=== PATIENT | female | born 1975 | race Caucasian/White ===

== ENCOUNTER 2018-07-29 10:51 | Emergency (ER) | payer OTHER, MEDICAID, SELFPAY ==
--- NOTE | 2018-07-29 10:57 | DI.RAD.S_ITS ---
PROCEDURE: XR ANKLE LT MIN 3V INDICATIONS: twist/fall TECHNIQUE: 3 views of the ankle were acquired. COMPARISON: None. FINDINGS: Bones: No fractures or dislocations. Ankle mortise is normally aligned. No suspicious bony lesions. The talar dome demonstrates no dea abnormality. A plantar calcaneal spur is seen. Incidental note is made of an accessory ossicle, an os trigonum. Soft tissues: No tibiotalar joint effusion. Achilles tendon appears normal. IMPRESSION: No displaced fractures are seen on these plain films. If there is focal tenderness, or other clinical concern for a fracture not seen on these images in this patient with a given history of trauma, please consider a dedicated CT or a short-term followup plain film series (in 1-2 weeks) for further evaluation. Dictated by: Josiah Sigala M.D. on 07/29/2018 at 10:21 Approved by: Josiah Sigala M.D. on 07/29/2018 at 10:22
[2018-07-29 10:58] VITALS: BP 140/79; PULSE 97; RESP 18; TEMP 36.8; O2SAT 100
--- NOTE | 2018-07-29 12:53 | ED.LOWEXIN ---
HPI - Extremity Injury (Lower) General Chief Complaint: Extremity Injury, Lower Stated Complaint: think broke her left ankle Time Seen by Provider: 07/29/18 12:49 Source: patient Mode of arrival: ambulatory Limitations: no limitations History of Present Illness HPI Narrative: Patient is a 42-year-old female who presents with all left ankle pain for 2 days. She tripped over cowboy boots do trying to grab a broom. She has been walking on it but it does hurt. Her 2nd toe is a bruised. But she says it is overall improving. She still has pain. MD complaint: ankle injury, foot injury and fall Related Data Allergies Allergy/AdvReac Type Severity Reaction Status Date / Time No Known Drug Allergies Allergy Verified 07/29/18 10:58 Review of Systems Review of Systems GENERAL: Denies chills,fever HEENT: Denies throat pain RESPIRATORY: Denies dyspnea, cough, wheezing CARDIOVASCULAR: Denies chest pain, palpitations GASTROINTESTINAL: Denies nausea, vomiting MUSCULOSKELETAL: See HPI SKIN: No rash, no laceration, no pruritus NEUROLOGIC: Denies weakness, dizziness, headache, numbness 8 point review of systems is negative except for those stated above and HPI [facility] Medical History Healthy adult (Acute) Social History Smoking Status: Current every day smoker Exam Initial Vital Signs Initial Vital Signs: Vital Signs Temperature 98.3 F 07/29/18 10:58 Pulse Rate 97 H 07/29/18 10:58 Respiratory Rate 18 07/29/18 10:58 Blood Pressure 140/79 07/29/18 10:58 Pulse Oximetry 100 07/29/18 10:58 GENERAL: Well-appearing, well-nourished and in no acute distress. CARDIOVASCULAR: peripheral pulses in tact, cap refill <2 sec RESPIRATORY: No respiratory distress, speaks in full sentences without difficulty EXTREMITIES: Normal range of motion, no clubbing or edema. Neurovascularly intact -left ankle pain, no swelling contusion improving on 2nd toe distal pedal pulse intact able to flex and extend at ankle NEUROLOGICAL: Cranial nerves II through XII grossly intact. Normal gait and speech. SKIN: Warm, dry, no petechiae, no rashes or lesions. Course Orders Ordered: ED Orders 07/29/18 10:57 XR ankle LT min 3V Stat Vital Signs - 8 hr 07/29/18 10:58 Temperature 98.3 F Pulse Rate 97 H Respiratory Rate 18 Blood Pressure 140/79 Pulse Oximetry 100 MDM - Extremity Injury (Lower) Imaging Data Left ankle x-ray: Radiologist's impression: PROCEDURE: XR ANKLE LT MIN 3V INDICATIONS: twist/fall TECHNIQUE: 3 views of the ankle were acquired. COMPARISON: None. FINDINGS: Bones: No fractures or dislocations. Ankle mortise is normally aligned. No suspicious bony lesions. The talar dome demonstrates no dea abnormality. A plantar calcaneal spur is seen. Incidental note is made of an accessory ossicle, an os trigonum. Soft tissues: No tibiotalar joint effusion. Achilles tendon appears normal. IMPRESSION: No displaced fractures are seen on these plain films. If there is focal tenderness, or other clinical concern for a fracture not seen on these images in this patient with a given history of trauma, please consider a dedicated CT or a short-term followup plain film series (in 1-2 weeks) for further evaluation. Dictated by: Josiah Sigala M.D. on 07/29/2018 at 10:21 Discharge Plan Departure Patient Disposition: Home Clinical Impression: Left ankle sprain Discharge Date/Time: 07/29/18 13:18 Interventions: ED Discharge Assessment Last Done: 07/29/18 13:17 Instructions: DI for Ankle Sprain Activity Restrictions/Additional Instructions: *You have been diagnosed with left ankle sprain *What to do: Increase activity as tolerated use crutches only if needed if still having pain in 7-10 days may require repeat x-ray with her primary care provider *Continue to take medications as directed Motrin 800 mg every 8 hr if needed for pain with food *Follow up with your primary care provider in 2-3 days *Return to ER if you should have increasing pain inability to walk or any new, worsening or concerning symptoms Referrals: Brando Quezada MD [Physician] - Colette Cornell ARNP [Primary Care Provider] -
== END 2018-07-29 13:18 | disposition home or self-care (01) ==
PROVIDERS: Emergency Provider Emergency Medicine; Family Provider Nurse Practitioner Family; PCP Nurse Practitioner Family
DX: S93.402A Sprain of unspecified ligament of left ankle, initial encounter (principal); W01.0XXA Fall on same level from slipping, tripping and stumbling without subsequent striking against object, initial encounter
CPT/HCPCS: 73610; 99282; 99283

== ENCOUNTER 2018-08-10 18:39 | Emergency (ER) | payer OTHER, MEDICAID, SELFPAY ==
[2018-08-10 18:43] VITALS: BP 155/91; PULSE 104; RESP 18; TEMP 36.4; O2SAT 100
--- NOTE | 2018-08-10 18:51 | ED.LOWEXIN ---
HPI - Extremity Injury (Lower) <Laurie Kwan PA-C - Last Filed: 08/10/18 22:11> General Chief Complaint: Extremity Injury, Lower Stated Complaint: LT ANKLE PAIN Time Seen by Provider: 08/10/18 18:51 Source: patient and family Mode of arrival: wheelchair Limitations: no limitations History of Present Illness HPI Narrative: This 43-year-old female returns due to persistent left ankle pain. She tripped over a boot 2 weeks ago and pitched forward, and had ankle pain right away. She states that she did not actually fall. She states that she has had done pain. She tried to wear her wrap and crutches the 1st 2 days but mostly has been trying to walk on it. She states that she still had significant pain but was doing okay until she got up last night to get to the restroom and pain was acutely worse when she tried to walk. She does not remember any specific trauma. She denies any new weakness or paresthesia and states that it is mainly pain that keeps her from walking. She also states she feels pain in the arch of her foot with walking. She denies any other new complaints or new injury Related Data Allergies Allergy/AdvReac Type Severity Reaction Status Date / Time No Known Drug Allergies Allergy Verified 07/29/18 10:58 Review of Systems <Laurie Kwan PA-C - Last Filed: 08/10/18 22:11> Review of Systems All systems reviewed & are unremarkable except as noted in HPI and below Exam <Laurie Kwan PA-C - Last Filed: 08/10/18 22:11> Narrative Exam Narrative: GENERAL APPEARANCE: Patient sitting comfortably, in no distress. LUNGS: Clear to auscultation bilaterally. HEART: Rate and rhythm regular without murmur, normal S1 and S2, no S3 or S4. MUSCULOSKELETAL: Left foot and ankle there is no effusion. She is tender throughout the ankle, most anterior and distal to the lateral malleolus. She has full active range of motion, tender with passive range of motion especially inversion/eversion. There is no obvious laxity. Left foot minimal tenderness on the arch, plantar surface, no tenderness over the metatarsals. Normal plantar and dorsiflexion of the toes. Achilles is intact by palpation. NEUROVASCULAR: Left lower extremity sensation is grossly intact, foot is cool but not cold to touch. Faint DP pulse is palpable bilaterally, pulses are easily audible with Doppler Initial Vital Signs Initial Vital Signs: Vital Signs Temperature 97.5 F L 08/10/18 18:43 Pulse Rate 104 H 08/10/18 18:43 Respiratory Rate 18 08/10/18 18:43 Blood Pressure 155/91 H 08/10/18 18:43 Pulse Oximetry 100 08/10/18 18:43 <Ventura Kaminski DO - Last Filed: 08/10/18 23:51> Initial Vital Signs Initial Vital Signs: Vital Signs Temperature 97.5 F L 08/10/18 18:43 Pulse Rate 104 H 08/10/18 18:43 Respiratory Rate 18 08/10/18 18:43 Blood Pressure 155/91 H 08/10/18 18:43 Pulse Oximetry 100 08/10/18 18:43 Course <Laurie Kwna PA-C - Last Filed: 08/10/18 22:11> Additional Information: CT findings reviewed with patient. 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 This does not correspond with where she thinks her previous foot fracture was, does correspond with the side of pain. She was tested in a walking boot and feels much better in terms of pain with this. She will continue wearing this when weight-bearing, and I asked her to follow up with our local freezer worker to ensure improving as expected View Report History [address] [address] [address] Scan Report Signed Patient: Phylicia Rivas MR#: [id number] : 1975 Acct:[id number] Age/Sex: 43 / F Date of Service: 08/10/18 Loc: ED Accession Number: [id number] Procedure: CT LE LT wo con Ordering Provider: Laurie Kwan P.A-C PROCEDURE: CT LE LT W CON INDICATIONS: possible navicular fx, L. foot TECHNIQUE: Noncontrast 1-1.5 mm axial sections acquired from above the tibiotalar joint to the bottom of the calcaneus, with coronal and sagittal reformats. COMPARISON: None. FINDINGS: Image quality: Excellent. Bones: No acute fracture or dislocation. There is a chronic appearing non-unified fracture of the medial navicular bone versus a medial accessory ossicle. Soft tissues: No soft tissue swelling. No soft tissue fluid collections. IMPRESSION: No acute fracture. 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 Dictated by: Dunia Patel M.D. on 08/10/2018 at 20:45 Approved by: Dunia Patel M.D. on 08/10/2018 at 20:52 Orders Ordered: ED Orders 08/10/18 19:11 XR ankle LT min 3V Stat 08/10/18 19:16 XR foot LT min 3V Stat 08/10/18 20:09 CT LE LT wo con Stat Discontinued Medications Hydrocodone Bitart/Acetaminophen ([place] 5/325) 1 tab PO NOW ONE Stop: 08/10/18 20:10 Last Admin: 08/10/18 20:35 Dose: 1 tab Vital Signs - 8 hr 08/10/18 18:43 08/10/18 21:30 Temperature 97.5 F L Pulse Rate 104 H 94 H Respiratory Rate 18 20 Blood Pressure 155/91 H 127/84 Pulse Oximetry 100 98 <Ventura Kaminski DO - Last Filed: 08/10/18 23:51> Orders Ordered: ED Orders 08/10/18 19:11 XR ankle LT min 3V Stat 08/10/18 19:16 XR foot LT min 3V Stat 08/10/18 20:09 CT LE LT wo con Stat Discontinued Medications Hydrocodone Bitart/Acetaminophen ([place] 5/325) 1 tab PO NOW ONE Stop: 08/10/18 20:10 Last Admin: 08/10/18 20:35 Dose: 1 tab Vital Signs - 8 hr 08/10/18 18:43 08/10/18 21:30 Temperature 97.5 F L Pulse Rate 104 H 94 H Respiratory Rate 18 20 Blood Pressure 155/91 H 127/84 Pulse Oximetry 100 98 MDM - Extremity Injury (Lower) <Laurie Kwan PA-C - Last Filed: 08/10/18 22:11> Imaging Data foot/ankle: Radiologist's impression: View Report History [address] [address] XRay Report Signed Patient: Phylicia Rivas MR#: [id number] : 1975 Acct:[id number] Age/Sex: 43 / F Date of Service: 08/10/18 Loc: ED Accession Number: [id number] Procedure: XR foot LT min 3V Ordering Provider: Laurie Kwan P.A-C PROCEDURE: XR FOOT LT MIN 3V INDICATIONS: arch/midfoot pain TECHNIQUE: 3 views of the foot were acquired. COMPARISON: [facility], CR, XR ANKLE LT MIN 3V, 07/29/2018, 11:01. FINDINGS: Bones: There is a questionable radiolucency through the navicular bone. No other fractures or dislocations. Soft tissues: No tibiotalar joint effusion. Achilles tendon appears normal. IMPRESSION: Questionable navicular fracture. If the patient endorses focal pain in this region, acute fracture may be present. Please correlate with physical exam. Dictated by: Dunia Patel M.D. on 08/10/2018 at 19:54 Approved by: Dunia Patel M.D. on 08/10/2018 at 19:56 View Report History Print [address] [address] XRay Report Signed Patient: Phylicia Rivas MR#: [id number] : 1975 Acct:[id number] Age/Sex: 43 / F Date of Service: 08/10/18 Loc: ED Accession Number: [id number] Procedure: XR ankle LT min 3V Ordering Provider: Laurie Kwan P.A-C PROCEDURE: XR ANKLE LT MIN 3V INDICATIONS: persistent anterolateral pain (compare with previous please) TECHNIQUE: 3 views of the ankle were acquired. COMPARISON: [facility], , XR ANKLE LT MIN 3V, 07/29/2018, 11:01. FINDINGS: Bones: No fractures or dislocations. Ankle mortise is normally aligned. No suspicious bony lesions. Soft tissues: No tibiotalar joint effusion. Achilles tendon appears normal. IMPRESSION: No acute radiographic findings. If pain persists, followup imaging in 5-7 days is recommended to exclude occult fracture. Dictated by: Dunia Patel M.D. on 08/10/2018 at 19:56 Approved by: Dunia Patel M.D. on 08/10/2018 at 19:57 Discharge Plan Departure Patient Disposition: Home Clinical Impression: Ankle sprain Discharge Date/Time: 08/10/18 21:30 Interventions: ED Discharge Assessment Last Done: 08/10/18 21:30 Instructions: DI for Ankle Sprain Activity Restrictions/Additional Instructions: Please return to ED if you have any acutely worsening symptoms. Please wear the walking boot whenever you are bearing weight to help keep stress off of your foot and ankle. Please call schedule [facility] to schedule a follow-up with Dr. Solano or Dr. Palma, 1 of our podiatrists to make sure you are getting better as expected. Let them know you were seen at the emergency room. They will be able to look at your films when you visit. Referrals: Brando Quezada MD [Physician] - Maynor Solano DPM [Physician] - <Ventura Kaminski DO - Last Filed: 08/10/18 23:51> Cosign ED Attending Cosvelmaature Attestation: I was available for consultation during this patient's emergency department encounter
--- NOTE | 2018-08-10 19:11 | DI.RAD.S_ITS ---
PROCEDURE: XR ANKLE LT MIN 3V INDICATIONS: persistent anterolateral pain (compare with previous please) TECHNIQUE: 3 views of the ankle were acquired. COMPARISON: [facility], , XR ANKLE LT MIN 3V, 07/29/2018, 11:01. FINDINGS: Bones: No fractures or dislocations. Ankle mortise is normally aligned. No suspicious bony lesions. Soft tissues: No tibiotalar joint effusion. Achilles tendon appears normal. IMPRESSION: No acute radiographic findings. If pain persists, followup imaging in 5-7 days is recommended to exclude occult fracture. Dictated by: Dunia Patel M.D. on 08/10/2018 at 19:56 Approved by: Dunia Patel M.D. on 08/10/2018 at 19:57
--- NOTE | 2018-08-10 19:16 | ED_ITS ---
HPI - Extremity Injury (Lower) <Laurie Kwan PA-C - Last Filed: 08/10/18 22:11> General Chief Complaint: Extremity Injury, Lower Stated Complaint: LT ANKLE PAIN Time Seen by Provider: 08/10/18 18:51 Source: patient and family Mode of arrival: wheelchair Limitations: no limitations History of Present Illness HPI Narrative: This 43-year-old female returns due to persistent left ankle pain. She tripped over a boot 2 weeks ago and pitched forward, and had ankle pain right away. She states that she did not actually fall. She states that she has had done pain. She tried to wear her wrap and crutches the 1st 2 days but mostly has been trying to walk on it. She states that she still had significant pain but was doing okay until she got up last night to get to the restroom and pain was acutely worse when she tried to walk. She does not remember any specific trauma. She denies any new weakness or paresthesia and states that it is mainly pain that keeps her from walking. She also states she feels pain in the arch of her foot with walking. She denies any other new complaints or new injury Related Data Allergies Allergy/AdvReac Type Severity Reaction Status Date / Time No Known Drug Allergies Allergy Verified 07/29/18 10:58 Review of Systems <Laurie Kwan PA-C - Last Filed: 08/10/18 22:11> Review of Systems All systems reviewed & are unremarkable except as noted in HPI and below Exam <Laurie Kwan PA-C - Last Filed: 08/10/18 22:11> Narrative Exam Narrative: GENERAL APPEARANCE: Patient sitting comfortably, in no distress. LUNGS: Clear to auscultation bilaterally. HEART: Rate and rhythm regular without murmur, normal S1 and S2, no S3 or S4. MUSCULOSKELETAL: Left foot and ankle there is no effusion. She is tender throughout the ankle, most anterior and distal to the lateral malleolus. She has full active range of motion, tender with passive range of motion especially inversion/eversion. There is no obvious laxity. Left foot minimal tenderness on the arch, plantar surface, no tenderness over the metatarsals. Normal plantar and dorsiflexion of the toes. Achilles is intact by palpation. NEUROVASCULAR: Left lower extremity sensation is grossly intact, foot is cool but not cold to touch. Faint DP pulse is palpable bilaterally, pulses are easily audible with Doppler Initial Vital Signs Initial Vital Signs: Vital Signs Temperature 97.5 F L 08/10/18 18:43 Pulse Rate 104 H 08/10/18 18:43 Respiratory Rate 18 08/10/18 18:43 Blood Pressure 155/91 H 08/10/18 18:43 Pulse Oximetry 100 08/10/18 18:43 <Ventura Kaminski DO - Last Filed: 08/10/18 23:51> Initial Vital Signs Initial Vital Signs: Vital Signs Temperature 97.5 F L 08/10/18 18:43 Pulse Rate 104 H 08/10/18 18:43 Respiratory Rate 18 08/10/18 18:43 Blood Pressure 155/91 H 08/10/18 18:43 Pulse Oximetry 100 08/10/18 18:43 Course <Laurie Kwan PA-C - Last Filed: 08/10/18 22:11> Additional Information: CT findings reviewed with patient. 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 This does not correspond with where she thinks her previous foot fracture was, does correspond with the side of pain. She was tested in a walking boot and feels much better in terms of pain with this. She will continue wearing this when weight-bearing, and I asked her to follow up with our local hand stitcher to ensure improving as expected View Report History [address] [address] [address] Scan Report Signed Patient: Phylicia Rivas MR#: [id number] : 1975 Acct:[id number] Age/Sex: 43 / F Date of Service: 08/10/18 Loc: ED Accession Number: [id number] Procedure: CT LE LT wo con Ordering Provider: Laurie Kwan P.A-C PROCEDURE: CT LE LT W CON INDICATIONS: possible navicular fx, L. foot TECHNIQUE: Noncontrast 1-1.5 mm axial sections acquired from above the tibiotalar joint to the bottom of the calcaneus, with coronal and sagittal reformats. COMPARISON: None. FINDINGS: Image quality: Excellent. Bones: No acute fracture or dislocation. There is a chronic appearing non- unified fracture of the medial navicular bone versus a medial accessory ossicle. Soft tissues: No soft tissue swelling. No soft tissue fluid collections. IMPRESSION: No acute fracture. 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 Dictated by: Dunia Patel M.D. on 08/10/2018 at 20:45 Approved by: Dunia Patel M.D. on 08/10/2018 at 20:52 Orders Ordered: ED Orders 08/10/18 19:11 XR ankle LT min 3V Stat 08/10/18 19:16 XR foot LT min 3V Stat 08/10/18 20:09 CT LE LT wo con Stat Discontinued Medications Hydrocodone Bitart/Acetaminophen ([place] 5/325) 1 tab PO NOW ONE Stop: 08/10/18 20:10 Last Admin: 08/10/18 20:35 Dose: 1 tab Vital Signs - 8 hr 08/10/18 18:43 08/10/18 21:30 Temperature 97.5 F L Pulse Rate 104 H 94 H Respiratory Rate 18 20 Blood Pressure 155/91 H 127/84 Pulse Oximetry 100 98 <Ventura Kaminski DO - Last Filed: 08/10/18 23:51> Orders Ordered: ED Orders 08/10/18 19:11 XR ankle LT min 3V Stat 08/10/18 19:16 XR foot LT min 3V Stat 08/10/18 20:09 CT LE LT wo con Stat Discontinued Medications Hydrocodone Bitart/Acetaminophen ([place] 5/325) 1 tab PO NOW ONE Stop: 08/10/18 20:10 Last Admin: 08/10/18 20:35 Dose: 1 tab Vital Signs - 8 hr 08/10/18 18:43 08/10/18 21:30 Temperature 97.5 F L Pulse Rate 104 H 94 H Respiratory Rate 18 20 Blood Pressure 155/91 H 127/84 Pulse Oximetry 100 98 MDM - Extremity Injury (Lower) <Laurie Kwan PA-C - Last Filed: 08/10/18 22:11> Imaging Data foot/ankle: Radiologist's impression: View Report History [address] [address] XRay Report Signed Patient: Phylicia Rivas MR#: [id number] : 1975 Acct:[id number] Age/Sex: 43 / F Date of Service: 08/10/18 Loc: ED Accession Number: [id number] Procedure: XR foot LT min 3V Ordering Provider: Laurie Kwan P.A-C PROCEDURE: XR FOOT LT MIN 3V INDICATIONS: arch/midfoot pain TECHNIQUE: 3 views of the foot were acquired. COMPARISON: [facility], CR, XR ANKLE LT MIN 3V, 07/29/2018, 11:01. FINDINGS: Bones: There is a questionable radiolucency through the navicular bone. No other fractures or dislocations. Soft tissues: No tibiotalar joint effusion. Achilles tendon appears normal. IMPRESSION: Questionable navicular fracture. If the patient endorses focal pain in this region, acute fracture may be present. Please correlate with physical exam. Dictated by: Dunia Patel M.D. on 08/10/2018 at 19:54 Approved by: Dunia Patel M.D. on 08/10/2018 at 19:56 View Report History Print [address] [address] XRay Report Signed Patient: Phylicia Rivas MR#: [id number] : 1975 Acct:[id number] Age/Sex: 43 / F Date of Service: 08/10/18 Loc: ED Accession Number: [id number] Procedure: XR ankle LT min 3V Ordering Provider: Laurie Kwan P.A-C PROCEDURE: XR ANKLE LT MIN 3V INDICATIONS: persistent anterolateral pain (compare with previous please) TECHNIQUE: 3 views of the ankle were acquired. COMPARISON: [facility], , XR ANKLE LT MIN 3V, 07/29/2018, 11:01. FINDINGS: Bones: No fractures or dislocations. Ankle mortise is normally aligned. No suspicious bony lesions. Soft tissues: No tibiotalar joint effusion. Achilles tendon appears normal. IMPRESSION: No acute radiographic findings. If pain persists, followup imaging in 5-7 days is recommended to exclude occult fracture. Dictated by: Dunia Patel M.D. on 08/10/2018 at 19:56 Approved by: Dunia Patel M.D. on 08/10/2018 at 19:57 Discharge Plan Departure Patient Disposition: Home Clinical Impression: Ankle sprain Discharge Date/Time: 08/10/18 21:30 Interventions: ED Discharge Assessment Last Done: 08/10/18 21:30 Instructions: DI for Ankle Sprain Activity Restrictions/Additional Instructions: Please return to ED if you have any acutely worsening symptoms. Please wear the walking boot whenever you are bearing weight to help keep stress off of your foot and ankle. Please call schedule [facility] to schedule a follow -up with Dr. Solano or Dr. Palma, 1 of our podiatrists to make sure you are getting better as expected. Let them know you were seen at the emergency room. They will be able to look at your films when you visit. Referrals: Brando Quezada MD [Physician] - Maynor Solano DPM [Physician] - <Ventura Kaminski DO - Last Filed: 08/10/18 23:51> Cosign ED Attending Cosevlmaature Attestation: I was available for consultation during this patient's emergency department encounter
--- NOTE | 2018-08-10 20:09 | DI.CT.S_ITS ---
PROCEDURE: CT LE LT W CON INDICATIONS: possible navicular fx, L. foot TECHNIQUE: Noncontrast 1-1.5 mm axial sections acquired from above the tibiotalar joint to the bottom of the calcaneus, with coronal and sagittal reformats. COMPARISON: None. FINDINGS: Image quality: Excellent. Bones: No acute fracture or dislocation. There is a chronic appearing non-unified fracture of the medial navicular bone versus a medial accessory ossicle. Soft tissues: No soft tissue swelling. No soft tissue fluid collections. IMPRESSION: No acute fracture. 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 Dictated by: Dunia Patel M.D. on 08/10/2018 at 20:45 Approved by: Dunia Patel M.D. on 08/10/2018 at 20:52
[2018-08-10] MEDS: HYDROCODONE/ACET 5/325 TABLET 1 TAB PO (20:35)
[2018-08-10 21:30] VITALS: BP 127/84; PULSE 94; RESP 20; O2SAT 98
== END 2018-08-10 21:30 | disposition home or self-care (01) ==
PROVIDERS: Emergency Provider Internal Medicine; Family Provider Nurse Practitioner Family; PCP Nurse Practitioner Family
DX: S93.402A Sprain of unspecified ligament of left ankle, initial encounter (principal); W18.40XA Slipping, tripping and stumbling without falling, unspecified, initial encounter
CPT/HCPCS: 73610; 73630; 73700; 99283; 99284

== ENCOUNTER → 2018-08-25 10:18 | Outpatient (CLI) | payer OTHER, MEDICAID, SELFPAY ==
[2018-08-25 10:49] LABS: Add Manual Diff / Slide Review NO; Basophils Percent Auto 0.8 % (0-2); Eosinophils Percent Auto 7.4 % (2-4); Hematocrit 34.6 % (36-46); Hemoglobin 11.2 g/dL (12.0-16.0); Lymphocytes Percent Auto 23.6 % (25-40); Mean Corpuscular HGB Conc 32.4 % (30-36); Mean Corpuscular Hemoglobin 24.5 PG (26-34); Mean Corpuscular Volume 75.6 fL (80-100); Monocytes Percent Auto 5.3 % (3-14); Neutrophils Absolute Auto 3600 /uL (1500-7000); Neutrophils Percent Auto 62.9 % (50-75); Platelet Count 204 X10^3/uL (150-400); Red Blood Cell Count 4.58 X10^6/uL (4.0-5.2); Red Cell Distribution Width 16.9 % (11.6-14.8); White Blood Cell Count 5.7 X10^3/uL (4.5-11.0)
[2018-08-25 10:59] LABS: Alanine Aminotransferase 23 IU/L (9-52); Albumin 4.1 g/dL (3.5-5.0); Albumin Globulin Ratio 1.3 (1.0-2.8); Alkaline Phosphatase 84 U/L (38-126); Aspartate Aminotransferase 18 IU/L (14-36); BUN Creatinine Ratio 12.2 (6-22); Bilirubin Total 0.4 mg/dL (0.2-1.3); Blood Urea Nitrogen 11 mg/dL (7-17); Calcium 9.2 mg/dL (8.4-10.2); Carbon Dioxide 26 mmol/L (22-32); Chloride 108 mmol/L (98-107); Cholesterol 150 mg/dL (140-199); Estimated Glomerular Filt Rate > 60.0 mL/min (>60); Globulin 3.2 g/dL (1.7-4.1); Glucose 93 mg/dL (70-100); HDL Cholesterol 47 mg/dL (40-60); HEMOLYSIS < 15 (0-50); LDL Cholesterol Calculated 86 mg/dL (<100); Sodium 143 mmol/L (137-145); Total Protein 7.3 g/dL (6.3-8.2); Triglycerides 85 mg/dL (35-150)
[2018-08-25 11:23] LABS: HEMOLYSIS < 15 (0-50)
[2018-08-25 11:28] LABS: Iron 31 ug/dL (37-170)
[2018-08-25 11:39] LABS: Percent Iron Saturation 8 % (15-50); Total Iron Binding Capacity 376 ug/dL (265-497); Transferrin 350 mg/dL (206-381)
[2018-08-25 11:45] LABS: Free T4, Direct Thyroxine 1.04 ng/dL (0.78-2.19)
[2018-08-25 12:01] LABS: Thyroid Stimulating Hormone 2.45 uIU/mL (0.47-4.68)
[2018-08-25 12:06] LABS: Vitamin D 25 Hydroxy (D3) < 30.0 ng/mL (30.0-100.0)
[2018-08-25 12:15] LABS: Vitamin B12 286 pg/mL (239-931)
[2018-08-25 12:32] LABS: Hemoglobin A1C% w Est Avg Glu 5.2 % (4.0-6.0)
== END ==
PROVIDERS: PCP Student in an Organized Health Care Education/Training Program; Visit Provider Student in an Organized Health Care Education/Training Program
DX: E03.9 Hypothyroidism, unspecified (principal); E16.2 Hypoglycemia, unspecified; K59.00 Constipation, unspecified; M79.7 Fibromyalgia; Z98.84 Bariatric surgery status
CPT/HCPCS: 36415; 80053; 80061; 82306; 82607; 83036; 83540; 83550; 84439; 84443; 85025

== ENCOUNTER 2018-11-26 12:30 | Outpatient (RCR) | payer OTHER, MEDICAID, SELFPAY ==
--- NOTE | 2018-10-13 14:57 | PT.OIE ---
Current Diagnoses Fibromyalgia (10/13/18) Past Medical History (Last Updated 08/10/18 @ 19:19 by Laurie Kwan PA-C) Fibromyalgia (Chronic) Hypoglycemia (Chronic) Osteoarthritis (Chronic) Tachycardia (Chronic) Foot fracture, left (Resolved) Past Surgical History (Last Updated 08/10/18 @ 19:19 by Laurie Kwan PA-C) History of gastric bypass (Chronic) Provider Visit Care Team Role Provider Type Brando Quezada MD Attending Provider Physician Primary Care Provider Specialty: Internal Medicine Address: [address] [place] [address] Email: Physical Therapy Initial Evaluation PT-OP-A Visit Information Start: 10/04/18 07:34 Freq: Status: Active Protocol: Document 10/13/18 08:14 SAK (Rec: 10/13/18 09:03 SAK [id number]) Out-Patient Physical Therapy Visit Information Visit Information Visit Type Initial Evaluation Visit Start Time 08:15 Visit Stop Time 08:50 Total Visit Minutes 35 Visit Number 1 Number of ROTARY BAR OPERATOR Visits 0 Evaluation Information Evaluation Date 10/13/18 PT-OP-B Current Condition Start: 10/04/18 07:34 Freq: Status: Active Protocol: Document 10/13/18 08:14 SAK (Rec: 10/13/18 09:03 SAK [id number]) Current Condition History of Current Condition Onset Date 8+ years Current Complaints function-limiting back and hip pain related to diagnosis of fibromyalgia. History of Current Condition Reports progressively increasing pain as day progresses, very busy, 4 kids , spouse, pets. No exercise program besides daily activity . Taking Kratom (herb) somewhat helpful, decreased other medication use but pain persists. Difficulty sleeping . Poor tolerance for even gentle yoga. Tried meditation but reports didn't work for her. Poor tolerance for laying supine or prone, best tolerance for sidelying. Has never gone to chiropractor or massage therapist. Reports occasional dizziness and falling due to pain. Sweats profusely due to pain. Heat somewhat helpful for short- term relief. Has just started care with new physician. Prior Treatments and Tests prior PT around 4 times, including land-based and aquatic therapy (shallow only) , states poor tolerance for all; aquatic felt good while in water but couldn't move for a few days after. Unable to tolerate land-based exercise. 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 Functional Limitations- Recreation/ unable Hobbies Personal Factors Other Personal Factors That May Effect depression Therapy/Recovery PT-OP-C Subjective Start: 10/04/18 07:34 Freq: Status: Active Protocol: Document 10/13/18 14:39 [facility] (Rec: 10/13/18 14:57 [facility] [id number]) OP-PT Pain Assessment Pain Assessment Grid Paper Pain Assessment Grid Completed Yes Location cervical, thoracic, lumbar spines, leigh hips Intensity 8 Scale Used Numeric (1 - 10) Pain Aggravating Factors Position Activity Pain Alleviating Factors Heat Inactivity Other Pain Alleviating Factors sidelying Home Pain Medication Use Pain Medications Used Yes Pain Behaviors Pain Behaviors Facial Grimacing Guarding Restlessness Wincing Comments Pain Comments sweating due to pain PT-OP-J Posture/Palpation/Skin Start: 10/04/18 07:34 Freq: Status: Active Protocol: Document 10/13/18 14:39 [facility] (Rec: 10/13/18 14:57 [facility] [id number]) Posture Evaluation Position Standing Head/C-Spine Posture Forward Head T-Spine Posture Increased Kyphosis L-Spine Posture Increased Lordosis Arm Posture (L) Internally Rotated (R) Internally Rotated Hip Posture (L) Externally Rotated (R) Externally Rotated Knee Posture (L) Genu Recurvatum (R) Genu Recurvatum Palpation Assessment Location 1 Palpation Location cervical, thoracic, lumbar spine, hips Palpation Findings Muscle Guarding Tenderness Palpation Details Poor tolerance for palpation throughout PT-OP-K Range of Motion Start: 10/04/18 07:34 Freq: Status: Active Protocol: Document 10/13/18 14:39 [facility] (Rec: 10/13/18 14:57 [facility] [id number]) Cervical Spine Range of Motion Cervical Spine Active Comments WNL Lumbar Spine Range of Motion Lumbar Spine Active Comments mod decrease all motions with c/o pain and difficulty returning to upright position Shoulder Goniometric Range of Motion Shoulder Measured in Degrees leigh Shoulder ROM WFL Yes Shoulder ROM Limitations Comments painful end-range Elbow/Forearm Range of Motion Elbow/Forearm Measured in Degrees leigh Elbow/Forearm ROM WFL Yes Hip Goniometric Range of Motion Hip Measured in Degrees leigh Hip ROM WFL Yes Hip ROM Limitations Comments painful all movements Knee Goniometric Range of Motion Knee Measured in Degrees leigh Knee ROM WFL Yes Knee ROM Limitations Comments recurvatum leigh Ankle and Foot Goniometric Range of Motion Ankle and Foot Measured in Degrees leigh Ankle/Foot ROM WFL Yes PT-OP-M Strength Start: 10/04/18 07:34 Freq: Status: Active Protocol: Document 10/13/18 14:39 [facility] (Rec: 10/13/18 14:57 [facility] [id number]) Trunk Strength Trunk Manual Muscle Testing Reason Not Measured Pain Comments low muscle tone evident with difficulty with core stabilization Hip Strength Hip Manual Muscle Testing leigh Reason Not Measured Pain Comments demonstrates anti-gravity strength but resistance painful Knee Strength Knee Manual Muscle Testing leigh Flexion (S2) 4 Good Extension (L3) 4 Good Comments painful Ankle/Foot Strength Ankle and Foot Manual Muscle Testing leigh Dorsiflexion (L4) 4 Good Plantarflexion (S1) 4 Good PT-OP-T Assessment and Plan Start: 10/04/18 07:34 Freq: Status: Active Protocol: Document 10/13/18 14:39 [facility] (Rec: 10/13/18 14:57 [facility] [id number]) Physical Therapy Assessment Rehab Potential Rehabilitation Potential Fair Evaluation Complexity Number of Personal Factors/Comorbidities 3 or More Number of Body Systems Impaired 3 Clinical Presentation at Evaluation Evolving Impairments Impairments Activity Tolerance Pain Strength Goals 3 Impairment pain Short Term Goal (STG) Patient to report decrease in incidence of pain, with pain no greater than 7/10 STG Duration 11/20/18 [facility] Goal (LTG) Patient to report pain no greater than 5/10 consistently LTG Duration 01/10/19 2 Impairment strength Short Term Goal (STG) Patient able to tolerate 30 min active aquatic exercise without an increase in pain for purposes of strengthening STG Duration 11/20/18 Recreation Facility Manager Goal (LTG) Patient able to tolerate 45 min active aquatic exercise without an increase in pain and be independent with aquatic exercise program for long-term fitness and pain management. LTG Duration 01/10/19 1 Impairment activity tolerance Short Term Goal (STG) Patient able to perform all usual activities in the home with 25% reduction in pain STG Duration 11/20/18 [facility] Goal (LTG) Patient able to perform all usual activities in the home with 50% reduction in pain LTG Duration 01/10/19 Assessment Summary Assessment Patient presents with function -limiting pain of chronic nature throughout her spine and hips. She has significant weakness throughout her body especially in core as evidenced by very low muscle tone or ability to activate core musculature. All movement hurts which made objective evaluation difficult and she demonstrated tremulousness and sweating in response to her pain. Feel she would benefit most from aquatic therapy especially in deep water for maximal decompression of her spine and increased ease of movement, as well as manual techniques for muscle relaxation and pain management, gradually increasing the active portion of her sessions as her tolerance improves. We will incoroporate deep breathing and relaxation techniques to assist with pain management both in PT sessions and for home management of her symptoms. She is highly motivated and interested in continuing aquatic exercise at a pool close to her home when PT completed. We may consider transition to land-based PT if it appears patient will tolerate. Physical Therapy Plan Frequency and Duration Frequency of Treatment 2x/Week Duration of Treatment 3 months Plan of Care Start Date 10/13/18 Plan of Care End Date 01/10/19 Therapeutic Interventions Therapeutic Interventions Aquatic Therapy Manual Therapy Neuromuscular Re-education Patient/Caregiver Education Self-Care/Home Management Soft Tissue Mobilization Therapeutic Activities Therapeutic Exercises Modalities Electric Stimulation Next Visit Focus/Plan Next Note Type Treatment Note Next Visit Plan Initiate aquatic therapy
--- NOTE | 2018-11-04 08:35 | PT.OTN ---
Current Diagnoses Fibromyalgia (11/03/18) Physical Therapy Treatment Note PT-OP-A Visit Information Start: 10/04/18 07:34 Freq: Status: Active Protocol: Document 10/29/18 14:17 SAK (Rec: 10/29/18 14:17 [facility] [id number]) Out-Patient Physical Therapy Visit Information Visit Information Visit Type Other Visit Note showed up at clinic instead of pool, then car wouldn't start to drive to pool PT-OP-B Current Condition Start: 10/04/18 07:34 Freq: Status: Active Protocol: Document 10/13/18 08:14 SAK (Rec: 10/13/18 09:03 SAK [id number]) Current Condition History of Current Condition Onset Date 8+ years Current Complaints function-limiting back and hip pain related to diagnosis of fibromyalgia. History of Current Condition Reports progressively increasing pain as day progresses, very busy, 4 kids , spouse, pets. No exercise program besides daily activity . Taking Kratom (herb) somewhat helpful, decreased other medication use but pain persists. Difficulty sleeping . Poor tolerance for even gentle yoga. Tried meditation but reports didn't work for her. Poor tolerance for laying supine or prone, best tolerance for sidelying. Has never gone to chiropractor or massage therapist. Reports occasional dizziness and falling due to pain. Sweats profusely due to pain. Heat somewhat helpful for short- term relief. Has just started care with new physician. Prior Treatments and Tests prior PT around 4 times, including land-based and aquatic therapy (shallow only) , states poor tolerance for all; aquatic felt good while in water but couldn't move for a few days after. Unable to tolerate land-based exercise. 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 PT-OP-J Posture/Palpation/Skin Start: 10/04/18 07:34 Freq: Status: Active Protocol: Document 10/13/18 14:39 [facility] (Rec: 10/13/18 14:57 [facility] [id number]) Posture Evaluation Position Standing Head/C-Spine Posture Forward Head T-Spine Posture Increased Kyphosis L-Spine Posture Increased Lordosis Arm Posture (L) Internally Rotated (R) Internally Rotated Hip Posture (L) Externally Rotated (R) Externally Rotated Knee Posture (L) Genu Recurvatum (R) Genu Recurvatum Palpation Assessment Location 1 Palpation Location cervical, thoracic, lumbar spine, hips Palpation Findings Muscle Guarding Tenderness Palpation Details Poor tolerance for palpation throughout PT-OP-K Range of Motion Start: 10/04/18 07:34 Freq: Status: Active Protocol: Document 10/13/18 14:39 [facility] (Rec: 10/13/18 14:57 [facility] [id number]) Cervical Spine Range of Motion Cervical Spine Active Comments WNL Lumbar Spine Range of Motion Lumbar Spine Active Comments mod decrease all motions with c/o pain and difficulty returning to upright position Shoulder Goniometric Range of Motion Shoulder Measured in Degrees leigh Shoulder ROM WFL Yes Shoulder ROM Limitations Comments painful end-range Elbow/Forearm Range of Motion Elbow/Forearm Measured in Degrees leigh Elbow/Forearm ROM WFL Yes Hip Goniometric Range of Motion Hip Measured in Degrees leigh Hip ROM WFL Yes Hip ROM Limitations Comments painful all movements Knee Goniometric Range of Motion Knee Measured in Degrees leigh Knee ROM WFL Yes Knee ROM Limitations Comments recurvatum leigh Ankle and Foot Goniometric Range of Motion Ankle and Foot Measured in Degrees leigh Ankle/Foot ROM WFL Yes PT-OP-M Strength Start: 10/04/18 07:34 Freq: Status: Active Protocol: Document 10/13/18 14:39 [facility] (Rec: 10/13/18 14:57 [facility] [id number]) Trunk Strength Trunk Manual Muscle Testing Reason Not Measured Pain Comments low muscle tone evident with difficulty with core stabilization Hip Strength Hip Manual Muscle Testing leigh Reason Not Measured Pain Comments demonstrates anti-gravity strength but resistance painful Knee Strength Knee Manual Muscle Testing leigh Flexion (S2) 4 Good Extension (L3) 4 Good Comments painful Ankle/Foot Strength Ankle and Foot Manual Muscle Testing leigh Dorsiflexion (L4) 4 Good Plantarflexion (S1) 4 Good PT-OP-S Aquatic Treatment Start: 11/04/18 08:25 Freq: Status: Active Protocol: Document 11/03/18 11:45 SAK (Rec: 11/04/18 08:35 [facility] [id number]) Aquatics Treatment Pool Entry/Exit Pool Entry/Exit Method Stairs Assistance Standby Assistance Verbal Cues Water Walking fwd,bck,side, october, straight leg october Water Level Chest Level Level of Assistance Verbal Cues Lower Extremity Exercises hip flex/ext, ab/ad, circles CW, CCW Water Level Chest Level Reps/Duration 10x Upper Extremity Exercises hor ab/ad, flex/ext, circles Body Position Standing Water Level Neck Level Reps/Duration 10x Comments emphasis on core stabilization Spinal Exercises deep water hang Water Level [place] Equipment Small Noodle Reps/Duration 3x 1' Comments wall [place] Activities [place] Activities Bicycle Cross Country Running Other Activities slow pace Equipment small noodle Duration 10 min PT-OP-T Assessment and Plan Start: 10/04/18 07:34 Freq: Status: Active Protocol: Document 11/03/18 11:45 [facility] (Rec: 11/04/18 08:29 [facility] [id number]) Physical Therapy Assessment Goals 3 Impairment pain Short Term Goal (STG) Patient to report decrease in incidence of pain, with pain no greater than 7/10 STG Duration 11/20/18 Halfway Goal (LTG) Patient to report pain no greater than 5/10 consistently LTG Duration 01/10/19 2 Impairment strength Short Term Goal (STG) Patient able to tolerate 30 min active aquatic exercise without an increase in pain for purposes of strengthening STG Duration 11/20/18 Running Rigger Goal (LTG) Patient able to tolerate 45 min active aquatic exercise without an increase in pain and be independent with aquatic exercise program for long-term fitness and pain management. LTG Duration 01/10/19 1 Impairment activity tolerance Short Term Goal (STG) Patient able to perform all usual activities in the home with 25% reduction in pain STG Duration 11/20/18 Running Rigger Goal (LTG) Patient able to perform all usual activities in the home with 50% reduction in pain LTG Duration 01/10/19 Assessment Summary Assessment Good tolerance for gentle aquatic exercise today, frequent cues for postural alignment, core stabilization, deep breathing for muscle relaxation. Physical Therapy Plan Frequency and Duration Frequency of Treatment 2x/Week Duration of Treatment 3 months Plan of Care Start Date 10/13/18 Plan of Care End Date 01/10/19 Therapeutic Interventions Therapeutic Interventions Aquatic Therapy Manual Therapy Neuromuscular Re-education Patient/Caregiver Education Self-Care/Home Management Soft Tissue Mobilization Therapeutic Activities Therapeutic Exercises Modalities Electric Stimulation Next Visit Focus/Plan Next Note Type Treatment Note Next Visit Plan Progress aquatic therapy ex as tolerated.
--- NOTE | 2018-11-05 14:17 | PT.OTN ---
Current Diagnoses Fibromyalgia (11/03/18) Physical Therapy Treatment Note PT-OP-A Visit Information Start: 10/04/18 07:34 Freq: Status: Active Protocol: Document 11/05/18 11:45 LJ (Rec: 11/05/18 14:16 LJ [id number]) Out-Patient Physical Therapy Visit Information Visit Information Visit Type Aquatic Treatment Note Visit Note Pt states she is feeling ok now but usually hurts all along her spine. PT-OP-B Current Condition Start: 10/04/18 07:34 Freq: Status: Active Protocol: Document 10/13/18 08:14 SAK (Rec: 10/13/18 09:03 SAK [id number]) Current Condition History of Current Condition Onset Date 8+ years Current Complaints function-limiting back and hip pain related to diagnosis of fibromyalgia. History of Current Condition Reports progressively increasing pain as day progresses, very busy, 4 kids , spouse, pets. No exercise program besides daily activity . Taking Kratom (herb) somewhat helpful, decreased other medication use but pain persists. Difficulty sleeping . Poor tolerance for even gentle yoga. Tried meditation but reports didn't work for her. Poor tolerance for laying supine or prone, best tolerance for sidelying. Has never gone to chiropractor or massage therapist. Reports occasional dizziness and falling due to pain. Sweats profusely due to pain. Heat somewhat helpful for short- term relief. Has just started care with new physician. Prior Treatments and Tests prior PT around 4 times, including land-based and aquatic therapy (shallow only) , states poor tolerance for all; aquatic felt good while in water but couldn't move for a few days after. Unable to tolerate land-based exercise. 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 PT-OP-J Posture/Palpation/Skin Start: 10/04/18 07:34 Freq: Status: Active Protocol: Document 10/13/18 14:39 [facility] (Rec: 10/13/18 14:57 [facility] [id number]) Posture Evaluation Position Standing Head/C-Spine Posture Forward Head T-Spine Posture Increased Kyphosis L-Spine Posture Increased Lordosis Arm Posture (L) Internally Rotated (R) Internally Rotated Hip Posture (L) Externally Rotated (R) Externally Rotated Knee Posture (L) Genu Recurvatum (R) Genu Recurvatum Palpation Assessment Location 1 Palpation Location cervical, thoracic, lumbar spine, hips Palpation Findings Muscle Guarding Tenderness Palpation Details Poor tolerance for palpation throughout PT-OP-K Range of Motion Start: 10/04/18 07:34 Freq: Status: Active Protocol: Document 10/13/18 14:39 [facility] (Rec: 10/13/18 14:57 [facility] [id number]) Cervical Spine Range of Motion Cervical Spine Active Comments WNL Lumbar Spine Range of Motion Lumbar Spine Active Comments mod decrease all motions with c/o pain and difficulty returning to upright position Shoulder Goniometric Range of Motion Shoulder Measured in Degrees leigh Shoulder ROM WFL Yes Shoulder ROM Limitations Comments painful end-range Elbow/Forearm Range of Motion Elbow/Forearm Measured in Degrees leigh Elbow/Forearm ROM WFL Yes Hip Goniometric Range of Motion Hip Measured in Degrees leigh Hip ROM WFL Yes Hip ROM Limitations Comments painful all movements Knee Goniometric Range of Motion Knee Measured in Degrees leigh Knee ROM WFL Yes Knee ROM Limitations Comments recurvatum leigh Ankle and Foot Goniometric Range of Motion Ankle and Foot Measured in Degrees leigh Ankle/Foot ROM WFL Yes PT-OP-M Strength Start: 10/04/18 07:34 Freq: Status: Active Protocol: Document 10/13/18 14:39 [facility] (Rec: 10/13/18 14:57 [facility] [id number]) Trunk Strength Trunk Manual Muscle Testing Reason Not Measured Pain Comments low muscle tone evident with difficulty with core stabilization Hip Strength Hip Manual Muscle Testing leigh Reason Not Measured Pain Comments demonstrates anti-gravity strength but resistance painful Knee Strength Knee Manual Muscle Testing leigh Flexion (S2) 4 Good Extension (L3) 4 Good Comments painful Ankle/Foot Strength Ankle and Foot Manual Muscle Testing leigh Dorsiflexion (L4) 4 Good Plantarflexion (S1) 4 Good PT-OP-S Aquatic Treatment Start: 11/04/18 08:25 Freq: Status: Active Protocol: Document 11/05/18 11:45 DAVID (Rec: 11/05/18 14:16 LJ [id number]) Aquatics Treatment Pool Entry/Exit Pool Entry/Exit Method Stairs Assistance Independent Water Walking fwd,bck,side, october, straight leg october Water Level Chest Level Level of Assistance Verbal Cues Lower Extremity Exercises hip flex/ext, ab/ad, circles CW, CCW Water Level Chest Level Reps/Duration 10x Upper Extremity Exercises hor ab/ad, flex/ext, circles Body Position Standing Water Level Neck Level Reps/Duration 10x Comments emphasis on core stabilization Spinal Exercises deep water hang Water Level [place] Equipment Neck Float Reps/Duration 8 min Comments 2.5 ankle wts [place] Activities [place] Activities Bicycle Cross [place] Running Other Activities slow pace Equipment L belt Duration 15 min PT-OP-T Assessment and Plan Start: 10/04/18 07:34 Freq: Status: Active Protocol: Document 11/05/18 11:45 DAVID (Rec: 11/05/18 14:16 [id number]) Physical Therapy Assessment Goals 3 Impairment pain Short Term Goal (STG) Patient to report decrease in incidence of pain, with pain no greater than 7/10 STG Duration 11/20/18 Customer Experience Analyst Goal (LTG) Patient to report pain no greater than 5/10 consistently LTG Duration 01/10/19 2 Impairment strength Short Term Goal (STG) Patient able to tolerate 30 min active aquatic exercise without an increase in pain for purposes of strengthening STG Duration 11/20/18 [facility] Goal (LTG) Patient able to tolerate 45 min active aquatic exercise without an increase in pain and be independent with aquatic exercise program for long-term fitness and pain management. LTG Duration 01/10/19 1 Impairment activity tolerance Short Term Goal (STG) Patient able to perform all usual activities in the home with 25% reduction in pain STG Duration 11/20/18 Customer Experience Analyst Goal (LTG) Patient able to perform all usual activities in the home with 50% reduction in pain LTG Duration 01/10/19 Assessment Summary Assessment Good tolerance for gentle aquatic exercise today, frequent cues for postural alignment, core stabilization, deep breathing for muscle relaxation. Physical Therapy Plan Frequency and Duration Frequency of Treatment 2x/Week Duration of Treatment 3 months Plan of Care Start Date 10/13/18 Plan of Care End Date 01/10/19 Therapeutic Interventions Therapeutic Interventions Aquatic Therapy Manual Therapy Neuromuscular Re-education Patient/Caregiver Education Self-Care/Home Management Soft Tissue Mobilization Therapeutic Activities Therapeutic Exercises Modalities Electric Stimulation Next Visit Focus/Plan Next Note Type Treatment Note Next Visit Plan Progress aquatic therapy ex as tolerated. Add Chi after deep water hang
--- NOTE | 2018-11-08 14:49 | PT.OTN ---
Current Diagnoses Fibromyalgia (11/08/18) Physical Therapy Treatment Note PT-OP-A Visit Information Start: 10/04/18 07:34 Freq: Status: Active Protocol: Document 11/08/18 14:43 SAK (Rec: 11/08/18 14:49 [facility] [id number]) Out-Patient Physical Therapy Visit Information Visit Information Visit Type Aquatic Treatment Note PT-OP-B Current Condition Start: 10/04/18 07:34 Freq: Status: Active Protocol: Document 10/13/18 08:14 SAK (Rec: 10/13/18 09:03 [facility] [id number]) Current Condition History of Current Condition Onset Date 8+ years Current Complaints function-limiting back and hip pain related to diagnosis of fibromyalgia. History of Current Condition Reports progressively increasing pain as day progresses, very busy, 4 kids , spouse, pets. No exercise program besides daily activity . Taking Kratom (herb) somewhat helpful, decreased other medication use but pain persists. Difficulty sleeping . Poor tolerance for even gentle yoga. Tried meditation but reports didn't work for her. Poor tolerance for laying supine or prone, best tolerance for sidelying. Has never gone to chiropractor or massage therapist. Reports occasional dizziness and falling due to pain. Sweats profusely due to pain. Heat somewhat helpful for short- term relief. Has just started care with new physician. Prior Treatments and Tests prior PT around 4 times, including land-based and aquatic therapy (shallow only) , states poor tolerance for all; aquatic felt good while in water but couldn't move for a few days after. Unable to tolerate land-based exercise. 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 Functional Limitations- Recreation/ unable Hobbies Personal Factors Other Personal Factors That May Effect depression Therapy/Recovery PT-OP-C Subjective Start: 10/04/18 07:34 Freq: Status: Active Protocol: Document 11/08/18 14:43 SAK (Rec: 11/08/18 14:49 [facility] [id number]) OP-PT Subjective Patient Comments Patient Comments Better for a few hours after aquatic PT sessions PT-OP-J Posture/Palpation/Skin Start: 10/04/18 07:34 Freq: Status: Active Protocol: Document 10/13/18 14:39 SAK (Rec: 10/13/18 14:57 [facility] [id number]) Posture Evaluation Position Standing Head/C-Spine Posture Forward Head T-Spine Posture Increased Kyphosis L-Spine Posture Increased Lordosis Arm Posture (L) Internally Rotated (R) Internally Rotated Hip Posture (L) Externally Rotated (R) Externally Rotated Knee Posture (L) Genu Recurvatum (R) Genu Recurvatum Palpation Assessment Location 1 Palpation Location cervical, thoracic, lumbar spine, hips Palpation Findings Muscle Guarding Tenderness Palpation Details Poor tolerance for palpation throughout PT-OP-K Range of Motion Start: 10/04/18 07:34 Freq: Status: Active Protocol: Document 10/13/18 14:39 [facility] (Rec: 10/13/18 14:57 [facility] [id number]) Cervical Spine Range of Motion Cervical Spine Active Comments WNL Lumbar Spine Range of Motion Lumbar Spine Active Comments mod decrease all motions with c/o pain and difficulty returning to upright position Shoulder Goniometric Range of Motion Shoulder Measured in Degrees leigh Shoulder ROM WFL Yes Shoulder ROM Limitations Comments painful end-range Elbow/Forearm Range of Motion Elbow/Forearm Measured in Degrees leigh Elbow/Forearm ROM WFL Yes Hip Goniometric Range of Motion Hip Measured in Degrees leigh Hip ROM WFL Yes Hip ROM Limitations Comments painful all movements Knee Goniometric Range of Motion Knee Measured in Degrees leigh Knee ROM WFL Yes Knee ROM Limitations Comments recurvatum leigh Ankle and Foot Goniometric Range of Motion Ankle and Foot Measured in Degrees leigh Ankle/Foot ROM WFL Yes PT-OP-M Strength Start: 10/04/18 07:34 Freq: Status: Active Protocol: Document 10/13/18 14:39 [facility] (Rec: 10/13/18 14:57 [facility] [id number]) Trunk Strength Trunk Manual Muscle Testing Reason Not Measured Pain Comments low muscle tone evident with difficulty with core stabilization Hip Strength Hip Manual Muscle Testing leigh Reason Not Measured Pain Comments demonstrates anti-gravity strength but resistance painful Knee Strength Knee Manual Muscle Testing leigh Flexion (S2) 4 Good Extension (L3) 4 Good Comments painful Ankle/Foot Strength Ankle and Foot Manual Muscle Testing leigh Dorsiflexion (L4) 4 Good Plantarflexion (S1) 4 Good PT-OP-S Aquatic Treatment Start: 11/04/18 08:25 Freq: Status: Active Protocol: Document 11/08/18 14:43 [facility] (Rec: 11/08/18 14:49 [facility] [id number]) Aquatics Treatment Pool Entry/Exit Pool Entry/Exit Method Stairs Assistance Independent Water Walking fwd,bck,side, october, straight leg october Water Level Chest Level Level of Assistance Verbal Cues Lower Extremity Stretches free the hip wall stretch Reps/Duration 3x Comments spiderman DKTC, SKTC Body Position Standing Water Level [place] Reps/Duration 2x Comments at wall Spinal Exercises deep water DLS Body Position Standing Water Level Chest Level Equipment med barbells Reps/Duration 10x Comments pendulum, UE pull downs deep water hang Water Level [place] Equipment Neck Float Reps/Duration 8 min Comments 2.5 ankle wts [place] Activities [place] Activities Bicycle Bicycle Backwards [place] Running Other Activities slow pace Equipment small noodle (patient preferred) Duration 15 min Swim Strokes Backstroke Laps/Duration 2 laps Comments slow, arms remaining in water PT-OP-T Assessment and Plan Start: 10/04/18 07:34 Freq: Status: Active Protocol: Document 11/08/18 14:43 [facility] (Rec: 11/08/18 14:49 [facility] [id number]) Physical Therapy Assessment Goals 3 Impairment pain Short Term Goal (STG) Patient to report decrease in incidence of pain, with pain no greater than 7/10 STG Duration 11/20/18 Home Appliance Washing Machine Mechanic Goal (LTG) Patient to report pain no greater than 5/10 consistently LTG Duration 01/10/19 2 Impairment strength Short Term Goal (STG) Patient able to tolerate 30 min active aquatic exercise without an increase in pain for purposes of strengthening STG Duration 11/20/18 Home Appliance Washing Machine Mechanic Goal (LTG) Patient able to tolerate 45 min active aquatic exercise without an increase in pain and be independent with aquatic exercise program for long-term fitness and pain management. LTG Duration 01/10/19 1 Impairment activity tolerance Short Term Goal (STG) Patient able to perform all usual activities in the home with 25% reduction in pain STG Duration 11/20/18 Home Appliance Washing Machine Mechanic Goal (LTG) Patient able to perform all usual activities in the home with 50% reduction in pain LTG Duration 01/10/19 Assessment Summary Assessment Good tolerance for gentle aquatic exercise today, frequent cues for postural alignment, core stabilization, deep breathing for muscle relaxation. Physical Therapy Plan Frequency and Duration Frequency of Treatment 2x/Week Duration of Treatment 3 months Plan of Care Start Date 10/13/18 Plan of Care End Date 01/10/19 Therapeutic Interventions Therapeutic Interventions Aquatic Therapy Manual Therapy Neuromuscular Re-education Patient/Caregiver Education Self-Care/Home Management Soft Tissue Mobilization Therapeutic Activities Therapeutic Exercises Modalities Electric Stimulation Next Visit Focus/Plan Next Note Type Treatment Note Next Visit Plan Rina Gatica, HS stretch next session
--- NOTE | 2018-11-10 14:40 | PT.OTN ---
Current Diagnoses Fibromyalgia (11/08/18) Physical Therapy Treatment Note PT-OP-A Visit Information Start: 10/04/18 07:34 Freq: Status: Active Protocol: Document 11/10/18 11:00 LJ (Rec: 11/10/18 14:40 LJ [id number]) Out-Patient Physical Therapy Visit Information Visit Information Visit Type Aquatic Treatment Note Visit Note Pt reports no new increase or decrease in pain. After last session she had sore abs but thinks it was because she was using her stomach muscles. PT-OP-B Current Condition Start: 10/04/18 07:34 Freq: Status: Active Protocol: Document 10/13/18 08:14 SAK (Rec: 10/13/18 09:03 SAK [id number]) Current Condition History of Current Condition Onset Date 8+ years Current Complaints function-limiting back and hip pain related to diagnosis of fibromyalgia. History of Current Condition Reports progressively increasing pain as day progresses, very busy, 4 kids , spouse, pets. No exercise program besides daily activity . Taking Kratom (herb) somewhat helpful, decreased other medication use but pain persists. Difficulty sleeping . Poor tolerance for even gentle yoga. Tried meditation but reports didn't work for her. Poor tolerance for laying supine or prone, best tolerance for sidelying. Has never gone to chiropractor or massage therapist. Reports occasional dizziness and falling due to pain. Sweats profusely due to pain. Heat somewhat helpful for short- term relief. Has just started care with new physician. Prior Treatments and Tests prior PT around 4 times, including land-based and aquatic therapy (shallow only) , states poor tolerance for all; aquatic felt good while in water but couldn't move for a few days after. Unable to tolerate land-based exercise. 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 Functional Limitations- Recreation/ unable Hobbies Personal Factors Other Personal Factors That May Effect depression Therapy/Recovery PT-OP-C Subjective Start: 10/04/18 07:34 Freq: Status: Active Protocol: Document 11/08/18 14:43 SAK (Rec: 11/08/18 14:49 SAK [id number]) OP-PT Subjective Patient Comments Patient Comments Better for a few hours after aquatic PT sessions PT-OP-J Posture/Palpation/Skin Start: 10/04/18 07:34 Freq: Status: Active Protocol: Document 10/13/18 14:39 [facility] (Rec: 10/13/18 14:57 [facility] [id number]) Posture Evaluation Position Standing Head/C-Spine Posture Forward Head T-Spine Posture Increased Kyphosis L-Spine Posture Increased Lordosis Arm Posture (L) Internally Rotated (R) Internally Rotated Hip Posture (L) Externally Rotated (R) Externally Rotated Knee Posture (L) Genu Recurvatum (R) Genu Recurvatum Palpation Assessment Location 1 Palpation Location cervical, thoracic, lumbar spine, hips Palpation Findings Muscle Guarding Tenderness Palpation Details Poor tolerance for palpation throughout PT-OP-K Range of Motion Start: 10/04/18 07:34 Freq: Status: Active Protocol: Document 10/13/18 14:39 [facility] (Rec: 10/13/18 14:57 [facility] [id number]) Cervical Spine Range of Motion Cervical Spine Active Comments WNL Lumbar Spine Range of Motion Lumbar Spine Active Comments mod decrease all motions with c/o pain and difficulty returning to upright position Shoulder Goniometric Range of Motion Shoulder Measured in Degrees leigh Shoulder ROM WFL Yes Shoulder ROM Limitations Comments painful end-range Elbow/Forearm Range of Motion Elbow/Forearm Measured in Degrees leigh Elbow/Forearm ROM WFL Yes Hip Goniometric Range of Motion Hip Measured in Degrees leigh Hip ROM WFL Yes Hip ROM Limitations Comments painful all movements Knee Goniometric Range of Motion Knee Measured in Degrees leigh Knee ROM WFL Yes Knee ROM Limitations Comments recurvatum leigh Ankle and Foot Goniometric Range of Motion Ankle and Foot Measured in Degrees leigh Ankle/Foot ROM WFL Yes PT-OP-M Strength Start: 10/04/18 07:34 Freq: Status: Active Protocol: Document 10/13/18 14:39 [facility] (Rec: 10/13/18 14:57 [facility] [id number]) Trunk Strength Trunk Manual Muscle Testing Reason Not Measured Pain Comments low muscle tone evident with difficulty with core stabilization Hip Strength Hip Manual Muscle Testing leigh Reason Not Measured Pain Comments demonstrates anti-gravity strength but resistance painful Knee Strength Knee Manual Muscle Testing leigh Flexion (S2) 4 Good Extension (L3) 4 Good Comments painful Ankle/Foot Strength Ankle and Foot Manual Muscle Testing leigh Dorsiflexion (L4) 4 Good Plantarflexion (S1) 4 Good PT-OP-S Aquatic Treatment Start: 11/04/18 08:25 Freq: Status: Active Protocol: Document 11/10/18 11:00 DAVID (Rec: 11/10/18 14:40 [id number]) Aquatics Treatment Pool Entry/Exit Pool Entry/Exit Method Stairs Assistance Independent Water Walking fwd,bck,side, october, straight leg october Water Level Chest Level Level of Assistance Verbal Cues Lower Extremity Exercises hip flex/ext, ab/ad, circles CW, CCW Water Level Chest Level Reps/Duration 10x Lower Extremity Stretches HS, piriformis, heel cord Body Position Standing Comments foot against wall-HS body swing on wall Reps/Duration bilat x 2 x 30 sec free the hip wall stretch Reps/Duration 3x Comments spiderman DKTC, SKTC Body Position Standing Water Level [place] Reps/Duration 2x Comments at wall Upper Extremity Exercises hor ab/ad, flex/ext, circles Body Position Standing Water Level Neck Level Reps/Duration 10x Comments emphasis on core stabilization Spinal Exercises deep water DLS Body Position Standing Water Level Chest Level Equipment med barbells Reps/Duration 10x Comments pendulum, UE pull downs deep water hang Water Level [place] Equipment Neck Float Reps/Duration 10 min Comments 2.5 ankle wts Balance NBOS walking in slow motion Water Level Chest Level Comments cues for posture and recrip arms [place] Activities [place] Activities Bicycle Bicycle Backwards [place] Other Activities slow pace double kick front<>back Equipment small noodle (patient preferred) Duration 15 min Swim Strokes Backstroke Laps/Duration 2 laps Comments slow, arms remaining in water PT-OP-T Assessment and Plan Start: 10/04/18 07:34 Freq: Status: Active Protocol: Document 11/10/18 11:00 DAVID (Rec: 11/10/18 14:40 [id number]) Physical Therapy Assessment Goals 3 Impairment pain Short Term Goal (STG) Patient to report decrease in incidence of pain, with pain no greater than 7/10 STG Duration 11/20/18 [facility] Goal (LTG) Patient to report pain no greater than 5/10 consistently LTG Duration 01/10/19 2 Impairment strength Short Term Goal (STG) Patient able to tolerate 30 min active aquatic exercise without an increase in pain for purposes of strengthening STG Duration 11/20/18 Immigration Inspector Goal (LTG) Patient able to tolerate 45 min active aquatic exercise without an increase in pain and be independent with aquatic exercise program for long-term fitness and pain management. LTG Duration 01/10/19 1 Impairment activity tolerance Short Term Goal (STG) Patient able to perform all usual activities in the home with 25% reduction in pain STG Duration 11/20/18 Immigration Inspector Goal (LTG) Patient able to perform all usual activities in the home with 50% reduction in pain LTG Duration 01/10/19 Assessment Summary Assessment Pt tolerated all exercises well w/o complaint of pain. Improved with body awareness and muscle activation. Physical Therapy Plan Frequency and Duration Frequency of Treatment 2x/Week Duration of Treatment 3 months Plan of Care Start Date 10/13/18 Plan of Care End Date 01/10/19 Therapeutic Interventions Therapeutic Interventions Aquatic Therapy Manual Therapy Neuromuscular Re-education Patient/Caregiver Education Self-Care/Home Management Soft Tissue Mobilization Therapeutic Activities Therapeutic Exercises Modalities Electric Stimulation Next Visit Focus/Plan Next Note Type Treatment Note Next Visit Plan Rina Gatica, HS stretch next session
--- NOTE | 2018-11-17 14:37 | PT.OTN ---
Current Diagnoses Fibromyalgia (11/17/18) Physical Therapy Treatment Note PT-OP-A Visit Information Start: 10/04/18 07:34 Freq: Status: Active Protocol: Document 11/17/18 14:26 [facility] (Rec: 11/17/18 14:37 [facility] [id number]) Out-Patient Physical Therapy Visit Information Visit Information Visit Type Aquatic Treatment Note Visit Start Time 11:00 Visit Stop Time 11:45 Total Visit Minutes 45 Visit Number 7 Number of PUBLIC DEFENDER Visits 0 PT-OP-B Current Condition Start: 10/04/18 07:34 Freq: Status: Active Protocol: Document 10/13/18 08:14 SAK (Rec: 10/13/18 09:03 SAK [id number]) Current Condition History of Current Condition Onset Date 8+ years Current Complaints function-limiting back and hip pain related to diagnosis of fibromyalgia. History of Current Condition Reports progressively increasing pain as day progresses, very busy, 4 kids , spouse, pets. No exercise program besides daily activity . Taking Kratom (herb) somewhat helpful, decreased other medication use but pain persists. Difficulty sleeping . Poor tolerance for even gentle yoga. Tried meditation but reports didn't work for her. Poor tolerance for laying supine or prone, best tolerance for sidelying. Has never gone to chiropractor or massage therapist. Reports occasional dizziness and falling due to pain. Sweats profusely due to pain. Heat somewhat helpful for short- term relief. Has just started care with new physician. Prior Treatments and Tests prior PT around 4 times, including land-based and aquatic therapy (shallow only) , states poor tolerance for all; aquatic felt good while in water but couldn't move for a few days after. Unable to tolerate land-based exercise. 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 PT-OP-J Posture/Palpation/Skin Start: 10/04/18 07:34 Freq: Status: Active Protocol: Document 10/13/18 14:39 [facility] (Rec: 10/13/18 14:57 [facility] [id number]) Posture Evaluation Position Standing Head/C-Spine Posture Forward Head T-Spine Posture Increased Kyphosis L-Spine Posture Increased Lordosis Arm Posture (L) Internally Rotated (R) Internally Rotated Hip Posture (L) Externally Rotated (R) Externally Rotated Knee Posture (L) Genu Recurvatum (R) Genu Recurvatum Palpation Assessment Location 1 Palpation Location cervical, thoracic, lumbar spine, hips Palpation Findings Muscle Guarding Tenderness Palpation Details Poor tolerance for palpation throughout PT-OP-K Range of Motion Start: 10/04/18 07:34 Freq: Status: Active Protocol: Document 10/13/18 14:39 [facility] (Rec: 10/13/18 14:57 [facility] [id number]) Cervical Spine Range of Motion Cervical Spine Active Comments WNL Lumbar Spine Range of Motion Lumbar Spine Active Comments mod decrease all motions with c/o pain and difficulty returning to upright position Shoulder Goniometric Range of Motion Shoulder Measured in Degrees leigh Shoulder ROM WFL Yes Shoulder ROM Limitations Comments painful end-range Elbow/Forearm Range of Motion Elbow/Forearm Measured in Degrees leigh Elbow/Forearm ROM WFL Yes Hip Goniometric Range of Motion Hip Measured in Degrees leigh Hip ROM WFL Yes Hip ROM Limitations Comments painful all movements Knee Goniometric Range of Motion Knee Measured in Degrees leigh Knee ROM WFL Yes Knee ROM Limitations Comments recurvatum leigh Ankle and Foot Goniometric Range of Motion Ankle and Foot Measured in Degrees leigh Ankle/Foot ROM WFL Yes PT-OP-M Strength Start: 10/04/18 07:34 Freq: Status: Active Protocol: Document 10/13/18 14:39 [facility] (Rec: 10/13/18 14:57 [facility] [id number]) Trunk Strength Trunk Manual Muscle Testing Reason Not Measured Pain Comments low muscle tone evident with difficulty with core stabilization Hip Strength Hip Manual Muscle Testing leigh Reason Not Measured Pain Comments demonstrates anti-gravity strength but resistance painful Knee Strength Knee Manual Muscle Testing leigh Flexion (S2) 4 Good Extension (L3) 4 Good Comments painful Ankle/Foot Strength Ankle and Foot Manual Muscle Testing leigh Dorsiflexion (L4) 4 Good Plantarflexion (S1) 4 Good PT-OP-S Aquatic Treatment Start: 11/04/18 08:25 Freq: Status: Active Protocol: Document 11/17/18 14:26 [facility] (Rec: 11/17/18 14:37 [facility] [id number]) Aquatics Treatment Pool Entry/Exit Pool Entry/Exit Method Stairs Assistance Independent Water Walking fwd,bck,side, october, straight leg [place] Water Level Chest Level Level of Assistance Verbal Cues Lower Extremity Stretches HS, piriformis, heel cord Body Position Standing Comments foot against wall-HS free the hip wall stretch Reps/Duration 3x Comments spiderman DKTC, SKTC Body Position Standing Water Level [place] Reps/Duration 2x Comments at wall Spinal Exercises deep water hang Water Level [place] Equipment Neck Float Reps/Duration 10 min Comments 2.5 ankle wts [place] Activities [place] Activities Bicycle Bicycle Backwards [place] Other Activities slow pace Equipment small noodle Duration 15 min Manual Techniques [place] 5 min for spinal relaxation and pain management Aquatic Manual Traction supine lumbar x 2 min Aquatic Joint Mobilizations thoracic PA's grade II-III Aquatic Massage 5 min for spinal relaxation and pain managment Other Chi Body Position Standing Water Level Neck Level Comments emphasis on core stabilization , deep breathing PT-OP-T Assessment and Plan Start: 10/04/18 07:34 Freq: Status: Active Protocol: Document 11/17/18 14:26 [facility] (Rec: 11/17/18 14:37 [facility] [id number]) Physical Therapy Assessment Other Concerns Barriers to Rehabilitation chronicity Goals 3 Impairment pain Short Term Goal (STG) Patient to report decrease in incidence of pain, with pain no greater than 7/10 STG Duration 11/20/18 Childbirth And Infant Care Teacher Goal (LTG) Patient to report pain no greater than 5/10 consistently LTG Duration 01/10/19 2 Impairment strength Short Term Goal (STG) Patient able to tolerate 30 min active aquatic exercise without an increase in pain for purposes of strengthening STG Duration 11/20/18 Penitentiary Goal (LTG) Patient able to tolerate 45 min active aquatic exercise without an increase in pain and be independent with aquatic exercise program for long-term fitness and pain management. LTG Duration 01/10/19 1 Impairment activity tolerance Short Term Goal (STG) Patient able to perform all usual activities in the home with 25% reduction in pain STG Duration 11/20/18 Penitentiary Goal (LTG) Patient able to perform all usual activities in the home with 50% reduction in pain LTG Duration 01/10/19 Assessment Summary Assessment Pt tolerated all exercises well w/o complaint of pain. Improved with body awareness and muscle activation. Physical Therapy Plan Frequency and Duration Frequency of Treatment 2x/Week Duration of Treatment 3 months Plan of Care Start Date 10/13/18 Plan of Care End Date 01/10/19 Therapeutic Interventions Therapeutic Interventions Aquatic Therapy Manual Therapy Neuromuscular Re-education Patient/Caregiver Education Self-Care/Home Management Soft Tissue Mobilization Therapeutic Activities Therapeutic Exercises Modalities Electric Stimulation Next Visit Focus/Plan Next Note Type Treatment Note Next Visit Plan assess response to today's treatment and progress as tolerated with ther ex, manual treatment and deep water hang for pain management.
--- NOTE | 2018-11-19 15:04 | PT.OTN ---
Current Diagnoses Fibromyalgia (11/19/18) Physical Therapy Treatment Note PT-OP-A Visit Information Start: 10/04/18 07:34 Freq: Status: Active Protocol: Document 11/19/18 11:00 LJ (Rec: 11/19/18 15:04 LJ [email or web address]) Out-Patient Physical Therapy Visit Information Visit Information Visit Type Aquatic Treatment Note Visit Start Time 11:00 Visit Stop Time 11:45 Total Visit Minutes 45 Visit Number 8 Number of CHIEF OF ANESTHESIOLOGY Visits 1 PT-OP-B Current Condition Start: 10/04/18 07:34 Freq: Status: Active Protocol: Document 10/13/18 08:14 SAK (Rec: 10/13/18 09:03 SAK [id number]) Current Condition History of Current Condition Onset Date 8+ years Current Complaints function-limiting back and hip pain related to diagnosis of fibromyalgia. History of Current Condition Reports progressively increasing pain as day progresses, very busy, 4 kids , spouse, pets. No exercise program besides daily activity . Taking Kratom (herb) somewhat helpful, decreased other medication use but pain persists. Difficulty sleeping . Poor tolerance for even gentle yoga. Tried meditation but reports didn't work for her. Poor tolerance for laying supine or prone, best tolerance for sidelying. Has never gone to chiropractor or massage therapist. Reports occasional dizziness and falling due to pain. Sweats profusely due to pain. Heat somewhat helpful for short- term relief. Has just started care with new physician. Prior Treatments and Tests prior PT around 4 times, including land-based and aquatic therapy (shallow only) , states poor tolerance for all; aquatic felt good while in water but couldn't move for a few days after. Unable to tolerate land-based exercise. 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 PT-OP-J Posture/Palpation/Skin Start: 10/04/18 07:34 Freq: Status: Active Protocol: Document 10/13/18 14:39 [facility] (Rec: 10/13/18 14:57 [facility] [id number]) Posture Evaluation Position Standing Head/C-Spine Posture Forward Head T-Spine Posture Increased Kyphosis L-Spine Posture Increased Lordosis Arm Posture (L) Internally Rotated (R) Internally Rotated Hip Posture (L) Externally Rotated (R) Externally Rotated Knee Posture (L) Genu Recurvatum (R) Genu Recurvatum Palpation Assessment Location 1 Palpation Location cervical, thoracic, lumbar spine, hips Palpation Findings Muscle Guarding Tenderness Palpation Details Poor tolerance for palpation throughout PT-OP-K Range of Motion Start: 10/04/18 07:34 Freq: Status: Active Protocol: Document 10/13/18 14:39 [facility] (Rec: 10/13/18 14:57 [facility] [id number]) Cervical Spine Range of Motion Cervical Spine Active Comments WNL Lumbar Spine Range of Motion Lumbar Spine Active Comments mod decrease all motions with c/o pain and difficulty returning to upright position Shoulder Goniometric Range of Motion Shoulder Measured in Degrees leigh Shoulder ROM WFL Yes Shoulder ROM Limitations Comments painful end-range Elbow/Forearm Range of Motion Elbow/Forearm Measured in Degrees leigh Elbow/Forearm ROM WFL Yes Hip Goniometric Range of Motion Hip Measured in Degrees leigh Hip ROM WFL Yes Hip ROM Limitations Comments painful all movements Knee Goniometric Range of Motion Knee Measured in Degrees leigh Knee ROM WFL Yes Knee ROM Limitations Comments recurvatum leigh Ankle and Foot Goniometric Range of Motion Ankle and Foot Measured in Degrees leigh Ankle/Foot ROM WFL Yes PT-OP-M Strength Start: 10/04/18 07:34 Freq: Status: Active Protocol: Document 10/13/18 14:39 [facility] (Rec: 10/13/18 14:57 [facility] [id number]) Trunk Strength Trunk Manual Muscle Testing Reason Not Measured Pain Comments low muscle tone evident with difficulty with core stabilization Hip Strength Hip Manual Muscle Testing leigh Reason Not Measured Pain Comments demonstrates anti-gravity strength but resistance painful Knee Strength Knee Manual Muscle Testing leigh Flexion (S2) 4 Good Extension (L3) 4 Good Comments painful Ankle/Foot Strength Ankle and Foot Manual Muscle Testing leigh Dorsiflexion (L4) 4 Good Plantarflexion (S1) 4 Good PT-OP-S Aquatic Treatment Start: 11/04/18 08:25 Freq: Status: Active Protocol: Document 11/19/18 11:00 (Rec: 11/19/18 15:04 [email or web address]) Aquatics Treatment Pool Entry/Exit Pool Entry/Exit Method Stairs Assistance Independent Water Walking fwd,bck,side, october, straight leg october Water Level Chest Level Level of Assistance Verbal Cues Lower Extremity Stretches HS, piriformis, heel cord Body Position Standing Comments foot against wall-HS free the hip wall stretch Reps/Duration 3x Comments spiderman DKTC, SKTC Body Position Standing Water Level [place] Reps/Duration 2x Comments at wall Upper Extremity Exercises hor ab/ad, flex/ext, circles Body Position Standing Water Level Neck Level Reps/Duration 10x Comments emphasis on core stabilization Spinal Exercises deep water hang Water Level [place] Equipment Neck Float Reps/Duration 10 min Comments 2.5 ankle wts [place] Activities [place] Activities Bicycle Bicycle Backwards [place] Other Activities slow pace Equipment small noodle Duration 15 min Manual Techniques Bad Ragaz 12 min for spinal relaxation and pain management Aquatic Manual Traction supine lumbar x 2 min Aquatic Joint Mobilizations thoracic PA's grade II-III Aquatic Massage 5 min for spinal relaxation and pain managment Other Chi Body Position Standing Water Level Neck Level Comments emphasis on core stabilization , deep breathing PT-OP-T Assessment and Plan Start: 10/04/18 07:34 Freq: Status: Active Protocol: Document 11/19/18 11:00 DAVID (Rec: 11/19/18 15:04 [email or web address]) Physical Therapy Assessment Goals 3 Impairment pain Short Term Goal (STG) Patient to report decrease in incidence of pain, with pain no greater than 7/10 STG Duration 11/20/18 Care Home Goal (LTG) Patient to report pain no greater than 5/10 consistently LTG Duration 01/10/19 2 Impairment strength Short Term Goal (STG) Patient able to tolerate 30 min active aquatic exercise without an increase in pain for purposes of strengthening STG Duration 11/20/18 Care Home Goal (LTG) Patient able to tolerate 45 min active aquatic exercise without an increase in pain and be independent with aquatic exercise program for long-term fitness and pain management. LTG Duration 01/10/19 1 Impairment activity tolerance Short Term Goal (STG) Patient able to perform all usual activities in the home with 25% reduction in pain STG Duration 11/20/18 Care Home Goal (LTG) Patient able to perform all usual activities in the home with 50% reduction in pain LTG Duration 01/10/19 Assessment Summary Assessment Pt improving with core stabilization exercises and body positioning and awareness . Increased intensity in deep water initiated by pt. Requires verbal cueing for relaxing during Bad Ragaz. Tends to try to help therapist with body movement. Pt was able to relax after several minutes of spinal massage and felt popping of her thoracic and cervical spine which offered relief from tightness. Physical Therapy Plan Frequency and Duration Frequency of Treatment 2x/Week Duration of Treatment 3 months Plan of Care Start Date 10/13/18 Plan of Care End Date 01/10/19 Therapeutic Interventions Therapeutic Interventions Aquatic Therapy Manual Therapy Neuromuscular Re-education Patient/Caregiver Education Self-Care/Home Management Soft Tissue Mobilization Therapeutic Activities Therapeutic Exercises Modalities Electric Stimulation Next Visit Focus/Plan Next Note Type Treatment Note Next Visit Plan Incorporate gentle spinal stabilization and strengthening in Bad Ragaz treatment after initial lengthening and relaxing of muscles.
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
== END 2019-03-01 13:09 | disposition home or self-care (01) ==
LOC: PHYS 12:30
PROVIDERS: PCP Student in an Organized Health Care Education/Training Program; Visit Provider Student in an Organized Health Care Education/Training Program
DX: M79.7 Fibromyalgia (principal)
CPT/HCPCS: 97113; 97162

== ENCOUNTER → 2018-12-13 11:33 | Outpatient (CLI) | payer OTHER, MEDICAID, SELFPAY | PROVIDERS: PCP Student in an Organized Health Care Education/Training Program; Visit Provider Physician Assistant | DX: N39.0 Urinary tract infection, site not specified (principal) | CPT/HCPCS: 87086 ==

== ENCOUNTER → 2018-12-17 16:43 | Outpatient (CLI) | payer OTHER, MEDICAID, SELFPAY ==
[2018-12-17 18:26] LABS: Add Manual Diff / Slide Review NO; Basophils Absolute Auto 100 /uL (0-100); Basophils Percent Auto 0.7 % (0-2); Eosinophils Absolute Auto 300 /uL (0-450); Eosinophils Percent Auto 3.4 % (2-4); Hematocrit 36.7 % (36-46); Hemoglobin 12.1 g/dL (12.0-16.0); Lymphocytes Absolute Auto 2400 /uL (1100-4500); Lymphocytes Percent Auto 27.2 % (25-40); Mean Corpuscular Volume 75.7 fL (80-100); Monocytes Absolute Auto 600 /uL (0-900); Monocytes Percent Auto 7.1 % (3-14); Neutrophils Absolute Auto 5300 /uL (1500-7000); Neutrophils Percent Auto 61.6 % (50-75); Platelet Count 238 X10^3/uL (150-400); Red Blood Cell Count 4.85 X10^6/uL (4.0-5.2); Red Cell Distribution Width 17.3 % (11.6-14.8); White Blood Cell Count 8.6 X10^3/uL (4.5-11.0)
== END ==
PROVIDERS: PCP Student in an Organized Health Care Education/Training Program; Visit Provider Nurse Practitioner
DX: N39.0 Urinary tract infection, site not specified (principal)
CPT/HCPCS: 36415; 85025

== ENCOUNTER → 2019-01-07 13:54 | Outpatient (CLI) | payer OTHER, MEDICAID, SELFPAY ==
[2019-01-07 14:37] LABS: Appearance Urine UA CLEAR; Bilirubin Urine UA NEGATIVE (NEGATIVE); Color Urine UA YELLOW; Glucose Urine UA NEGATIVE (Negative); Ketones Urine UA NEGATIVE (NEGATIVE); Leukocyte Esterase Urine UA 1+ (NEGATIVE); Nitrite Urine UA NEGATIVE (Negative); Occult Blood Urine UA NEGATIVE (Negative); Protein Urine UA NEGATIVE (Negative); Specific Gravity Urine UA 1.025 (1.000-1.035); Urobilinogen Urine UA 0.2 E.U./dL (0.2)
[2019-01-07 14:53] LABS: Bacteria Urine Few (2-10); Culture Indicated Urine Cult Not Indicated; Mucus Urine 1+ (Negative); RBC Urine 0-1/HPF (0-5/HPF); Squamous Epithelial Cell Urine 5-10 /HPF (0-5/HPF); WBC Urine 10-30/HPF (0-5/HPF)
== END ==
PROVIDERS: PCP Student in an Organized Health Care Education/Training Program; Visit Provider Student in an Organized Health Care Education/Training Program
DX: R32 Unspecified urinary incontinence (principal)
CPT/HCPCS: 81003; 81015

== ENCOUNTER → 2019-01-13 16:10 | Outpatient (CLI) | payer OTHER, MEDICAID, SELFPAY ==
--- NOTE | 2019-01-13 16:11 | DI.MRI.S_ITS ---
PROCEDURE: MR LUMBAR SPINE WO CON INDICATIONS: Low back pain; incontinence TECHNIQUE: Noncontrast sagittal T1 spin echo and T2 fast echo, sagittal STIR, axial T1 and T2 fast spin echo through the lumbar spine. In cases with scoliosis, additional coronal T2 fast spin echo may be performed. COMPARISON: [facility], , L-SPINE WITHOUT CONTRAST, 02/21/2016, 12:15. FINDINGS: Image quality: Excellent. Alignment and Curvature: There is normal bony alignment. Bone Marrow: Marrow is of normal overall signal. No acute vertebral body compression fractures. Spinal Cord: Conus medullaris terminates at the L1-2 disc level. Visualized cord demonstrates normal signal and size. Paraspinous Soft Tissues: No paravertebral masses. T12-L1: Loss of disc signal. Minimal, diffuse disc bulge. Anterior endplate osteophytosis. No central stenosis. No neural foraminal narrowing. No neural impingement. L1-L2: Normal appearance. L2-L3: Normal appearance. L3-L4: Normal appearance. L4-L5: Slight loss of disc signal. Minimal, diffuse disc bulge. Mild bilateral facet hypertrophy. No central stenosis. Moderate right and mild left neural foraminal narrowing. No neural impingement. L5-S1: Disc has a normal appearance. Mild bilateral facet hypertrophy. No central stenosis. Mild right neural foraminal narrowing.. No neural impingement. IMPRESSION: 1. Mild T12-L1 and L4-L5 degenerative disc disease. 2. Mild L4-L5 and L5-S1 facet arthropathy. 3. No central stenosis. 4. Moderate right and mild left L4-L5 neural foraminal narrowing. Mild right L5-S1 neural foraminal narrowing. 5. No neural impingement. Dictated by: Maxine Bangura MD, PhD on 01/13/2019 at 16:47 Approved by: Maxine Bangura MD, PhD on 01/13/2019 at 17:02
== END ==
PROVIDERS: PCP Student in an Organized Health Care Education/Training Program; Visit Provider Student in an Organized Health Care Education/Training Program
DX: M54.5 Low back pain (principal); R32 Unspecified urinary incontinence; M51.35 Other intervertebral disc degeneration, thoracolumbar region; M51.36 Other intervertebral disc degeneration, lumbar region; M48.061 Spinal stenosis, lumbar region without neurogenic claudication; M48.07 Spinal stenosis, lumbosacral region; M47.816 Spondylosis without myelopathy or radiculopathy, lumbar region; M47.817 Spondylosis without myelopathy or radiculopathy, lumbosacral region
CPT/HCPCS: 72148

== ENCOUNTER 2019-01-26 20:08 | Emergency (ER) | payer OTHER, MEDICAID, SELFPAY ==
[2019-01-26 20:19] VITALS: BP 120/91; PULSE 106; RESP 18; TEMP 36.8; O2SAT 100; BMI 36.0
--- NOTE | 2019-01-26 20:28 | ED.HA ---
HPI - Headache General Chief Complaint: Headache Stated Complaint: STATES MIGRAINE Time Seen by Provider: 01/26/19 20:28 Source: patient Mode of arrival: ambulatory Limitations: no limitations History of Present Illness HPI Narrative: Patient is a 43-year-old female with a history of fibromyalgia and chronic daily migraines here for evaluation of a migraine. She states that she has had a headache for the past week. Has tried her normal home regiment which has not helped. She states that she had a listen to construction noise throughout the day which made her headache worse. She states that in character this feels like prior headaches. No fevers. Related Data Home Medications Medication Instructions Recorded Confirmed hydroxyzine HCl 25 mg tablet 25 mg PO QID PRN 08/25/18 01/07/19 ketotifen 0.025 % (0.035 %) eye EYE-BOTH PRN ml 08/25/18 01/07/19 drops loratadine 10 mg capsule 10 mg PO DAILY 08/25/18 01/07/19 Previous Rx's Medication Instructions Recorded Kratom 5 tab PO BID #30 ampul 08/25/18 cyclobenzaprine 10 mg tablet 10 mg PO TID PRN #90 tab 11/01/18 promethazine 25 mg tablet 25 mg PO TID #90 tab 11/01/18 belladonna alkaloids-opium 16.2 1 suppositor UT TID PRN #36 each 01/21/19 mg-30 mg rectal suppository Allergies Allergy/AdvReac Type Severity Reaction Status Date / Time duloxetine [From Cymbalta] AdvReac Severe Nausea Verified 01/07/19 13:23 Review of Systems Constitutional Denies fever(s) and Reports headache(s) Eyes Reports photophobia ENT Ears, Nose, Mouth, and Throat: Denies vertigo, Denies dizziness, Denies facial pain, Reports headache(s) and Denies tinnitus Cardiovascular Denies chest pain and Denies dyspnea Respiratory Denies dyspnea Gastrointestinal Gastrointestinal: Denies abdominal pain Integumentary/Breasts Denies rash Neurologic Denies behavioral changes, Denies vertigo, Denies dizziness and Reports headache(s) Psychiatric Denies behavioral changes Hematologic/Lymphatic Denies easy bleeding and Denies easy bruising [facility] Medical History Fibromyalgia (Chronic) Hypoglycemia (Chronic) Osteoarthritis (Chronic) Tachycardia (Chronic) Foot fracture, left (Resolved) Surgical History (Updated 08/25/18 @ 10:16 by Brando Quezada MD) History of gastric bypass (Chronic) Social History Smoking Status: Current every day smoker Social History Smoking Status: Current every day smoker Exam Initial Vital Signs Initial Vital Signs: Vital Signs Temperature 98.3 F 01/26/19 20:19 Pulse Rate 106 H 01/26/19 20:19 Respiratory Rate 18 01/26/19 20:19 Blood Pressure 120/91 H 01/26/19 20:19 Pulse Oximetry 100 01/26/19 20:19 Const General: cooperative, well developed, well groomed and No acute distress Orientation: alert, awake and oriented x3 HENMT Head: normal to inspection and normocephalic Resp Effort & Inspection: normal respiratory effort Auscultation: clear to auscultation bilaterally Cardio Rate: tachycardic Rhythm: regular rhythm Skin Lesions: no lesions Rashes: no rashes Neuro General: alert, awake and oriented x3 Cognition: normal cognition Speech: speech normal Motor: muscle tone normal throughout Sensory Exam: no sensory deficits noted Extrem General: normal to inspection and capillary refill normal Course Orders Ordered: Discontinued Medications Acetaminophen (Tylenol) 975 mg PO NOW ONE Stop: 01/26/19 20:42 Last Admin: 01/26/19 20:45 Dose: 975 mg Diphenhydramine HCl (Benadryl) 25 mg IV NOW ONE Stop: 01/26/19 20:42 Last Admin: 01/26/19 20:46 Dose: 25 mg Haloperidol (Haldol) 1.25 mg IV NOW ONE Stop: 01/26/19 21:29 Last Admin: 01/26/19 21:33 Dose: 1.25 mg Sodium Chloride (Normal Saline 0.9%) 1,000 mls @ 1,000 mls/hr IV BOLUS ONE Stop: 01/26/19 21:40 Last Infusion: 01/26/19 22:00 Dose: 1,000 mls/hr Admin: 01/26/19 20:47 Dose: 1,000 mls/hr Ketorolac Tromethamine (Toradol) 30 mg IV NOW ONE Stop: 01/26/19 20:42 Last Admin: 01/26/19 20:46 Dose: 30 mg Metoclopramide HCl (Reglan) 10 mg IV NOW ONE Stop: 01/26/19 20:42 Last Admin: 01/26/19 20:47 Dose: 10 mg Vital Signs - 8 hr 01/26/19 20:19 01/26/19 20:30 01/26/19 21:30 Temperature 98.3 F Pulse Rate 106 H 115 H 72 Respiratory Rate 18 18 18 Blood Pressure 120/91 H Blood Pressure [Left Arm] 118/85 95/60 Pulse Oximetry 100 100 98 MDM - Headache MDM Narrative Medical decision making narrative: A 43-year-old female with a history of migraines. She states that when she is feeling now is 1 of her typical migraines. She has had for the past week. Low suspicion for meningitis or subarachnoid hemorrhage. Will hold on a head CT or lumbar puncture. Patient reports minimal improvement after initial IV medication however does report some improvement after IV Haldol. Informed her that I do not give opioids for headaches. She was asking to go home after the Haldol. She was given return precautions and follow-up instructions. She expressed understanding and agreement with plan. Discharge Plan Departure Patient Disposition: Home Clinical Impression: Migraine Qualifiers: Migraine type: unspecified Status migrainosus presence: without status migrainosus Intractability: not intractable Qualified Code(s): G43.909 - Migraine, unspecified, not intractable, without status migrainosus Instructions: DI for Migraine Activity Restrictions/Additional Instructions: Recommend that you talk with your primary provider about potentially seeing a headache specialist. Return to the emergency department for any fevers or any other worsening symptoms. Continue all of her other medications as directed. Prescriptions: No Action promethazine 25 mg tablet 25 mg PO TID Qty: 90 RF: 5 cyclobenzaprine 10 mg tablet 10 mg PO TID PRN (Reason: muscle spasm) Qty: 90 RF: 5 belladonna alkaloids-opium 16.2-30 mg suppository 1 suppositor UT TID PRN (Reason: pain) Qty: 36 RF: 0 hydroxyzine HCl 25 mg tablet 25 mg PO QID PRNRF: 0 loratadine 10 mg capsule 10 mg PO DAILY RF: 0 ketotifen fumarate 0.025 % (0.035 %) drops EYE-BOTH PRNRF: 0 Kratom 5 tab PO BID Qty: 30 RF: 0 Referrals: Brando Quezada MD [Primary Care Provider] -
[2019-01-26 20:30] VITALS: BP 118/85; PULSE 115; RESP 18; O2SAT 100
[2019-01-26] MEDS: ACETAMINOPHEN 325 MG TABLET 975 MG PO (20:45)
[2019-01-26] MEDS: diphenhydrAMINE 50 MG/ML VIAL 25 MG IV (20:46)
[2019-01-26] MEDS: KETOROLAC 60 MG/2 ML VIAL 30 MG IV (20:46)
[2019-01-26] MEDS: METOCLOPRAMIDE 10 MG/2 ML INJ IV (20:47)
[2019-01-26] MEDS: SODIUM CHLORIDE 0.9% 1,000 ML 1000 ML IV (20:47)
[2019-01-26 21:30] VITALS: BP 95/60; PULSE 72; RESP 18; O2SAT 98
[2019-01-26] MEDS: HALOPERIDOL 5 MG/ML VIAL 1.25 MG IV (21:33)
[2019-01-26 22:26] VITALS: BP 107/77; PULSE 73; RESP 15; O2SAT 100
== END 2019-01-26 22:26 | disposition home or self-care (01) ==
PROVIDERS: Emergency Provider Emergency Medicine; Family Provider Student in an Organized Health Care Education/Training Program; PCP Student in an Organized Health Care Education/Training Program
DX: G43.909 Migraine, unspecified, not intractable, without status migrainosus (principal)
CPT/HCPCS: 36591; 96361; 96374; 96375; 99283; 99284; J1200; J1630; J1885; J2765

== ENCOUNTER → 2019-02-24 11:01 | Outpatient (CLI) | payer OTHER, MEDICAID, SELFPAY | PROVIDERS: Family Provider Student in an Organized Health Care Education/Training Program; PCP Student in an Organized Health Care Education/Training Program; Visit Provider Physician Assistant | DX: N39.0 Urinary tract infection, site not specified (principal) | CPT/HCPCS: 87077; 87086; 87186 ==

== ENCOUNTER 2019-03-04 21:32 | Emergency (ER) | payer OTHER, MEDICAID, SELFPAY ==
[2019-03-04 21:56] VITALS: BP 142/90; PULSE 120; RESP 22; TEMP 36.6; O2SAT 99; BMI 35.3
[2019-03-04] MEDS: SODIUM CHLORIDE 0.9% 1,000 ML 1000 ML IV (22:30)
[2019-03-04] MEDS: ONDANSETRON 4 MG/2 ML INJ IV (22:31)
[2019-03-04] MEDS: KETOROLAC 60 MG/2 ML VIAL 15 MG IV (22:41)
[2019-03-04] MEDS: CEFTRIAXONE 1 GM/50 ML FROZ.PIGGY IV (22:41)
[2019-03-04 22:48] LABS: Add Manual Diff / Slide Review NO; Basophils Absolute Auto 0 /uL (0-100); Basophils Percent Auto 0.7 % (0-2); Eosinophils Absolute Auto 200 /uL (0-450); Eosinophils Percent Auto 2.6 % (2-4); Hematocrit 37.5 % (36-46); Hemoglobin 12.3 g/dL (12.0-16.0); Lymphocytes Absolute Auto 2500 /uL (1100-4500); Lymphocytes Percent Auto 34.8 % (25-40); Mean Corpuscular HGB Conc 32.8 % (30-36); Mean Corpuscular Hemoglobin 25.1 PG (26-34); Mean Corpuscular Volume 76.7 fL (80-100); Monocytes Absolute Auto 600 /uL (0-900); Monocytes Percent Auto 8.7 % (3-14); Neutrophils Absolute Auto 3900 /uL (1500-7000); Neutrophils Percent Auto 53.2 % (50-75); Platelet Count 190 X10^3/uL (150-400); RBC Urine None Seen (0-5/HPF); Red Blood Cell Count 4.88 X10^6/uL (4.0-5.2); Red Cell Distribution Width 17.7 % (11.6-14.8); White Blood Cell Count 7.3 X10^3/uL (4.5-11.0)
[2019-03-04 22:51] LABS: Bilirubin Urine UA NEGATIVE (NEGATIVE); Color Urine UA YELLOW; Glucose Urine UA NEGATIVE (Negative); Ketones Urine UA NEGATIVE (NEGATIVE); Leukocyte Esterase Urine UA TRACE (NEGATIVE); Nitrite Urine UA NEGATIVE (Negative); Occult Blood Urine UA NEGATIVE (Negative); Protein Urine UA NEGATIVE (Negative); Specific Gravity Urine UA 1.025 (1.000-1.035); Urobilinogen Urine UA 0.2 E.U./dL (0.2); pH Urine UA 5.5 (4.5-8.0)
[2019-03-04 22:58] LABS: Appearance Urine UA Slightly Cloudy; Bacteria Urine Moderate (10-30); Mucus Urine 1+ (Negative); Squamous Epithelial Cell Urine 5-10 /HPF (0-5/HPF); WBC Urine 0-1/HPF (0-5/HPF)
[2019-03-04 22:59] LABS: Blood Urea Nitrogen 12 mg/dL (7-17); Calcium 9.5 mg/dL (8.4-10.2); Carbon Dioxide 21 mmol/L (22-32); Chloride 108 mmol/L (98-107); Culture Indicated Urine Cult Not Indicated; Estimated Glomerular Filt Rate 49.3 mL/min (>60); Glucose 89 mg/dL (70-100); HEMOLYSIS < 15 (0-50); Potassium 4.5 mmol/L (3.4-5.1); Sodium 140 mmol/L (137-145)
[2019-03-04 23:00] LABS: Lactate (Lactic Acid) 1.7 mmol/L (0.7-2.1)
--- NOTE | 2019-03-04 23:08 | ED_ITS ---
HPI - Female Genitourinary General Chief complaint: Urogenital-Female Stated complaint: thinks UTI Time Seen by Provider: 03/04/19 21:36 Source: patient and family Mode of arrival: ambulatory Limitations: no limitations History of Present Illness HPI Narrative: 43-year-old female daily smoker presents with a chief complaint of dysuria, frequency and urgency with nausea, back pain fever and chills for the past few days. She has had urinary tract infections in the past and states this feels the same. She denies any vaginal bleeding or discharge. She denies chest pain or shortness of breath. She does have some vague suprapubic tenderness MD Complaint: dysuria and UTI Onset (ago): day(s) Female Urogenital Radiation: L Flank and R Flank Severity: moderate Quality: Aching Duration: constant Exacerbating factors: urination and movement Urinary symptoms: Difficulty Urinating, Dysuria and Flank Pain Related Data Home Medications Medication Instructions Recorded Confirmed hydroxyzine HCl 25 mg tablet 25 mg PO QID PRN 08/25/18 02/24/19 ketotifen 0.025 % (0.035 %) eye EYE-BOTH PRN ml 08/25/18 02/24/19 drops loratadine 10 mg capsule 10 mg PO DAILY 08/25/18 02/24/19 Previous Rx's Medication Instructions Recorded Kratom 5 tab PO BID #30 ampul 08/25/18 cyclobenzaprine 10 mg tablet 10 mg PO TID PRN #90 tab 11/01/18 promethazine 25 mg tablet 25 mg PO TID #90 tab 11/01/18 belladonna alkaloids-opium 16.2 1 suppositor [place] TID PRN #36 each 02/10/19 mg-30 mg rectal suppository sulfamethoxazole 800 1 tab PO BID #14 tab 02/24/19 mg-trimethoprim 160 mg tablet cephalexin [Keflex] 500 mg PO QID 10 Days #40 cap 03/04/19 fluconazole [Diflucan] 150 mg PO DAILY PRN 2 Days #2 tab 03/04/19 ketorolac 10 mg PO Q6H PRN #14 tab 03/04/19 ondansetron 4 mg PO TID-QID PRN #10 tab 03/04/19 Allergies Allergy/AdvReac Type Severity Reaction Status Date / Time duloxetine [From Cymbalta] AdvReac Severe Nausea Verified 03/04/19 21:56 Review of Systems Constitutional Reports chills, Reports fever(s), Denies lethargy and Denies weakness Eyes Denies change in vision, Denies eye discharge, Denies irritation and Denies loss of vision ENT Ears, Nose, Mouth, and Throat: Denies change in voice, Denies neck pain and Denies sore throat Cardiovascular Denies chest pain, Denies irregular heart rhythm, Denies lightheadedness, Denies palpitations, Denies dyspnea, Denies dyspnea on exertion and Denies orthopnea Respiratory Denies cough, Denies dyspnea, Denies dyspnea on exertion and Denies wheezing Gastrointestinal Gastrointestinal: Denies abdominal pain, Denies change in bowel habits, Denies diarrhea, Denies nausea and Denies vomiting Genitourinary Denies hematuria, Reports dysuria, Reports flank pain, Denies urinary incontinence and Reports urinary urgency Musculoskeletal Denies neck pain Integumentary/Breasts Denies pruritus, Denies erythema, Denies rash and Denies wounds Neurologic Denies confusion, Denies loss of vision and Denies weakness Psychiatric Denies anxiety, Denies confusion, Denies depression, Denies homicidal ideation and Denies suicidal ideation Endocrine Denies palpitations Hematologic/Lymphatic Denies easy bruising Allergic/Immunologic Denies wheezing PFSH Medical History Fibromyalgia (Chronic) Hypoglycemia (Chronic) Osteoarthritis (Chronic) Tachycardia (Chronic) Foot fracture, left (Resolved) Surgical History History of gastric bypass (Chronic) Social History Smoking Status: Current every day smoker Social History Smoking Status: Current every day smoker Exam Narrative Exam Narrative: GENERAL: 43-year-old female appears stated age, anxious, mild distress HEAD: Atraumatic. Normocephalic. No temporal or scalp tenderness. EYES: Pupils equal round and reactive. Extraocular motions intact. No scleral icterus. No injection or drainage. ENT: Nose without bleeding, purulent drainage or septal hematoma. Throat without erythema, tonsillar hypertrophy or exudate. Uvula midline. Airway patent. NECK: Trachea midline. No JVD or lymphadenopathy. Supple, nontender, no meningeal signs. CARDIOVASCULAR: Tachycardic but regular rhythm without murmurs, gallops, or rubs. RESPIRATORY: Clear to auscultation. Breath sounds equal bilaterally. No wheezes, rales, or rhonchi. GASTROINTESTINAL: Abdomen soft, non-tender, nondistended. No hepato- splenomegaly, or palpable masses. No guarding. EXTREMITIES: No clubbing, cyanosis, or edema. No joint tenderness, effusion, or edema noted. BACK: Bilateral CVA tenderness NEURO: AOx3. SKIN: No rash or erythema. Initial Vital Signs Initial Vital Signs: Vital Signs Temperature 97.8 F 03/04/19 21:56 Pulse Rate 120 H 03/04/19 21:56 Respiratory Rate 22 03/04/19 21:56 Blood Pressure 142/90 H 03/04/19 21:56 Pulse Oximetry 99 03/04/19 21:56 Course Orders Ordered: ED Orders 03/04/19 22:25 Basic Metabolic Panel Stat Complete Blood Count AUTO DIFF Stat Urinalysis and Microscopic Stat 03/04/19 22:33 Blood Culture Stat Lactate (Lactic Acid) Stat Discontinued Medications Sodium Chloride (Normal Saline 0.9%) 1,000 mls @ 1,000 mls/hr IV BOLUS ONE Stop: 03/04/19 22:44 Last Infusion: 03/04/19 23:32 Dose: 0 mls/hr Admin: 03/04/19 22:30 Dose: 1,000 mls/hr Ceftriaxone Sodium/Dextrose (Rocephin) 1 gm in 50 mls @ 100 mls/hr IV NOW ONE Stop: 03/04/19 22:15 Last Infusion: 03/04/19 23:32 Dose: 0 mls/hr Admin: 03/04/19 22:41 Dose: 100 mls/hr Ketorolac Tromethamine (Toradol) 15 mg IV NOW ONE Stop: 03/04/19 21:46 Last Admin: 03/04/19 22:41 Dose: 15 mg Ondansetron HCl (Zofran) 4 mg IV Q4HR PRN PRN Reason: Nausea And Vomiting Last Admin: 03/04/19 22:31 Dose: 4 mg Vital Signs - 8 hr 03/04/19 21:56 03/04/19 23:29 Temperature 97.8 F 97.8 F Pulse Rate 120 H 85 Respiratory Rate 22 16 Blood Pressure 142/90 H 115/67 Pulse Oximetry 99 100 MDM - Female Genitourinary Lab Data Result diagrams: 03/04/19 22:25 03/04/19 22:25 Lab Results 03/04/19 03/04/19 03/04/19 Range/Units 22:25 22:25 22:25 WBC 7.3 (4.5-11.0) X10^3/uL RBC 4.88 (4.0-5.2) X10^6/uL Hgb 12.3 (12.0-16.0) g/dL Hct 37.5 (36-46) % MCV 76.7 L (80-100) fL MCH 25.1 L (26-34) PG MCHC 32.8 (30-36) % RDW 17.7 H (11.6-14.8) % Plt Count 190 (150-400) X10^3/uL Neut % (Auto) 53.2 (50-75) % Lymph % (Auto) 34.8 (25-40) % [place] % (Auto) 8.7 (3-14) % Eos % (Auto) 2.6 (2-4) % Baso % (Auto) 0.7 (0-2) % Neut # (Auto) 3900 (8313-2743) /uL Lymph # (Auto) 2500 (7431-8808) /uL [place] # (Auto) 600 (0-900) /uL Eos # (Auto) 200 (0-450) /uL Baso # (Auto) 0 (0-100) /uL Sodium 140 (137-145) mmol/L Potassium 4.5 (3.4-5.1) mmol/L Chloride 108 H (98-107) mmol/L Carbon Dioxide 21 L (22-32) mmol/L BUN 12 (7-17) mg/dL Creatinine 1.20 H (0.52-1.04) mg/dL Estimated GFR 49.3 L (>60) mL/min BUN/Creatinine Ratio 10.0 (6-22) Glucose 89 (70-100) mg/dL Lactate (0.7-2.1) mmol/L Calcium 9.5 (8.4-10.2) mg/dL Urine Color Yellow Urine Appearance Slightly cloudy Urine pH 5.5 (4.5-8.0) Ur Specific [place] 1.025 (1.000-1.035) Urine Protein Negative (Negative) Urine Glucose (UA) Negative (Negative) g/dL Urine Ketones Negative (NEGATIVE) Urine Occult Blood Negative (Negative) Urine Nitrate Negative (Negative) Urine Bilirubin Negative (NEGATIVE) Urine Urobilinogen 0.2 (0.2) E.U./dL Ur Leukocyte Esterase Trace H (NEGATIVE) Urine RBC None seen (0-5/HPF) Urine WBC 0-1/hpf (0-5/HPF) Ur Squamous Epith Cells 5-10 /hpf H (0-5/HPF) Urine Bacteria Moderate (10-30) H (None) Urine Mucus 1+ H (Negative) Ur Culture Indicated? Cult not indicated 03/04/19 Range/Units 22:33 WBC (4.5-11.0) X10^3/uL RBC (4.0-5.2) X10^6/uL Hgb (12.0-16.0) g/dL Hct (36-46) % MCV (80-100) fL MCH (26-34) PG MCHC (30-36) % RDW (11.6-14.8) % Plt Count (150-400) X10^3/uL Neut % (Auto) (50-75) % Lymph % (Auto) (25-40) % [place] % (Auto) (3-14) % Eos % (Auto) (2-4) % Baso % (Auto) (0-2) % Neut # (Auto) (3504-9262) /uL Lymph # (Auto) (8239-7632) /uL [place] # (Auto) (0-900) /uL Eos # (Auto) (0-450) /uL Baso # (Auto) (0-100) /uL Sodium (137-145) mmol/L Potassium (3.4-5.1) mmol/L Chloride (98-107) mmol/L Carbon Dioxide (22-32) mmol/L BUN (7-17) mg/dL Creatinine (0.52-1.04) mg/dL Estimated GFR (>60) mL/min BUN/Creatinine Ratio (6-22) Glucose (70-100) mg/dL Lactate 1.7 (0.7-2.1) mmol/L Calcium (8.4-10.2) mg/dL Urine Color Urine Appearance Urine pH (4.5-8.0) Ur Specific [place] (1.000-1.035) Urine Protein (Negative) Urine Glucose (UA) (Negative) g/dL Urine Ketones (NEGATIVE) Urine Occult Blood (Negative) Urine Nitrate (Negative) Urine Bilirubin (NEGATIVE) Urine Urobilinogen (0.2) E.U./dL Ur Leukocyte Esterase (NEGATIVE) Urine RBC (0-5/HPF) Urine WBC (0-5/HPF) Ur Squamous Epith Cells (0-5/HPF) Urine Bacteria (None) Urine Mucus (Negative) Ur Culture Indicated? Discharge Plan Departure Patient Disposition: Home Clinical Impression: Pyelonephritis Discharge Date/Time: 03/04/19 23:30 Interventions: ED Discharge Assessment Last Done: 03/04/19 23:29 Instructions: DI for Kidney Infection Activity Restrictions/Additional Instructions: *You have been diagnosed with [acute urinary tract infection with kidney involvement] *What to do: *Take medications as directed: Your prescription has been electronically transmitted to the [facility] at your request *Follow up with your primary care provider in 2-3 days, call for an appointment. Let them know you were seen in the Emergency Department and that we ask that you be seen in follow up *Return to ER if you should have any new, worsening or concerning symptoms Prescriptions: New ketorolac 10 mg tablet 10 mg PO Q6H PRN (Reason: pain) Qty: 14 RF: 0 cephalexin [Keflex] 500 mg capsule 500 mg PO QID 10 Days Qty: 40 RF: 0 ondansetron 4 mg tablet,disintegrating 4 mg PO TID-QID PRN (Reason: nausea and vomiting) Qty: 10 RF: 0 fluconazole [Diflucan] 150 mg tablet 150 mg PO DAILY PRN (Reason: Yeast) 2 Days Qty: 2 RF: 0 No Action sulfamethoxazole-trimethoprim [Bactrim DS] 800-160 mg tablet 1 tab PO BID Qty: 14 RF: 0 promethazine 25 mg tablet 25 mg PO TID Qty: 90 RF: 5 cyclobenzaprine 10 mg tablet 10 mg PO TID PRN (Reason: muscle spasm) Qty: 90 RF: 5 belladonna alkaloids-opium 16.2-30 mg suppository 1 suppositor [place] TID PRN (Reason: pain) Qty: 36 RF: 0 hydroxyzine HCl 25 mg tablet 25 mg PO QID PRNRF: 0 loratadine 10 mg capsule 10 mg PO DAILY RF: 0 ketotifen fumarate 0.025 % (0.035 %) drops EYE-BOTH PRNRF: 0 Kratom 5 tab PO BID Qty: 30 RF: 0 Referrals: Brando Quezada MD [Primary Care Provider] -
[2019-03-04 23:29] VITALS: BP 115/67; PULSE 85; RESP 16; TEMP 36.6; O2SAT 100
[2019-03-06 01:42] LABS: Enterococcus species Not Detected (Not Detect); Listeria monocytogenes Not Detected (Not Detect); Staphylococcus species Detected (Not Detect)
[2019-03-06 01:43] LABS: Acinetobacter baumannii Not Detected (Not Detect); Candida albicans Not Detected (Not Detect); Candida glabrata Not Detected (Not Detect); Candida krusei Not Detected (Not Detect); Candida parapsilosis Not Detected (Not Detect); Candida tropicalis Not Detected (Not Detect); E. coli Not Detected (Not Detect); Enterobacter cloacae complex Not Detected (Not Detect); Enterobacteriaceae species Not Detected (Not Detect); Haemophilus influenzae Not Detected (Not Detect); Methicillin-resistant gene Detected (Not Detect); Neisseria meningitidis Not Detected (Not Detect); Proteus species Not Detected (Not Detect); Pseudomonas aeruginosa Not Detected (Not Detect); Serratia marcescens Not Detected (Not Detect); Streptococcus agalactiae (Gr B Not Detected (Not Detect); Streptococcus pneumonia Not Detected (Not Detect); Streptococcus pyogenes (Gr A) Not Detected (Not Detect); Streptococcus species Not Detected (Not Detect)
--- NOTE | 2019-03-06 11:14 | PC.NURSE ---
checked on pt, pt wasnt able to fill rx last night due to transportation issue, but will be able to pickle sorter meds at noon. advised pt drinking alot of water and taking tylenol for fever, rtr if with worsen sxs.
--- NOTE | 2019-03-06 19:26 | PC.NURSE ---
called pt, no answer.
--- NOTE | 2019-03-07 13:26 | PC.NURSE ---
Called pt to f/u re: + single blood culture. Pt states she has no new / ongoing fever. Feels better over all but is nauseas and having trouble taking po fluids. Encouraged to return if she could not tolerate fluids or has any other worsening complaints. Waiting for Urine sensitivities.
== END 2019-03-04 23:30 | disposition home or self-care (01) ==
PROVIDERS: Emergency Provider Emergency Medicine; Family Provider Student in an Organized Health Care Education/Training Program; PCP Student in an Organized Health Care Education/Training Program
DX: N12 Tubulo-interstitial nephritis, not specified as acute or chronic (principal)
CPT/HCPCS: 36415; 36591; 80048; 81001; 83605; 85025; 87040; 87150; 87185; 87186; 87205; 96365; 96375; 99283; 99284; J1885; J2405

== ENCOUNTER 2019-03-09 20:33 | Inpatient (IN) | payer OTHER, MEDICAID, SELFPAY ==
--- NOTE | 2019-03-09 20:46 | ED_ITS ---
HPI - Female Genitourinary General Chief complaint: Urogenital-Female Stated complaint: states UTI with kidney pain Time Seen by Provider: 03/09/19 20:39 Source: patient Mode of arrival: ambulatory Limitations: no limitations History of Present Illness HPI Narrative: 43-year-old female who was seen on the 4th of this month the walk-in clinic and diagnosed with a urinary tract infection. Was placed on Bactrim. States she completed the entire course of this antibiotic. She was seen here in the emergency department a couple days ago for continued dysuria and right and left flank pain. She was diagnosed with pyelonephritis and was given Keflex which she states that she has been taking as directed since then. She returns today for fevers, chills, abdominal pain, back pain, nausea and just generally not feeling well despite the antibiotics. Related Data Home Medications Medication Instructions Recorded Confirmed ketotifen 0.025 % (0.035 %) eye 1 drp EYE-BOTH PRN PRN ml 08/25/18 03/10/19 drops loratadine 10 mg capsule 10 mg PO DAILY 08/25/18 03/10/19 Previous Rx's Medication Instructions Recorded Kratom 5 tab PO BID #30 ampul 08/25/18 cyclobenzaprine 10 mg tablet 10 mg PO TID PRN #90 tab 11/01/18 promethazine 25 mg tablet 25 mg PO TID #90 tab 11/01/18 ketorolac 10 mg PO Q6H PRN #14 tab 03/04/19 Allergies Allergy/AdvReac Type Severity Reaction Status Date / Time duloxetine [From Cymbalta] AdvReac Severe Nausea Verified 03/04/19 21:56 Review of Systems Constitutional Reports chills, Reports fatigue, Reports fever(s) and Denies headache(s) ENT Ears, Nose, Mouth, and Throat: Denies vertigo and Denies headache(s) Cardiovascular Denies chest pain and Denies dyspnea Respiratory Denies dyspnea Gastrointestinal Gastrointestinal: Reports abdominal pain, Denies change in stool character, Reports nausea and Denies vomiting Genitourinary Reports urinary frequency, Reports difficulty voiding, Denies dysuria, Denies pelvic pain, Reports flank pain, Reports urinary hesitancy and Reports urinary urgency Musculoskeletal Denies abnormal gait, Reports back pain, Denies myalgias and Denies arthralgias Integumentary/Breasts Denies lesions and Denies rash Neurologic Denies abnormal gait, Denies confusion, Denies vertigo and Denies headache(s) Psychiatric Denies confusion Endocrine Reports fatigue Hematologic/Lymphatic Denies easy bleeding and Denies easy bruising [facility] Medical History Fibromyalgia (Chronic) Hypoglycemia (Chronic) Osteoarthritis (Chronic) Tachycardia (Chronic) Foot fracture, left (Resolved) Social History household members: spouse and children Smoking Status: Current every day smoker Exam Initial Vital Signs Initial Vital Signs: Vital Signs Temperature 98.7 F 03/09/19 20:48 Pulse Rate 127 H 03/09/19 20:48 Respiratory Rate 22 03/09/19 20:48 Blood Pressure 110/59 L 03/09/19 20:48 Pulse Oximetry 98 03/09/19 20:48 Const General: cooperative, well groomed and ill appearing Orientation: alert, awake and oriented x3 HENMT Head: normal to inspection and normocephalic Resp Effort & Inspection: tachypneic Auscultation: clear to auscultation bilaterally Cardio Rate: tachycardic Rhythm: regular rhythm Pulses: radial pulses present GI Inspection: non-distended Palpation: soft, No firm and tender (Generalized abdominal tenderness with the right upper quadrant tenderness) Back/Spine/Pelvis Back: CVA tenderness (Bilateral CVA tenderness left greater than right) Skin Lesions: no lesions Rashes: no rashes Neuro General: alert, awake and oriented x3 Cognition: normal cognition Speech: speech normal Motor: muscle tone normal throughout Sensory Exam: no sensory deficits noted Extrem General: normal to inspection and capillary refill normal Psych Appearance: grossly normal and well kempt Scores GCS Broad Top coma scale eye opening: Spontaneous Quintin coma scale verbal response: Orientated Broad Top coma scale motor response: Obey commands Quintin coma scale total score: 15 Course Orders Ordered: ED Orders 03/09/19 20:45 Urinalysis and Microscopic Stat Urine Chlamydia Gonorrhea PCR Stat Urine Culture Stat 03/09/19 21:05 Complete Blood Count AUTO DIFF Stat Comprehensive Metabolic Panel Stat Lactate (Lactic Acid) Stat Lipase Stat Procalcitonin Stat 03/09/19 21:22 Blood Culture Stat 03/09/19 21:40 CT abdomen pelvis w con Stat 03/09/19 22:58 US abdomen limited Stat 03/10/19 00:59 Consult to General Surgery Routine 03/10/19 01:50 Consult to Dietitian, Adult Routine Consult to Respiratory Therapy Evaluate & Treat Sodium Chloride (Normal Saline 0.9%) 1,000 mls @ 125 mls/hr IV CONT MILA Last Infusion: 03/10/19 01:32 Dose: 125 mls/hr Infusion: 03/10/19 01:16 Dose: 0 mls/hr Admin: 03/10/19 00:19 Dose: 125 mls/hr Morphine Sulfate (Morphine) 2 mg IV Q4HR PRN PRN Reason: Pain, Mild (1-3) Last Admin: 03/10/19 02:07 Dose: 2 mg Ondansetron HCl (Zofran) 4 mg IV Q4HR PRN PRN Reason: Nausea And Vomiting Discontinued Medications Acetaminophen (Tylenol) 975 mg PO NOW ONE Stop: 03/09/19 20:53 Last Admin: 03/09/19 21:24 Dose: 975 mg Sodium Chloride (Normal Saline 0.9%) 1,000 mls @ 1,000 mls/hr IV BOLUS ONE Stop: 03/09/19 21:51 Last Infusion: 03/09/19 23:00 Dose: 0 mls/hr Admin: 03/09/19 21:24 Dose: 1,000 mls/hr Levofloxacin (Levaquin) 750 mg in 150 mls @ 100 mls/hr IV NOW ONE Stop: 03/09/19 22:24 Last Infusion: 03/09/19 23:25 Dose: 0 mls/hr Admin: 03/09/19 21:24 Dose: 100 mls/hr Metronidazole (Flagyl) 500 mg in 100 mls @ 100 mls/hr IV NOW ONE Stop: 03/10/19 01:44 Last Infusion: 03/10/19 01:31 Dose: 100 mls/hr Infusion: 03/10/19 01:16 Dose: 0 mls/hr Admin: 03/10/19 00:52 Dose: 100 mls/hr Vital Signs - 8 hr 03/09/19 20:48 03/09/19 22:25 03/10/19 00:08 Temperature 98.7 F Pulse Rate 127 H 93 H 100 H Respiratory Rate 22 18 Blood Pressure 110/59 L Blood Pressure [Right Arm] 102/59 L 117/65 Pulse Oximetry 98 100 99 03/10/19 01:17 03/10/19 01:40 Temperature 98.7 F 100.5 F H Pulse Rate 102 H Respiratory Rate 17 Blood Pressure 120/66 Blood Pressure [Right Arm] Pulse Oximetry 100 MDM - Female Genitourinary Medical Records Attestation: I reviewed the patient's medical records. Lab Data Attestation: I reviewed the patient's lab results. Result diagrams: 03/09/19 21:05 03/09/19 21:05 Lab Results 03/09/19 03/09/19 03/09/19 Range/Units 20:45 20:45 21:05 WBC 13.6 H (4.5-11.0) X10^3/uL RBC 4.47 (4.0-5.2) X10^6/uL Hgb 11.2 L (12.0-16.0) g/dL Hct 34.6 L (36-46) % MCV 77.5 L (80-100) fL MCH 25.0 L (26-34) PG MCHC 32.3 (30-36) % RDW 18.5 H (11.6-14.8) % Plt Count 161 (150-400) X10^3/uL Neut % (Auto) 88.6 H (50-75) % Lymph % (Auto) 6.4 L (25-40) % Mchenry % (Auto) 4.4 (3-14) % Eos % (Auto) 0.4 L (2-4) % Baso % (Auto) 0.2 (0-2) % Neut # (Auto) 91171 H (2833-7716) /uL Lymph # (Auto) 900 L (3226-4229) /uL Mchenry # (Auto) 600 (0-900) /uL Eos # (Auto) 100 (0-450) /uL Baso # (Auto) 0 (0-100) /uL Sodium (137-145) mmol/L Potassium (3.4-5.1) mmol/L Chloride (98-107) mmol/L Carbon Dioxide (22-32) mmol/L BUN (7-17) mg/dL Creatinine (0.52-1.04) mg/dL Estimated GFR (>60) mL/min BUN/Creatinine Ratio (6-22) Glucose (70-100) mg/dL Lactate (0.7-2.1) mmol/L Calcium (8.4-10.2) mg/dL Total Bilirubin (0.2-1.3) mg/dL AST (14-36) IU/L ALT (9-52) IU/L Alkaline Phosphatase (38-126) U/L Total Protein (6.3-8.2) g/dL Albumin (3.5-5.0) g/dL Globulin (1.7-4.1) g/dL Albumin/Globulin Ratio (1.0-2.8) Lipase (23-300) U/L Procalcitonin (<0.5) ng/mL Urine Color Yellow Urine Appearance Clear Urine pH 5.0 (4.5-8.0) Ur Specific Mobile 1.020 (1.000-1.035) Urine Protein Negative (Negative) Urine Glucose (UA) Negative (Negative) g/dL Urine Ketones 1+ H (NEGATIVE) Urine Occult Blood Negative (Negative) Urine Nitrate Negative (Negative) Urine Bilirubin Negative (NEGATIVE) Urine Urobilinogen 0.2 (0.2) E.U./dL Ur Leukocyte Esterase 1+ H (NEGATIVE) Urine RBC None seen (0-5/HPF) Urine WBC 1-5/hpf (0-5/HPF) Ur Squamous Epith Cells 1-5 /hpf (0-5/HPF) Urine Bacteria Few (2-10) H (None) Urine Mucus 1+ H (Negative) Ur Culture Indicated? Specimen cultured Ur Chlamydia DNA (PCR) Not detected N gonorrhoeae DNA (PCR) Not detected 03/09/19 03/09/19 03/09/19 Range/Units 21:05 21:05 21:05 WBC (4.5-11.0) X10^3/uL RBC (4.0-5.2) X10^6/uL Hgb (12.0-16.0) g/dL Hct (36-46) % MCV (80-100) fL MCH (26-34) PG MCHC (30-36) % RDW (11.6-14.8) % Plt Count (150-400) X10^3/uL Neut % (Auto) (50-75) % Lymph % (Auto) (25-40) % Mchenry % (Auto) (3-14) % Eos % (Auto) (2-4) % Baso % (Auto) (0-2) % Neut # (Auto) (4424-1812) /uL Lymph # (Auto) (8371-5105) /uL Mchenry # (Auto) (0-900) /uL Eos # (Auto) (0-450) /uL Baso # (Auto) (0-100) /uL Sodium 138 (137-145) mmol/L Potassium 3.8 (3.4-5.1) mmol/L Chloride 109 H (98-107) mmol/L Carbon Dioxide 19 L (22-32) mmol/L BUN 9 (7-17) mg/dL Creatinine 0.90 (0.52-1.04) mg/dL Estimated GFR > 60.0 (>60) mL/min BUN/Creatinine Ratio 10.0 (6-22) Glucose 101 H (70-100) mg/dL Lactate 1.4 (0.7-2.1) mmol/L Calcium 9.1 (8.4-10.2) mg/dL Total Bilirubin 0.6 (0.2-1.3) mg/dL AST 18 (14-36) IU/L ALT 13 (9-52) IU/L Alkaline Phosphatase 109 (38-126) U/L Total Protein 7.0 (6.3-8.2) g/dL Albumin 3.9 (3.5-5.0) g/dL Globulin 3.1 (1.7-4.1) g/dL Albumin/Globulin Ratio 1.3 (1.0-2.8) Lipase (23-300) U/L Procalcitonin < 0.05 (<0.5) ng/mL Urine Color Urine Appearance Urine pH (4.5-8.0) Ur Specific Mobile (1.000-1.035) Urine Protein (Negative) Urine Glucose (UA) (Negative) g/dL Urine Ketones (NEGATIVE) Urine Occult Blood (Negative) Urine Nitrate (Negative) Urine Bilirubin (NEGATIVE) Urine Urobilinogen (0.2) E.U./dL Ur Leukocyte Esterase (NEGATIVE) Urine RBC (0-5/HPF) Urine WBC (0-5/HPF) Ur Squamous Epith Cells (0-5/HPF) Urine Bacteria (None) Urine Mucus (Negative) Ur Culture Indicated? Ur Chlamydia DNA (PCR) N gonorrhoeae DNA (PCR) 03/09/19 Range/Units 21:05 WBC (4.5-11.0) X10^3/uL RBC (4.0-5.2) X10^6/uL Hgb (12.0-16.0) g/dL Hct (36-46) % MCV (80-100) fL MCH (26-34) PG MCHC (30-36) % RDW (11.6-14.8) % Plt Count (150-400) X10^3/uL Neut % (Auto) (50-75) % Lymph % (Auto) (25-40) % Mchenry % (Auto) (3-14) % Eos % (Auto) (2-4) % Baso % (Auto) (0-2) % Neut # (Auto) (8959-5288) /uL Lymph # (Auto) (9877-6351) /uL Mchenry # (Auto) (0-900) /uL Eos # (Auto) (0-450) /uL Baso # (Auto) (0-100) /uL Sodium (137-145) mmol/L Potassium (3.4-5.1) mmol/L Chloride (98-107) mmol/L Carbon Dioxide (22-32) mmol/L BUN (7-17) mg/dL Creatinine (0.52-1.04) mg/dL Estimated GFR (>60) mL/min BUN/Creatinine Ratio (6-22) Glucose (70-100) mg/dL Lactate (0.7-2.1) mmol/L Calcium (8.4-10.2) mg/dL Total Bilirubin (0.2-1.3) mg/dL AST (14-36) IU/L ALT (9-52) IU/L Alkaline Phosphatase (38-126) U/L Total Protein (6.3-8.2) g/dL Albumin (3.5-5.0) g/dL Globulin (1.7-4.1) g/dL Albumin/Globulin Ratio (1.0-2.8) Lipase 56 (23-300) U/L Procalcitonin (<0.5) ng/mL Urine Color Urine Appearance Urine pH (4.5-8.0) Ur Specific Mobile (1.000-1.035) Urine Protein (Negative) Urine Glucose (UA) (Negative) g/dL Urine Ketones (NEGATIVE) Urine Occult Blood (Negative) Urine Nitrate (Negative) Urine Bilirubin (NEGATIVE) Urine Urobilinogen (0.2) E.U./dL Ur Leukocyte Esterase (NEGATIVE) Urine RBC (0-5/HPF) Urine WBC (0-5/HPF) Ur Squamous Epith Cells (0-5/HPF) Urine Bacteria (None) Urine Mucus (Negative) Ur Culture Indicated? Ur Chlamydia DNA (PCR) N gonorrhoeae DNA (PCR) Imaging Data CT scan - abdomen: Radiologist's impression: Read by a real Radiology Diffusely hypodense tinted: As described with characteristics worrisome for superimposed colitis, likely secondary to inflammatory versus infectious etiology. No evidence for perforation or obstruction. Distended gallbladder as described. If indicated, ultrasonography would be helpful for more definitive assessment of potential acute cholecystitis US - abdomen: Radiologist's impression: Read by real Radiology Findings suggestive of potential early/developing acute cholecystitis. There is extensive cholelithiasis present Common bile duct measures 5.7 mm Visualized gallbladder wall is not thickened, measuring up to 1.5 mm and demonstrates no edema. There is a positive sonographic Haas's sign. There is no pericholecystic fluid. [facility] Narrative Medical decision making narrative: Review of the patient's record shows that the urinalysis from her 1st visit was questionable as to whether not it was actually an infection. There was no microscopic performed and no urine culture performed. It seems that her symptoms were treated based mostly on symptoms. Her urinalysis from the 2nd visit is complicated from the fact that she completed a course of Bactrim. This urinalysis also was questionable about a urinary tract infection and a culture was not performed at that time as well. She returns today tachycardic. Not febrile however has chills and rigors. She is a leukocytosis with a left shift. Her procalcitonin lactate were unremarkable. She was never hypotensive. The CT scan was ordered to evaluate for other potential etiologies of her symptoms outside of a urinary tract infection. This does demonstrate a colitis. But no appendicitis. Her GC and chlamydia are negative which makes PID unlikey especially in the setting of no vaginal discharge and no pelvic pain. Right upper quadrant ultrasound was o btained which shows cholelithiasis however no other signs of acute cholecystitis. Her LFTs and lipase were unremarkable. Upon arrival she was given Levaquin for presumed pyelonephritis. Flagyl was ordered secondary to the colitis on the CT scan. I discussed the case with Dr. [facility]itt[facility] for further evaluation and treatment. I also discussed the case with with General surgery who will evaluate the patient in the morning. Discussed the admission with the patient and her who is at bedside. They both expressed understanding and agreement. Discharge Plan Departure Patient Disposition: Admitted as Observation Clinical Impression: Pyelonephritis Cholelithiasis Qualifiers: Cholelithiasis location: gallbladder Cholecystitis presence: without cholecystitis Biliary obstruction: without biliary obstruction Qualified Code(s): K80.20 - Calculus of gallbladder without cholecystitis without obstruction Discharge Date/Time: 03/10/19 01:21 Interventions: ED Discharge Assessment Last Done: 03/10/19 01:20 Admit Date/Time: 03/10/19 00:49 Admit Provider: Octavio Whittaker
[2019-03-09 20:48] VITALS: BP 110/59; PULSE 127; RESP 22; TEMP 37.1; O2SAT 98; BMI 35.0
[2019-03-09 20:57] LABS: RBC Urine None Seen (0-5/HPF)
[2019-03-09 20:58] LABS: Appearance Urine UA CLEAR; Bilirubin Urine UA NEGATIVE (NEGATIVE); Color Urine UA YELLOW; Glucose Urine UA NEGATIVE (Negative); Ketones Urine UA 1+ (NEGATIVE); Leukocyte Esterase Urine UA 1+ (NEGATIVE); Nitrite Urine UA NEGATIVE (Negative); Occult Blood Urine UA NEGATIVE (Negative); Protein Urine UA NEGATIVE (Negative); Urobilinogen Urine UA 0.2 E.U./dL (0.2)
[2019-03-09 21:14] LABS: Bacteria Urine Few (2-10); Mucus Urine 1+ (Negative); Squamous Epithelial Cell Urine 1-5 /HPF (0-5/HPF); WBC Urine 1-5/HPF (0-5/HPF)
[2019-03-09 21:15] LABS: Culture Indicated Urine Specimen Cultured
[2019-03-09 21:19] LABS: Add Manual Diff / Slide Review NO; Basophils Absolute Auto 0 /uL (0-100); Basophils Percent Auto 0.2 % (0-2); Eosinophils Absolute Auto 100 /uL (0-450); Eosinophils Percent Auto 0.4 % (2-4); Hematocrit 34.6 % (36-46); Hemoglobin 11.2 g/dL (12.0-16.0); Lymphocytes Absolute Auto 900 /uL (1100-4500); Lymphocytes Percent Auto 6.4 % (25-40); Mean Corpuscular HGB Conc 32.3 % (30-36); Mean Corpuscular Volume 77.5 fL (80-100); Monocytes Absolute Auto 600 /uL (0-900); Monocytes Percent Auto 4.4 % (3-14); Neutrophils Absolute Auto 12000 /uL (1500-7000); Neutrophils Percent Auto 88.6 % (50-75); Platelet Count 161 X10^3/uL (150-400); Red Blood Cell Count 4.47 X10^6/uL (4.0-5.2); Red Cell Distribution Width 18.5 % (11.6-14.8); White Blood Cell Count 13.6 X10^3/uL (4.5-11.0)
[2019-03-09] MEDS: SODIUM CHLORIDE 0.9% 1,000 ML 1000 ML IV (21:24)
[2019-03-09] MEDS: levoFLOXacin 750 MG/150 ML PIGGYBACK 100 MG IV (21:24)
[2019-03-09] MEDS: ACETAMINOPHEN 325 MG TABLET 975 MG PO (21:24)
[2019-03-09 21:30] LABS: Lipase 56 U/L (23-300)
[2019-03-09 21:31] LABS: Lactate (Lactic Acid) 1.4 mmol/L (0.7-2.1)
[2019-03-09 21:37] LABS: Alanine Aminotransferase 13 IU/L (9-52); Albumin 3.9 g/dL (3.5-5.0); Albumin Globulin Ratio 1.3 (1.0-2.8); Alkaline Phosphatase 109 U/L (38-126); Aspartate Aminotransferase 18 IU/L (14-36); Bilirubin Total 0.6 mg/dL (0.2-1.3); Blood Urea Nitrogen 9 mg/dL (7-17); Calcium 9.1 mg/dL (8.4-10.2); Carbon Dioxide 19 mmol/L (22-32); Chloride 109 mmol/L (98-107); Estimated Glomerular Filt Rate > 60.0 mL/min (>60); Globulin 3.1 g/dL (1.7-4.1); Glucose 101 mg/dL (70-100); HEMOLYSIS < 15 (0-50); Potassium 3.8 mmol/L (3.4-5.1); Sodium 138 mmol/L (137-145)
--- NOTE | 2019-03-09 21:40 | DI.CT.S_ITS ---
PROCEDURE: CT ABDOMEN PELVIS W CON INDICATIONS: Lower abdomen pain with fevers and elevated white count TECHNIQUE: After the administration of intravenous contrast, 5 mm thick sections acquired from the diaphragm to the symphysis. 5 mm coronal and sagittal reformats were acquired. For radiation dose reduction, the following was used: automated exposure control, adjustment of mA and/or kV according to patient size. COMPARISON: None. FINDINGS: Image quality: Excellent. ABDOMEN: Lung bases: Lung bases are clear. Heart size is normal. Solid organs: Liver is normal in size and enhancement. Hepatic steatosis is seen. Gallbladder is distended. No calcified gallstone is seen. No significant gallbladder wall thickening or pericholecystic fluid.. Biliary system is non dilated. Pancreas enhances normally. Spleen is normal in size and enhancement. No adrenal nodules. Kidneys demonstrate normal size and enhancement, without hydronephrosis. Peritoneum and bowel: Patient is status post vascular bypass surgery. There is no evidence of bowel obstruction. There is suggestion of diffuse colonic wall thickening and edema. Appendix is visualized and is within normal limits. No free fluid or free air. Sigmoid diverticulosis is seen, no CT evidence of acute diverticulitis. Nodes and vessels: No retroperitoneal or mesenteric adenopathy by size criteria. Aorta and inferior vena cava are normal in size. Miscellaneous: No ventral hernias. PELVIS: Genitourinary: Bladder wall thickness is normal. Miscellaneous: No inguinal hernias or adenopathy. Bones: No suspicious bony lesions. No vertebral body compression fractures. IMPRESSION: 1. Suggestion of mild diffuse colonic wall thickening and edema, concerning for infectious or inflammatory colitis. No bowel obstruction. Normal appendix. No free fluid or free air. 2. Distended gallbladder with no calcified gallstones seen. No definite sonographic evidence of acute cholecystitis. 3. Patient is status post gastric bypass surgery. Dictated by: Jony Downing M.D. on 03/10/2019 at 8:12 Approved by: Jony Downing M.D. on 03/10/2019 at 8:16
[2019-03-09 21:52] LABS: Procalcitonin < 0.05 ng/mL (<0.5)
[2019-03-09 22:25] VITALS: BP 102/59; PULSE 93; RESP 18; O2SAT 100
--- NOTE | 2019-03-09 22:58 | DI.US.S_ITS ---
PROCEDURE: US ABDOMEN LIMITED INDICATIONS: RIGHT UPPER QUADRANT PAIN TECHNIQUE: Real-time scanning was performed of the abdominal and retroperitoneal organs, with image documentation. COMPARISON: [facility], CT, CT ABDOMEN PELVIS W CON, 03/09/2019, 22:05. FINDINGS: Liver: Liver is normal in size and homogeneous in echotexture. Gallbladder: Gallbladder demonstrates multiple areas of increased echogenicity. There is no wall thickness with wall measuring 1.5 mm. Biliary ducts: Intrahepatic bile ducts are non-dilated. Extrahepatic bile duct caliber measures 5.7 mm. Normal is 6-7 mm or less in diameter, or 10 mm or less post-cholecystectomy. Miscellaneous: No free abdominal fluid. IMPRESSION: 1. Unremarkable exam. The above findings are concordant with preliminary report. Dictated by: Saray Vega M.D. on 03/10/2019 at 11:29 Approved by: Saray Vega M.D. on 03/10/2019 at 11:31
[2019-03-09 23:25] LABS: Urine N gonorrhoeae NOT DETECTED
[2019-03-09 23:36] LABS: Urine Chlamydia NOT DETECTED
[2019-03-10] VITALS (15 sets, daily range): BP systolic 95–138; BP diastolic 37–70; PULSE 69–106; RESP 16–18; TEMP 36.6–38.1; O2SAT 97–100; BMI 35.0; BMI 35.6
[2019-03-10] MEDS: SODIUM CHLORIDE 0.9% 1,000 ML 125 ML IV ×2 (00:19→08:52)
[2019-03-10] MEDS: metroNIDAZOLE 500 MG/100 ML PIGGYBACK 100 MG IV (00:52)
[2019-03-10] MEDS: MORPHINE 2 MG/ML INJ IV ×5 (02:07→18:33)
--- NOTE | 2019-03-10 02:10 | PC.NURSE ---
Addendum entered by Hemalatha Ojeda R.N. 03/10/19 06:46: APPLICATION TRAINER alerted this RN to pt crying in her room, pt reporting 10/10 headache and nausea, requesting pain management and antiemetic, medicated with 2mg IV Morphine and 4mg IV Zofran per OCT. Encouraged pt to use call light to alert staff to increasing pain as she reported she was trying to tough it out. 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 Original Note: Admission Note: Pt arrived by wheelchair accompanied by ED nurse, was able to ambulate self to toilet and urinated without difficulty. Pt is AxOx4, conversant mildly tearful r/t questions about chronic pain and current illness. Admission assessment notable for complete absence of teeth, pt reports d/t gastric bypass surgery she previously had. Pt reports a greater than 50# unintentional weight loss d/t nausea since June. VS notable for temp of 100.5 and tachycardia of 102, pt reports hx of tachycardia for which she does not take medication, and non-pitting edema to lower extremities. Pt c/o nausea, vomiting, and loose stools, bowel tones are hypoactive but does have flatus, abdomen is soft and non-tender to palpation. Pt reports feeling weak but capable of ambulating self. Pt reports a chronic back pain level of 8/10 on the numeric scale, reported a 7/10 for her back and 9/10 for a headache, medicated with 2mg IV Morphine per OCT. Oriented pt to room and call light, went over home medications and available medications, pt verbalized understanding. All safety checks completed, pt is independent in the room and is a moderate fall risk d/t weakness.
[2019-03-10] MEDS: ONDANSETRON 4 MG/2 ML INJ IV ×2 (06:17→20:32)
--- NOTE | 2019-03-10 07:33 | PM.HP.1 ---
History of Present Illness Date Patient Seen: 03/10/19 Time Patient Seen: 07:34 Chief complaint: states UTI with kidney pain Narrative: Phylicia presented to the ED yesterday with abdominal pain that had been occurring for several days. She presented to the ED concerned about a repeat UTI because she had several UTI's in October that were treated with antibiotics and also had another UTI on the 24 of February that was treated with Bactrim. Urine cultures from the ED showed no growth. A written US report is not available yet but per the ED report, ultrasound of the gallbladder showed evidence of cholelithiasis but without cholecystitis. CT abdomen showed diffuse colitis. Stool C diff is pending, surgical consult pending. Today Phylicia continues to present with abdominal pain, nausea, fevers, and diarrhea that she describes as consisting of mucous but no blood. She explains that in order to feel better, she lifts up her lower ribs on her right side to make space under her diaphragm for her liver. She also feels better with the legs of her bed elevated with her legs/knees flexed toward her abdomen. She states that she hasn't had anything to eat for a couple of days because of the pain. She has never had c.diff or colitis before. The WBC is 13.6 with a Procalcitonin that is less than 0.05. Patient History Medical History (Updated 03/10/19 @ 10:43 by Elizabeth Carter MD) Hidradenitis suppurativa (Resolved) Fibromyalgia (Chronic) Hypoglycemia (Chronic) Osteoarthritis (Chronic) Tachycardia (Chronic) Foot fracture, left (Resolved) Surgical History History of gastric bypass (Chronic) Family History Father Diabetes mellitus Hypertension Social History household members: spouse and children Smoking Status: Current every day smoker Family & Social History Family History Father Diabetes mellitus Hypertension Social History: household members spouse,children Prior Living Arrangements Apartment/Condo Safety & Behavioral: Feels Safe in Current Yes Environment Been Physically Hurt or No Threatened By a Person Suicidal Ideation Description None Suicide Plan Description No Plan Tobacco & Substance use: Tobacco type cigarettes Smoking Status Current every day smoker alcohol intake frequency other Substance Use Type marijuana,other Comment: POA: Castro Mckee () Meds Home Medications Medication Instructions Recorded Confirmed Type Kratom 5 tab PO BID #30 ampul 08/25/18 03/10/19 Rx ketotifen 0.025 % (0.035 %) eye 1 drp EYE-BOTH PRN PRN ml 08/25/18 03/10/19 History drops loratadine 10 mg capsule 10 mg PO DAILY 08/25/18 03/10/19 History cyclobenzaprine 10 mg tablet 10 mg PO TID PRN #90 tab 11/01/18 03/10/19 Rx promethazine 25 mg tablet 25 mg PO TID #90 tab 11/01/18 03/10/19 Rx ketorolac 10 mg PO Q6H PRN #14 tab 03/04/19 03/10/19 Rx Allergies Allergy/AdvReac Type Severity Reaction Status Date / Time duloxetine [From Cymbalta] AdvReac Severe Nausea Verified 03/04/19 21:56 Review of Systems Constitutional Constitutional: Denies anorexia, Reports chills, Reports excessive sweating, Reports fatigue, Reports fever(s), Reports malaise and Reports poor appetite ENT Ears, Nose, Mouth, and Throat: No abnormal hearing, No sore throat, No throat swelling and No tongue swelling Cardiovascular Cardiovascular: Denies bluish discoloration of hands/feet, Denies chest pain and Denies chest pain with activity Respiratory Respiratory: Denies chest congestion and Denies pain on inspiration Gastrointestinal Gastrointestinal: Reports abdominal pain, Denies melena, Reports loose stools and Denies hematemesis Musculoskeletal Musculoskeletal: Reports muscle weakness Neurologic Neurologic: Denies abnormal hearing and Denies confusion Psychiatric Psychiatric: Denies anxiety, Reports change in appetite and Denies confusion Endocrine Endocrine: Reports excessive sweating, Reports fatigue and Reports flushing Allergic/Immunologic Allergic/Immunologic: Denies throat swelling and Denies tongue swelling Exam Vital Signs (past 8 hours): - 03/10/19 00:08 03/10/19 01:17 03/10/19 01:40 Temperature 98.7 F 100.5 F H Pulse Rate 100 H 102 H Respiratory Rate 17 Blood Pressure 120/66 Blood Pressure [Right Arm] 117/65 Pulse Oximetry 99 100 03/10/19 04:24 03/10/19 05:29 03/10/19 05:38 Temperature 98.6 F 100.3 F H Pulse Rate 97 H 95 H Respiratory Rate 16 18 Blood Pressure 113/69 Blood Pressure [Right Arm] Pulse Oximetry 99 100 Oxygen Delivery Method Room Air Const General: cooperative, anxious and ill appearing Orientation: alert and oriented x3 HENMT Head: normal to inspection, normocephalic and atraumatic Ears: hearing grossly normal bilaterally and external ears normal Nose: external nose normal Mouth: oral mucosae normal, oropharynx normal and moist mucous membranes Teeth and gingiva: dentition normal Eyes Alignment and Position: alignment normal Eyelids: eyelids normal Conjunctivae: conjunctivae normal Sclera: sclerae normal Cornea: corneas normal Pupils: PERRL EOM: EOM intact bilaterally Neck Neck: normal visual inspection Chest Chest: normal inspection of the chest Resp Effort & Inspection: normal respiratory effort and able to speak in complete sentences Auscultation: clear to auscultation bilaterally Cardio Rate: regular rate Rhythm: regular rhythm Heart Sounds: S1 normal and S2 normal GI Inspection: normal to inspection Palpation: guarding and tender (tenderness in RUQ, positive Haas's sign) Percussion: normal to percussion Auscultation: normal bowel sounds Back/Spine/Pelvis Back: normal to inspection Cervical Spine: normal cervical lordosis Thoracic/Lumbar Spine: thoracic and lumbar spine normal to inspection Skin General: no rashes or lesions noted and hot (skin was hot and moist on palpation) Lesions: no lesions Rashes: no rashes Wounds: no wounds Hair: normal Nails: normal Neuro General: alert, awake and oriented x3 Cranial Nerves: CN's II-XI intact bilaterally Cognition: normal cognition Speech: speech normal Extrem General: normal to inspection and full ROM Right upper extremity: normal to inspection Left upper extremity: normal to inspection Right lower extremity: normal to inspection Left lower extremity: normal to inspection Psych Appearance: grossly normal Speech and Movement: speech and movement normal Mood: anxious mood Attitude: cooperative Thought Process: normal Thought Content: normal Judgment: judgment good Objective Labs Result Diagrams: 03/09/19 21:05 03/09/19 21:05 Labs: Laboratory Results - last 24 hr 03/09/19 03/09/19 03/09/19 20:45 20:45 21:05 WBC 13.6 H RBC 4.47 Hgb 11.2 L Hct 34.6 L MCV 77.5 L MCH 25.0 L MCHC 32.3 RDW 18.5 H Plt Count 161 Neut % (Auto) 88.6 H Lymph % (Auto) 6.4 L [place] % (Auto) 4.4 Eos % (Auto) 0.4 L Baso % (Auto) 0.2 Neut # (Auto) 63194 H Lymph # (Auto) 900 L [place] # (Auto) 600 Eos # (Auto) 100 Baso # (Auto) 0 Sodium Potassium Chloride Carbon Dioxide BUN Creatinine Estimated GFR BUN/Creatinine Ratio Glucose Lactate Calcium Total Bilirubin AST ALT Alkaline Phosphatase Total Protein Albumin Globulin Albumin/Globulin Ratio Lipase Procalcitonin Urine Color Yellow Urine Appearance Clear Urine pH 5.0 Ur Specific [place] 1.020 Urine Protein Negative Urine Glucose (UA) Negative Urine Ketones 1+ H Urine Occult Blood Negative Urine Nitrate Negative Urine Bilirubin Negative Urine Urobilinogen 0.2 Ur Leukocyte Esterase 1+ H Urine RBC None seen Urine WBC 1-5/hpf Ur Squamous Epith Cells 1-5 /hpf Urine Bacteria Few (2-10) H Urine Mucus 1+ H Ur Culture Indicated? Specimen cultured Ur Chlamydia DNA (PCR) Not detected N gonorrhoeae DNA (PCR) Not detected 03/09/19 03/09/19 03/09/19 21:05 21:05 21:05 WBC RBC Hgb Hct MCV MCH MCHC RDW Plt Count Neut % (Auto) Lymph % (Auto) [place] % (Auto) Eos % (Auto) Baso % (Auto) Neut # (Auto) Lymph # (Auto) [place] # (Auto) Eos # (Auto) Baso # (Auto) Sodium 138 Potassium 3.8 Chloride 109 H Carbon Dioxide 19 L BUN 9 Creatinine 0.90 Estimated GFR > 60.0 BUN/Creatinine Ratio 10.0 Glucose 101 H Lactate 1.4 Calcium 9.1 Total Bilirubin 0.6 AST 18 ALT 13 Alkaline Phosphatase 109 Total Protein 7.0 Albumin 3.9 Globulin 3.1 Albumin/Globulin Ratio 1.3 Lipase Procalcitonin < 0.05 Urine Color Urine Appearance Urine pH Ur Specific [place] Urine Protein Urine Glucose (UA) Urine Ketones Urine Occult Blood Urine Nitrate Urine Bilirubin Urine Urobilinogen Ur Leukocyte Esterase Urine RBC Urine WBC Ur Squamous Epith Cells Urine Bacteria Urine Mucus Ur Culture Indicated? Ur Chlamydia DNA (PCR) N gonorrhoeae DNA (PCR) 07/17/19 21:05 WBC RBC Hgb Hct MCV MCH MCHC RDW Plt Count Neut % (Auto) Lymph % (Auto) [place] % (Auto) Eos % (Auto) Baso % (Auto) Neut # (Auto) Lymph # (Auto) [place] # (Auto) Eos # (Auto) Baso # (Auto) Sodium Potassium Chloride Carbon Dioxide BUN Creatinine Estimated GFR BUN/Creatinine Ratio Glucose Lactate Calcium Total Bilirubin AST ALT Alkaline Phosphatase Total Protein Albumin Globulin Albumin/Globulin Ratio Lipase 56 Procalcitonin Urine Color Urine Appearance Urine pH Ur Specific [place] Urine Protein Urine Glucose (UA) Urine Ketones Urine Occult Blood Urine Nitrate Urine Bilirubin Urine Urobilinogen Ur Leukocyte Esterase Urine RBC Urine WBC Ur Squamous Epith Cells Urine Bacteria Urine Mucus Ur Culture Indicated? Ur Chlamydia DNA (PCR) N gonorrhoeae DNA (PCR) Assessment & Plan Assessment & Plan narrative: Abdominal Pain and Fever -So far colitis appears to be the most likely cause of her symptoms, with her fevers, severe diarrhea, etc. -Will be alert for signs of progressive sepsis -Continue on Unasyn and Flaglyl IV will waiting for c.diff testing to return -Continue on liquid diet and IVF support -General Surgery is following Diffuse Colitis -She describes a pattern of recent antibiotic use, severe diarrhea and has CT findings consistent with possible Pseudomembranous Colitis -C. Diff is pending and if positive then will likely add oral Vancomycin -Surgery is following with a colonoscopy under consideration Cholelithiasis -Pending formal US report but so far the possibility of Cholecystitis causing her diarrhea/fever seems less likely than Colitis causing it. 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 Quality VTE Deep Vein Thrombosis/Pulmonary Embolism Present on Admission: No
--- NOTE | 2019-03-10 09:28 | PM.CN ---
History of Present Illness Date Patient Seen: 03/10/19 Time Patient Seen: 09:28 Chief complaint: states UTI with kidney pain Narrative: 43-year-old white female comes to the emergency room last night with a history of having urinary tract infections over the last few weeks treated with Bactrim and then another course of Keflex she comes in with shaking chills fever nausea and vomiting a picture of sepsis. CT in the emergency room shows possible inflammatory changes in the colon read as colitis. No mention of pyelonephritis or kidney stones. No mention of gallbladder wall thickening or evidence of cholecystitis. An ultrasound of the gallbladder has been done which shows cholelithiasis again no acute cholecystitis. She is admitted for further evaluation of sepsis and treatment for sepsis [facility] Medical History Fibromyalgia (Chronic) Hypoglycemia (Chronic) Osteoarthritis (Chronic) Tachycardia (Chronic) Foot fracture, left (Resolved) Social History household members: spouse and children Smoking Status: Current every day smoker Meds Home Medications Medication Instructions Recorded Confirmed Type Kratom 5 tab PO BID #30 ampul 08/25/18 03/10/19 Rx ketotifen 0.025 % (0.035 %) eye 1 drp EYE-BOTH PRN PRN ml 08/25/18 03/10/19 History drops loratadine 10 mg capsule 10 mg PO DAILY 08/25/18 03/10/19 History cyclobenzaprine 10 mg tablet 10 mg PO TID PRN #90 tab 11/01/18 03/10/19 Rx promethazine 25 mg tablet 25 mg PO TID #90 tab 11/01/18 03/10/19 Rx ketorolac 10 mg PO Q6H PRN #14 tab 03/04/19 03/10/19 Rx Allergies Allergy/AdvReac Type Severity Reaction Status Date / Time duloxetine [From Cymbalta] AdvReac Severe Nausea Verified 03/04/19 21:56 Exam Vital Signs (past 8 hours): - 03/10/19 01:40 03/10/19 04:24 03/10/19 05:29 Temperature 100.5 F H 98.6 F Pulse Rate 102 H 97 H Respiratory Rate 17 16 Blood Pressure 120/66 Pulse Oximetry 100 99 03/10/19 05:38 03/10/19 07:40 03/10/19 08:41 Temperature 100.3 F H 99.2 F Pulse Rate 95 H 106 H 104 H Respiratory Rate 18 16 16 Blood Pressure 113/69 115/37 L Pulse Oximetry 100 97 98 Fraction of Inspired Oxygen 21 Oxygen Delivery Method Room Air Oxygen Flow Rate 0 Narrative Exam Narrative: Patient is alert and oriented temperature is 100?. She feels much better than last night. No further shaking chills. Abdominal exam is soft with no focal tenderness. No masses are palpated. She does have some mild to moderate CVA tenderness both sides. Objective Labs Result Diagrams: 03/09/19 21:05 03/09/19 21:05 Labs: Laboratory Results - last 24 hr 03/09/19 03/09/19 03/09/19 20:45 20:45 21:05 WBC 13.6 H RBC 4.47 Hgb 11.2 L Hct 34.6 L MCV 77.5 L MCH 25.0 L MCHC 32.3 RDW 18.5 H Plt Count 161 Neut % (Auto) 88.6 H Lymph % (Auto) 6.4 L [place] % (Auto) 4.4 Eos % (Auto) 0.4 L Baso % (Auto) 0.2 Neut # (Auto) 06284 H Lymph # (Auto) 900 L [place] # (Auto) 600 Eos # (Auto) 100 Baso # (Auto) 0 Sodium Potassium Chloride Carbon Dioxide BUN Creatinine Estimated GFR BUN/Creatinine Ratio Glucose Lactate Calcium Total Bilirubin AST ALT Alkaline Phosphatase Total Protein Albumin Globulin Albumin/Globulin Ratio Lipase Procalcitonin Urine Color Yellow Urine Appearance Clear Urine pH 5.0 Ur Specific [place] 1.020 Urine Protein Negative Urine Glucose (UA) Negative Urine Ketones 1+ H Urine Occult Blood Negative Urine Nitrate Negative Urine Bilirubin Negative Urine Urobilinogen 0.2 Ur Leukocyte Esterase 1+ H Urine RBC None seen Urine WBC 1-5/hpf Ur Squamous Epith Cells 1-5 /hpf Urine Bacteria Few (2-10) H Urine Mucus 1+ H Ur Culture Indicated? Specimen cultured Ur Chlamydia DNA (PCR) Not detected N gonorrhoeae DNA (PCR) Not detected 03/09/19 03/09/19 03/09/19 21:05 21:05 21:05 WBC RBC Hgb Hct MCV MCH MCHC RDW Plt Count Neut % (Auto) Lymph % (Auto) [place] % (Auto) Eos % (Auto) Baso % (Auto) Neut # (Auto) Lymph # (Auto) [place] # (Auto) Eos # (Auto) Baso # (Auto) Sodium 138 Potassium 3.8 Chloride 109 H Carbon Dioxide 19 L BUN 9 Creatinine 0.90 Estimated GFR > 60.0 BUN/Creatinine Ratio 10.0 Glucose 101 H Lactate 1.4 Calcium 9.1 Total Bilirubin 0.6 AST 18 ALT 13 Alkaline Phosphatase 109 Total Protein 7.0 Albumin 3.9 Globulin 3.1 Albumin/Globulin Ratio 1.3 Lipase Procalcitonin < 0.05 Urine Color Urine Appearance Urine pH Ur Specific [place] Urine Protein Urine Glucose (UA) Urine Ketones Urine Occult Blood Urine Nitrate Urine Bilirubin Urine Urobilinogen Ur Leukocyte Esterase Urine RBC Urine WBC Ur Squamous Epith Cells Urine Bacteria Urine Mucus Ur Culture Indicated? Ur Chlamydia DNA (PCR) N gonorrhoeae DNA (PCR) 03/09/19 21:05 WBC RBC Hgb Hct MCV MCH MCHC RDW Plt Count Neut % (Auto) Lymph % (Auto) [place] % (Auto) Eos % (Auto) Baso % (Auto) Neut # (Auto) Lymph # (Auto) [place] # (Auto) Eos # (Auto) Baso # (Auto) Sodium Potassium Chloride Carbon Dioxide BUN Creatinine Estimated GFR BUN/Creatinine Ratio Glucose Lactate Calcium Total Bilirubin AST ALT Alkaline Phosphatase Total Protein Albumin Globulin Albumin/Globulin Ratio Lipase 56 Procalcitonin Urine Color Urine Appearance Urine pH Ur Specific [place] Urine Protein Urine Glucose (UA) Urine Ketones Urine Occult Blood Urine Nitrate Urine Bilirubin Urine Urobilinogen Ur Leukocyte Esterase Urine RBC Urine WBC Ur Squamous Epith Cells Urine Bacteria Urine Mucus Ur Culture Indicated? Ur Chlamydia DNA (PCR) N gonorrhoeae DNA (PCR) Assessment & Plan Assessment & Plan narrative: Patient is admitted with likely sepsis elevated white count and the above-mentioned CT findings. The question is whether that she is suffering from C diff colitis secondary to antibiotic therapy for her urinary tract infections. She does have gallstones but there is not evidence for acute cholecystitis. Patient has normal liver chemistries. And no imaging changes consistent with acute cholecystitis. Studies for C diff a been ordered. We will treat the patient with Flagyl for possible C diff. Treated with Unasyn for possible early cholecystitis. Patient understands and has no questions
[2019-03-10] MEDS: DEXTROSE 5%-0.9% NS 1,000 ML 125 ML IV (09:36)
[2019-03-10] MEDS: AMPICILLIN/SULBACTAM 3 GM 3 GM in SODIUM CHLORIDE 0.9% 100 ML IV ×2 (09:41→17:37)
[2019-03-10] MEDS: metroNIDAZOLE 250 MG TABLET PO ×4 (10:28→20:29)
[2019-03-10] MEDS: ENOXAPARIN 40 MG/0.4 ML SYRINGE SUBCUT (10:28)
[2019-03-10] MEDS: ACETAMINOPHEN 325 MG TABLET 650 MG PO ×2 (11:48→20:31)
[2019-03-10] MEDS: VANCOMYCIN 1,500 MG/300 ML FROZ.PIGGY 200 MG IV (13:19)
--- NOTE | 2019-03-10 15:45 | DIET.PN ---
Dietary Progress Note Assessment: 43y F referred for nutrition consult re MNA of 10 (at risk for malnutrition) and pt reported 50# wt loss in past 6mo. Pt reports UTI c kidney px, possible cholelithiasis. Pt had felicia en y gastric bypass 11y ago, does not take MVI or prioritize protein intake. Pt has chronic nausea, constipation, vit d deficiency and iron def anemia (reports having transfusion 8y ago). Started taking Kratom 3x/d 06/10, started losing wt in 07/11, currently down 50# without trying. States food doesn't sound good, could survive on ice chips and coffee. craving ice chips associated c iron deficiency anemia Past 4 mo pt feels bloated and crampy when eating. Pt reports usual intake of 2 bites hot dog and a few fries plus ice chips and half pot coffee in a day. 1y ago normal lunch would have been double cheeseburger c fries and coffee. 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 Interventions: recc MVI, special consideration for Iron, Calcium, Thiamin, Vit D d/t post-bariatric c no current supplementation c symptoms of deficiency (craving ice chips/iron) (nausea + loss of appetite/thiamin) yogurt tid for PRO while on full liquid diet-- complications w option d/t altered GI structure and associated dumping syndrome Pt appears unaware of post-bariatric recommendations (MVI c iron, Calcium and Vit D supp, high PRO diet), provided Post-Bariatric handout and Iron containing foods handout. while pt BMI in obese category, at high risk for malnutrition r/t hx of gastric bypass. Monitoring/Evaluations: monitor intake, wt, diet tolerance, edema, associated labs
--- NOTE | 2019-03-10 16:13 | CM.DANOTE ---
Discharge Planning/Care Management DCP: assessment: Case received and discussed in Team Rounds. Pt is a 43 year old female who admitted early this morning to care of the hosptalist team. Dr. Carter stated the general surgeon: Dr. Medina was consulting. Payer: [employer]/Medicaid Admission status: INPT: confirmed by SANTOSH Butt PCP: Dr. Brando Quezada Due to lateness of hour will plan to check in with pt tomorrow for introduction of self and role and follow for any d/c needs that may arise. CM Discharge Assessment Start: 03/10/19 16:12 Freq: Status: Active Protocol: Document 03/10/19 16:12 ITV (Rec: 03/10/19 16:12 ITV [id number]) Discharge Planning Assessment Advance Directives? No History Provided By Medical Record Prior Living Arrangements Apartment/Condo Household Members spouse children Review Status In Process
[2019-03-11] VITALS (7 sets, daily range): BP systolic 103–126; BP diastolic 56–71; PULSE 59–77; RESP 16–20; TEMP 36.6–36.8; O2SAT 98–100
[2019-03-11] MEDS: MORPHINE 2 MG/ML INJ IV ×2 (00:02→05:55)
[2019-03-11 01:02] LABS: Clostridium Difficile Tox PCR Positive for C. diff
[2019-03-11] MEDS: AMPICILLIN/SULBACTAM 3 GM 3 GM in SODIUM CHLORIDE 0.9% 100 ML IV (01:19)
[2019-03-11] MEDS: DEXTROSE 5%-0.9% NS 1,000 ML 75 ML IV ×2 (01:20→17:13)
[2019-03-11] MEDS: VANCOMYCIN 1,500 MG/300 ML FROZ.PIGGY 200 MG IV (02:33)
[2019-03-11] MEDS: VANCOMYCIN 125 MG CAPSULE PO ×5 (04:30→20:30)
[2019-03-11 05:54] LABS: Add Manual Diff / Slide Review NO; Basophils Absolute Auto 0 /uL (0-100); Basophils Percent Auto 0.3 % (0-2); Eosinophils Absolute Auto 300 /uL (0-450); Eosinophils Percent Auto 4.6 % (2-4); Hematocrit 29.1 % (36-46); Hemoglobin 9.7 g/dL (12.0-16.0); Lymphocytes Absolute Auto 1000 /uL (1100-4500); Lymphocytes Percent Auto 16.4 % (25-40); Mean Corpuscular HGB Conc 33.3 % (30-36); Mean Corpuscular Hemoglobin 25.8 PG (26-34); Mean Corpuscular Volume 77.5 fL (80-100); Monocytes Absolute Auto 600 /uL (0-900); Monocytes Percent Auto 9.7 % (3-14); Neutrophils Absolute Auto 4200 /uL (1500-7000); Platelet Count 124 X10^3/uL (150-400); Red Blood Cell Count 3.75 X10^6/uL (4.0-5.2); Red Cell Distribution Width 18.9 % (11.6-14.8); White Blood Cell Count 6.1 X10^3/uL (4.5-11.0)
[2019-03-11 06:02] LABS: Alanine Aminotransferase 12 IU/L (9-52); Albumin 2.8 g/dL (3.5-5.0); Alkaline Phosphatase 78 U/L (38-126); Aspartate Aminotransferase 15 IU/L (14-36); BUN Creatinine Ratio 7.5 (6-22); Blood Urea Nitrogen 6 mg/dL (7-17); Calcium 8.3 mg/dL (8.4-10.2); Carbon Dioxide 23 mmol/L (22-32); Chloride 109 mmol/L (98-107); Estimated Glomerular Filt Rate > 60.0 mL/min (>60); Globulin 2.9 g/dL (1.7-4.1); Glucose 93 mg/dL (70-100); HEMOLYSIS < 15 (0-50); Potassium 3.9 mmol/L (3.4-5.1); Sodium 138 mmol/L (137-145); Total Protein 5.7 g/dL (6.3-8.2)
[2019-03-11 06:03] LABS: Bilirubin Total < 0.1 mg/dL (0.2-1.3)
[2019-03-11] MEDS: ENOXAPARIN 40 MG/0.4 ML SYRINGE SUBCUT (08:50)
[2019-03-11] MEDS: ACETAMINOPHEN 325 MG TABLET 650 MG PO ×2 (08:50→17:28)
[2019-03-11] MEDS: AZELASTINE EYE DROPS 1 EACH EYE-BOTH (08:51)
--- NOTE | 2019-03-11 09:06 | CM.DPC ---
DCP: continued: Met with pt as planned; introduced self and role. Pt is found sitting up in bed, smiling. She says she understands that hospitalist Dr. Whittaker will see her today. Dr. Mina did consult and recommends medical management only at this time. She is primarily waiting to here an update on her case. Contact Precautions/Enteric are in place. Dr. Carter's addendum of yesterday re the blood culture results from March 06 is noted. Pt is aware that the DCP team will follow prn as POC unfolds to help with any d/c needs that may arise. She is functionally independent at baseline. P: discuss in Team Rounds and follow prn
--- NOTE | 2019-03-11 09:25 | P.PN_ITS ---
Subjective Date Patient Seen: 03/11/19 Time Patient Seen: 09:23 Interval history: Patient is tolerating her full liquid diet with some crampy abdominal pain not localized to the right upper quadrant Exam Vital Signs (past 8 hours): - 03/11/19 04:47 03/11/19 07:59 03/11/19 08:00 Temperature 98.0 F 98 F Pulse Rate 77 72 Respiratory Rate 20 16 Blood Pressure 103/63 116/71 Pulse Oximetry 99 99 98 Fraction of Inspired Oxygen 21 Oxygen Delivery Method Room Air Oxygen Flow Rate 0 Narrative Exam Narrative: She is afebrile today abdomen is soft with no focal tenderness Objective Labs Result Diagrams: 03/11/19 05:23 03/11/19 05:23 Labs: Laboratory Results - last 24 hr 03/10/19 03/11/19 03/11/19 23:30 05:23 05:23 WBC 6.1 D RBC 3.75 L Hgb 9.7 L Hct 29.1 L MCV 77.5 L MCH 25.8 L MCHC 33.3 RDW 18.9 H Plt Count 124 L Neut % (Auto) 69.0 Lymph % (Auto) 16.4 L [place] % (Auto) 9.7 Eos % (Auto) 4.6 H Baso % (Auto) 0.3 Neut # (Auto) 4200 Lymph # (Auto) 1000 L [place] # (Auto) 600 Eos # (Auto) 300 Baso # (Auto) 0 Sodium 138 Potassium 3.9 Chloride 109 H Carbon Dioxide 23 BUN 6 L Creatinine 0.80 Estimated GFR > 60.0 BUN/Creatinine Ratio 7.5 Glucose 93 Calcium 8.3 L Total Bilirubin < 0.1 L AST 15 ALT 12 Alkaline Phosphatase 78 Total Protein 5.7 L Albumin 2.8 L Globulin 2.9 Albumin/Globulin Ratio 1.0 C. difficile Tox (PCR) Positive for c. diff H Assessment & Plan Assessment & Plan narrative: Patient does have positive serology for C difficile. She has been treated for that with oral vancomycin. Obviously we will not be removing her gallbladder until that has cleared. I explained to the patient the situation and that she should contact the surgery office to schedule elective laparoscopic cholecystectomy in 4-6 weeks. We need to confirm that she is negative for C diff at that time she relates understanding Quality VTE Deep Vein Thrombosis/Pulmonary Embolism Present on Admission: No
--- NOTE | 2019-03-11 09:49 | PM.PN.1 ---
Subjective Date Patient Seen: 03/11/19 Time Patient Seen: 09:49 Interval history: She complains of persistent diarrhea and abdominal pain Exam Vital Signs (past 8 hours): - 03/11/19 04:47 03/11/19 07:59 03/11/19 08:00 Temperature 98.0 F 98 F Pulse Rate 77 72 Respiratory Rate 20 16 Blood Pressure 103/63 116/71 Pulse Oximetry 99 99 98 Fraction of Inspired Oxygen 21 Oxygen Delivery Method Room Air Oxygen Flow Rate 0 Narrative Exam Narrative: She is resting comfortably appears to be in no acute distress HEENT exam unremarkable Lungs Clear to auscultation Heart regular rhythm Abdomen is soft mild generalized tenderness no masses Lower extremities no edema Skin warm and dry Neuro exam unremarkable Objective Labs Result Diagrams: 03/11/19 05:23 03/11/19 05:23 Labs: Laboratory Results - last 24 hr 03/10/19 03/11/19 03/11/19 23:30 05:23 05:23 WBC 6.1 D RBC 3.75 L Hgb 9.7 L Hct 29.1 L MCV 77.5 L MCH 25.8 L MCHC 33.3 RDW 18.9 H Plt Count 124 L Neut % (Auto) 69.0 Lymph % (Auto) 16.4 L [place] % (Auto) 9.7 Eos % (Auto) 4.6 H Baso % (Auto) 0.3 Neut # (Auto) 4200 Lymph # (Auto) 1000 L [place] # (Auto) 600 Eos # (Auto) 300 Baso # (Auto) 0 Sodium 138 Potassium 3.9 Chloride 109 H Carbon Dioxide 23 BUN 6 L Creatinine 0.80 Estimated GFR > 60.0 BUN/Creatinine Ratio 7.5 Glucose 93 Calcium 8.3 L Total Bilirubin < 0.1 L AST 15 ALT 12 Alkaline Phosphatase 78 Total Protein 5.7 L Albumin 2.8 L Globulin 2.9 Albumin/Globulin Ratio 1.0 C. difficile Tox (PCR) Positive for c. diff H Assessment & Plan Assessment & Plan narrative: C difficile colitis diffuse severe Patient was taken off IV antibiotics this morning and placed on oral vancomycin. She still having diarrhea starting to feel better however starting to eat more Continue IV fluids modified diet vancomycin for now consider discharge tomorrow Cholelithiasis Surgery is following the patient and has advised cholecystectomy as an outpatient. Recent UTI Recently on antibiotics. This has resolved. 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 Anemia microcytic Plan to check iron panel ferritin. Her hematocrit dropped from 30/4 on admission down to 29.. Plan to recheck hematocrit in the morning Time Spent With Patient Time with patient: 25 - 35 minutes Quality VTE Deep Vein Thrombosis/Pulmonary Embolism Present on Admission: No
--- NOTE | 2019-03-11 09:55 | P.PN_ITS ---
Subjective Date Patient Seen: 03/11/19 Time Patient Seen: 09:49 Interval history: She complains of persistent diarrhea and abdominal pain Exam Vital Signs (past 8 hours): - 03/11/19 04:47 03/11/19 07:59 03/11/19 08:00 Temperature 98.0 F 98 F Pulse Rate 77 72 Respiratory Rate 20 16 Blood Pressure 103/63 116/71 Pulse Oximetry 99 99 98 Fraction of Inspired Oxygen 21 Oxygen Delivery Method Room Air Oxygen Flow Rate 0 Narrative Exam Narrative: She is resting comfortably appears to be in no acute distress HEENT exam unremarkable Lungs Clear to auscultation Heart regular rhythm Abdomen is soft mild generalized tenderness no masses Lower extremities no edema Skin warm and dry Neuro exam unremarkable Objective Labs Result Diagrams: 03/11/19 05:23 03/11/19 05:23 Labs: Laboratory Results - last 24 hr 03/10/19 03/11/19 03/11/19 23:30 05:23 05:23 WBC 6.1 D RBC 3.75 L Hgb 9.7 L Hct 29.1 L MCV 77.5 L MCH 25.8 L MCHC 33.3 RDW 18.9 H Plt Count 124 L Neut % (Auto) 69.0 Lymph % (Auto) 16.4 L [place] % (Auto) 9.7 Eos % (Auto) 4.6 H Baso % (Auto) 0.3 Neut # (Auto) 4200 Lymph # (Auto) 1000 L [place] # (Auto) 600 Eos # (Auto) 300 Baso # (Auto) 0 Sodium 138 Potassium 3.9 Chloride 109 H Carbon Dioxide 23 BUN 6 L Creatinine 0.80 Estimated GFR > 60.0 BUN/Creatinine Ratio 7.5 Glucose 93 Calcium 8.3 L Total Bilirubin < 0.1 L AST 15 ALT 12 Alkaline Phosphatase 78 Total Protein 5.7 L Albumin 2.8 L Globulin 2.9 Albumin/Globulin Ratio 1.0 C. difficile Tox (PCR) Positive for c. diff H Assessment & Plan Assessment & Plan narrative: C difficile colitis diffuse severe * Patient was taken off IV antibiotics this morning and placed on oral vancomycin. She still having diarrhea starting to feel better however starting to eat more * Continue IV fluids modified diet vancomycin for now consider discharge tomorrow Cholelithiasis * Surgery is following the patient and has advised cholecystectomy as an outpatient. Recent UTI * Recently on antibiotics. This has resolved. 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 Anemia microcytic * Plan to check iron panel ferritin. Her hematocrit dropped from 30/4 on admission down to 29.. Plan to recheck hematocrit in the morning Time Spent With Patient Time with patient: 25 - 35 minutes Quality VTE Deep Vein Thrombosis/Pulmonary Embolism Present on Admission: No
[2019-03-11 10:18] LABS: HEMOLYSIS < 15 (0-50)
[2019-03-11] MEDS: HYDROCODONE/ACET 5/325 TABLET 1 TAB PO ×3 (10:19→20:22)
[2019-03-11 10:29] LABS: Total Iron Binding Capacity 285 ug/dL (265-497); Transferrin 235 mg/dL (206-381)
[2019-03-11 10:53] LABS: Iron < 10 ug/dL (37-170); Percent Iron Saturation 4 % (15-50)
[2019-03-11 10:54] LABS: Ferritin 19.9 ng/mL (6.27-137)
[2019-03-11] MEDS: ONDANSETRON 4 MG/2 ML INJ IV (17:13)
--- NOTE | 2019-03-11 17:52 | PC.NURSE ---
Addendum entered by Avelina Goins R.N. 03/11/19 22:12: Requests shower this shift. Mara GOMES in to assist pt with this. No further dry heaves. Original Note: Pt with dry heaves while in bed. No visible emesis. Pt reports vomiting is not unusual since gastric bypass surgery 2007. Pt reports nausea/vomiting associated with abdominal pain 05/03. Given zofran iv followed by tylenol po. Pt reports is on menses. Urine is blood tinged. Provided with pads/panties. Pt is up ad costa in room. Pt reports RUQ abdominal pain worsened with eating. Encouraged po intake that does not exacerbate pain. IV to left forearm draws blood and flushes easily.
[2019-03-12 00:20] VITALS: BP 103/47; PULSE 61; RESP 16; TEMP 36.6; O2SAT 99
[2019-03-12] MEDS: HYDROCODONE/ACET 5/325 TABLET 1 TAB PO ×3 (00:41→11:59)
[2019-03-12 00:50] VITALS: O2SAT 99
[2019-03-12] MEDS: ACETAMINOPHEN 325 MG TABLET 650 MG PO (03:13)
[2019-03-12 04:30] VITALS: BP 118/67; PULSE 61; RESP 18; TEMP 36.6; O2SAT 99
[2019-03-12 05:32] LABS: Add Manual Diff / Slide Review NO; Basophils Absolute Auto 0 /uL (0-100); Basophils Percent Auto 0.6 % (0-2); Eosinophils Absolute Auto 200 /uL (0-450); Eosinophils Percent Auto 6.2 % (2-4); Hematocrit 28.8 % (36-46); Hemoglobin 9.5 g/dL (12.0-16.0); Lymphocytes Absolute Auto 1200 /uL (1100-4500); Mean Corpuscular HGB Conc 33.1 % (30-36); Mean Corpuscular Hemoglobin 25.7 PG (26-34); Mean Corpuscular Volume 77.5 fL (80-100); Monocytes Absolute Auto 400 /uL (0-900); Monocytes Percent Auto 11.4 % (3-14); Neutrophils Absolute Auto 1900 /uL (1500-7000); Neutrophils Percent Auto 50.8 % (50-75); Platelet Count 131 X10^3/uL (150-400); Red Blood Cell Count 3.71 X10^6/uL (4.0-5.2); Red Cell Distribution Width 18.5 % (11.6-14.8); White Blood Cell Count 3.8 X10^3/uL (4.5-11.0)
[2019-03-12 06:25] LABS: BUN Creatinine Ratio 4.3 (6-22); Blood Urea Nitrogen 3 mg/dL (7-17); Calcium 8.1 mg/dL (8.4-10.2); Carbon Dioxide 23 mmol/L (22-32); Chloride 111 mmol/L (98-107); Estimated Glomerular Filt Rate > 60.0 mL/min (>60); Glucose 92 mg/dL (70-100); HEMOLYSIS < 15 (0-50); Magnesium 1.5 mg/dL (1.6-2.3); Potassium 3.3 mmol/L (3.4-5.1); Sodium 138 mmol/L (137-145)
[2019-03-12 06:59] LABS: Procalcitonin < 0.05 ng/mL (<0.5)
[2019-03-12] MEDS: DEXTROSE 5%-0.9% NS 1,000 ML 75 ML IV (07:01)
--- NOTE | 2019-03-12 07:46 | P.DS_ITS ---
History of Present Illness Date Patient Seen: 03/10/19 Chief complaint: states UTI with kidney pain Narrative: Written by Dr. Carter: Phylicia presented to the ED yesterday with abdominal pain that had been occurring for several days. She presented to the ED concerned about a repeat UTI because she had several UTI's in October that were treated with antibiotics and also had another UTI on the 24 of February that was treated with Bactrim. Urine cultures from the ED showed no growth. A written US report is not available yet but per the ED report, ultrasound of the gallbladder showed evidence of cholelithiasis but without cholecystitis. CT abdomen showed diffuse colitis. Stool C diff is pending, surgical consult pending. Today Phylicia continues to present with abdominal pain, nausea, fevers, and diarrhea that she describes as consisting of mucous but no blood. She explains that in order to feel better, she lifts up her lower ribs on her right side to make space under her diaphragm for her madeline er. She also feels better with the legs of her bed elevated with her legs/knees flexed toward her abdomen. She states that she hasn't had anything to eat for a couple of days because of the pain. She has never had c.diff or colitis before. The WBC is 13.6 with a Procalcitonin that is less than 0.05. Discharge Providers Date of admission: 03/10/19 00:49 Discharge Date: 03/12/19 Primary care physician: Brando Quezada MD Consults: 03/10/19 00:59 Consult to General Surgery Routine Comment: Consulting Provider: Faisal Medina Reason for consultation: Cholelithiasis Has provider been notified: Yes 03/10/19 01:50 Consult to Dietitian, Adult Routine Comment: Reason For Exam: Pt reports greater than 50# weight loss Consult to Respiratory Therapy Evaluate & Treat Comment: Physician Instructions: Evaluate and treat Discharge provider: Anuja Pyle DO Summary Discharge Diagnosis: 1. Acute non-severe C difficile colitis, present on admission. Resolving. 2. Acute hypokalemia, not present on admission. Resolved. 3. Acute hypomagnesemia, not present on admission. Resolved 4. Cholelithiasis, chronic, present on admission. Stable. 5. Recent UTI. 6. Hidraadenitis Suppuritiva, chronic, present on admission. Stable. 7. Microcytic anemia, chronic, present on admission. Stable. Hospital Course: Phylicia Rivas is a 43-year-old female with a past medical history significant for hidradenitis suppurativa, osteoarthritis, obesity status post gastric bypass who presented after recent UTI with complaints of abdominal pain, nausea, and diarrhea. 1. Acute non-severe C difficile colitis, present on admission. Resolving. -Patient was recently treated with Bactrim for UTI and presented with abdominal pain, nausea, diarrhea, fever, and decreased oral intake. -C. difficile PCR positive which is non severe as WBC < 15,000 and creatinine < 1.5. Continued contact precautions. -CT abdomen and pelvis with contrast demonstrated mild diffuse colonic wall t hickening and edema, concerning for infectious or inflammatory colitis. No bowel obstruction. Normal appendix. No free fluid or free air. -Continued to advance diet as tolerated. -Continued IV fluids until adequately hydrated. -Repleted electrolytes as needed including potassium and magnesium. -Continued vancomycin 4 times daily for 10 days. 2. Acute hypokalemia, not present on admission. Resolved. -Secondary to C difficile diarrhea. -Initial potassium 3.9. Potassium now 3.3 and received potassium chloride 40 mEq IV x1. 3. Acute hypomagnesemia, not present on admission. Resolved -Secondary to C difficile diarrhea. -Magnesium level 1.5. Received magnesium sulfate 2 g IV x1. 4. Cholelithiasis, chronic, present on admission. Stable. -Patient has chronic right upper quadrant abdominal pain with nausea. -CT abdomen and pelvis with contrast demonstrated distended gallbladder with no calcified gallstones seen. No definite sonographic evidence of acute cholecystitis. -Surgery was consulted and recommended elective outpatient cholecystectomy after complete treatment of C difficile colitis. 5. Recent UTI. -Recently on Bactrim to treat UTI which likely led to C difficile colitis as above. -Urinalysis does not appear grossly infected. 6. Hidraadenitis suppuritiva, chronic, present on admission. Stable. -No signs of a current flare. 7. Microcytic anemia, chronic, present on admission. Stable. -Patient is currently on her menses. -Hematocrit dropped from 30.4 on admission Now down to 29 which is likely somewhat dilutional. -Iron studies revealed iron deficiency anemia which may need to be treated outpatient after acute infection resolves. Status at Discharge Functional status at discharge: independent ambulation Overall status at discharge: patient is progressing back to baseline Exam Vital Signs (past 8 hours): - 03/12/19 00:20 03/12/19 00:50 03/12/19 04:30 Temperature 97.9 F 97.8 F Pulse Rate 61 61 Respiratory Rate 16 18 Blood Pressure 103/47 L 118/67 Pulse Oximetry 99 99 99 Fraction of Inspired Oxygen 21 Oxygen Delivery Method Room Air Oxygen Flow Rate 0 Narrative Exam Narrative: General: Middle-aged female sitting in bed and in no acute distress, well- developed, well-nourished, appropriately interactive. HEENT: Normocephalic, atraumatic. External ears without defect. Pupils equal, round, and reactive to light. Anicteric sclerae, moist conjunctivae, and no lid lag. Oropharynx free of erythema and cobble stoning with moist mucosa. Poor dentition. Complains of headache. Neck: Supple with full range of motion. No lymphadenopathy or thyromegaly. Cardiovascular: Regular rate and rhythm without murmurs, rubs, or gallops appreciated Pulmonary: Clear to auscultation bilaterally without crackles, wheezes, or rhonchi. Normal respiratory effort with no use of accessory muscles. Abdomen: Soft, obese, bowel sounds present, nontender, nondistended. No hepatosplenomegaly or masses appreciated. Extremities: No clubbing, cyanosis, or edema. Skin: Normal temperature, turgor, and texture; no rash, ulcers, or subcutaneous nodules appreciated. Neurological: Cranial nerves grossly intact. Psychiatric: Normal mood and affect. Alert and oriented to person, place, and time. Objective Labs Result Diagrams: 03/12/19 04:42 03/12/19 04:42 Labs: Laboratory Results - last 24 hr 03/11/19 03/11/19 03/12/19 05:23 05:23 04:42 WBC 3.8 L RBC 3.71 L Hgb 9.5 L Hct 28.8 L MCV 77.5 L MCH 25.7 L MCHC 33.1 RDW 18.5 H Plt Count 131 L Neut % (Auto) 50.8 Lymph % (Auto) 31.0 [place] % (Auto) 11.4 Eos % (Auto) 6.2 H Baso % (Auto) 0.6 Neut # (Auto) 1900 Lymph # (Auto) 1200 [place] # (Auto) 400 Eos # (Auto) 200 Baso # (Auto) 0 Sodium Potassium Chloride Carbon Dioxide BUN Creatinine Estimated GFR BUN/Creatinine Ratio Glucose Calcium Magnesium Iron < 10 L TIBC 285 % Saturation 4 L Transferrin 235 Ferritin 19.9 Procalcitonin 03/12/19 03/12/19 04:42 04:42 WBC RBC Hgb Hct MCV MCH MCHC RDW Plt Count Neut % (Auto) Lymph % (Auto) [place] % (Auto) Eos % (Auto) Baso % (Auto) Neut # (Auto) Lymph # (Auto) [place] # (Auto) Eos # (Auto) Baso # (Auto) Sodium 138 Potassium 3.3 L Chloride 111 H Carbon Dioxide 23 BUN 3 L Creatinine 0.70 Estimated GFR > 60.0 BUN/Creatinine Ratio 4.3 L Glucose 92 Calcium 8.1 L Magnesium 1.5 L Iron TIBC % Saturation Transferrin Ferritin Procalcitonin < 0.05 Discharge Plan Discharge Plan Patient Disposition: Home Discharge comment: You are being discharged home. You have C. difficile colitis likely due to antibiotic exposure. You have been prescribed vancomycin 125 mg 4 times daily for the next 9 days to complete a 10 day course. Please use good hand hygiene, soap and hot water to wash clothing and undergarments, and bleach to disinfectant surfaces of your home. You likely need your gallbladder removed which can be done electively outpatient with [facility] after your infection has resolved. Try to stay well hydrated and slowly advance diet as tolerated. Please follow-up with your primary care physician, Dr. Quezada, in the next 1 week regarding your hospitalization and C difficile colitis. Discharge Med Rec/Prescriptions Prescriptions: New vancomycin 125 mg Capsule 125 mg PO QID Qty: 9 RF: 0 Continued promethazine 25 mg tablet 25 mg PO TID Qty: 90 RF: 5 cyclobenzaprine 10 mg tablet 10 mg PO TID PRN (Reason: muscle spasm) Qty: 90 RF: 5 loratadine 10 mg capsule 10 mg PO DAILY RF: 0 ketotifen fumarate 0.025 % (0.035 %) drops 1 drp EYE-BOTH PRN PRN (Reason: Dry Eyes) RF: 0 Kratom 5 tab PO BID Qty: 30 RF: 0 ketorolac 10 mg tablet 10 mg PO Q6H PRN (Reason: pain) Qty: 14 RF: 0 Follow up/Referrals: Brando Quezada MD [Primary Care Provider] - 1 Week Provider Discharge Instructions Diet: Diet as Tolerated Visit Report/Discharge Packet Instructions: Gaines Diet, Soft Diet, Clostridium difficile Infection, DI for Clostridium difficile Infection Visit Report Forms: Stroke Signs & Symptoms Discharge Data Primary Care Provider: Brando Quezada Attending Provider: Octavio Whittaker Admit Date/Time: 03/10/19 00:49 Quality VTE Deep Vein Thrombosis/Pulmonary Embolism Present on Admission: No
[2019-03-12 08:00] VITALS: BP 122/77; PULSE 59; RESP 18; TEMP 36.7; O2SAT 100; O2SAT 97
[2019-03-12] MEDS: POTASSIUM CHLORIDE 40 MEQ in SODIUM CHLORIDE 0.9% 500 ML 130 ML IV (08:42)
[2019-03-12] MEDS: ENOXAPARIN 40 MG/0.4 ML SYRINGE SUBCUT (08:43)
[2019-03-12] MEDS: VANCOMYCIN 125 MG CAPSULE PO ×2 (08:43→11:58)
[2019-03-12] MEDS: MAGNESIUM SULFATE 2 GM/50 ML PIGGYBACK IV (08:44)
[2019-03-12] MEDS: AZELASTINE EYE DROPS 1 EACH EYE-BOTH (08:45)
--- NOTE | 2019-03-12 13:21 | PC.NURSE ---
Discharge: Pt feels ready to d/c home. Sm amt of diet taken w/out n/v. no liquid stools last night or today. Pt did receive her mg rider but was unable to complete k-rider due to IV infiltration. Pt did not want to be restarted, reports she is a hard stick and is going home. MD Pyle called. Notified of same. Spouse present at time of teaching. Discussed how to protect family at home so they don't get c-diff. Rx has been elec sent. Questions answered. D/c home via auto w/spouse.
== END 2019-03-12 12:40 | disposition home or self-care (01) | DRG 248 ==
LOC: ED 03-10 00:46 → AC 03-10 07:02
PROVIDERS: Family Medicine; Internal Medicine; Admitting Provider Internal Medicine; Emergency Provider Emergency Medicine; Family Provider Student in an Organized Health Care Education/Training Program; PCP Student in an Organized Health Care Education/Training Program; Visit Provider Internal Medicine
DX: A04.72 Enterocolitis due to Clostridium difficile, not specified as recurrent (principal); K80.20 Calculus of gallbladder without cholecystitis without obstruction; D50.9 Iron deficiency anemia, unspecified; F17.210 Nicotine dependence, cigarettes, uncomplicated; E87.6 Hypokalemia; E83.42 Hypomagnesemia
CPT/HCPCS: 36415; 36591; 74177; 76705; 80048; 80053; 81001; 82728; 82962; 83540; 83550; 83605; 83690; 83735; 84145; 85025; 87040; 87086; 87491; 87493; 87591; 94640; 94760; 94762; 96365; 96366; 96367; 99231; 99252; 99284; 99285; J0295; J1650; J1956; J2270; J2405; J3480; Q9967

== ENCOUNTER → 2019-04-19 12:02 | Outpatient (CLI) | payer OTHER, MEDICAID, SELFPAY ==
[2019-03-10 01:32] VITALS: BMI 35.0
[2019-04-19 13:20] LABS: Hematocrit 37.6 % (36-46); Hemoglobin 12.3 g/dL (12.0-16.0); Mean Corpuscular HGB Conc 32.7 % (30-36); Mean Corpuscular Hemoglobin 26.1 PG (26-34); Mean Corpuscular Volume 79.8 fL (80-100); Platelet Count 169 X10^3/uL (150-400); Red Blood Cell Count 4.72 X10^6/uL (4.0-5.2); Red Cell Distribution Width 18.5 % (11.6-14.8); White Blood Cell Count 7.1 X10^3/uL (4.5-11.0)
[2019-04-19 13:22] LABS: Reticulocyte Count, Percent 1.2 % (1.06-2.63)
[2019-04-19 13:50] LABS: HEMOLYSIS < 15 (0-50); Iron 47 ug/dL (37-170)
[2019-04-19 14:00] LABS: Percent Iron Saturation 11 % (15-50); Total Iron Binding Capacity 412 ug/dL (265-497); Transferrin 323 mg/dL (206-381)
== END ==
PROVIDERS: PCP Student in an Organized Health Care Education/Training Program; Visit Provider Student in an Organized Health Care Education/Training Program
DX: D50.9 Iron deficiency anemia, unspecified (principal)
CPT/HCPCS: 36415; 83540; 83550; 85027; 85045

== ENCOUNTER → 2019-04-20 14:21 | Outpatient (ROUT) | payer OTHER, MEDICAID, SELFPAY ==
[2019-03-10 01:32] VITALS: BMI 35.0
[2019-04-20 14:23] LABS: Bacteria Urine None Seen; RBC Urine None Seen (0-5/HPF); WBC Urine None Seen (0-5/HPF)
[2019-04-20 14:27] LABS: Appearance Urine UA CLEAR; Bilirubin Urine UA NEGATIVE (NEGATIVE); Color Urine UA YELLOW; Glucose Urine UA NEGATIVE (Negative); Ketones Urine UA NEGATIVE (NEGATIVE); Leukocyte Esterase Urine UA NEGATIVE (NEGATIVE); Nitrite Urine UA NEGATIVE (Negative); Occult Blood Urine UA NEGATIVE (Negative); Protein Urine UA NEGATIVE (Negative); Urobilinogen Urine UA 0.2 E.U./dL (0.2); pH Urine UA 6.5 (4.5-8.0)
[2019-04-20 15:11] LABS: Culture Indicated Urine Cult Not Indicated
== END ==
PROVIDERS: PCP Student in an Organized Health Care Education/Training Program; Visit Provider Student in an Organized Health Care Education/Training Program
DX: R30.0 Dysuria (principal)
CPT/HCPCS: 81001

== ENCOUNTER 2019-04-27 12:54 | Day surgery (SDC) | payer OTHER, MEDICAID, SELFPAY ==
[2019-03-10 01:32] VITALS: BMI 35.0
[2019-04-21 07:21] VITALS: BMI 34.1
[2019-04-27] VITALS (20 sets, daily range): BP systolic 96–116; BP diastolic 41–67; PULSE 13–90; RESP 10–24; TEMP 36–36.6; O2SAT 92–100; BMI 33.8
--- NOTE | 2019-04-27 | PATH_ITS ---
[facility] Accession Number: [id number] . 01 Material submitted: . gallbladder - GALLBLADDER . 02 Diagnosis: Gallbladder, Cholecystectomy: Cholelithiasis with mild chronic cholecystitis. One benign cystic duct lymph node. No evidence of neoplasm. MRV/04/29/2019 . 02 Electronically signed: . Mc Goetz MD, PhD, Pathologist NPI- [id number] . 01 Gross description: . Received in formalin, labeled gallbladder, is an opened gallbladder (length-11.5 cm, diameter-3.5 cm) with power-pink smooth shiny serosa and a patent cystic duct. A lymph node (0.5 x 0.4 x 0.3 cm) is identified. The lumen contains multiple brown gritty and pale power smooth hard calculi (11.2 x 2.8 x 2.0 cm in aggregate). The mucosa is power, flat and rough. The wall is up to 0.1 cm thick. No nodules, masses or lesions are identified. Section code: (A1) cystic duct resection margin and two serial sections from the body; (A2) two longitudinal sections from the fundus; (A3) one intact lymph node. ([id number]) /MRV . 02 Pathologist provided ICD-10: K80.60 . 02 CPT . 719460 Specimen Comment: A duplicate report has been generated due to demographic updates. Performed at: 01 [facility] [address] [place] [address], [place], [place] [id number] MD Santiago Millan MD Phone: [phone] Performed at: [facility] [address] [place], [place] [id number] MD Eufemia Benz MD Phone: [phone]
[2019-04-27] MEDS: LACTATED RINGERS 1,000 ML 100 ML IV ×2 (14:05→16:26)
--- NOTE | 2019-04-27 15:04 | PM.PREOP ---
Pre-operative Note Interval Note History & Physical reviewed/Exam performed by Physician: Yes Changes to H&P: No
[2019-04-27] MEDS: CEFAZOLIN 2 GM/100 ML FROZ.PIGGY IV (15:39)
--- NOTE | 2019-04-27 16:02 | SUR.OPER ---
Supine on padded OR bed, head on pillow, safety belt at thigh, left arm padded and tucked at side. Right arm secured on padded arm oard <90 degrees abduction. Legs uncrossed. Padded footboard in place. Tape over blanket to secure lower legs.
[2019-04-27] MEDS: BUPIVACAINE 0.25% (PF) VIAL 30 ML INJ (16:11)
[2019-04-27] MEDS: HYDROMORPHONE 2 MG INJ 0.5 MG IV ×8 (17:00→19:05)
--- NOTE | 2019-04-27 17:06 | PM.OP.1 ---
Operative Date/Time/Diagnoses Date of procedure: 04/27/19 Time of procedure: 17:07 Pre-op diagnosis: biliary colic Post-op diagnosis: same Procedure & Clinicians Procedure: Laparoscopic cholecystectomy Same procedure as scheduled: Yes Indications: A 43-year-old female with chronic biliary colic and a history of Ron-en-Y gastric bypass. She presents today for elective laparoscopic cholecystectomy. Surgeon: Lonnie Almaguer Click Yes if Unassisted: Yes Anesthesia Type: General Operative Notes Findings: Gallstones within the gallbladder. Specimen(s): other (Gallbladder) Estimated Blood Loss (mL): 30 Procedure in detail: The patient was brought to the operating room placed supine on the table. Bilateral lower extremity compression devices were applied. General anesthesia was induced and they were intubated with an endotracheal tube. They received 2g of Ancef prior to skin incision. A time-out was performed to ensure the correct patient procedure necessary equipment within the operating room. They were then prepped and draped in the usual sterile fashion. Infraumbilical incision was made the umbilical stalk was grasped and elevated and the fascia was sharply incised. The abdomen was entered atraumatically. A 10 mm trocar was then placed into the abdomen. Pneumoperitoneum was established. The laparoscopic camera was inserted into the abdomen inspection was made that demonstrated no evidence of injury upon entry. We then placed our working ports the 1st 5 mm port high in the epigastrium and then 2 in the right upper quadrant. The gallbladder was grasped and retracted over the liver and grasped laterally by the fundus. The triangle of Calot was exposed. The triangle of calot was then skeletonized using hook electrocautery and demonstrated the cystic duct clearly entering the gallbladder the cystic artery and the liver and in the background. With the critical view of safety established the cystic duct was clipped twice proximally and once distally and then sharply divided and the cystic artery was taken in the same fashion. Next the gallbladder was removed from the liver bed using electro cautery. The liver bed was then inspected for hemostasis and this was achieved. The abdomen was irrigated with sterile saline and inspection was made that showed the clips in good position. The specimen was removed using Endo-Catch. The abdomen was desufflated. The the fascia of the umbilicus was closed with 0 Vicryl in a [id number] fashion. Skin incisions were irrigated and closed with 4-0 Monocryl. The wounds were sealed with Dermabond. Patient emerged from general anesthesia was extubated and transferred to the postoperative care unit missed stable condition. The sponge and instrument count at the end of the operation was correct. Complications: none Post-operative Condition: stable Disposition: same day surgery
[2019-04-27] MEDS: MEPERIDINE 50 MG/ML INJ 25 MG IV (17:14)
[2019-04-27] MEDS: fentaNYL 100 MCG/2 ML INJ 50 MCG IV ×4 (17:20→18:10)
[2019-04-27] MEDS: OXYCODONE/ACETAMINOPHEN 5/325 TABLET 1 TAB PO (17:40)
--- NOTE | 2019-04-27 20:37 | PC.ADMIT ---
[id number] Admission Note: The patient,Phylicia Rivas,43 y/o, was given written information regarding hospital policies, unit procedures and contact persons. Patient's smoking status: Current every day smoker. Vital Signs - 8 hr 04/27/19 13:05 04/27/19 17:00 04/27/19 17:10 Temperature 97.7 F 98 F Pulse Rate 72 90 78 Respiratory Rate 15 12 24 Blood Pressure 112/56 L 98/41 L Pulse Oximetry 100 99 92 04/27/19 17:20 04/27/19 17:35 04/27/19 17:50 Temperature Pulse Rate 77 81 13 L Respiratory Rate 24 12 14 Blood Pressure 107/48 L 105/53 L 104/62 Pulse Oximetry 96 93 98 04/27/19 18:05 04/27/19 18:15 04/27/19 18:25 Temperature Pulse Rate 64 79 80 Respiratory Rate 16 12 14 Blood Pressure 107/60 96/60 100/66 Pulse Oximetry 97 97 94 04/27/19 18:35 04/27/19 18:50 04/27/19 19:05 Temperature Pulse Rate 79 63 68 Respiratory Rate 12 12 12 Blood Pressure 101/60 105/53 L 102/53 L Pulse Oximetry 99 97 97 04/27/19 19:20 04/27/19 19:35 Temperature Pulse Rate 76 76 Respiratory Rate 12 10 L Blood Pressure 100/60 100/56 L Pulse Oximetry 100 99 Pt arrived from PACU via stretcher. Able to independently trans to bed. Reports nausea without emesis. Rates RUQ pain 7/10, Ice packs applied. No post-op medications ordered for floor care. Kiana RN notified surgeon. Oriented pt to call system and room. SCD's on. Bed alarm on.
[2019-04-27] MEDS: ACETAMINOPHEN 325 MG TABLET 650 MG PO (20:45)
[2019-04-27] MEDS: MORPHINE 4 MG/ML INJ IV (20:57)
--- NOTE | 2019-04-27 23:17 | PC.NURSE ---
medicated pt with tylenol and morphine for pain 04/02. reassessed pain 01/31, pt reports her pain is tolerable. lap sites are cdi. ice pack applied. pt not been oob. SCDs on. pt tolerating liquids. VTO from Dr. Almaguer to abraham to dc IVF since she is drinking fluids. oriented pt to room. call light in reach. bed alarm active.
[2019-04-27] MEDS: OXYCODONE IR 5 MG TABLET PO (23:37)
--- NOTE | 2019-04-27 23:59 | PC.NURSE ---
Addendum entered by Vianey Thurston R.N. 04/28/19 06:28: States pain is again increasing and currently 7/10; too early for po Oxycodone so medicated with IV Morphine. Addendum entered by Vianey Thurston R.N. 04/28/19 03:28: States having sharp right clavicular pain and dull/sharp incisional pain with severity of 6/10; medicated with Oxycodone. Addendum entered by Vianey Thurston R.N. 04/28/19 00:55: States the Oxycodone took the edge off but still rating pain severity as 9/10 so medicated with Morphine. Addendum entered by Vianey Thurston R.N. 04/28/19 00:17: States she has neuropathy in bilateral feet and in bilateral legs from knee to groin Original Note: Patient is alert and oriented but very soft spoken. Breath sounds CTA with RA of 100%. HRR. Denies nausea. BT present but denies flatus. Lap sites dermabonded and without redness/drainage. Does complain of 8/10 right clavicular pain; medicated with Oxycodone and given ice pack. Voiding without dysuria, frequency or urgency. Able to move self in bed. Slightly weak when up to bathroom. Wearing bilateral SCD's. Fall risk score is moderate; agrees to call for assistance.
[2019-04-28] MEDS: MORPHINE 4 MG/ML INJ IV ×2 (00:52→06:20)
[2019-04-28] MEDS: SODIUM CHLORIDE 0.9% FLUSH 10 ML IV ×2 (00:52→06:21)
[2019-04-28 03:13] VITALS: BP 114/54; PULSE 69; RESP 16; TEMP 36.3; O2SAT 100
[2019-04-28] MEDS: OXYCODONE IR 5 MG TABLET PO ×2 (03:27→07:51)
--- NOTE | 2019-04-28 10:28 | CM.DANOTE ---
DCP: Case received, EMR reviewed and met with patient. Introduced self and role. Was able to converse with patient in her room regarding her baseline health. DCP template/assessment completed with information currently available. Patient is a 43 year old female who admitted yesterday morning to the care of the surgical team. Payer: confirmed: [facility] [employer]/Medicaid. Patient came to the hospital for a surgical procedure. She had an elective Lap-cholecystectomy. Met with patient in her room. She was sitting up in her bed, alert and oriented. She mentioned that she had been having severe abdominal pain prior to the surgery Patient resides in [place] with her , Hosea, and she is independent at home. She mentioned that her is working today, and not getting off until late afternoon. She is hopeful that her neighbor can pick her up if she is discharged today. P: DCP to continue to follow. Patient should be able to be discharged home when she is medically stable. Inge Cortez RN/Boiler Repair Supervisor
[2019-04-28] MEDS: OXYCODONE IR 5 MG TABLET 10 MG PO ×3 (11:01→19:55)
--- NOTE | 2019-04-28 13:36 | PC.NURSE ---
Addendum entered by Mikayla Shaver R.N. 04/28/19 15:47: Pain has increased this afternoon, pt thinks something is wrong, reports the pain is in her rt upper abd quad and rt shoulder. Pt is crying and says her pain is a 15 right now. Pt has been up and amb in the room. Message sent to Dr. Almaguer in [place] about pain control issues, he returned call and was told of pts pain and that she thinks something might be wrong. See new orders. Vistaril started and she is to amb more. Discussed w/Phylicia new med vistaril and the doctor would like her to get up more and walk. Pt still teary but says she will try these new changes. Original Note: Pending discharge: Pain control issues this am, rt shoulder pain presumed to be from surgery and abd pain. 1 oxycodone wasn't enough and was using IV morphine. MD notified and was increased to 2 tabs and pt reports the pain has been better but still has some rt shoulder pain and some abd pain. Has been up and amb in room. Moves slowly but well. Keeps an ice pack to the rt shoulder and abd and this does help with the pain as well. Spouse off later and will d/c home then. Cont w/poc.
[2019-04-28] MEDS: hydrOXYzine pamoate 25 MG CAPSULE 50 MG PO (15:40)
[2019-04-28 16:00] VITALS: BP 113/77; PULSE 107; TEMP 36.6; O2SAT 97
--- NOTE | 2019-04-28 17:03 | PM.EVENT ---
Event Note Date Patient Seen: 04/28/19 Time Patient Seen: 17:04 Event Note: The patient seen postoperative day 1 status post laparoscopic cholecystectomy for biliary colic. She remained hospitalized after the procedure for inability to control her pain adequately. She has a history of chronic pain, fibromyalgia and narcotic abuse. She has right upper quadrant, right shoulder and back pain. She has been receiving morphine 4 mg q.4 hours in addition to 10 mg of oxycodone q.4 hours. I have restarted her home medications including cyclobenzaprine and promethazine which she uses for chronic pain. She is an everyday tobacco user but is unable to tolerate the patch due to adhesive reasons and and uses marijuana multiple times daily when at home. Her vital signs 114/70, heart rate 69 abdomen is soft incisions clean dry intact, winces when skin is is touched. She has been tolerating a diet without nausea or vomiting. I think that she is stable for discharge home at this time. I think we can successfully manage her acute pain but I think it is unlikely that we will solve her chronic pain during this hospital admission
[2019-04-28] MEDS: PROMETHAZINE 25 MG TABLET PO (17:13)
[2019-04-28] MEDS: CYCLOBENZAPRINE 10 MG TABLET PO (17:15)
--- NOTE | 2019-04-28 20:19 | PC.NURSE ---
Administered vistaril for pain then after 5 minutes pt had 10/10 pain while walking in the hallways. notified Dr. Almaguer regarding pt's uncontrolled pain. came up to see pt. pt slept for 3 hrs after taking flexeril and promethazine. pt arrived. discharge teaching done. IV dc'd. pt in wheelchair, escorted by Julissa.
== END 2019-04-28 20:19 | disposition home or self-care (01) ==
LOC: OR 15:13 → AC 19:54
PROVIDERS: PCP Student in an Organized Health Care Education/Training Program; Visit Provider Surgery
PROC: 0FT44ZZ Resection of Gallbladder, Percutaneous Endoscopic Approach (ICD-10-PCS; CPT 47562; principal; 2019-04-27 15:15)
DX: K80.10 Calculus of gallbladder with chronic cholecystitis without obstruction (principal)
CPT/HCPCS: 47562; 82962; J0690; J1100; J1170; J2175; J2250; J2270; J2405; J2704; J3010

== ENCOUNTER → 2019-07-07 09:04 | Outpatient (CLI) | payer OTHER, MEDICAID, SELFPAY ==
[2019-04-27 20:31] VITALS: BMI 33.8
[2019-07-07 09:23] LABS: Appearance Urine UA SL CLOUDY; Bilirubin Urine UA NEGATIVE (NEGATIVE); Color Urine UA YELLOW; Glucose Urine UA NEGATIVE (Negative); Ketones Urine UA NEGATIVE (NEGATIVE); Leukocyte Esterase Urine UA TRACE (NEGATIVE); Nitrite Urine UA POSITIVE (Negative); Occult Blood Urine UA NEGATIVE (Negative); Protein Urine UA NEGATIVE (Negative); Specific Gravity Urine UA 1.015 (1.000-1.035); Urobilinogen Urine UA 0.2 E.U./dL (0.2)
[2019-07-07 09:44] LABS: Bacteria Urine Many (>30); RBC Urine 1-5/HPF (0-5/HPF); Squamous Epithelial Cell Urine 5-10 /HPF (0-5/HPF); WBC Urine 5-10/HPF (0-5/HPF)
== END ==
PROVIDERS: PCP Student in an Organized Health Care Education/Training Program; Visit Provider Student in an Organized Health Care Education/Training Program
DX: R30.0 Dysuria (principal)
CPT/HCPCS: 81001

== ENCOUNTER 2019-08-02 19:06 | Emergency (ER) | payer OTHER, MEDICAID, SELFPAY ==
[2019-04-27 20:31] VITALS: BMI 33.8
[2019-08-02 19:12] VITALS: BP 129/76; PULSE 105; RESP 22; TEMP 36.5; O2SAT 100
[2019-08-02 20:09] LABS: RBC Urine 5-10/HPF (0-5/HPF); Squamous Epithelial Cell Urine 1-5 /HPF (0-5/HPF); WBC Urine 1-5/HPF (0-5/HPF)
[2019-08-02 20:10] LABS: Bacteria Urine Moderate (10-30); Calcium Oxalate Crystals Urine Few; Culture Indicated Urine Specimen Cultured
[2019-08-02 20:12] LABS: Appearance Urine UA CLEAR; Bilirubin Urine UA NEGATIVE (NEGATIVE); Color Urine UA YELLOW; Glucose Urine UA NEGATIVE (Negative); Ketones Urine UA NEGATIVE (NEGATIVE); Leukocyte Esterase Urine UA NEGATIVE (NEGATIVE); Nitrite Urine UA NEGATIVE (Negative); Occult Blood Urine UA 3+ (Negative); Protein Urine UA NEGATIVE (Negative); Urobilinogen Urine UA 0.2 E.U./dL (0.2)
[2019-08-02 20:19] LABS: Pregnancy Test Urine Negative (Negative)
--- NOTE | 2019-08-02 20:45 | ED.FEMALEGU ---
HPI - Female Genitourinary <JESSICA BaumannBC - Last Filed: 08/02/19 21:02> General Chief complaint: Urogenital-Female Stated complaint: bloody urine, cramps Time Seen by Provider: 08/02/19 19:50 Source: patient Mode of arrival: Ambulatory Limitations: no limitations History of Present Illness HPI Narrative: The patient is a 43-year-old female current smoker with history of UTIs and C diff who presents. WithI've a UTI she complains of hematuria, urinary frequency and urgency for the past day. She denies any back pain, fevers, nausea vomiting or diarrhea. She states that she feels tired. She states that she was mostly slightly on Bactrim, approximately 2 weeks ago. Chart review shows no culture from that point time. Related Data Home Medications Medication Instructions Recorded Confirmed Kratom 6 tab PO BID 04/26/19 04/27/19 Previous Rx's Medication Instructions Recorded acetaminophen [Tylenol] 650 mg PO QID PRN #60 cap 04/27/19 oxycodone 5 mg PO Q4-6H PRN #30 cap 04/27/19 promethazine 25 mg tablet 25 mg PO TID #90 tab 06/16/19 cyclobenzaprine 10 mg tablet 10 mg PO TID PRN #90 tab 06/23/19 celecoxib 200 mg capsule 200 mg PO DAILY #30 cap 07/27/19 nitrofurantoin monohyd/m-cryst 100 mg PO BID #14 cap 08/02/19 [Macrobid] Allergies Allergy/AdvReac Type Severity Reaction Status Date / Time adhesive tape Allergy Rash Verified 07/27/19 15:55 duloxetine [From Cymbalta] AdvReac Severe Nausea Verified 07/27/19 15:55 Review of Systems <JESSICA BaumannBC - Last Filed: 08/02/19 21:02> Review of Systems Narrative: GENERAL: Denies chills, fatigue, malaise, fever, sweats. HEENT: Denies sinus pain, ear pain, sore throat, difficulty swallowing, dizziness. RESPIRATORY: Denies dyspnea, cough, wheezing, hemoptysis, sputum. CARDIOVASCULAR: Denies chest pain, palpitations, orthopnea, edema, GASTROINTESTINAL: Denies nausea, vomiting, abdominal pain, diarrhea, constipation, melena. : See HPI MUSCULOSKELETAL: denies weakness, joint pain, or bony pain SKIN: Denies rash, skin lesions, or other NEUROLOGIC: Denies weakness, headache, numbness, change in speech, confusion, seizures, incoordination. PSYCHIATRIC: No concerning psychosocial issues. 12 point review of systems is negative except for those stated above Patient History <MARYJO Baumann - Last Filed: 08/02/19 21:02> Medical History Acute hypokalemia (Acute 03/10/19) Anemia (Acute) Anxiety (Acute) Arthritis (Acute) C. difficile colitis (Acute 03/10/19) Chronic pain (Acute) Fibromyalgia (Chronic) Foot fracture, left (Resolved) GERD (gastroesophageal reflux disease) (Acute) Hidradenitis suppurativa (Resolved) Hidradenitis suppurativa (Acute) Hypoglycemia (Chronic) Kidney stones (Acute) Microcytic anemia (Acute) Migraines (Acute) Nausea (Acute) Osteoarthritis (Chronic) Pain (Acute) Tachycardia (Chronic) UTI (urinary tract infection) (Acute) Surgical History History of carpal tunnel surgery of left wrist (Acute ~2000) History of gastric bypass (Chronic ~2007) Hx of tonsillectomy (Acute ~1999) Family History Father Diabetes mellitus Hypertension alcohol intake frequency: other Substance Use Type: marijuana and other Exam <MARYJO Baumann - Last Filed: 08/02/19 21:02> Narrative Exam Narrative: GENERAL: This is a well-nourished, well-developed patient, no acute distress HEAD: Atraumatic. Normocephalic. No temporal or scalp tenderness. EYES: Pupils equal round and reactive. Extraocular motions intact. No scleral icterus. No injection or drainage. ENT: Nose without bleeding, purulent drainage or septal hematoma. Throat without erythema, tonsillar hypertrophy or exudate. Uvula midline. Airway patent. NECK: Trachea midline. No JVD or lymphadenopathy. Supple, nontender, no meningeal signs. CARDIOVASCULAR: Regular rate and rhythm without murmurs, gallops, or rubs. RESPIRATORY: Clear to auscultation. Breath sounds equal bilaterally. No wheezes, rales, or rhonchi. No cough. No increased respiratory effort. No accessory muscle use. GASTROINTESTINAL: Abdomen soft, nondistended. No hepato-splenomegaly, or palpable masses. No guarding. Slight suprapubic tenderness to palpation. EXTREMITIES: No clubbing, cyanosis, or edema. No joint tenderness, effusion, or edema noted. BACK: Nontender without deformity or crepitance. No flank tenderness. NEURO: AOx3. SKIN: No rash or erythema on visible skin Initial Vital Signs Initial Vital Signs: Vital Signs Temperature 97.7 F 08/02/19 19:12 Pulse Rate 105 H 08/02/19 19:12 Respiratory Rate 22 08/02/19 19:12 Blood Pressure 129/76 08/02/19 19:12 Pulse Oximetry 100 08/02/19 19:12 <Ventura Kaminski DO - Last Filed: 08/02/19 21:23> Initial Vital Signs Initial Vital Signs: Vital Signs Temperature 97.7 F 08/02/19 19:12 Pulse Rate 105 H 08/02/19 19:12 Respiratory Rate 22 08/02/19 19:12 Blood Pressure 129/76 08/02/19 19:12 Pulse Oximetry 100 08/02/19 19:12 Course <MARYJO Baumann - Last Filed: 08/02/19 21:02> Orders Ordered: ED Orders 08/02/19 19:40 Test Urine Stat Urinalysis Sreen (Dip Only) Stat Urine Culture Stat Urine Microscopic Stat Discontinued Medications Nitrofurantoin Macrocrystals (Macrobid 100 Mg Capsule) 100 mg PO NOW ONE Stop: 08/02/19 20:48 Last Admin: 08/02/19 20:56 Dose: 100 mg Documented by: [email or web address] Vital Signs Vital signs: Vital Signs - 8 hr 08/02/19 19:12 08/02/19 21:04 Temperature 97.7 F 97.8 F Pulse Rate 105 H 99 H Respiratory Rate 22 20 Blood Pressure 129/76 124/75 Pulse Oximetry 100 99 <Ventura Kaminski DO - Last Filed: 08/02/19 21:23> Orders Ordered: ED Orders 08/02/19 19:40 Test Urine Stat Urinalysis Sreen (Dip Only) Stat Urine Culture Stat Urine Microscopic Stat Discontinued Medications Nitrofurantoin Macrocrystals (Macrobid 100 Mg Capsule) 100 mg PO NOW ONE Stop: 08/02/19 20:48 Last Admin: 08/02/19 20:56 Dose: 100 mg Documented by: LETICIA Vital Signs Vital signs: Vital Signs - 8 hr 08/02/19 19:12 08/02/19 21:04 Temperature 97.7 F 97.8 F Pulse Rate 105 H 99 H Respiratory Rate 22 20 Blood Pressure 129/76 124/75 Pulse Oximetry 100 99 MDM - Female Genitourinary <AUGUSTINE Baumann- - Last Filed: 08/02/19 21:02> Lab Data Labs: Lab Results 08/02/19 08/02/19 08/02/19 Range/Units 19:40 19:40 19:40 Urine Color Yellow Urine Appearance Clear Urine pH 6.0 (4.5-8.0) Ur Specific Pattison 1.020 (1.000-1.035) Urine Protein Negative (Negative) Urine Glucose (UA) Negative (Negative) g/dL Urine Ketones Negative (NEGATIVE) Urine Occult Blood 3+ H (Negative) Urine Nitrate Negative (Negative) Urine Bilirubin Negative (NEGATIVE) Urine Urobilinogen 0.2 (0.2) E.U./dL Ur Leukocyte Esterase Negative (NEGATIVE) Urine RBC 5-10/hpf H (0-5/HPF) Urine WBC 1-5/hpf (0-5/HPF) Ur Squamous Epith Cells 1-5 /hpf (0-5/HPF) Calcium Oxalate Crystal Few H Urine Bacteria Moderate (10-30) H (None) Ur Culture Indicated? Specimen cultured Urine Test Negative (Negative) Urine Dip Bedside Urine Glucose Negative Bedside Urine Bilirubin ++ 2 Bedside Urine Ketone - Negative Urine Specific Pattison 1.025 Bedside Urine Occult Blood +++ Bedside Urine pH 6.0 Bedside Urine Protein +/- 15 Bedside Urine Urobilinogen +/- 1mg Bedside Urine Nitrite - Negative Bedside Urine Leukocytes - Negative Esterase [facility] Narrative Medical decision making narrative: The patient is a 43-year-old female who presents with ?IV UTI she is noted have blood, bacteria, leukocyte esterase on her urine so initiate treatment with Macrobid. A portion she has no recent cultures from which doing any information. She has no signs of systemic illness, is afebrile hemodynamically stable. She denies fevers vomiting and diarrhea. She does have a history of C diff, so I'd like to avoid fluoroquinolones as able. I did start her on Macrobid with strict instructions to take it with a probiotic or yogurt. Urine culture is pending at this time. Encourage PCP follow-up in the next few days. Discussed coming back if she has any signs of systemic infection such as fevers, vomiting, etc.. Patient has no questions or concerns upon discharge and states understanding of return precautions as well as follow-up care. <Ventura Kaminski, DO - Last Filed: 08/02/19 21:23> Lab Data Labs: Lab Results 08/02/19 08/02/19 08/02/19 Range/Units 19:40 19:40 19:40 Urine Color Yellow Urine Appearance Clear Urine pH 6.0 (4.5-8.0) Ur Specific Pattison 1.020 (1.000-1.035) Urine Protein Negative (Negative) Urine Glucose (UA) Negative (Negative) g/dL Urine Ketones Negative (NEGATIVE) Urine Occult Blood 3+ H (Negative) Urine Nitrate Negative (Negative) Urine Bilirubin Negative (NEGATIVE) Urine Urobilinogen 0.2 (0.2) E.U./dL Ur Leukocyte Esterase Negative (NEGATIVE) Urine RBC 5-10/hpf H (0-5/HPF) Urine WBC 1-5/hpf (0-5/HPF) Ur Squamous Epith Cells 1-5 /hpf (0-5/HPF) Calcium Oxalate Crystal Few H Urine Bacteria Moderate (10-30) H (None) Ur Culture Indicated? Specimen cultured Urine Test Negative (Negative) Urine Dip Bedside Urine Glucose Negative Bedside Urine Bilirubin ++ 2 Bedside Urine Ketone - Negative Urine Specific Pattison 1.025 Bedside Urine Occult Blood +++ Bedside Urine pH 6.0 Bedside Urine Protein +/- 15 Bedside Urine Urobilinogen +/- 1mg Bedside Urine Nitrite - Negative Bedside Urine Leukocytes - Negative Esterase Discharge Plan Departure Patient Disposition: Home Clinical Impression: UTI (urinary tract infection) Qualifiers: Urinary tract infection type: site unspecified Hematuria presence: with hematuria Qualified Code(s): N39.0 - Urinary tract infection, site not specified Discharge Date/Time: 08/02/19 21:04 Instructions: DI for Urinary Tract Infection (UTI) Activity Restrictions/Additional Instructions: Your urine shows signs of infection. I've started you on an antibiotic. We have given you a dose this evening and I sent a prescription to [facility]. Please take this with yogurt or probiotic. Please push fluids. Please monitor for signs of worsening UTI such as inability keep down fluids, high fevers, flank pain. Please come back to the emergency department for any signs of a possible kidney infection. Please follow-up with primary care provider in the next few days. Prescriptions: New nitrofurantoin monohyd/m-cryst [Macrobid] 100 mg capsule 100 mg PO BID Qty: 14 RF: 0 No Action promethazine 25 mg tablet 25 mg PO TID Qty: 90 RF: 5 cyclobenzaprine 10 mg tablet 10 mg PO TID PRN (Reason: muscle spasm) Qty: 90 RF: 5 Kratom 6 tab PO BID RF: 0 oxycodone 5 mg capsule 5 mg PO Q4-6H PRN (Reason: pain) Qty: 30 RF: 0 acetaminophen [Tylenol] 325 mg capsule 650 mg PO QID PRN (Reason: pain) Qty: 60 RF: 0 celecoxib [Celebrex] 200 mg capsule 200 mg PO DAILY Qty: 30 RF: 2 Referrals: Brando Quezada MD [Primary Care Provider] - <Ventura Kaminski DO - Last Filed: 08/02/19 21:23> Sign Out Provider Sign Out Attestation: Dr Kaminski Co-Sign Statement: I was available for consultation during this patient's emergency department visit. This chart is signed by myself for administrative purposes only. I did not have direct contact with this patient during this visit. They were seen independently by the APC.
[2019-08-02] MEDS: NITROFURANTOIN ER 100 MG CAPSULE PO (20:56)
[2019-08-02 21:04] VITALS: BP 124/75; PULSE 99; RESP 20; TEMP 36.6; O2SAT 99
== END 2019-08-02 21:04 | disposition home or self-care (01) ==
PROVIDERS: Emergency Medicine; Emergency Provider Nurse Practitioner Family; Family Provider Student in an Organized Health Care Education/Training Program; PCP Student in an Organized Health Care Education/Training Program
DX: N39.0 Urinary tract infection, site not specified (principal)
CPT/HCPCS: 81003; 81015; 81025; 87077; 87086; 87186; 99283

== ENCOUNTER → 2019-10-04 12:39 | Outpatient (CLI) | payer OTHER, MEDICAID, SELFPAY ==
[2019-04-27 20:31] VITALS: BMI 33.8
[2019-10-04 14:38] LABS: Alanine Aminotransferase 12 IU/L (<35); Albumin 4.3 g/dL (3.5-5.0); Albumin Globulin Ratio 1.3 (1.0-2.8); Alkaline Phosphatase 99 U/L (38-126); Aspartate Aminotransferase 18 IU/L (14-36); BUN Creatinine Ratio 12.5 (6-22); Bilirubin Total 0.4 mg/dL (0.2-1.3); Blood Urea Nitrogen 10 mg/dL (7-17); Calcium 9.5 mg/dL (8.4-10.2); Carbon Dioxide 23 mmol/L (22-32); Chloride 109 mmol/L (98-107); Estimated Glomerular Filt Rate > 60.0 mL/min (>60); Globulin 3.2 g/dL (1.7-4.1); Glucose 92 mg/dL (70-100); HEMOLYSIS < 15 (0-50); Potassium 3.8 mmol/L (3.4-5.1); Sodium 141 mmol/L (137-145); Total Protein 7.5 g/dL (6.3-8.2)
[2019-10-04 14:51] LABS: Follicle Stimulating Hormone 3.86 mIU/mL
[2019-10-04 15:04] LABS: TSH w/ Reflex to FT4 2.01 uIU/mL (0.47-4.68)
[2019-10-04 15:07] LABS: Estradiol, Total 100.2 pg/mL
[2019-10-07 19:40] LABS: Testosterone Free 2.1 pg/mL (0.1-6.4); Testosterone Total 33 ng/dL (2-45)
== END ==
PROVIDERS: Family Provider Student in an Organized Health Care Education/Training Program; PCP Student in an Organized Health Care Education/Training Program; Referring Provider Obstetrics & Gynecology; Visit Provider Obstetrics & Gynecology
DX: N92.6 Irregular menstruation, unspecified (principal); Z86.39 Personal history of other endocrine, nutritional and metabolic disease; L29.9 Pruritus, unspecified; L68.0 Hirsutism
CPT/HCPCS: 36415; 80053; 82670; 83001; 84402; 84403; 84443

== ENCOUNTER 2019-10-05 11:37 | Emergency (ER) | payer OTHER, MEDICAID, SELFPAY ==
[2019-04-27 20:31] VITALS: BMI 33.8
[2019-10-05 11:40] VITALS: BP 143/71; PULSE 104; RESP 18; TEMP 36.8; O2SAT 100; BMI 33.1
--- NOTE | 2019-10-05 11:40 | ED.EYEPROB ---
HPI - Eye Problem <Laurie Kwan PA-C - Last Filed: 10/05/19 12:25> General Chief complaint: Eye Problems Stated complaint: white blister on eye Time Seen by Provider: 10/05/19 11:40 Source: patient Mode of arrival: Ambulatory Limitations: no limitations History of Present Illness HPI Narrative: This 44-year-old female comes to ED secondary to sensation of a film sensation like a white blob of goop over her right eye intermittently with a lot of eye pressure today. She states that she thinks that her vision is normal aside from when it seems like the film crosses her eye. She denies black spots. She states that she has had an intermittent rash for weeks, mainly in the evenings, affecting her face and she knows that she was scratching the outside of her eye, but does not think she scratched inside, denies foreign body sensation. She states that her PCP thinks the rash and itching may be related to anxiety, lorazepam has been helping somewhat and her Vistaril was increased. She denies any drainage from the eye. She has not had any new upper respiratory symptoms or fever. She states aside from this she is at baseline. She states she is nearsighted in one eye, farsighted in the other, doesn't wear her glasses. She doesn't know what baseline vision is. Related Data Home Medications Medication Instructions Recorded Confirmed Kratom 6 tab PO BID 04/26/19 10/04/19 Previous Rx's Medication Instructions Recorded acetaminophen [Tylenol] 650 mg PO QID PRN #60 cap 04/27/19 promethazine 25 mg tablet 25 mg PO TID #90 tab 06/16/19 cyclobenzaprine 10 mg tablet 10 mg PO TID PRN #90 tab 06/23/19 TRUE METRIX TEST STRIPS #100 each 09/23/19 hydroxyzine pamoate 100 mg capsule 100 mg PO BID PRN #60 cap 09/23/19 Allergies Allergy/AdvReac Type Severity Reaction Status Date / Time adhesive tape Allergy Rash Verified 10/04/19 11:29 duloxetine [From Cymbalta] AdvReac Severe Nausea Verified 10/04/19 11:29 Review of Systems <Laurie Kwan PA-C - Last Filed: 10/05/19 12:25> Review of Systems ROS Unobtainable: All systems reviewed & are unremarkable except as noted in HPI and below Patient History <Laurie Kwan PA-C - Last Filed: 10/05/19 12:25> Medical History Acute hypokalemia (Acute 03/10/19) Anemia (Acute) Anxiety (Acute) Arthritis (Acute) C. difficile colitis (Acute 03/10/19) Chronic pain (Acute) Fibromyalgia (Chronic) Foot fracture, left (Resolved) GERD (gastroesophageal reflux disease) (Acute) Hidradenitis suppurativa (Resolved) Hidradenitis suppurativa (Acute) Hypoglycemia (Chronic) Kidney stones (Acute) Microcytic anemia (Acute) Migraines (Acute) Nausea (Acute) Osteoarthritis (Chronic) Pain (Acute) Tachycardia (Chronic) UTI (urinary tract infection) (Acute) Surgical History History of carpal tunnel surgery of left wrist (Acute ~2000) History of gastric bypass (Chronic ~2007) Hx of tonsillectomy (Acute ~1999) Social History household members: spouse and children Smoking Status: Current every day smoker alcohol intake: never Smoking Status: Current every day smoker alcohol intake frequency: other Substance Use Type: marijuana and other Exam <Laurie Kwan PA-C - Last Filed: 10/05/19 12:25> Initial Vital Signs Initial Vital Signs: Vital Signs Temperature 98.3 F 10/05/19 11:40 Pulse Rate 104 H 10/05/19 11:40 Respiratory Rate 18 10/05/19 11:40 Blood Pressure 143/71 H 10/05/19 11:40 Pulse Oximetry 100 10/05/19 11:40 GENERAL APPEARANCE: Patient sitting comfortably, in no distress. HEAD: No sinus TTP. EYES: PERRL, EOMI, no conjunctival erythema or drainage. Unable to visualize fundi with undilated pupil, vasculature visualized appears normal. Ocular pressures: OS 14, OD 16. Vision uncorrected: 20/400 OD, 20/20 0S ORAL CAVITY: Normal oropharynx. THROAT: Clear. NECK/THYROID: Neck supple, full range of motion, no cervical lymphadenopathy. LUNGS: Clear to auscultation bilaterally HEART: RRR without murmur, nl S1, S2, no S3 or S4. <Ventrua Kaminski DO - Last Filed: 10/05/19 12:45> Initial Vital Signs Initial Vital Signs: Vital Signs Temperature 98.3 F 10/05/19 11:40 Pulse Rate 104 H 10/05/19 11:40 Respiratory Rate 18 10/05/19 11:40 Blood Pressure 143/71 H 10/05/19 11:40 Pulse Oximetry 100 10/05/19 11:40 Course <Laurie Kwan PA-C - Last Filed: 10/05/19 12:25> Orders Ordered: Discontinued Medications Proparacaine HCl (Parcaine 0.5% Ophth Jennifer) 1 drops EYE-RIGHT NOW ONE Stop: 10/05/19 11:53 Last Admin: 10/05/19 12:24 Dose: 1 drop Documented by: BTONER Vital Signs Vital signs: Vital Signs - 8 hr 10/05/19 11:40 10/05/19 12:31 Temperature 98.3 F Pulse Rate 104 H 84 Respiratory Rate 18 14 Blood Pressure 143/71 H 125/59 L Pulse Oximetry 100 100 <Ventura Kaminski DO - Last Filed: 10/05/19 12:45> Orders Ordered: Discontinued Medications Proparacaine HCl (Parcaine 0.5% Ophth Jennifer) 1 drops EYE-RIGHT NOW ONE Stop: 10/05/19 11:53 Last Admin: 10/05/19 12:24 Dose: 1 drop Documented by: BTONER Vital Signs Vital signs: Vital Signs - 8 hr 10/05/19 11:40 10/05/19 12:31 Temperature 98.3 F Pulse Rate 104 H 84 Respiratory Rate 18 14 Blood Pressure 143/71 H 125/59 L Pulse Oximetry 100 100 Discharge Plan Departure Patient Disposition: Home Clinical Impression: Acute right eye pain, Change in vision Discharge Date/Time: 10/05/19 12:31 Instructions: DI for Eye Pain Activity Restrictions/Additional Instructions: Your eye pressures were normal today, but you could have a scratch on your eye and/or pinkeye. Since your vision has changed significantly and you are having pain, we want you to see your eye doctor. I have spoken with [facility] and they will see you at 2:30 today, so please head over when you leave here. Prescriptions: No Action promethazine 25 mg tablet 25 mg PO TID Qty: 90 RF: 5 cyclobenzaprine 10 mg tablet 10 mg PO TID PRN (Reason: muscle spasm) Qty: 90 RF: 5 hydroxyzine pamoate 100 mg capsule 100 mg PO BID PRN (Reason: itching) Qty: 60 RF: 0 (DME) TRUE METRIX TEST STRIPS Qty: 100 RF: 3 Kratom 6 tab PO BID RF: 0 acetaminophen [Tylenol] 325 mg capsule 650 mg PO QID PRN (Reason: pain) Qty: 60 RF: 0 Referrals: [facility] [Other] Brando Quezada MD [Primary Care Provider] - <eVntura Kaminski DO - Last Filed: 10/05/19 12:45> Sign Out Provider Sign Out Attestation: Dr Kaminski Co-Sign Statement: I was available for consultation during this patient's emergency department visit. This chart is signed by myself for administrative purposes only. I did not have direct contact with this patient during this visit. They were seen independently by the APC.
[2019-10-05] MEDS: PROPARACAINE 0.5% OPHTH SOL 1 DROPS EYE-RIGHT (12:24)
[2019-10-05 12:31] VITALS: BP 125/59; PULSE 84; RESP 14; O2SAT 100
== END 2019-10-05 12:31 | disposition home or self-care (01) ==
PROVIDERS: Emergency Provider Internal Medicine; Family Provider Student in an Organized Health Care Education/Training Program; PCP Student in an Organized Health Care Education/Training Program
DX: H57.11 Ocular pain, right eye (principal)
CPT/HCPCS: 99282; 99283

== ENCOUNTER 2020-03-07 20:50 | Emergency (ER) | payer OTHER, MEDICAID, SELFPAY ==
[2019-04-27 20:31] VITALS: BMI 33.8
[2020-03-07 20:55] VITALS: BMI 34.3
[2020-03-07 21:06] VITALS: BP 138/85; PULSE 130; RESP 22; TEMP 37; O2SAT 100
--- NOTE | 2020-03-07 21:12 | DI.RAD.S_ITS ---
PROCEDURE: XR ANKLE LT MIN 3V INDICATIONS: Left ankle pain and swelling TECHNIQUE: 3 views of the ankle were acquired. COMPARISON: [facility], CR, XR ANKLE LT MIN 3V, 08/10/2018, 19:21. FINDINGS: Bones: No fractures or dislocations. Ankle mortise is normally aligned. No suspicious bony lesions. Soft tissues: No tibiotalar joint effusion. Achilles tendon appears normal. IMPRESSION: No gross acute ankle fracture or dislocation. Mild ankle soft tissue swelling. Intact ankle mortise. Dictated by: Jony Downing M.D. on 03/07/2020 at 22:22 Approved by: Jony Downing M.D. on 03/07/2020 at 22:23
--- NOTE | 2020-03-07 21:26 | ED_ITS ---
HPI - Extremity Injury (Lower) General Chief Complaint: Extremity Injury, Lower Stated Complaint: SWELLING OF LEFT ANKLE Time Seen by Provider: 03/07/20 21:00 Source: patient Mode of arrival: Ambulatory Limitations: no limitations History of Present Illness HPI Narrative: 44F daily smoker with history of generalized anxiety, fibromyalgia and hypoglycemia presents with the chief complaint of pain from her left foot after injury suffered yesterday. She was getting out of a big tracking in stepping down when she slipped in her flip-flops in her foot smashed into the side of the tract. She now has pain overlying the medial instep of her foot. She denies any numbness, tingling or weakness. She denies other injury and states she is otherwise well and free of complaint. She did fracture her left ankle many years ago and has had a small bump where she is currently having pain ever since. Related Data Home Medications Medication Instructions Recorded Confirmed Kratom 6 tab PO BID 04/26/19 10/04/19 Previous Rx's Medication Instructions Recorded acetaminophen [Tylenol] 650 mg PO QID PRN #60 cap 04/27/19 promethazine 25 mg tablet 25 mg PO TID #90 tab 06/16/19 cyclobenzaprine 10 mg tablet 10 mg PO TID PRN #90 tab 06/23/19 TRUE METRIX TEST STRIPS #100 each 09/23/19 hydroxyzine pamoate 100 mg capsule 100 mg PO BID PRN #60 cap 09/23/19 ibuprofen 800 mg tablet 800 mg PO Q8H PRN #30 tab 01/12/20 Allergies Allergy/AdvReac Type Severity Reaction Status Date / Time adhesive tape Allergy Rash Verified 03/07/20 20:55 duloxetine [From Cymbalta] AdvReac Severe Nausea Verified 03/07/20 20:55 Review of Systems Constitutional Constitutional: Denies chills, Denies fatigue, Denies fever(s), Denies frequent falls, Denies lethargy and Denies weakness Eyes Eyes: Denies change in vision, Denies eye discharge, Denies irritation and Denies loss of vision ENT Ears, Nose, Mouth, and Throat: Denies change in voice, Denies dizziness, Denies neck pain, Denies sore throat and Denies throat swelling Cardiovascular Cardiovascular: Denies chest pain, Denies irregular heart rhythm, Denies lightheadedness, Denies palpitations, Denies dyspnea, Denies dyspnea on exertion and Denies orthopnea Respiratory Respiratory: Denies cough, Denies dyspnea, Denies dyspnea on exertion and Denies wheezing Gastrointestinal Gastrointestinal: Denies abdominal pain, Denies change in bowel habits, Denies diarrhea, Denies nausea and Denies vomiting Musculoskeletal Musculoskeletal: Reports joint swelling, Denies neck pain and Denies numbness Integumentary/Breasts Skin/Breast: Denies pruritus, Denies erythema, Denies rash and Denies wounds Neurologic Neurologic: Denies behavioral changes, Denies confusion, Denies dizziness, Denies frequent falls, Denies loss of vision, Denies numbness and Denies weakness Psychiatric Psychiatric: Denies anxiety, Denies behavioral changes, Denies confusion, Denies depression, Denies homicidal ideation and Denies suicidal ideation Endocrine Endocrine: Denies fatigue, Denies flushing and Denies palpitations Hematologic/Lymphatic Hematologic/Lymphatic: Denies easy bruising Allergic/Immunologic Allergic/Immunologic: Denies urticaria, Denies throat swelling and Denies wheezing Patient History Medical History Acute hypokalemia (Acute 03/10/19) Anemia (Acute) Anxiety (Acute) Arthritis (Acute) C. difficile colitis (Acute 03/10/19) Chronic pain (Acute) Fibromyalgia (Chronic) Foot fracture, left (Resolved) GERD (gastroesophageal reflux disease) (Acute) Hidradenitis suppurativa (Resolved) Hidradenitis suppurativa (Acute) Hypoglycemia (Chronic) Kidney stones (Acute) Microcytic anemia (Acute) Migraines (Acute) Nausea (Acute) Osteoarthritis (Chronic) Pain (Acute) Tachycardia (Chronic) UTI (urinary tract infection) (Acute) Surgical History History of carpal tunnel surgery of left wrist (Acute ~2000) History of gastric bypass (Chronic ~2007) Hx of tonsillectomy (Acute ~1999) Family History Father Diabetes mellitus Hypertension Mother Cervical cancer Grandfather Colon cancer Social History household members: spouse and children Smoking Status: Current every day smoker alcohol intake: never Smoking Status: Current every day smoker alcohol intake frequency: other Substance Use Type: marijuana and other Exam Narrative Exam Narrative: GEN: AOx3 and in mild distress EYES: Pupils are equal, round, and reactive to light and accommodation. Extraoccular muscles are intact bilaterally. There is no subconjunctival hemorrhage or exudate. CHEST: Lungs are clear to auscultation bilaterally and free of wheezes, rales, or rhonchi. Heart rate is regular rhythm, there are no murmurs, clicks, rubs, or gallops. There is no chest wall tenderness. ABD: Abdomen is soft and nontender. There is no guarding or rebound. Bowel sounds are normal in all 4 quadrants. There is no mass or organomegaly. EXT: Full but painful range of motion of left foot and ankle. No tenderness over either malleoli and no obvious swelling or discoloration. She does have tenderness to a small protrusion overlying her navicular bone which she states has been there since she fracture ankle years ago, closed isolated and neurovascular intact SKIN: Warm, pink, and dry. No erythema or rash Initial Vital Signs Initial Vital Signs: Vital Signs Temperature 98.6 F 03/07/20 21:06 Pulse Rate 130 H 03/07/20 21:06 Respiratory Rate 22 03/07/20 21:06 Blood Pressure 138/85 03/07/20 21:06 Pulse Oximetry 100 03/07/20 21:06 Procedures Orthopedic Splinting/Casting Injury #1: Side: left Lower Extremity Injury Location: foot Lower Extremity Immobilizer: post-op shoe Post splinting neuro exam: intact Post splinting vascular exam: intact Placed by: Nursing Course Orders Ordered: ED Orders 03/07/20 21:12 XR ankle LT min 3V Stat 03/07/20 22:00 XR foot RT min 3V Stat Consultations Consultation #1: orthopedics has seen images and nothing acute of note. Can follow up with ortho. Vital Signs Vital signs: Vital Signs - 8 hr 03/07/20 21:06 Temperature 98.6 F Pulse Rate 130 H Respiratory Rate 22 Blood Pressure 138/85 Pulse Oximetry 100 MDM - Extremity Injury (Lower) Imaging Data Extremity x-ray #1: Attestation: I personally reviewed and interpreted this imaging study as follows: Radiologist's Impression: [address] [address] XRay Report Signed Patient: Phylicia De Luna RMR#: [id number] : 1975Acct:[id number] Age/Sex: 44 / FDate of Service: 03/07/20 Loc: ED Accession Number: [id number] Procedure: XR foot RT min 3V Ordering Provider: Stalin Abdalla D.O. PROCEDURE: XR FOOT RT MIN 3V INDICATIONS: fall with lateral foot pain TECHNIQUE: 3 views of the foot were acquired. COMPARISON: [facility], , XR FOOT LT MIN 3V, 08/10/2018, 19:21. FINDINGS: Bones: Likely old healed injury involving medial aspect of navicular bone not significantly changed from previous study in 2018. No evidence of acute left foot fracture or dislocation. No suspicious intraosseous lesion. Soft tissues: No tibiotalar joint effusion. Achilles tendon appears normal. IMPRESSION: No gross acute right foot fracture or dislocation. Old healed navicular fracture unchanged from previous study. Dictated by: Jony Downing M.D. on 03/07/2020 at 22:23 Approved by: Jony Downing M.D. on 03/07/2020 at 22:24 Discharge Plan Departure Patient Disposition: Home Clinical Impression: Contusion Qualifiers: Encounter type: initial encounter Contusion area: foot Laterality: left Qualified Code(s): S90.32XA - Contusion of left foot, initial encounter Discharge Date/Time: 03/07/20 22:40 Instructions: DI for Contusion Activity Restrictions/Additional Instructions: *You have been diagnosed with [left foot contusion. No fracture seen on Xray, which I discussed with orthopedics] *What to do: *Take medications as directed *Follow up with [facility], call for an appointment. Let them know you were seen in the Emergency Department and that we ask that you be seen in follow up *Return to ER if you should have any new, worsening or concerning symptoms Prescriptions: No Action promethazine 25 mg tablet 25 mg PO TID Qty: 90 RF: 5 cyclobenzaprine 10 mg tablet 10 mg PO TID PRN (Reason: muscle spasm) Qty: 90 RF: 5 ibuprofen 800 mg tablet 800 mg PO Q8H PRN (Reason: pain) Qty: 30 RF: 4 hydroxyzine pamoate 100 mg capsule 100 mg PO BID PRN (Reason: itching) Qty: 60 RF: 0 (DME) TRUE METRIX TEST STRIPS Qty: 100 RF: 3 Kratom 6 tab PO BID RF: 0 acetaminophen [Tylenol] 325 mg capsule 650 mg PO QID PRN (Reason: pain) Qty: 60 RF: 0 Referrals: Brando Quezada MD [Primary Care Provider] - Bernice Villar MD [Physician] -
--- NOTE | 2020-03-07 22:00 | DI.RAD.S_ITS ---
PROCEDURE: XR FOOT RT MIN 3V INDICATIONS: fall with lateral foot pain TECHNIQUE: 3 views of the foot were acquired. COMPARISON: [facility], CR, XR FOOT LT MIN 3V, 08/10/2018, 19:21. FINDINGS: Bones: Likely old healed injury involving medial aspect of navicular bone not significantly changed from previous study in 2018. No evidence of acute left foot fracture or dislocation. No suspicious intraosseous lesion. Soft tissues: No tibiotalar joint effusion. Achilles tendon appears normal. IMPRESSION: No gross acute right foot fracture or dislocation. Old healed navicular fracture unchanged from previous study. Dictated by: Jony Downing M.D. on 03/07/2020 at 22:23 Approved by: Jony Downing M.D. on 03/07/2020 at 22:24
== END 2020-03-07 22:40 | disposition home or self-care (01) ==
PROVIDERS: Emergency Provider Emergency Medicine; Family Provider Student in an Organized Health Care Education/Training Program; PCP Student in an Organized Health Care Education/Training Program
DX: S90.32XA Contusion of left foot, initial encounter (principal); W19.XXXA Unspecified fall, initial encounter; F41.1 Generalized anxiety disorder
CPT/HCPCS: 73610; 73630; 99282; 99283

== ENCOUNTER → 2020-03-26 09:32 | Outpatient (CLI) | payer OTHER, MEDICAID, SELFPAY ==
[2019-04-27 20:31] VITALS: BMI 33.8
--- NOTE | 2020-03-26 09:34 | DI.US.S_ITS ---
PROCEDURE: US PELVIC COMPLETE INDICATIONS: DUB TECHNIQUE: Real-time scanning was performed of the pelvic organs, with image documentation. Additional endovaginal scanning was necessary due to incomplete visualization of the adnexal and endometrial structures by transabdominal scanning. COMPARISON: None. FINDINGS: Transabdominal scanning: Limited scanning through the kidneys shows no hydronephrosis. No pathologic free abdominal or pelvic fluid. Endovaginal scanning: Uterus: Uterus is normal in size at 10.2 x 5.8 x 6.4 cm. The endometrium measures 9.1 mm in combined thickness. Thick-walled, complex right ovarian cyst measuring up to 2.1 cm. Ovaries: Right ovary measures 3.1 x 2.0 x 3.3 cm and the left ovary measures 3.4 x 1.8 x 2.5 cm. IMPRESSION: 1. Probable hemorrhagic right ovarian cyst measuring up to 2.1 cm. Short-term follow-up pelvic ultrasound in 6-12 weeks recommended to assess for temporal resolution. Dictated by: Bashir Tariq [facility] Interpreted: Jony Downing MD on 03/26/2020 at 10:43 Approved by: Jony Downing M.D. on 03/26/2020 at 11:03
== END ==
PROVIDERS: Family Provider Student in an Organized Health Care Education/Training Program; PCP Student in an Organized Health Care Education/Training Program; Referring Provider Obstetrics & Gynecology; Visit Provider Obstetrics & Gynecology
DX: N92.1 Excessive and frequent menstruation with irregular cycle (principal); N83.291 Other ovarian cyst, right side
CPT/HCPCS: 76830; 76856

== ENCOUNTER → 2020-04-13 15:47 | Outpatient (CLI) | payer OTHER, MEDICAID, SELFPAY ==
[2019-04-27 20:31] VITALS: BMI 33.8
--- NOTE | 2020-04-13 15:50 | DI.MG.S_ITS ---
BILATERAL DIGITAL SCREENING MAMMOGRAM 3D/2D WITH CAD: 04/13/2020 CLINICAL: Baseline exam. Routine screening. No prior exams were available for comparison. The tissue of both breasts is heterogeneously dense. This may lower the sensitivity of mammography. Current study was also evaluated with a Computer Aided Detection (CAD) system. No significant masses, calcifications, or other findings are seen in either breast. IMPRESSION: NEGATIVE There is no mammographic evidence of malignancy. A 1 year screening mammogram is recommended. This exam was interpreted at Station ID: [id number]. NOTE: For mammograms, a report in lay terms will be sent to the patient. Approximately 15% of breast malignancies will not be visualized mammographically. In the management of a palpable breast mass, a negative mammogram must not discourage biopsy of a clinically suspicious lesion. Electronically Signed By: Bernardo Ruvalcaba M.D., jr/aubrey:04/13/2020 17:12:31 copy to: Alfreda Rodríguez letter sent: Normal Exam ACR BI-RADS Category 1: Negative [id number]
== END ==
PROVIDERS: Family Provider Student in an Organized Health Care Education/Training Program; PCP Student in an Organized Health Care Education/Training Program; Referring Provider Obstetrics & Gynecology; Visit Provider Obstetrics & Gynecology
DX: Z12.31 Encounter for screening mammogram for malignant neoplasm of breast (principal)
CPT/HCPCS: 77063; 77067

== ENCOUNTER → 2020-04-16 13:08 | Outpatient (CLI) | payer OTHER, MEDICAID, SELFPAY ==
[2019-04-27 20:31] VITALS: BMI 33.8
[2020-04-16 13:19] LABS: Bacteria Urine None Seen; RBC Urine None Seen (0-5/HPF)
[2020-04-16 14:05] LABS: Appearance Urine UA CLEAR; Bilirubin Urine UA NEGATIVE (NEGATIVE); Color Urine UA YELLOW; Glucose Urine UA NEGATIVE (Negative); Ketones Urine UA NEGATIVE (NEGATIVE); Leukocyte Esterase Urine UA TRACE (NEGATIVE); Nitrite Urine UA NEGATIVE (Negative); Occult Blood Urine UA NEGATIVE (Negative); Protein Urine UA NEGATIVE (Negative); Urobilinogen Urine UA 0.2 E.U./dL (0.2)
[2020-04-16 14:10] LABS: Culture Indicated Urine Cult Not Indicated; Squamous Epithelial Cell Urine 5-10 /HPF (0-5/HPF); WBC Urine 0-1/HPF (0-5/HPF)
== END ==
PROVIDERS: Family Provider Student in an Organized Health Care Education/Training Program; PCP Student in an Organized Health Care Education/Training Program; Referring Provider Student in an Organized Health Care Education/Training Program; Visit Provider Nurse Practitioner
DX: R30.0 Dysuria (principal)
CPT/HCPCS: 81001

== ENCOUNTER → 2020-05-04 14:04 | Outpatient (CLI) | payer OTHER, MEDICAID, SELFPAY ==
[2019-04-27 20:31] VITALS: BMI 33.8
[2020-05-07 09:57] LABS: COVID19 Sendout Not Detected (Not Detect)
== END ==
PROVIDERS: Family Provider Student in an Organized Health Care Education/Training Program; PCP Student in an Organized Health Care Education/Training Program; Visit Provider Physician Assistant
DX: Z11.59 Encounter for screening for other viral diseases (principal)
CPT/HCPCS: 87635

== ENCOUNTER 2020-05-07 11:16 | Day surgery (SDC) | payer OTHER, MEDICAID, SELFPAY ==
[2019-04-27 20:31] VITALS: BMI 33.8
[2020-05-04 08:50] VITALS: BMI 35.6
[2020-05-07] VITALS (7 sets, daily range): BP systolic 96–113; BP diastolic 51–67; PULSE 66–79; RESP 14–20; TEMP 36.4–37.3; O2SAT 98–100; BMI 35.4
--- NOTE | 2020-05-07 | PATH_ITS ---
[facility] Accession Number: [id number] . 01 Material submitted: . endometrium - ENDOMETRIAL CURETTINGS . 02 Diagnosis: Endometrium, Curettings: Fragments of early secretory phase endometrium with focally crowded glands; please see comment. No evidence of atypical hyperplasia or malignancy. [facility] 05/09/2020 1640 Local . 02 Comment: The endometrial curettings show focal crowding of glands with telescoping and areas of crush artifact. It is favored that the crowding is artifactual; however, simple hyperplasia without atypia cannot be completely excluded. Clinical correlation recommended. . 02 Electronically signed: . Eufemia Benz MD, Pathologist NPI- [id number] . 01 Gross description: . The specimen is received in formalin, labeled endometrial curettings and consists of multiple power-pink fragments of soft tissue and clotted blood, measuring 2.5 x 2.0 x 0.5 cm in aggregate. The specimen is filtered and entirely submitted in cassette A1. ([id number]) /[facility] 05/09/2020 0939 Local . 02 Pathologist provided ICD-10: N92.0 . 02 CPT . 199974 Performed at: 01 [facility] [address], [place], [place] [id number] MD Santiago Millan MD Phone: [phone] Performed at: 02 [facility] [address] [place], [place] [id number] MD Eufemia Benz MD Phone: [phone]
[2020-05-07] MEDS: LACTATED RINGERS 1,000 ML 100 ML IV (11:48)
--- NOTE | 2020-05-07 11:53 | P.HP_ITS ---
History of Present Illness History of Present Illness Date Patient Seen: 05/07/20 Time Patient Seen: 11:53 Chief complaint: SDC Narrative: Patient is a 44-year-old 4 para 4 who presents for a D&C hysteroscopy with NovaSure endometrial ablation secondary to menometrorrhagia Patient History Medical History (Updated 03/22/20 @ 00:00 by ) Acute hypokalemia (Acute 03/10/19) Anemia (Acute) Anxiety (Acute) Arthritis (Acute) C. difficile colitis (Acute 03/10/19) Chronic pain (Acute) Fibromyalgia (Chronic) Foot fracture, left (Resolved) GERD (gastroesophageal reflux disease) (Acute) Hidradenitis suppurativa (Resolved) Hidradenitis suppurativa (Acute) Hypoglycemia (Chronic) Kidney stones (Acute) Microcytic anemia (Acute) Migraines (Acute) Nausea (Acute) Osteoarthritis (Chronic) Pain (Acute) Tachycardia (Chronic) UTI (urinary tract infection) (Acute) Surgical History (Updated 05/04/20 @ 08:53 by Anaya Carter RN) History of carpal tunnel surgery of left wrist (Acute ~2000) History of gastric bypass (Chronic ~2007) Hx laparoscopic cholecystectomy (Acute 05/07/19) Hx of tonsillectomy (Acute ~1999) [place] teeth extracted (Acute) Family & Social History Family History Father Diabetes mellitus Hypertension Mother Cervical cancer Grandfather Colon cancer Social History: household members spouse,children Prior Living Arrangements Apartment/Condo Tobacco & Substance use: Tobacco type cigarettes Smoking Status Current every day smoker Smoking packs per day 0.5 alcohol intake current alcohol intake frequency holiday/special occasion Substance Use Type marijuana,other Meds Home Medications and Allergies Home Medications Medication Instructions Recorded Confirmed Type Kratom 6 tab PO BID 04/26/19 05/01/20 History acetaminophen [Tylenol] 650 mg PO QID PRN #60 cap 04/27/19 05/07/20 Rx promethazine 25 mg tablet 25 mg PO TID #90 tab 06/16/19 05/07/20 Rx TRUE METRIX TEST STRIPS #100 each 09/23/19 05/01/20 Rx ibuprofen 800 mg tablet 800 mg PO Q8H PRN #30 tab 05/21/20 09/14/20 Rx cyclobenzaprine 10 mg tablet 10 mg PO TID PRN #90 tab 03/22/20 05/07/20 Rx phenazopyridine 100 mg tablet 100 mg PO TID PRN #6 tab 04/17/20 05/07/20 Rx Allergies Allergy/AdvReac Type Severity Reaction Status Date / Time adhesive tape Allergy Rash Verified 05/07/20 11:27 duloxetine [From Cymbalta] AdvReac Severe Nausea Verified 05/07/20 11:27 Exam Vital Signs (past 8 hours): - 05/07/20 11:34 Temperature 99.2 F Pulse Rate 78 Respiratory Rate 20 Blood Pressure 109/63 Pulse Oximetry 100 Oxygen Delivery Method Room Air Narrative Exam Narrative: HEENT: No thyromegaly, no anterior cervical or supraclavicular lymphadenopathy. Lungs:Clear to auscultation bilaterally, no wheezes. Cardiovascular: Regular rate and rhythm, no murmurs, rubs, or gallops. Abdomen: No scars. No hepatosplenomegaly. No masses palpable. External genitalia: Normal Vagina: Normal Cervix: Normal parous Bimanual exam: Eight Week size anteverted uterus. Mobile. Rectal: No masses. Assessment & Plan Assessment & Plan narrative: Assessment: 44-year-old 4 para 4 with menometrorrhagia Plan: D&C hysteroscopy with NovaSure endometrial ablation The risks, benefits, and alternatives to the procedure were explained to the patient. The risks including bleeding, infection, and uterine perforation. She understands these risks and agrees to proceed. A full par Q was held and consent form was signed. COVID-19 COVID-19 status: Negative Result date/Date tested (Pos, Neg/Pending): 05/04/20 Time Spent With Patient Time with patient: less than 15 minutes
--- NOTE | 2020-05-07 11:56 | PM.PREOP ---
Pre-operative Note COVID-19 COVID-19 status: Negative Result date/Date tested (Pos, Neg/Pending): 05/04/20 Interval Note History & Physical reviewed/Exam performed by Physician: Yes Changes to H&P: No H&P completed within 30 days and has changed as indicated here:: 05/07/20
--- NOTE | 2020-05-07 11:57 | SUR.OPER ---
Lithotomy on padded OR bed, head on pillow, arms secured on padded arm boards at <90 degrees abduction. Legs secured in padded yellow fins stirrups.
[2020-05-07] MEDS: OXYCODONE/ACETAMINOPHEN 5/325 TABLET 1 TAB PO ×2 (12:51→13:39)
--- NOTE | 2020-05-07 14:07 | SUR.PHASEII ---
Verbal order received from Dr. Rodríguez, pt not required to void prior to discharge.
--- NOTE | 2020-05-07 17:02 | P.OP_ITS ---
Operative Date/Time/Diagnoses Date of procedure: 05/07/20 Time of procedure: 13:00 Pre-op diagnosis: Menometrorrhagia Post-op diagnosis: same Procedure & Clinicians Procedure: Procedures Operation Date: 05/07/20 12:45 Actual Procedures Side Surgeon p D&C Hysteroscopy w/ Novasure Ablation Alfreda Rodríguez MD Indications: Menometrorrhagia Surgeon: Alfreda Rodríguez Anesthesia Type: General (LMA) Operative Notes Findings: Eight week size anteverted uterus Both fallopian tube ostia observed Length of the uterus 4.5 cm, with of the uterus 4.3 cm, time equals 107 seconds, power 106 W Closure Type: not applicable Specimen(s): endometrial curettings Estimated blood loss (mL): 20 Blood products transfused: none Procedure in detail: The patient was taken to the operating room where she was placed in the dorsal supine position. After adequate LMA general anesthesia was achieved, she was placed in the dorsal lithotomy position, and prepped and draped in the usual sterile fashion. A time-out was performed. A bivalve speculum was placed into the vagina and the anterior lip of the cervix was grasped with a single-tooth tenaculum. The cervical os was sequentially dilated to the # 8 Hegar dilator. The hysteroscope passed easily into the endometrial cavity. Both fallopian tube ostia were observed. There was thickened endometrium throughout. The hysteroscope was removed. Sharp curettage was performed yielding a large amount of endometrial curettings. The uterus was then measured from the internal os to the fundus of the uterus and measured 4.5 cm. The NovaSure catheter was set at 4.5 cm and passed easily into the endomet rial cavity. The catheter was opened. The width of the uterus was 4.3 cm. Both of these were set on the NovaSure generator. This indicated a power of 106 w. The cervix was capped, the cavity assessment was performed and passed, and the cycle was initiated. The cycle lasted 107 seconds. At the completion of the cycle, the cervix was then capped, the NovaSure catheter was closed, and removed from the uterus. Single-tooth tenaculum was removed from the anterior lip of the cervix. The bivalve speculum was removed from the vagina. Sponge, lap, and instrument counts were correct x2. The patient tolerated the procedure well, and was taken to PACU in stable condition. Complications: none Post-operative Condition: stable Disposition: PACU Plan for aftercare: Home after recovery
== END 2020-05-07 13:50 | disposition home or self-care (01) ==
PROVIDERS: Family Provider Student in an Organized Health Care Education/Training Program; PCP Student in an Organized Health Care Education/Training Program; Referring Provider Obstetrics & Gynecology; Visit Provider Obstetrics & Gynecology
PROC: 0U5B8ZZ Destruction of Endometrium, Via Natural or Artificial Opening Endoscopic (ICD-10-PCS; CPT 58563; principal; 2020-05-07 12:45)
DX: N92.1 Excessive and frequent menstruation with irregular cycle (principal); M79.7 Fibromyalgia; F17.210 Nicotine dependence, cigarettes, uncomplicated; D64.9 Anemia, unspecified; F41.9 Anxiety disorder, unspecified; K21.9 Gastro-esophageal reflux disease without esophagitis
CPT/HCPCS: 58563; J1100; J1885; J2250; J2405; J2704; J3010

== ENCOUNTER 2020-05-08 09:58 | Emergency (ER) | payer OTHER, MEDICAID, SELFPAY ==
[2019-04-27 20:31] VITALS: BMI 33.8
[2020-05-08] VITALS (7 sets, daily range): BP systolic 108–132; BP diastolic 55–83; PULSE 72–109; RESP 14–24; TEMP 36.9; O2SAT 100; BMI 35.9
--- NOTE | 2020-05-08 10:05 | ED_ITS ---
HPI - General Adult General Chief complaint: Abdominal Pain Stated complaint: Hurting after surgery yestersay. Time Seen by Provider: 05/08/20 10:05 History of Present Illness HPI narrative: 44-year-old woman who had an endometrial ablation yesterday presents with acute right-sided right flank pain starting about an hour prior to arrival. She states she had been doing well after the procedure yesterday, requiring only ibuprofen, small amount of vaginal spotting until the sharp stabbing right-sided flank pain began this morning. She states that she has a history of urinary tract infection without significant dysuria. She also notes prior kidney stones. She has had her gallbladder removed about a year ago. She reports no fever, cough, chills, back pain or skin changes Related Data Home Medications Medication Instructions Recorded Confirmed Kratom 6 tab PO BID 04/26/19 05/01/20 Previous Rx's Medication Instructions Recorded acetaminophen [Tylenol] 650 mg PO QID PRN #60 cap 04/27/19 promethazine 25 mg tablet 25 mg PO TID #90 tab 06/16/19 TRUE METRIX TEST STRIPS #100 each 09/23/19 ibuprofen 800 mg tablet 800 mg PO Q8H PRN #30 tab 01/12/20 cyclobenzaprine 10 mg tablet 10 mg PO TID PRN #90 tab 03/22/20 phenazopyridine 100 mg tablet 100 mg PO TID PRN #6 tab 04/17/20 Allergies Allergy/AdvReac Type Severity Reaction Status Date / Time adhesive tape Allergy Rash Verified 05/07/20 11:27 duloxetine [From Cymbalta] AdvReac Severe Nausea Verified 05/07/20 11:27 Review of Systems Review of Systems Narrative: Remainder of review of systems including constitutional, ENT, cardiovascular, respiratory, GI, , musculoskeletal, skin, neurologic and psychiatric systems reviewed and are unremarkable except as noted in HPI. Patient History Medical History (Updated 05/08/20 @ 13:34 by Alyson Morin MD) Acute hypokalemia (Acute 03/10/19) Anemia (Acute) Anxiety (Acute) Arthritis (Acute) C. difficile colitis (Acute 03/10/19) Chronic pain (Acute) Fibromyalgia (Chronic) Foot fracture, left (Resolved) GERD (gastroesophageal reflux disease) (Acute) Hidradenitis suppurativa (Resolved) Hidradenitis suppurativa (Acute) Hypoglycemia (Chronic) Kidney stones (Acute) Microcytic anemia (Acute) Migraines (Acute) Nausea (Acute) Osteoarthritis (Chronic) Pain (Acute) Tachycardia (Chronic) UTI (urinary tract infection) (Acute) Surgical History (Updated 05/08/20 @ 10:18 by Alyson Morin MD) History of carpal tunnel surgery of left wrist (Acute ~2000) History of endometrial ablation (Acute) History of gastric bypass (Chronic ~2007) Hx laparoscopic cholecystectomy (Acute 05/07/19) Hx of tonsillectomy (Acute ~1999) [place] teeth extracted (Acute) Family History Father Diabetes mellitus Hypertension Mother Cervical cancer Grandfather Colon cancer Social History household members: spouse and children Smoking Status: Current every day smoker alcohol intake: current Smoking Status: Current every day smoker alcohol intake frequency: holidays/special occasions only Substance Use Type: marijuana and other Exam Narrative Exam Narrative: General: Healthy appearing, in moderate amount of pain, a ble to give a complete and coherent history. Well-nourished well-developed HEENT: Moist mucous membranes, normal sclera with reactive pupils, Neck: No JVD, supple Respiratory: Lungs are clear to auscultation, no wheezing no rales no rhonchi. Full and symmetrical air movement Cardiac: Regular rate and rhythm no murmurs no bruits Abdomen: Significant tenderness in the right upper quadrant and right flank with mild suprapubic tenderness. No rebound no guarding. Skin: Warm and dry, no rashes Neurologic: Grossly neurologically intact with no obvious asymmetries or abnormalities Extremities: No trauma, well perfused Psych: Cooperative, appropriate insight and affect Initial Vital Signs Initial Vital Signs: Vital Signs Temperature 98.4 F 05/08/20 10:09 Pulse Rate 109 H 05/08/20 10:09 Respiratory Rate 05/08/20 10:09 Blood Pressure 130/75 05/08/20 10:09 Pulse Oximetry 100 05/08/20 10:09 Course Orders Ordered: ED Orders 05/08/20 10:20 Complete Blood Count AUTO DIFF Stat Comprehensive Metabolic Panel Stat Lipase Stat 05/08/20 10:43 CT kidney ureter bladder (KUB) Stat 05/08/20 11:43 Urinalysis and Microscopic Stat Sodium Chloride (Normal Saline 0.9%) 1,000 mls @ 150 mls/hr IV CONT MILA Last Admin: 05/08/20 11:05 Dose: Not Given Documented by: LANDRY Discontinued Medications Sodium Chloride (Normal Saline 0.9%) 1,000 mls @ 1,000 mls/hr IV BOLUS ONE Stop: 05/08/20 11:40 Last Admin: 05/08/20 10:58 Dose: 1,000 mls/hr Documented by: LANDRY Ketorolac Tromethamine (Toradol) 15 mg IV NOW ONE Stop: 05/08/20 10:42 Last Admin: 05/08/20 10:59 Dose: 15 mg Documented by: LANDRY Vital Signs Vital signs: Vital Signs - 8 hr 05/08/20 10:09 05/08/20 11:00 05/08/20 11:16 Temperature 98.4 F Pulse Rate 109 H 81 Respiratory Rate 20 24 Blood Pressure 130/75 132/57 L Pulse Oximetry 100 100 05/08/20 11:40 05/08/20 11:41 05/08/20 12:00 Temperature Pulse Rate 75 74 72 Respiratory Rate 15 Blood Pressure 117/55 L 109/62 Pulse Oximetry 100 100 Medical Decision Making Medical Records Medical records reviewed: Yes I reviewed the patient's medical records. Lab Data Lab results reviewed: Yes I reviewed the patient's lab results. Result diagrams: 05/08/20 10:20 05/08/20 10:20 Labs: Lab Results 05/08/20 05/08/20 05/08/20 Range/Units 10:20 10:20 11:43 WBC 12.0 H (4.5-11.0) X10^3/uL RBC 4.70 (4.0-5.2) X10^6/uL Hgb 11.4 L (12.0-16.0) g/dL Hct 35.7 L (36-46) % MCV 75.9 L (80-100) fL MCH 24.2 L (26-34) PG MCHC 31.9 (30-36) % RDW 17.3 H (11.6-14.8) % Plt Count 209 (150-400) X10^3/uL Neut % (Auto) 70.2 (50-75) % Lymph % (Auto) 21.2 L (25-40) % [place] % (Auto) 7.5 (3-14) % Eos % (Auto) 0.5 L (2-4) % Baso % (Auto) 0.6 (0-2) % Neut # (Auto) 8400 H (6023-3448) /uL Lymph # (Auto) 2500 (9709-2242) /uL [place] # (Auto) 900 (0-900) /uL Eos # (Auto) 100 (0-450) /uL Baso # (Auto) 100 (0-100) /uL Sodium 141 (137-145) mmol/L Potassium 3.6 (3.4-5.1) mmol/L Chloride 109 H (98-107) mmol/L Carbon Dioxide 23 (22-32) mmol/L BUN 11 (7-17) mg/dL Creatinine 0.82 (0.52-1.04) mg/dL Estimated GFR > 60.0 (>60) mL/min BUN/Creatinine Ratio 13.4 (6-22) Glucose 105 H (70-100) mg/dL Calcium 9.3 (8.4-10.2) mg/dL Total Bilirubin 0.5 (0.2-1.3) mg/dL AST 28 (14-36) IU/L ALT 14 (<35) IU/L Alkaline Phosphatase 78 (38-126) U/L Total Protein 7.9 (6.3-8.2) g/dL Albumin 4.4 (3.5-5.0) g/dL Globulin 3.5 (1.7-4.1) g/dL Albumin/Globulin Ratio 1.3 (1.0-2.8) Lipase 110 (23-300) U/L Urine Color Yellow Urine Appearance Clear Urine pH 5.5 (4.5-8.0) Ur Specific [place] <=1.005 (1.000-1.035) Urine Protein Negative (Negative) Urine Glucose (UA) Negative (Negative) g/dL Urine Ketones Negative (NEGATIVE) Urine Occult Blood 3+ H (Negative) Urine Nitrate Negative (Negative) Urine Bilirubin Negative (NEGATIVE) Urine Urobilinogen 0.2 (0.2) E.U./dL Ur Leukocyte Esterase Negative (NEGATIVE) Urine RBC 5-10/hpf H (0-5/HPF) Urine WBC None seen (0-5/HPF) Ur Squamous Epith Cells 5-10 /hpf H (0-5/HPF) Urine Bacteria None seen (None) Ur Culture Indicated? Cult not indicated Urine Dip Bedside Urine Glucose 100 mg/dl Bedside Urine Bilirubin - Negative Bedside Urine Ketone - Negative Urine Specific [place] 1.010 Bedside Urine Occult Blood ++ Bedside Urine pH 6.0 Bedside Urine Protein - Negative Bedside Urine Urobilinogen - Negative Bedside Urine Nitrite - Negative Bedside Urine Leukocytes - Negative Esterase Point of care testing: Urine Dip Bedside Urine Glucose 100 mg/dl Bedside Urine Bilirubin - Negative Bedside Urine Ketone - Negative Urine Specific [place] 1.010 Bedside Urine Occult Blood ++ Bedside Urine pH 6.0 Bedside Urine Protein - Negative Bedside Urine Urobilinogen - Negative Bedside Urine Nitrite - Negative Bedside Urine Leukocytes - Negative Esterase Imaging Data CT scan - abdomen/pelvis: Radiologist's Impression: FINDINGS: Image quality: Excellent. Lung bases: Lung bases are clear. Heart size is normal. Urinary system: Both kidneys are normal in size. No kidney stones. No hydronephrosis or perinephric fat stranding. Both ureters appear non-dilated throughout their expected courses. Bladder wall thickness is normal; no calcified bladder stones. Other solid organs: Liver is normal in size. Gallbladder is surgically absent. Pancreas is normal in contours. Spleen is normal in size. No adrenal nodules. Peritoneum and bowel: Patient is status post gastric bypass surgery with postsurgical changes in epigastric region. Unenhanced bowel loops demonstrate normal wall thickness and caliber. No free fluid or air. Mild sigmoid diverticulosis is seen, no CT evidence of acute diverticulitis. Nodes and vessels: No retroperitoneal or mesenteric adenopathy by size criteria. Aorta and inferior vena cava are normal in caliber. Abdominal wall: Small umbilical hernia is seen containing fat only. Pelvis: No free pelvic fluid. No inguinal hernias or adenopathy. Uterus and bilateral adnexa shows no gross abnormality. Bones: No suspicious bony lesions. No vertebral body compression fractures. Degenerative disc disease throughout lower thoracic spine and lumbar spine is seen. IMPRESSION: 1. No renal stone or hydronephrosis. Normal appearing bilateral ureters and urinary bladder. Numerous phleboliths are noted in lower pelvis. 2. Prior gastric bypass surgery. No bowel obstruction. No abnormal bowel wall thickening. No free fluid or free air. Sigmoid diverticulosis with no evidence of acute diverticulitis. 3. Prior cholecystectomy. Dictated by: Jony Downing M.D. on 05/08/2020 at 11:51 MDM Narrative Medical decision making narrative: 24 hours post uterine ablation with acute onset right upper quadrant pain radiating into the right flank. No evidence of renal colic or sepsis at this time. Remainder of workup continues. Fluids and Toradol for pain control. 13:30 pain is much better control. Findings are reviewed. Reassurance is given. No evidence kidney stone, pyelonephritis, free air in her abdomen, acute liver problems, severe constipation or any surgical issues. Her gallbladder has been removed and her gastric bypass is doing well with no breakdown or acute complications. She is safe for home discharge Discharge Plan Departure Patient Disposition: Home Clinical Impression: Non-surgical right upper quadrant abdominal pain Instructions: DI for Abdominal Pain-Adult Activity Restrictions/Additional Instructions: Thank you for coming in today I did not find a life-threatening cause for the right upper abdominal pain that you are having. There is no evidence of kidney stone, kidney infection, complications from your uterine ablation yesterday, liver problems or a pneumonia to be causing the acute pain that you are experiencing. I am reassured that it is somewhat better after fluid and Toradol in the emergency department. At this point, it is safe for you to go home. If you have recurrent issues, fevers, vomiting, diarrhea please feel free to return to the emergency dep artment. Prescriptions: No Action promethazine 25 mg tablet 25 mg PO TID Qty: 90 RF: 5 ibuprofen 800 mg tablet 800 mg PO Q8H PRN (Reason: pain) Qty: 30 RF: 4 cyclobenzaprine 10 mg tablet 10 mg PO TID PRN (Reason: muscle spasm) Qty: 90 RF: 5 phenazopyridine 100 mg tablet 100 mg PO TID PRN (Reason: pain) Qty: 6 RF: 0 (DME) TRUE METRIX TEST STRIPS Qty: 100 RF: 3 Kratom 6 tab PO BID RF: 0 acetaminophen [Tylenol] 325 mg capsule 650 mg PO QID PRN (Reason: pain) Qty: 60 RF: 0 Referrals: Brando Quezada MD [Primary Care Provider] -
--- NOTE | 2020-05-08 10:30 | PC.NURSE ---
s/P D&C yesterday. woke at 4am and ate toast with no complications. about 930 patient began feeling a stabbing knife twisting pain in RLQ and returnded to [facility] for evaluation.
[2020-05-08 10:38] LABS: Add Manual Diff / Slide Review NO; Basophils Absolute Auto 100 /uL (0-100); Basophils Percent Auto 0.6 % (0-2); Eosinophils Absolute Auto 100 /uL (0-450); Eosinophils Percent Auto 0.5 % (2-4); Hematocrit 35.7 % (36-46); Hemoglobin 11.4 g/dL (12.0-16.0); Lymphocytes Absolute Auto 2500 /uL (1100-4500); Lymphocytes Percent Auto 21.2 % (25-40); Mean Corpuscular HGB Conc 31.9 % (30-36); Mean Corpuscular Hemoglobin 24.2 PG (26-34); Mean Corpuscular Volume 75.9 fL (80-100); Monocytes Absolute Auto 900 /uL (0-900); Monocytes Percent Auto 7.5 % (3-14); Neutrophils Absolute Auto 8400 /uL (1500-7000); Neutrophils Percent Auto 70.2 % (50-75); Platelet Count 209 X10^3/uL (150-400); Red Cell Distribution Width 17.3 % (11.6-14.8)
--- NOTE | 2020-05-08 10:43 | DI.CT.S_ITS ---
PROCEDURE: CT KIDNEY URETER BLADDER (KUB) INDICATIONS: acute Right flank pain TECHNIQUE: Noncontrast 5 mm thick sections acquired from the diaphragms to the symphysis. 5 mm thick coronal and sagittal reformats were then performed. For radiation dose reduction, the following was used: automated exposure control, adjustment of mA and/or kV according to patient size. COMPARISON: None. FINDINGS: Image quality: Excellent. Lung bases: Lung bases are clear. Heart size is normal. Urinary system: Both kidneys are normal in size. No kidney stones. No hydronephrosis or perinephric fat stranding. Both ureters appear non-dilated throughout their expected courses. Bladder wall thickness is normal; no calcified bladder stones. Other solid organs: Liver is normal in size. Gallbladder is surgically absent. Pancreas is normal in contours. Spleen is normal in size. No adrenal nodules. Peritoneum and bowel: Patient is status post gastric bypass surgery with postsurgical changes in epigastric region. Unenhanced bowel loops demonstrate normal wall thickness and caliber. No free fluid or air. Mild sigmoid diverticulosis is seen, no CT evidence of acute diverticulitis. Nodes and vessels: No retroperitoneal or mesenteric adenopathy by size criteria. Aorta and inferior vena cava are normal in caliber. Abdominal wall: Small umbilical hernia is seen containing fat only. Pelvis: No free pelvic fluid. No inguinal hernias or adenopathy. Uterus and bilateral adnexa shows no gross abnormality. Bones: No suspicious bony lesions. No vertebral body compression fractures. Degenerative disc disease throughout lower thoracic spine and lumbar spine is seen. IMPRESSION: 1. No renal stone or hydronephrosis. Normal appearing bilateral ureters and urinary bladder. Numerous phleboliths are noted in lower pelvis. 2. Prior gastric bypass surgery. No bowel obstruction. No abnormal bowel wall thickening. No free fluid or free air. Sigmoid diverticulosis with no evidence of acute diverticulitis. 3. Prior cholecystectomy. Dictated by: Jony Downing M.D. on 05/08/2020 at 11:51 Approved by: Jony Downing M.D. on 05/08/2020 at 11:57
[2020-05-08] MEDS: SODIUM CHLORIDE 0.9% 1,000 ML 1000 ML IV (10:58)
[2020-05-08] MEDS: KETOROLAC 60 MG/2 ML VIAL 15 MG IV (10:59)
[2020-05-08 12:02] LABS: Bacteria Urine None Seen; WBC Urine None Seen (0-5/HPF)
[2020-05-08 12:03] LABS: Appearance Urine UA CLEAR; Bilirubin Urine UA NEGATIVE (NEGATIVE); Color Urine UA YELLOW; Glucose Urine UA NEGATIVE (Negative); Ketones Urine UA NEGATIVE (NEGATIVE); Leukocyte Esterase Urine UA NEGATIVE (NEGATIVE); Nitrite Urine UA NEGATIVE (Negative); Occult Blood Urine UA 3+ (Negative); Protein Urine UA NEGATIVE (Negative); Specific Gravity Urine UA <=1.005 (1.000-1.035); Urobilinogen Urine UA 0.2 E.U./dL (0.2)
[2020-05-08 12:08] LABS: pH Urine UA 5.5 (4.5-8.0)
[2020-05-08 12:10] LABS: Culture Indicated Urine Cult Not Indicated; RBC Urine 5-10/HPF (0-5/HPF); Squamous Epithelial Cell Urine 5-10 /HPF (0-5/HPF)
[2020-05-08 12:26] LABS: Alanine Aminotransferase 14 IU/L (<35); Albumin 4.4 g/dL (3.5-5.0); Albumin Globulin Ratio 1.3 (1.0-2.8); Alkaline Phosphatase 78 U/L (38-126); Aspartate Aminotransferase 28 IU/L (14-36); BUN Creatinine Ratio 13.4 (6-22); Bilirubin Total 0.5 mg/dL (0.2-1.3); Blood Urea Nitrogen 11 mg/dL (7-17); Calcium 9.3 mg/dL (8.4-10.2); Carbon Dioxide 23 mmol/L (22-32); Chloride 109 mmol/L (98-107); Estimated Glomerular Filt Rate > 60.0 mL/min (>60); Globulin 3.5 g/dL (1.7-4.1); Glucose 105 mg/dL (70-100); HEMOLYSIS 28 (0-50); Lipase 110 U/L (23-300); Potassium 3.6 mmol/L (3.4-5.1); Sodium 141 mmol/L (137-145); Total Protein 7.9 g/dL (6.3-8.2)
--- NOTE | 2020-06-16 14:13 | PC.NURSE ---
Normal saline infused prior to discharge.
== END 2020-05-08 13:39 | disposition home or self-care (01) ==
PROVIDERS: Emergency Provider Emergency Medicine; Family Provider Student in an Organized Health Care Education/Training Program; PCP Student in an Organized Health Care Education/Training Program; Referring Provider Obstetrics & Gynecology
DX: R10.11 Right upper quadrant pain (principal); Z98.890 Other specified postprocedural states
CPT/HCPCS: 36415; 74176; 80053; 81001; 81003; 83690; 85025; 96361; 96374; 99284; J1885

== ENCOUNTER → 2020-07-23 10:19 | Outpatient (CLI) | payer OTHER, MEDICAID, SELFPAY ==
[2019-04-27 20:31] VITALS: BMI 33.8
== END ==
PROVIDERS: Family Provider Student in an Organized Health Care Education/Training Program; PCP Registered Nurse Diabetes Educator; Visit Provider Physician Assistant
DX: N30.00 Acute cystitis without hematuria (principal)
CPT/HCPCS: 87086

== ENCOUNTER → 2020-11-12 09:03 | Outpatient (CLI) | payer OTHER, MEDICAID, SELFPAY ==
[2019-04-27 20:31] VITALS: BMI 33.8
[2020-11-12 10:18] LABS: Hemoglobin 11.3 g/dL (12.0-16.0); Mean Corpuscular HGB Conc 32.2 % (30-36); Mean Corpuscular Hemoglobin 23.8 PG (26-34); Mean Corpuscular Volume 73.8 fL (80-100); Platelet Count 218 X10^3/uL (150-400); Red Blood Cell Count 4.75 X10^6/uL (4.0-5.2); Red Cell Distribution Width 16.9 % (11.6-14.8); White Blood Cell Count 5.9 X10^3/uL (4.5-11.0)
[2020-11-12 10:40] LABS: Alanine Aminotransferase 19 IU/L (<35); Albumin 4.6 g/dL (3.5-5.0); Albumin Globulin Ratio 1.4 (1.0-2.8); Alkaline Phosphatase 89 U/L (38-126); Aspartate Aminotransferase 25 IU/L (14-36); BUN Creatinine Ratio 21.3 (6-22); Bilirubin Total 0.5 mg/dL (0.2-1.3); Blood Urea Nitrogen 16 mg/dL (7-17); Calcium 9.4 mg/dL (8.4-10.2); Carbon Dioxide 26 mmol/L (22-32); Chloride 104 mmol/L (98-107); Cholesterol 155 mg/dL (140-199); Estimated Glomerular Filt Rate > 60.0 mL/min (>60); Globulin 3.4 g/dL (1.7-4.1); Glucose 96 mg/dL (70-100); HDL Cholesterol 59 mg/dL (40-60); HEMOLYSIS < 15 (0-50); LDL Cholesterol Calculated 84 mg/dL (<100); Sodium 139 mmol/L (137-145); Triglycerides 60 mg/dL (35-150)
[2020-11-12 10:57] LABS: Free T3, Triiodothyronine Free 2.94 pg/mL (2.77-5.27); Free T4, Direct Thyroxine 0.95 ng/dL (0.78-2.19)
[2020-11-12 11:11] LABS: Thyroid Stimulating Hormone 1.45 uIU/mL (0.47-4.68)
== END ==
PROVIDERS: Family Provider Student in an Organized Health Care Education/Training Program; PCP Nurse Practitioner; Referring Provider Nurse Practitioner; Visit Provider Nurse Practitioner
DX: E03.9 Hypothyroidism, unspecified (principal); E16.2 Hypoglycemia, unspecified; F31.9 Bipolar disorder, unspecified; F33.1 Major depressive disorder, recurrent, moderate; F41.0 Panic disorder [episodic paroxysmal anxiety]; F41.1 Generalized anxiety disorder; G62.9 Polyneuropathy, unspecified; Z00.00 Encounter for general adult medical examination without abnormal findings
CPT/HCPCS: 36415; 80053; 80061; 84439; 84443; 84481; 85027

== ENCOUNTER → 2020-12-26 15:19 | Outpatient (CLI) | payer OTHER, MEDICAID, SELFPAY ==
[2019-04-27 20:31] VITALS: BMI 33.8
--- NOTE | 2020-12-26 15:20 | DI.RAD.S_ITS ---
PROCEDURE: XR LUMBAR SPINE 2-3V INDICATIONS: back pain, TECHNIQUE: 3 views of the lumbar spine were acquired. COMPARISON: None. FINDINGS: Bones: Partially visualized scoliosis. Multilevel spondylosis/endplate changes. Diffuse facet arthropathy. No acute fracture seen. Disc spaces appear preserved. Soft tissues: Overlying bowel gas pattern is normal. No suspicious soft tissue calcifications. IMPRESSION: Partially visualized scoliosis Diffuse spondylitic changes and facet arthropathy Dictated by: Luis Radford M.D. on 12/26/2020 at 16:32 Approved by: Luis Radford M.D. on 12/26/2020 at 16:33
== END ==
PROVIDERS: PCP Nurse Practitioner; Referring Provider Nurse Practitioner; Visit Provider Nurse Practitioner
DX: M54.41 Lumbago with sciatica, right side (principal); M47.816 Spondylosis without myelopathy or radiculopathy, lumbar region; M51.26 Other intervertebral disc displacement, lumbar region; M54.42 Lumbago with sciatica, left side; M41.9 Scoliosis, unspecified; G89.29 Other chronic pain
CPT/HCPCS: 72100

== ENCOUNTER 2021-02-04 09:00 | Outpatient (RCR) | payer OTHER, MEDICAID, SELFPAY ==
[2019-04-27 20:31] VITALS: BMI 33.8
--- NOTE | 2020-12-31 16:59 | PT.OIE ---
Current Diagnoses Other chronic pain (12/31/20) Other intervertebral disc displacement, lumbar region (12/31/20) Cervicalgia (12/31/20) Lumbago with sciatica, right side (12/31/20) Dorsalgia, unspecified (12/31/20) Muscle spasm of back (12/31/20) Other muscle spasm (12/31/20) Past Medical History (Last Updated 12/27/20 @ 17:00 by AVELINO Benitez) Acute hypokalemia (03/10/19) Anemia Ankle fracture, left Anxiety Anxiety Arthritis Biliary colic Bipolar disorder Bulging of intervertebral disc between L4 and L5 C. difficile colitis (03/10/19) Carpal tunnel syndrome on both sides Cholelithiasis Chronic pain Constipation Environmental allergies Female sexual dysfunction Fibromyalgia Foot fracture, left Gastroesophageal reflux disease GERD (gastroesophageal reflux disease) Hidradenitis suppurativa Hidradenitis suppurativa Hypoglycemia Hypoglycemia Insomnia Kidney stones Lumbar facet arthropathy Microcytic anemia Migraines Nausea NSAID overdose Obesity (BMI 30-39.9) Osteoarthritis Pain Peripheral neuropathy Tachycardia Urinary tract infection UTI (urinary tract infection) Vitamin D insufficiency Past Surgical History (Last Reviewed 12/27/20 @ 16:53 by AVELINO Benitez) History of carpal tunnel surgery of left wrist (~2000) History of endometrial ablation History of gastric bypass (~2007) Hx laparoscopic cholecystectomy (05/07/19) Hx of tonsillectomy (~1999) [place] teeth extracted Visit Care Team Role Provider Type AVELINO Benitez Attending Provider Advanced Broke Beater 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 Operator Family Provider Primary Care Provider Referring Provider Specialty: [facility] Practice Address: [address] [place] [address], [facility] Email: [email or web address] Physical Therapy Initial Evaluation PT-OP-A Visit Information Start: 12/31/20 16:12 Freq: Status: Active Protocol: Document 12/31/20 16:13 (Rec: 12/31/20 16:59 [email or web address]) Out-Patient Physical Therapy Visit Information Visit Information Visit Type Initial Evaluation Visit Start Time 09:00 Visit Stop Time 09:45 Total Visit Minutes 45 Visit Number 09/01 Number of PROCESS IMPROVEMENT CONSULTANT Visits 0 Evaluation Information Evaluation Date 12/31/20 Precautions Precautions fibromyalgia latex allergy bruise easily depression PT-OP-B Current Condition Start: 12/31/20 16:12 Freq: Status: Active Protocol: Document 12/31/20 16:13 (Rec: 12/31/20 16:59 [email or web address]) Current Condition History of Current Condition Onset Date >10 years ago Current Complaints chronic LBP, difficulty in walking, generalized weakness History of Current Condition Phylicia is a 45yo disable woman with PMH bipolar disorder, chronic pain, GERD, chronic nausea, constipation, history of bypass surgery, fibro, morbid obesity, hypoglycemia here for her chronic LBP and difficulty in walking. She was referred by Purnima YOU to attempt and she is also going to see Dr. Allred for pain management. Pt stated her LBP started > 10 years ago. Her pain is bilateral and R worse than L which also travels down to back of her knees. Pain is 8/10 and it never goes away. Lowert pain is 6-7/10 but with extensive use of marijuana and gabapentin. Lying supine tends to reduce her pain but WB positions worsen her symptoms. Pt has been disabled since 2006 and she is currently using a cane for all mobility (only able to walk 1 block). She has difficulty doing housework at this point and needs / older son to assist such as laundry, house cleaning Prior Treatments and Tests x-ray at [facility] 12/26/20 Partially visualized scoliosis Diffuse spondylitic changes and facet arthropathy pt had a pool therapy in 2018 and was DC abruptly d/t frequent UTI. Her last UTI was 6 months ago. Treatment Goals Patient/Caregiver Goals 1. To be able to walk without SPC again 2. to reduce her overall LBP Personal Factors Other Personal Factors That May Effect fibromyalgia Therapy/Recovery PT-OP-C Subjective Start: 12/31/20 16:12 Freq: Status: Active Protocol: Document 12/31/20 16:13 (Rec: 12/31/20 16:59 [email or web address]) Patient Questionnaires Oswestry Low Back Index Oswestry Score 56 Oswestry Impairment 40 to 59% Impaired (Score 40- 59) OP-PT Pain Assessment Location LBP Pain Location Details L3-L5 region Intensity 8 Scale Used Numeric (0 - 10) Description Aching,Chronic,Pinching, Pressure,Radiating,Sharp Frequency Frequent Pain Aggravating Factors Position,Changing Position,ADL 's,Activity,Exercise,Standing, Sitting,Walking,Stair Climbing ,Bending,Lifting Pain Alleviating Factors Inactivity,Lying Supine Pain Behaviors Pain Behaviors Facial Grimacing,Guarding, Moaning Comments Pain Comments facial grimacing during bed mobility, muscle guarding and holding her breath during any transitional movements. PT-OP-D Balance Start: 12/31/20 16:12 Freq: Status: Active Protocol: Document 12/31/20 16:13 HH (Rec: 12/31/20 16:59 [email or web address]) Balance Tests Single Limb Standing Single Limb- Right >30s, report LBP Single Limb- Left >30s, report LBP PT-OP-F Manual Assessment Start: 12/31/20 16:12 Freq: Status: Active Protocol: Document 12/31/20 16:13 HH (Rec: 12/31/20 16:59 [email or web address]) Manual Assessments Soft Tissue Assessment Soft Tissue Mobility Assessment significant hypertoncity at gluteal muscle group, lumbar paraspinals. Pt was unable to tolerate pressure d/t pain Joint Mobility Assessment Joint Mobility Assessment uanble to assess d/t pain PT-OP-G Mobility & Gait Start: 12/31/20 16:12 Freq: Status: Active Protocol: Document 12/31/20 16:13 HH (Rec: 12/31/20 16:59 [email or web address]) OP Mobility Evaluation Transfers Sit to Stand grower sign recovering from bend over position Bed to Chair Transfers use of UE support on armrests to push off OP Gait Assessment Assistive Devices Assistive Device Straight Cane Gait Deviations General Gait Pattern Antalgic,Decreased Stride Length,Decreased Feet Clearance,Flexed Trunk Factors Limiting Gait Function Factors Limiting Gait Function Decreased Activity Tolerance, Decreased Strength,Limited Range of Motion,Pain,Poor Balance,Poor Safety Awareness Comments Gait Comments pt uses FWW sometimes PT-OP-H Neuro Start: 12/31/20 16:12 Freq: Status: Active Protocol: Document 12/31/20 16:13 HH (Rec: 12/31/20 16:59 [email or web address]) Sensation Evaluation Gross Sensation Gross Sensation WNL Deep Tendon Reflex & Clonus Assessment Deep Tendon Reflex Bilateral Achilles Deep Tendon Reflex 2+ Normal Bilateral Patellar Deep Tendon Reflex 2+ Normal Muscle Tone Tone Assessment Right Lower Extremity Flexor Tone Description Mild Hypotonicity Extensor Tone Description Mild Hypotonicity Left Lower Extremity Flexor Tone Description Mild Hypotonicity Extensor Tone Description Mild Hypotonicity PT-OP-K Range of Motion Start: 12/31/20 16:12 Freq: Status: Active Protocol: Document 12/31/20 16:13 HH (Rec: 12/31/20 16:59 [email or web address]) Lumbar Spine Range of Motion Lumbar Spine Active Degrees Comments toe touch test = 2 inch from floor, stretching sensation noted. lateral flexion to R = 18 inches from floor lateral flexion to L = 18inches from floor shoulder meet heels = pain noted. PT-OP-L Special Tests Start: 12/31/20 16:12 Freq: Status: Active Protocol: Document 12/31/20 16:13 HH (Rec: 12/31/20 16:59 [email or web address]) Special Tests Lumbar Spine Special Tests Slump Test Results +ve B Comments pain with knee extension Straight Leg Raise Test Results +ve B Comments pain at lumbar spine 75 degrees PT-OP-M Strength Start: 12/31/20 16:12 Freq: Status: Active Protocol: Document 12/31/20 16:13 HH (Rec: 12/31/20 16:59 [email or web address]) Hip Strength Hip Manual Muscle Testing leigh Flexion (L2) 3+ Fair+ Extension (S1) 4- Good- Abduction 4- Good- Adduction 4- Good- External Rotation 4- Good- Internal Rotation 4- Good- Knee Strength Knee Manual Muscle Testing leigh Flexion (S2) 4 Good Extension (L3) 4 Good PT-OP-T Assessment and Plan Start: 12/31/20 16:12 Freq: Status: Active Protocol: Document 12/31/20 16:13 HH (Rec: 12/31/20 16:59 [email or web address]) Physical Therapy Assessment Rehab Potential Rehabilitation Potential Fair Evaluation Complexity Number of Personal Factors/Comorbidities 3 or More Number of Body Systems Impaired 4 or More Clinical Presentation at Evaluation Stable Impairments Impairments Activity Tolerance,Balance, Edema,Functional Activities, Functional Mobility,Gait,Pain, Posture,ROM,Soft Tissue Mobility,Strength,Tone, Transfers Goals HEP Impairment pt does not have a HEp Short Term Goal (STG) pt will be able to complete daily HEP safely and idnependently STG Duration 4 weeks gait Impairment pt has been using SPC/ Fww for the past few months d/t pain Short Term Goal (STG) pt will improve her LE strength and stability to be able to walk at home without AD safely STG Duration 4 weeks Stranding Machine Operator Helper Goal (LTG) pt will improve her LE strength and stability to be able to walk in community without AD safely LTG Duration 8 weeks pain Impairment pt has constant severe pain 8/ 10 at L/S Short Term Goal (STG) pt will have pain no more than 6/10 in a daily basis which allows her to participate more chainstitch hemmer. STG Duration 4 weeks Fdc Goal (LTG) pt will have pain no more than 4/10 in a daily basis which allows her to participate more chainstitch hemmer such as housecleaning and doing laundry LTG Duration 8 weeks Oswestry Impairment pt scores 56 on Oswestry Short Term Goal (STG) pt will score <45 on Oswestry to show improvements in quality of life and mobility STG Duration 4 weeks Stranding Machine Operator Helper Goal (LTG) pt will score <35 on Oswestry to show improvements in quality of life and mobility LTG Duration 8 weeks Assessment Summary Assessment Phylicia is a 45yo disabled female here for her chronic LBP > 10 years ago. Her PMH includes bipolar disorder, chronic pain, GERD, chronic nausea, constipation, history of bypass surgery, fibro, morbid obesity, hypoglycemia. Her recent [facility] x-ray shows Partially visualized scoliosis amd diffuse spondylitic changes and facet arthropathy which somewhat aligns with her symptoms. Pt shows very limited lumbar spine mobility and her pain tends to get worse with extension but better with flexion. Pt has very high pain sensitivity and she was tearful/ moaning for pain during any movements / palpation which makes accurate assessment difficult. Attempting a course of skilled PT with focus on increasing trunk mobility, stability, increasing LE strength and gait training might be beneficial to patient's chronic pain. However, this is most likely going to be a long rehab d/t pt's other comobidities. Physical Therapy Plan Frequency and Duration Frequency of Treatment 2x/Week Duration of Treatment 8 weeks Plan of Care Start Date 12/31/20 Plan of Care End Date 03/01/21 Therapeutic Interventions Therapeutic Interventions Aquatic Therapy,Balance Training,Gait Training,Home Exercise Program,Joint Mobilizations,Manual Therapy, Neuromuscular Re-education, Patient/Caregiver Education, Self-Care/Home Management,Soft Tissue Mobilization,Taping, Therapeutic Activities, Therapeutic Exercises Modalities Biofeedback,Cold Pack/Ice Massage,Electric Stimulation, Hot Packs,Infrared Therapy, Iontophoresis,Paraffin Bath, Traction- Mechanical, Ultrasound Next Visit Focus/Plan Next Note Type Treatment Note Next Visit Plan lumbar ROM as [place], flexion based core stabilization, pelvic tilt, bridging, etc hip strengthening as [place]
--- NOTE | 2020-12-31 16:59 | PT.OPPOC ---
Physical, Occupational & Speech Therapy At [facility] Current Diagnoses Other chronic pain (12/31/20) Other intervertebral disc displacement, lumbar region (12/31/20) Cervicalgia (12/31/20) Lumbago with sciatica, right side (12/31/20) Dorsalgia, unspecified (12/31/20) Muscle spasm of back (12/31/20) Other muscle spasm (12/31/20) Visit Care Team Role Provider Type AVELINO Benitez Attending Provider Advanced Transplant Coordinator Family Provider Primary Care Provider Referring Provider Specialty: Family Practice Address: [address] [place] [address], [facility] Email: [email or web address] Plan Of Care PT-OP-T Assessment and Plan Start: 12/31/20 16:12 Freq: Status: Active Protocol: Document 12/31/20 16:13 (Rec: 12/31/20 16:59 [email or web address]) Physical Therapy Assessment Rehab Potential Rehabilitation Potential Fair Evaluation Complexity Number of Personal Factors/Comorbidities 3 or More Number of Body Systems Impaired 4 or More Clinical Presentation at Evaluation Stable Impairments Impairments Activity Tolerance,Balance, Edema,Functional Activities, Functional Mobility,Gait,Pain, Posture,ROM,Soft Tissue Mobility,Strength,Tone, Transfers Goals HEP Impairment pt does not have a HEp Short Term Goal (STG) pt will be able to complete daily HEP safely and idnependently STG Duration 4 weeks gait Impairment pt has been using SPC/ Fww for the past few months d/t pain Short Term Goal (STG) pt will improve her LE strength and stability to be able to walk at home without AD safely STG Duration 4 weeks Correction Goal (LTG) pt will improve her LE strength and stability to be able to walk in community without AD safely LTG Duration 8 weeks pain Impairment pt has constant severe pain 8/ 10 at L/S Short Term Goal (STG) pt will have pain no more than 6/10 in a daily basis which allows her to participate more national investigative producer. STG Duration 4 weeks Correction Goal (LTG) pt will have pain no more than 4/10 in a daily basis which allows her to participate more national investigative producer such as housecleaning and doing laundry LTG Duration 8 weeks Oswestry Impairment pt scores 56 on Oswestry Short Term Goal (STG) pt will score <45 on Oswestry to show improvements in quality of life and mobility STG Duration 4 weeks Welder Production Line Gas Goal (LTG) pt will score <35 on Oswestry to show improvements in quality of life and mobility LTG Duration 8 weeks Assessment Summary Assessment Phylicia is a 45yo disabled female here for her chronic LBP > 10 years ago. Her PMH includes bipolar disorder, chronic pain, GERD, chronic nausea, constipation, history of bypass surgery, fibro, morbid obesity, hypoglycemia. Her recent [facility] x-ray shows Partially visualized scoliosis amd diffuse spondylitic changes and facet arthropathy which somewhat aligns with her symptoms. Pt shows very limited lumbar spine mobility and her pain tends to get worse with extension but better with flexion. Pt has very high pain sensitivity and she was tearful/ moaning for pain during any movements / palpation which makes accurate assessment difficult. Attempting a course of skilled PT with focus on increasing trunk mobility, stability, increasing LE strength and gait training might be beneficial to patient's chronic pain. However, this is most likely going to be a long rehab d/t pt's other comobidities. Physical Therapy Plan Frequency and Duration Frequency of Treatment 2x/Week Duration of Treatment 8 weeks Plan of Care Start Date 12/31/20 Plan of Care End Date 03/01/21 Therapeutic Interventions Therapeutic Interventions Aquatic Therapy,Balance Training,Gait Training,Home Exercise Program,Joint Mobilizations,Manual Therapy, Neuromuscular Re-education, Patient/Caregiver Education, Self-Care/Home Management,Soft Tissue Mobilization,Taping, Therapeutic Activities, Therapeutic Exercises Modalities Biofeedback,Cold Pack/Ice Massage,Electric Stimulation, Hot Packs,Infrared Therapy, Iontophoresis,Paraffin Bath, Traction- Mechanical, Ultrasound Next Visit Focus/Plan Next Note Type Treatment Note Next Visit Plan lumbar ROM as delano, flexion based core stabilization, pelvic tilt, bridging, etc hip strengthening as [place] Plan of Care Dates Plan of Care Start Date 12/31/20 Plan of Care End Date 03/01/21 Electronically Signed by: Siria Caballero, PT 12/31/20 [id number] Please Sign and Return: I have reviewed this Plan of Care and certify that the skilled therapy services above are required to meet the patient?s needs. Physician Signature Date Printed Name and Credentials Clinical Instructor Signature Printed Name and Credentials
--- NOTE | 2021-01-03 11:22 | PT.OTN ---
Current Diagnoses Other chronic pain (01/03/21) Other intervertebral disc displacement, lumbar region (01/03/21) Cervicalgia (01/03/21) Lumbago with sciatica, right side (01/03/21) Dorsalgia, unspecified (01/03/21) Muscle spasm of back (01/03/21) Other muscle spasm (01/03/21) Physical Therapy Treatment Note PT-OP-A Visit Information Start: 12/31/20 16:12 Freq: Status: Active Protocol: Document 01/03/21 10:28 HH (Rec: 01/03/21 11:21 [id number]) Out-Patient Physical Therapy Visit Information Visit Information Visit Type Treatment Note Visit Start Time 10:30 Visit Stop Time 11:14 Total Visit Minutes 44 Visit Number 2/ Number of LIVE IN COMPANION Visits 0 PT-OP-B Current Condition Start: 12/31/20 16:12 Freq: Status: Active Protocol: Document 12/31/20 16:13 HH (Rec: 12/31/20 16:59 [email or web address]) Current Condition History of Current Condition Onset Date >10 years ago Current Complaints chronic LBP, difficulty in walking, generalized weakness History of Current Condition Phylicia is a 45yo disable woman with PMH bipolar disorder, chronic pain, GERD, chronic nausea, constipation, history of bypass surgery, fibro, morbid obesity, hypoglycemia here for her chronic LBP and difficulty in walking. She was referred by Purnima YOU to attempt and she is also going to see Dr. Allred for pain management. Pt stated her LBP started > 10 years ago. Her pain is bilateral and R worse than L which also travels down to back of her knees. Pain is 8/10 and it never goes away. Lowert pain is 6-7/10 but with extensive use of marijuana and gabapentin. Lying supine tends to reduce her pain but WB positions worsen her symptoms. Pt has been disabled since 2007 and she is currently using a cane for all mobility (only able to walk 1 block). She has difficulty doing housework at this point and needs / older son to assist such as laundry, house cleaning Prior Treatments and Tests x-ray at [facility] 12/26/20 Partially visualized scoliosis Diffuse spondylitic changes and facet arthropathy pt had a pool therapy in 2019 and was DC abruptly d/t frequent UTI. Her last UTI was 6 months ago. Treatment Goals Patient/Caregiver Goals 1. To be able to walk without SPC again 2. to reduce her overall LBP Personal Factors Other Personal Factors That May Effect fibromyalgia Therapy/Recovery PT-OP-C Subjective Start: 12/31/20 16:12 Freq: Status: Active Protocol: Document 01/03/21 10:28 HH (Rec: 01/03/21 11:21 HH [id number]) OP-PT Subjective Patient Comments Patient Comments Im ready to try PT PT-OP-D Balance Start: 12/31/20 16:12 Freq: Status: Active Protocol: Document 12/31/20 16:13 HH (Rec: 12/31/20 16:59 HH [email or web address]) Balance Tests Single Limb Standing Single Limb- Right >30s, report LBP Single Limb- Left >30s, report LBP PT-OP-F Manual Assessment Start: 12/31/20 16:12 Freq: Status: Active Protocol: Document 12/31/20 16:13 HH (Rec: 12/31/20 16:59 HH [email or web address]) Manual Assessments Soft Tissue Assessment Soft Tissue Mobility Assessment significant hypertoncity at gluteal muscle group, lumbar paraspinals. Pt was unable to tolerate pressure d/t pain Joint Mobility Assessment Joint Mobility Assessment uanble to assess d/t pain PT-OP-G Mobility & Gait Start: 12/31/20 16:12 Freq: Status: Active Protocol: Document 12/31/20 16:13 HH (Rec: 12/31/20 16:59 HH [email or web address]) OP Mobility Evaluation Transfers Sit to Stand grower sign recovering from bend over position Bed to Chair Transfers use of UE support on armrests to push off OP Gait Assessment Assistive Devices Assistive Device Straight Cane Gait Deviations General Gait Pattern Antalgic,Decreased Stride Length,Decreased Feet Clearance,Flexed Trunk Factors Limiting Gait Function Factors Limiting Gait Function Decreased Activity Tolerance, Decreased Strength,Limited Range of Motion,Pain,Poor Balance,Poor Safety Awareness Comments Gait Comments pt uses FWW sometimes PT-OP-H Neuro Start: 12/31/20 16:12 Freq: Status: Active Protocol: Document 12/31/20 16:13 HH (Rec: 12/31/20 16:59 HH [email or web address]) Sensation Evaluation Gross Sensation Gross Sensation WNL Deep Tendon Reflex & Clonus Assessment Deep Tendon Reflex Bilateral Achilles Deep Tendon Reflex 2+ Normal Bilateral Patellar Deep Tendon Reflex 2+ Normal Muscle Tone Tone Assessment Right Lower Extremity Flexor Tone Description Mild Hypotonicity Extensor Tone Description Mild Hypotonicity Left Lower Extremity Flexor Tone Description Mild Hypotonicity Extensor Tone Description Mild Hypotonicity PT-OP-K Range of Motion Start: 12/31/20 16:12 Freq: Status: Active Protocol: Document 12/31/20 16:13 HH (Rec: 12/31/20 16:59 [email or web address]) Lumbar Spine Range of Motion Lumbar Spine Active Degrees Comments toe touch test = 2 inch from floor, stretching sensation noted. lateral flexion to R = 18 inches from floor lateral flexion to L = 18inches from floor shoulder meet heels = pain noted. PT-OP-L Special Tests Start: 12/31/20 16:12 Freq: Status: Active Protocol: Document 12/31/20 16:13 HH (Rec: 12/31/20 16:59 [email or web address]) Special Tests Lumbar Spine Special Tests Slump Test Results +ve B Comments pain with knee extension Straight Leg Raise Test Results +ve B Comments pain at lumbar spine 75 degrees PT-OP-M Strength Start: 12/31/20 16:12 Freq: Status: Active Protocol: Document 12/31/20 16:13 HH (Rec: 12/31/20 16:59 [email or web address]) Hip Strength Hip Manual Muscle Testing leigh Flexion (L2) 3+ Fair+ Extension (S1) 4- Good- Abduction 4- Good- Adduction 4- Good- External Rotation 4- Good- Internal Rotation 4- Good- Knee Strength Knee Manual Muscle Testing leigh Flexion (S2) 4 Good Extension (L3) 4 Good PT-OP-Q Treatments Start: 12/31/20 16:12 Freq: Status: Active Protocol: Document 01/03/21 10:28 HH (Rec: 01/03/21 11:21 [id number]) Therapeutic Exercises Supine Exercises bridging Side bilateral Reps/Minutes 8 x2 Comments HEP, cues on PPT LTR Reps/Minutes 8x2 Comments HEP pelvic tilt Reps/Minutes 10 x1 Comments cues on PPT knee to chest Reps/Minutes 10 sec hold x 5 Comments for HEP Manual Therapy Treatment Soft Tissue Mobilization glutes Mobilization Type Myofascial Release Intensity/Depth Superficial Body Position Prone Comments significant at B SIJ region pain noted. paraspinals Mobilization Type Myofascial Release Intensity/Depth Superficial Body Position Prone Comments no discomfort at thoracic spine but significant pain L3-L5 region PT-OP-T Assessment and Plan Start: 12/31/20 16:12 Freq: Status: Active Protocol: Document 01/03/21 10:28 (Rec: 01/03/21 11:21 [id number]) Physical Therapy Assessment Goals HEP Impairment pt does not have a HEp Short Term Goal (STG) pt will be able to complete daily HEP safely and idnependently STG Duration 4 weeks gait Impairment pt has been using SPC/ Fww for the past few months d/t pain Short Term Goal (STG) pt will improve her LE strength and stability to be able to walk at home without AD safely STG Duration 4 weeks Longterm Goal (LTG) pt will improve her LE strength and stability to be able to walk in community without AD safely LTG Duration 8 weeks pain Impairment pt has constant severe pain 8/ 10 at [facility] Short Term Goal (STG) pt will have pain no more than 6/10 in a daily basis which allows her to participate more first aid trainer. STG Duration 4 weeks Game Programer Goal (LTG) pt will have pain no more than 4/10 in a daily basis which allows her to participate more first aid trainer such as housecleaning and doing laundry LTG Duration 8 weeks Oswestry Impairment pt scores 56 on Oswestry Short Term Goal (STG) pt will score <45 on Oswestry to show improvements in quality of life and mobility STG Duration 4 weeks Game Programer Goal (LTG) pt will score <35 on Oswestry to show improvements in quality of life and mobility LTG Duration 8 weeks Assessment Summary Assessment pt is very sensitive to light pressure at lumbar spine and glute regions but less c/o after manual therapy. Pt overall shows very poor core stability during WB ex/ ambulation. Will focus on hip / trunk stalization and strnegthening progressively. Physical Therapy Plan Frequency and Duration Frequency of Treatment 2x/Week Duration of Treatment 8 weeks Plan of Care Start Date 12/31/20 Plan of Care End Date 03/01/21 Therapeutic Interventions Therapeutic Interventions Aquatic Therapy,Balance Training,Gait Training,Home Exercise Program,Joint Mobilizations,Manual Therapy, Neuromuscular Re-education, Patient/Caregiver Education, Self-Care/Home Management,Soft Tissue Mobilization,Taping, Therapeutic Activities, Therapeutic Exercises Modalities Biofeedback,Cold Pack/Ice Massage,Electric Stimulation, Hot Packs,Infrared Therapy, Iontophoresis,Paraffin Bath, Traction- Mechanical, Ultrasound Next Visit Focus/Plan Next Note Type Treatment Note Next Visit Plan lumbar ROM as delano, flexion based core stabilization, pelvic tilt, bridging, etc hip strengthening as delano
--- NOTE | 2021-01-07 10:32 | PT.OTN ---
Current Diagnoses Other chronic pain (01/07/21) Other intervertebral disc displacement, lumbar region (01/07/21) Cervicalgia (01/07/21) Lumbago with sciatica, right side (01/07/21) Dorsalgia, unspecified (01/07/21) Muscle spasm of back (01/07/21) Other muscle spasm (01/07/21) Physical Therapy Treatment Note PT-OP-A Visit Information Start: 12/31/20 16:12 Freq: Status: Active Protocol: Document 01/07/21 09:46 HH (Rec: 01/07/21 10:32 [id number]) Out-Patient Physical Therapy Visit Information Visit Information Visit Type Treatment Note Visit Start Time 09:47 Visit Stop Time 10:30 Total Visit Minutes 43 Visit Number 10/30 Number of HEALTH INFORMATICS INSTRUCTOR Visits 0 PT-OP-B Current Condition Start: 12/31/20 16:12 Freq: Status: Active Protocol: Document 12/31/20 16:13 HH (Rec: 12/31/20 16:59 [email or web address]) Current Condition History of Current Condition Onset Date >10 years ago Current Complaints chronic LBP, difficulty in walking, generalized weakness History of Current Condition Phylicia is a 45yo disable woman with PMH bipolar disorder, chronic pain, GERD, chronic nausea, constipation, history of bypass surgery, fibro, morbid obesity, hypoglycemia here for her chronic LBP and difficulty in walking. She was referred by Purnima YOU to attempt and she is also going to see Dr. Allred for pain management. Pt stated her LBP started > 10 years ago. Her pain is bilateral and R worse than L which also travels down to back of her knees. Pain is 8/10 and it never goes away. Lowert pain is 6-7/10 but with extensive use of marijuana and gabapentin. Lying supine tends to reduce her pain but WB positions worsen her symptoms. Pt has been disabled since 2007 and she is currently using a cane for all mobility (only able to walk 1 block). She has difficulty doing housework at this point and needs / older son to assist such as laundry, house cleaning Prior Treatments and Tests x-ray at [facility] 12/26/20 Partially visualized scoliosis Diffuse spondylitic changes and facet arthropathy pt had a pool therapy in 2019 and was DC abruptly d/t frequent UTI. Her last UTI was 6 months ago. Treatment Goals Patient/Caregiver Goals 1. To be able to walk without SPC again 2. to reduce her overall LBP Personal Factors Other Personal Factors That May Effect fibromyalgia Therapy/Recovery PT-OP-C Subjective Start: 12/31/20 16:12 Freq: Status: Active Protocol: Document 01/07/21 09:46 HH (Rec: 01/07/21 10:32 HH [id number]) OP-PT Subjective Patient Comments Patient Comments I was able to feel pretty good for the first few days but then it got bad because the weather changes. Today is kind of good day. PT-OP-D Balance Start: 12/31/20 16:12 Freq: Status: Active Protocol: Document 12/31/20 16:13 HH (Rec: 12/31/20 16:59 HH [email or web address]) Balance Tests Single Limb Standing Single Limb- Right >30s, report LBP Single Limb- Left >30s, report LBP PT-OP-F Manual Assessment Start: 12/31/20 16:12 Freq: Status: Active Protocol: Document 12/31/20 16:13 HH (Rec: 12/31/20 16:59 HH [email or web address]) Manual Assessments Soft Tissue Assessment Soft Tissue Mobility Assessment significant hypertoncity at gluteal muscle group, lumbar paraspinals. Pt was unable to tolerate pressure d/t pain Joint Mobility Assessment Joint Mobility Assessment uanble to assess d/t pain PT-OP-G Mobility & Gait Start: 12/31/20 16:12 Freq: Status: Active Protocol: Document 12/31/20 16:13 HH (Rec: 12/31/20 16:59 HH [email or web address]) OP Mobility Evaluation Transfers Sit to Stand grower sign recovering from bend over position Bed to Chair Transfers use of UE support on armrests to push off OP Gait Assessment Assistive Devices Assistive Device Straight Cane Gait Deviations General Gait Pattern Antalgic,Decreased Stride Length,Decreased Feet Clearance,Flexed Trunk Factors Limiting Gait Function Factors Limiting Gait Function Decreased Activity Tolerance, Decreased Strength,Limited Range of Motion,Pain,Poor Balance,Poor Safety Awareness Comments Gait Comments pt uses FWW sometimes PT-OP-H Neuro Start: 12/31/20 16:12 Freq: Status: Active Protocol: Document 12/31/20 16:13 HH (Rec: 12/31/20 16:59 HH [email or web address]) Sensation Evaluation Gross Sensation Gross Sensation WNL Deep Tendon Reflex & Clonus Assessment Deep Tendon Reflex Bilateral Achilles Deep Tendon Reflex 2+ Normal Bilateral Patellar Deep Tendon Reflex 2+ Normal Muscle Tone Tone Assessment Right Lower Extremity Flexor Tone Description Mild Hypotonicity Extensor Tone Description Mild Hypotonicity Left Lower Extremity Flexor Tone Description Mild Hypotonicity Extensor Tone Description Mild Hypotonicity PT-OP-K Range of Motion Start: 12/31/20 16:12 Freq: Status: Active Protocol: Document 12/31/20 16:13 HH (Rec: 12/31/20 16:59 [email or web address]) Lumbar Spine Range of Motion Lumbar Spine Active Degrees Comments toe touch test = 2 inch from floor, stretching sensation noted. lateral flexion to R = 18 inches from floor lateral flexion to L = 18inches from floor shoulder meet heels = pain noted. PT-OP-L Special Tests Start: 12/31/20 16:12 Freq: Status: Active Protocol: Document 12/31/20 16:13 HH (Rec: 12/31/20 16:59 [email or web address]) Special Tests Lumbar Spine Special Tests Slump Test Results +ve B Comments pain with knee extension Straight Leg Raise Test Results +ve B Comments pain at lumbar spine 75 degrees PT-OP-M Strength Start: 12/31/20 16:12 Freq: Status: Active Protocol: Document 12/31/20 16:13 HH (Rec: 12/31/20 16:59 [email or web address]) Hip Strength Hip Manual Muscle Testing leigh Flexion (L2) 3+ Fair+ Extension (S1) 4- Good- Abduction 4- Good- Adduction 4- Good- External Rotation 4- Good- Internal Rotation 4- Good- Knee Strength Knee Manual Muscle Testing leigh Flexion (S2) 4 Good Extension (L3) 4 Good PT-OP-Q Treatments Start: 12/31/20 16:12 Freq: Status: Active Protocol: Document 01/07/21 09:46 HH (Rec: 01/07/21 10:32 [id number]) Cardio Equipment Recumbent Stepper (Sci-Fit) Duration (Minutes) 6 Resistance 5 Gym Equipment Shuttle Recovery B squat Resistance #75 Shuttle Recovery Platform Stable Reps/Time 15x2 Therapeutic Exercises Supine Exercises supine clamshell Side bilateral Equipment Used yellow band at knees Reps/Minutes 10 x2 bridging Side bilateral Reps/Minutes 10 x2 Comments cues on PPT Manual Therapy Treatment Soft Tissue Mobilization glutes Mobilization Type Myofascial Release Intensity/Depth Superficial Body Position Prone Comments significant at B SIJ region pain noted. paraspinals Mobilization Type Myofascial Release Intensity/Depth Superficial Body Position Prone Comments no discomfort at thoracic spine but significant pain L3-L5 region PT-OP-T Assessment and Plan Start: 12/31/20 16:12 Freq: Status: Active Protocol: Document 01/07/21 09:46 HH (Rec: 01/07/21 10:32 HH [id number]) Physical Therapy Assessment Goals HEP Impairment pt does not have a HEp Short Term Goal (STG) pt will be able to complete daily HEP safely and idnependently STG Duration 4 weeks gait Impairment pt has been using SPC/ Fww for the past few months d/t pain Short Term Goal (STG) pt will improve her LE strength and stability to be able to walk at home without AD safely STG Duration 4 weeks Supervisor Paper Products Goal (LTG) pt will improve her LE strength and stability to be able to walk in community without AD safely LTG Duration 8 weeks pain Impairment pt has constant severe pain 8/ 10 at [facility] Short Term Goal (STG) pt will have pain no more than 6/10 in a daily basis which allows her to participate more grader operator. STG Duration 4 weeks Mcfp Goal (LTG) pt will have pain no more than 4/10 in a daily basis which allows her to participate more grader operator such as housecleaning and doing laundry LTG Duration 8 weeks Oswestry Impairment pt scores 56 on Oswestry Short Term Goal (STG) pt will score <45 on Oswestry to show improvements in quality of life and mobility STG Duration 4 weeks Supervisor Paper Products Goal (LTG) pt will score <35 on Oswestry to show improvements in quality of life and mobility LTG Duration 8 weeks Assessment Summary Assessment pt has a good day today without much signfiicant pain and leg spasm. Tx focused on hip stability and leg strengthening ex and she delano session well. Physical Therapy Plan Frequency and Duration Frequency of Treatment 2x/Week Duration of Treatment 8 weeks Plan of Care Start Date 12/31/20 Plan of Care End Date 03/01/21 Therapeutic Interventions Therapeutic Interventions Aquatic Therapy,Balance Training,Gait Training,Home Exercise Program,Joint Mobilizations,Manual Therapy, Neuromuscular Re-education, Patient/Caregiver Education, Self-Care/Home Management,Soft Tissue Mobilization,Taping, Therapeutic Activities, Therapeutic Exercises Modalities Biofeedback,Cold Pack/Ice Massage,Electric Stimulation, Hot Packs,Infrared Therapy, Iontophoresis,Paraffin Bath, Traction- Mechanical, Ultrasound Next Visit Focus/Plan Next Note Type Treatment Note Next Visit Plan lumbar ROM as delano, flexion based core stabilization, pelvic tilt, bridging, etc hip strengthening as delano
--- NOTE | 2021-01-25 14:31 | PT.OTN ---
Current Diagnoses Other chronic pain (01/25/21) Other intervertebral disc displacement, lumbar region (01/25/21) Cervicalgia (01/25/21) Lumbago with sciatica, right side (01/25/21) Dorsalgia, unspecified (01/25/21) Muscle spasm of back (01/25/21) Other muscle spasm (01/25/21) Physical Therapy Treatment Note PT-OP-A Visit Information Start: 12/31/20 16:12 Freq: Status: Active Protocol: Document 01/25/21 13:47 HH (Rec: 01/25/21 14:31 [id number]) Out-Patient Physical Therapy Visit Information Visit Information Visit Type Treatment Note Visit Note Dtr presents pt is not using the cane today . Visit Start Time 13:45 Visit Stop Time 14:30 Total Visit Minutes 45 Visit Number 4/9 Number of GUEST EXPERIENCE MANAGER Visits 0 PT-OP-B Current Condition Start: 12/31/20 16:12 Freq: Status: Active Protocol: Document 12/31/20 16:13 HH (Rec: 12/31/20 16:59 [email or web address]) Current Condition History of Current Condition Onset Date >10 years ago Current Complaints chronic LBP, difficulty in walking, generalized weakness History of Current Condition Phylicia is a 45yo disable woman with PMH bipolar disorder, chronic pain, GERD, chronic nausea, constipation, history of bypass surgery, fibro, morbid obesity, hypoglycemia here for her chronic LBP and difficulty in walking. She was referred by Purnima YOU to attempt and she is also going to see Dr. Allred for pain management. Pt stated her LBP started > 10 years ago. Her pain is bilateral and R worse than L which also travels down to back of her knees. Pain is 8/10 and it never goes away. Lowert pain is 6-7/10 but with extensive use of marijuana and gabapentin. Lying supine tends to reduce her pain but WB positions worsen her symptoms. Pt has been disabled since 2006 and she is currently using a cane for all mobility (only able to walk 1 block). She has difficulty doing housework at this point and needs / older son to assist such as laundry, house cleaning Prior Treatments and Tests x-ray at [facility] 12/26/20 Partially visualized scoliosis Diffuse spondylitic changes and facet arthropathy pt had a pool therapy in 2019 and was DC abruptly d/t frequent UTI. Her last UTI was 6 months ago. Treatment Goals Patient/Caregiver Goals 1. To be able to walk without SPC again 2. to reduce her overall LBP Personal Factors Other Personal Factors That May Effect fibromyalgia Therapy/Recovery PT-OP-C Subjective Start: 12/31/20 16:12 Freq: Status: Active Protocol: Document 01/25/21 13:47 HH (Rec: 01/25/21 14:31 HH [id number]) OP-PT Subjective Patient Comments Patient Comments I had a bad flare up since last thursday and it hurts so bad so i had to call the doctor and they gave me a stronger muscle relaxant. The HEP is fine since sitting is the worst for me PT-OP-D Balance Start: 12/31/20 16:12 Freq: Status: Active Protocol: Document 12/31/20 16:13 HH (Rec: 12/31/20 16:59 HH [email or web address]) Balance Tests Single Limb Standing Single Limb- Right >30s, report LBP Single Limb- Left >30s, report LBP PT-OP-F Manual Assessment Start: 12/31/20 16:12 Freq: Status: Active Protocol: Document 12/31/20 16:13 HH (Rec: 12/31/20 16:59 HH [email or web address]) Manual Assessments Soft Tissue Assessment Soft Tissue Mobility Assessment significant hypertoncity at gluteal muscle group, lumbar paraspinals. Pt was unable to tolerate pressure d/t pain Joint Mobility Assessment Joint Mobility Assessment uanble to assess d/t pain PT-OP-G Mobility & Gait Start: 12/31/20 16:12 Freq: Status: Active Protocol: Document 12/31/20 16:13 HH (Rec: 12/31/20 16:59 HH [email or web address]) OP Mobility Evaluation Transfers Sit to Stand grower sign recovering from bend over position Bed to Chair Transfers use of UE support on armrests to push off OP Gait Assessment Assistive Devices Assistive Device Straight Cane Gait Deviations General Gait Pattern Antalgic,Decreased Stride Length,Decreased Feet Clearance,Flexed Trunk Factors Limiting Gait Function Factors Limiting Gait Function Decreased Activity Tolerance, Decreased Strength,Limited Range of Motion,Pain,Poor Balance,Poor Safety Awareness Comments Gait Comments pt uses FWW sometimes PT-OP-H Neuro Start: 12/31/20 16:12 Freq: Status: Active Protocol: Document 12/31/20 16:13 HH (Rec: 12/31/20 16:59 [email or web address]) Sensation Evaluation Gross Sensation Gross Sensation WNL Deep Tendon Reflex & Clonus Assessment Deep Tendon Reflex Bilateral Achilles Deep Tendon Reflex 2+ Normal Bilateral Patellar Deep Tendon Reflex 2+ Normal Muscle Tone Tone Assessment Right Lower Extremity Flexor Tone Description Mild Hypotonicity Extensor Tone Description Mild Hypotonicity Left Lower Extremity Flexor Tone Description Mild Hypotonicity Extensor Tone Description Mild Hypotonicity PT-OP-K Range of Motion Start: 12/31/20 16:12 Freq: Status: Active Protocol: Document 12/31/20 16:13 HH (Rec: 12/31/20 16:59 HH [email or web address]) Lumbar Spine Range of Motion Lumbar Spine Active Degrees Comments toe touch test = 2 inch from floor, stretching sensation noted. lateral flexion to R = 18 inches from floor lateral flexion to L = 18inches from floor shoulder meet heels = pain noted. PT-OP-L Special Tests Start: 12/31/20 16:12 Freq: Status: Active Protocol: Document 12/31/20 16:13 HH (Rec: 12/31/20 16:59 HH [email or web address]) Special Tests Lumbar Spine Special Tests Slump Test Results +ve B Comments pain with knee extension Straight Leg Raise Test Results +ve B Comments pain at lumbar spine 75 degrees PT-OP-M Strength Start: 12/31/20 16:12 Freq: Status: Active Protocol: Document 12/31/20 16:13 HH (Rec: 12/31/20 16:59 [email or web address]) Hip Strength Hip Manual Muscle Testing leigh Flexion (L2) 3+ Fair+ Extension (S1) 4- Good- Abduction 4- Good- Adduction 4- Good- External Rotation 4- Good- Internal Rotation 4- Good- Knee Strength Knee Manual Muscle Testing leigh Flexion (S2) 4 Good Extension (L3) 4 Good PT-OP-Q Treatments Start: 12/31/20 16:12 Freq: Status: Active Protocol: Document 01/25/21 13:47 HH (Rec: 01/25/21 14:31 HH [id number]) Cardio Equipment Recumbent Stepper (Sci-Fit) Duration (Minutes) 6 Resistance 5 Gym Equipment Shuttle Recovery B squat Resistance #75 Shuttle Recovery Platform Stable Reps/Time 15x2 Therapeutic Exercises Supine Exercises SLR Side bilateral Reps/Minutes 10 x2 Comments no discomfort noted. supine clamshell Side bilateral Equipment Used red band at knees Reps/Minutes 10 x2 bridging Side bilateral Equipment Used red band at knees Reps/Minutes 10 x2 Comments cues on PPT Manual Therapy Treatment Soft Tissue Mobilization glutes Mobilization Type Myofascial Release Intensity/Depth Superficial Body Position Prone Comments significant at B SIJ region pain noted. paraspinals Mobilization Type Myofascial Release Intensity/Depth Superficial Body Position Prone Comments no discomfort at thoracic spine but significant pain L3-L5 region PT-OP-T Assessment and Plan Start: 12/31/20 16:12 Freq: Status: Active Protocol: Document 01/25/21 13:47 HH (Rec: 01/25/21 14:31 HH [id number]) Physical Therapy Assessment Goals HEP Impairment pt does not have a HEp Short Term Goal (STG) pt will be able to complete daily HEP safely and idnependently STG Duration 4 weeks gait Impairment pt has been using SPC/ Fww for the past few months d/t pain Short Term Goal (STG) pt will improve her LE strength and stability to be able to walk at home without AD safely STG Duration 4 weeks Prison Goal (LTG) pt will improve her LE strength and stability to be able to walk in community without AD safely LTG Duration 8 weeks pain Impairment pt has constant severe pain 8/ 10 at [facility] Short Term Goal (STG) pt will have pain no more than 6/10 in a daily basis which allows 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 STG Duration 4 weeks Pediatric Speech Therapist Goal (LTG) pt will have pain no more than 4/10 in a daily basis which allows her to participate more student teaching coordinator such as housecleaning and doing laundry LTG Duration 8 weeks Oswestry Impairment pt scores 56 on Oswestry Short Term Goal (STG) pt will score <45 on Oswestry to show improvements in quality of life and mobility STG Duration 4 weeks Prison Goal (LTG) pt will score <35 on Oswestry to show improvements in quality of life and mobility LTG Duration 8 weeks Assessment Summary Assessment Pt reports she had a flare up last thursday and had to take high dose of muscle relaxant. Pt continue to have non specific LBP but she does notice doing exercises in gravity eliminated position is tolerable. She delano this session with core stabilization therex very well w/o complaints. Physical Therapy Plan Frequency and Duration Frequency of Treatment 2x/Week Duration of Treatment 8 weeks Plan of Care Start Date 12/31/20 Plan of Care End Date 03/01/21 Therapeutic Interventions Therapeutic Interventions Aquatic Therapy,Balance Training,Gait Training,Home Exercise Program,Joint Mobilizations,Manual Therapy, Neuromuscular Re-education, Patient/Caregiver Education, Self-Care/Home Management,Soft Tissue Mobilization,Taping, Therapeutic Activities, Therapeutic Exercises Modalities Biofeedback,Cold Pack/Ice Massage,Electric Stimulation, Hot Packs,Infrared Therapy, Iontophoresis,Paraffin Bath, Traction- Mechanical, Ultrasound Discharge Physical Therapy Discharge Reasons Patient Request Discharge Comments as above Next Visit Focus/Plan Next Note Type Treatment Note Next Visit Plan lumbar ROM as delano, flexion based core stabilization, pelvic tilt, bridging, etc hip strengthening as delano
--- NOTE | 2021-01-28 09:46 | PT.OTN ---
Current Diagnoses Other chronic pain (01/28/21) Other intervertebral disc displacement, lumbar region (01/28/21) Cervicalgia (01/28/21) Lumbago with sciatica, right side (01/28/21) Dorsalgia, unspecified (01/28/21) Muscle spasm of back (01/28/21) Other muscle spasm (01/28/21) Physical Therapy Treatment Note PT-OP-A Visit Information Start: 12/31/20 16:12 Freq: Status: Active Protocol: Document 01/28/21 08:53 HH (Rec: 01/28/21 09:46 [id number]) Out-Patient Physical Therapy Visit Information Visit Information Visit Type Treatment Note Visit Note Dtr presents pt is not using the cane today . Visit Start Time 09:00 Visit Stop Time 09:44 Total Visit Minutes 44 Visit Number 12/30 Number of MIDDLE SCHOOL FRENCH TEACHER Visits 0 PT-OP-B Current Condition Start: 12/31/20 16:12 Freq: Status: Active Protocol: Document 12/31/20 16:13 HH (Rec: 12/31/20 16:59 [email or web address]) Current Condition History of Current Condition Onset Date >10 years ago Current Complaints chronic LBP, difficulty in walking, generalized weakness History of Current Condition Phylicia is a 45yo disable woman with PMH bipolar disorder, chronic pain, GERD, chronic nausea, constipation, history of bypass surgery, fibro, morbid obesity, hypoglycemia here for her chronic LBP and difficulty in walking. She was referred by Purnima YOU to attempt and she is also going to see Dr. Allred for pain management. Pt stated her LBP started > 10 years ago. Her pain is bilateral and R worse than L which also travels down to back of her knees. Pain is 8/10 and it never goes away. Lowert pain is 6-7/10 but with extensive use of marijuana and gabapentin. Lying supine tends to reduce her pain but WB positions worsen her symptoms. Pt has been disabled since 2006 and she is currently using a cane for all mobility (only able to walk 1 block). She has difficulty doing housework at this point and needs / older son to assist such as laundry, house cleaning Prior Treatments and Tests x-ray at [facility] 12/26/20 Partially visualized scoliosis Diffuse spondylitic changes and facet arthropathy pt had a pool therapy in 2019 and was DC abruptly d/t frequent UTI. Her last UTI was 6 months ago. Treatment Goals Patient/Caregiver Goals 1. To be able to walk without SPC again 2. to reduce her overall LBP Personal Factors Other Personal Factors That May Effect fibromyalgia Therapy/Recovery PT-OP-C Subjective Start: 12/31/20 16:12 Freq: Status: Active Protocol: Document 01/28/21 08:53 HH (Rec: 01/28/21 09:46 HH [id number]) OP-PT Subjective Patient Comments Patient Comments I was feeling pretty good after the session but then once i sat in my car my sciatica was killing me. I usually just lay down most of the time at home. Sitting seems to be worse than standing. PT-OP-D Balance Start: 12/31/20 16:12 Freq: Status: Active Protocol: Document 12/31/20 16:13 HH (Rec: 12/31/20 16:59 HH [email or web address]) Balance Tests Single Limb Standing Single Limb- Right >30s, report LBP Single Limb- Left >30s, report LBP PT-OP-F Manual Assessment Start: 12/31/20 16:12 Freq: Status: Active Protocol: Document 12/31/20 16:13 HH (Rec: 12/31/20 16:59 HH [email or web address]) Manual Assessments Soft Tissue Assessment Soft Tissue Mobility Assessment significant hypertoncity at gluteal muscle group, lumbar paraspinals. Pt was unable to tolerate pressure d/t pain Joint Mobility Assessment Joint Mobility Assessment uanble to assess d/t pain PT-OP-G Mobility & Gait Start: 12/31/20 16:12 Freq: Status: Active Protocol: Document 12/31/20 16:13 HH (Rec: 12/31/20 16:59 HH [email or web address]) OP Mobility Evaluation Transfers Sit to Stand grower sign recovering from bend over position Bed to Chair Transfers use of UE support on armrests to push off OP Gait Assessment Assistive Devices Assistive Device Straight Cane Gait Deviations General Gait Pattern Antalgic,Decreased Stride Length,Decreased Feet Clearance,Flexed Trunk Factors Limiting Gait Function Factors Limiting Gait Function Decreased Activity Tolerance, Decreased Strength,Limited Range of Motion,Pain,Poor Balance,Poor Safety Awareness Comments Gait Comments pt uses FWW sometimes PT-OP-H Neuro Start: 12/31/20 16:12 Freq: Status: Active Protocol: Document 12/31/20 16:13 HH (Rec: 12/31/20 16:59 HH [email or web address]) Sensation Evaluation Gross Sensation Gross Sensation WNL Deep Tendon Reflex & Clonus Assessment Deep Tendon Reflex Bilateral Achilles Deep Tendon Reflex 2+ Normal Bilateral Patellar Deep Tendon Reflex 2+ Normal Muscle Tone Tone Assessment Right Lower Extremity Flexor Tone Description Mild Hypotonicity Extensor Tone Description Mild Hypotonicity Left Lower Extremity Flexor Tone Description Mild Hypotonicity Extensor Tone Description Mild Hypotonicity PT-OP-K Range of Motion Start: 12/31/20 16:12 Freq: Status: Active Protocol: Document 12/31/20 16:13 HH (Rec: 12/31/20 16:59 HH [email or web address]) Lumbar Spine Range of Motion Lumbar Spine Active Degrees Comments toe touch test = 2 inch from floor, stretching sensation noted. lateral flexion to R = 18 inches from floor lateral flexion to L = 18inches from floor shoulder meet heels = pain noted. PT-OP-L Special Tests Start: 12/31/20 16:12 Freq: Status: Active Protocol: Document 12/31/20 16:13 HH (Rec: 12/31/20 16:59 HH [email or web address]) Special Tests Lumbar Spine Special Tests Slump Test Results +ve B Comments pain with knee extension Straight Leg Raise Test Results +ve B Comments pain at lumbar spine 75 degrees PT-OP-M Strength Start: 12/31/20 16:12 Freq: Status: Active Protocol: Document 12/31/20 16:13 HH (Rec: 12/31/20 16:59 HH [email or web address]) Hip Strength Hip Manual Muscle Testing leigh Flexion (L2) 3+ Fair+ Extension (S1) 4- Good- Abduction 4- Good- Adduction 4- Good- External Rotation 4- Good- Internal Rotation 4- Good- Knee Strength Knee Manual Muscle Testing leigh Flexion (S2) 4 Good Extension (L3) 4 Good PT-OP-Q Treatments Start: 12/31/20 16:12 Freq: Status: Active Protocol: Document 01/28/21 08:53 HH (Rec: 01/28/21 09:46 HH [id number]) Cardio Equipment Recumbent Stepper (Sci-Fit) Duration (Minutes) 6 Resistance 5 Gym Equipment Shuttle Recovery SL squat Resistance #37 Shuttle Recovery Platform Stable Reps/Time 12 x 2 Therapeutic Exercises Supine Exercises tennis ball release Supine Exercise Name gluteal and paraspinals region Comments for HEP SLR Side bilateral Reps/Minutes 10 x2 Comments no discomfort noted. supine clamshell Side bilateral Equipment Used red band at knees Reps/Minutes 10 x2 bridging Side bilateral Equipment Used red band at knees Reps/Minutes 10 x2 Comments cues on PPT Standing Exercises side stepping Side bilateral Comments cues on maintaining upright trunk positoin Manual Therapy Treatment Soft Tissue Mobilization glutes Mobilization Type Myofascial Release Intensity/Depth Superficial Body Position Prone Comments significant at B SIJ region pain noted. (R>L) paraspinals Mobilization Type Myofascial Release Intensity/Depth Superficial Body Position Prone Comments no discomfort at thoracic spine but significant pain L3-L5 region PT-OP-T Assessment and Plan Start: 12/31/20 16:12 Freq: Status: Active Protocol: Document 01/28/21 08:53 HH (Rec: 01/28/21 09:46 HH [id number]) Physical Therapy Assessment Goals HEP Impairment pt does not have a HEp Short Term Goal (STG) pt will be able to complete daily HEP safely and idnependently STG Duration 4 weeks gait Impairment pt has been using SPC/ Fww for the past few months d/t pain Short Term Goal (STG) pt will improve her LE strength and stability to be able to walk at home without AD safely STG Duration 4 weeks Sustainability Communicator Goal (LTG) pt will improve her LE strength and stability to be able to walk in community without AD safely LTG Duration 8 weeks pain Impairment pt has constant severe pain 8/ 10 at [facility] Short Term Goal (STG) pt will have pain no more than 6/10 in a daily basis which allows her to participate 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 STG Duration 4 weeks Sustainability Communicator Goal (LTG) pt will have pain no more than 4/10 in a daily basis which allows her to participate more printed circuit board preassembler such as housecleaning and doing laundry LTG Duration 8 weeks Oswestry Impairment pt scores 56 on Oswestry Short Term Goal (STG) pt will score <45 on Oswestry to show improvements in quality of life and mobility STG Duration 4 weeks Correction Goal (LTG) pt will score <35 on Oswestry to show improvements in quality of life and mobility LTG Duration 8 weeks Assessment Summary Assessment Pt stated she has chronic pain for >10-15 years and had a period of heavy opiod use. Her pain tends to be triggered by staying one position whihc indicates lack of overall stability. She does delano this session well. Physical Therapy Plan Frequency and Duration Frequency of Treatment 2x/Week Duration of Treatment 8 weeks Plan of Care Start Date 12/31/20 Plan of Care End Date 03/01/21 Therapeutic Interventions Therapeutic Interventions Aquatic Therapy,Balance Training,Gait Training,Home Exercise Program,Joint Mobilizations,Manual Therapy, Neuromuscular Re-education, Patient/Caregiver Education, Self-Care/Home Management,Soft Tissue Mobilization,Taping, Therapeutic Activities, Therapeutic Exercises Modalities Biofeedback,Cold Pack/Ice Massage,Electric Stimulation, Hot Packs,Infrared Therapy, Iontophoresis,Paraffin Bath, Traction- Mechanical, Ultrasound Discharge Physical Therapy Discharge Reasons Patient Request Discharge Comments as above Next Visit Focus/Plan Next Note Type Treatment Note Next Visit Plan lumbar ROM as delano, flexion based core stabilization, pelvic tilt, bridging, etc hip strengthening as delano
--- NOTE | 2021-01-30 12:16 | PT.OTN ---
Current Diagnoses Other chronic pain (01/30/21) Other intervertebral disc displacement, lumbar region (01/30/21) Cervicalgia (01/30/21) Lumbago with sciatica, right side (01/30/21) Dorsalgia, unspecified (01/30/21) Muscle spasm of back (01/30/21) Other muscle spasm (01/30/21) Physical Therapy Treatment Note PT-OP-A Visit Information Start: 12/31/20 16:12 Freq: Status: Active Protocol: Document 01/30/21 11:14 (Rec: 01/30/21 12:15 [id number]) Out-Patient Physical Therapy Visit Information Visit Information Visit Type Treatment Note Visit Note Dtr presents pt is not using the cane today . Visit Start Time 11:15 Visit Stop Time 12:00 Total Visit Minutes 45 Visit Number 6/ Number of CLAIMS EXAMINER Visits 0 PT-OP-B Current Condition Start: 12/31/20 16:12 Freq: Status: Active Protocol: Document 12/31/20 16:13 HH (Rec: 12/31/20 16:59 [email or web address]) Current Condition History of Current Condition Onset Date >10 years ago Current Complaints chronic LBP, difficulty in walking, generalized weakness History of Current Condition Phylicia is a 45yo disable woman with PMH bipolar disorder, chronic pain, GERD, chronic nausea, constipation, history of bypass surgery, fibro, morbid obesity, hypoglycemia here for her chronic LBP and difficulty in walking. She was referred by Purnima YOU to attempt and she is also going to see Dr. Allred for pain management. Pt stated her LBP started > 10 years ago. Her pain is bilateral and R worse than L which also travels down to back of her knees. Pain is 8/10 and it never goes away. Lowert pain is 6-7/10 but with extensive use of marijuana and gabapentin. Lying supine tends to reduce her pain but WB positions worsen her symptoms. Pt has been disabled since 2006 and she is currently using a cane for all mobility (only able to walk 1 block). She has difficulty doing housework at this point and needs / older son to assist such as laundry, house cleaning Prior Treatments and Tests x-ray at [facility] 12/26/20 Partially visualized scoliosis Diffuse spondylitic changes and facet arthropathy pt had a pool therapy in 2019 and was DC abruptly d/t frequent UTI. Her last UTI was 6 months ago. Treatment Goals Patient/Caregiver Goals 1. To be able to walk without SPC again 2. to reduce her overall LBP Personal Factors Other Personal Factors That May Effect fibromyalgia Therapy/Recovery PT-OP-C Subjective Start: 12/31/20 16:12 Freq: Status: Active Protocol: Document 01/30/21 11:14 HH (Rec: 01/30/21 12:15 HH [id number]) OP-PT Subjective Patient Comments Patient Comments I was feeling pretty good after last time but that evening was a little rough. Im little stiff today. PT-OP-D Balance Start: 12/31/20 16:12 Freq: Status: Active Protocol: Document 12/31/20 16:13 HH (Rec: 12/31/20 16:59 HH [email or web address]) Balance Tests Single Limb Standing Single Limb- Right >30s, report LBP Single Limb- Left >30s, report LBP PT-OP-F Manual Assessment Start: 12/31/20 16:12 Freq: Status: Active Protocol: Document 12/31/20 16:13 HH (Rec: 12/31/20 16:59 HH [email or web address]) Manual Assessments Soft Tissue Assessment Soft Tissue Mobility Assessment significant hypertoncity at gluteal muscle group, lumbar paraspinals. Pt was unable to tolerate pressure d/t pain Joint Mobility Assessment Joint Mobility Assessment uanble to assess d/t pain PT-OP-G Mobility & Gait Start: 12/31/20 16:12 Freq: Status: Active Protocol: Document 12/31/20 16:13 HH (Rec: 12/31/20 16:59 HH [email or web address]) OP Mobility Evaluation Transfers Sit to Stand grower sign recovering from bend over position Bed to Chair Transfers use of UE support on armrests to push off OP Gait Assessment Assistive Devices Assistive Device Straight Cane Gait Deviations General Gait Pattern Antalgic,Decreased Stride Length,Decreased Feet Clearance,Flexed Trunk Factors Limiting Gait Function Factors Limiting Gait Function Decreased Activity Tolerance, Decreased Strength,Limited Range of Motion,Pain,Poor Balance,Poor Safety Awareness Comments Gait Comments pt uses FWW sometimes PT-OP-H Neuro Start: 12/31/20 16:12 Freq: Status: Active Protocol: Document 12/31/20 16:13 HH (Rec: 12/31/20 16:59 HH [email or web address]) Sensation Evaluation Gross Sensation Gross Sensation WNL Deep Tendon Reflex & Clonus Assessment Deep Tendon Reflex Bilateral Achilles Deep Tendon Reflex 2+ Normal Bilateral Patellar Deep Tendon Reflex 2+ Normal Muscle Tone Tone Assessment Right Lower Extremity Flexor Tone Description Mild Hypotonicity Extensor Tone Description Mild Hypotonicity Left Lower Extremity Flexor Tone Description Mild Hypotonicity Extensor Tone Description Mild Hypotonicity PT-OP-K Range of Motion Start: 12/31/20 16:12 Freq: Status: Active Protocol: Document 12/31/20 16:13 HH (Rec: 12/31/20 16:59 [email or web address]) Lumbar Spine Range of Motion Lumbar Spine Active Degrees Comments toe touch test = 2 inch from floor, stretching sensation noted. lateral flexion to R = 18 inches from floor lateral flexion to L = 18inches from floor shoulder meet heels = pain noted. PT-OP-L Special Tests Start: 12/31/20 16:12 Freq: Status: Active Protocol: Document 12/31/20 16:13 HH (Rec: 12/31/20 16:59 [email or web address]) Special Tests Lumbar Spine Special Tests Slump Test Results +ve B Comments pain with knee extension Straight Leg Raise Test Results +ve B Comments pain at lumbar spine 75 degrees PT-OP-M Strength Start: 12/31/20 16:12 Freq: Status: Active Protocol: Document 12/31/20 16:13 HH (Rec: 12/31/20 16:59 [email or web address]) Hip Strength Hip Manual Muscle Testing leigh Flexion (L2) 3+ Fair+ Extension (S1) 4- Good- Abduction 4- Good- Adduction 4- Good- External Rotation 4- Good- Internal Rotation 4- Good- Knee Strength Knee Manual Muscle Testing leigh Flexion (S2) 4 Good Extension (L3) 4 Good PT-OP-Q Treatments Start: 12/31/20 16:12 Freq: Status: Active Protocol: Document 01/30/21 11:14 HH (Rec: 01/30/21 12:15 [id number]) Cardio Equipment Recumbent Stepper (Sci-Fit) Duration (Minutes) 6 Resistance 5 Gym Equipment Shuttle Recovery SL squat Resistance #50 Shuttle Recovery Platform Stable Reps/Time 12 x 3 Therapeutic Exercises Supine Exercises SLR Side bilateral Reps/Minutes 10 x2 Comments no discomfort noted. supine clamshell Side bilateral Equipment Used red band at knees Reps/Minutes 10 x2 bridging Side bilateral Equipment Used red band at knees Reps/Minutes 10 x2 Comments cues on PPT LTR Equipment Used ball between knees Reps/Minutes 8x2 pelvic tilt Reps/Minutes 10 x2 Comments cues on PPT Manual Therapy Treatment Soft Tissue Mobilization glutes Mobilization Type Myofascial Release Intensity/Depth Superficial Body Position Prone Comments reduced discomfort noted. paraspinals Mobilization Type Myofascial Release Intensity/Depth Superficial Body Position Prone Comments reduced pain L3-L5 region PT-OP-T Assessment and Plan Start: 12/31/20 16:12 Freq: Status: Active Protocol: Document 01/30/21 11:14 HH (Rec: 01/30/21 12:15 [id number]) Physical Therapy Assessment Goals HEP Impairment pt does not have a HEp Short Term Goal (STG) pt will be able to complete daily HEP safely and idnependently STG Duration 4 weeks gait Impairment pt has been using SPC/ Fww for the past few months d/t pain Short Term Goal (STG) pt will improve her LE strength and stability to be able to walk at home without AD safely STG Duration 4 weeks Mcc Goal (LTG) pt will improve her LE strength and stability to be able to walk in community without AD safely LTG Duration 8 weeks pain Impairment pt has constant severe pain 8/ 10 at [facility] Short Term Goal (STG) pt will have pain no more than 6/10 in a daily basis which allows her to participate more claims adjudicator. STG Duration 4 weeks Silk Conditioner Goal (LTG) pt will have pain no more than 4/10 in a daily basis which allows her to participate more claims adjudicator such as housecleaning and doing laundry LTG Duration 8 weeks Oswestry Impairment pt scores 56 on Oswestry Short Term Goal (STG) pt will score <45 on Oswestry to show improvements in quality of life and mobility STG Duration 4 weeks Mcc Goal (LTG) pt will score <35 on Oswestry to show improvements in quality of life and mobility LTG Duration 8 weeks Assessment Summary Assessment noticed pt has not had any muscle spasm for the past 2 sessions. She hasnt had any complaints during sessions and delano well trunk stabilization therex. Continue to spend time educating pt on making lifestyle changes such as smoking cessation, encouraging quality of sleep, diet. Physical Therapy Plan Frequency and Duration Frequency of Treatment 2x/Week Duration of Treatment 8 weeks Plan of Care Start Date 12/31/20 Plan of Care End Date 03/01/21 Therapeutic Interventions Therapeutic Interventions Aquatic Therapy,Balance Training,Gait Training,Home Exercise Program,Joint Mobilizations,Manual Therapy, Neuromuscular Re-education, Patient/Caregiver Education, Self-Care/Home Management,Soft Tissue Mobilization,Taping, Therapeutic Activities, Therapeutic Exercises Modalities Biofeedback,Cold Pack/Ice Massage,Electric Stimulation, Hot Packs,Infrared Therapy, Iontophoresis,Paraffin Bath, Traction- Mechanical, Ultrasound Next Visit Focus/Plan Next Note Type Treatment Note Next Visit Plan lumbar ROM as delano, flexion based core stabilization, pelvic tilt, bridging, etc hip strengthening as delano
--- NOTE | 2021-02-04 12:13 | PT.OTN ---
Current Diagnoses Other chronic pain (02/04/21) Other intervertebral disc displacement, lumbar region (02/04/21) Cervicalgia (02/04/21) Lumbago with sciatica, right side (02/04/21) Dorsalgia, unspecified (02/04/21) Muscle spasm of back (02/04/21) Other muscle spasm (02/04/21) Physical Therapy Treatment Note PT-OP-A Visit Information Start: 12/31/20 16:12 Freq: Status: Active Protocol: Document 02/04/21 09:01 (Rec: 02/04/21 09:44 [id number]) Out-Patient Physical Therapy Visit Information Visit Information Visit Type Treatment Note Visit Note Dtr presents pt is not using the cane today . Visit Start Time 09:02 Visit Stop Time 09:55 Total Visit Minutes 53 Visit Number 03/01 Number of COCOA BEAN CLEANER Visits 0 PT-OP-B Current Condition Start: 12/31/20 16:12 Freq: Status: Active Protocol: Document 12/31/20 16:13 HH (Rec: 12/31/20 16:59 [email or web address]) Current Condition History of Current Condition Onset Date >10 years ago Current Complaints chronic LBP, difficulty in walking, generalized weakness History of Current Condition Phylicia is a 45yo disable woman with PMH bipolar disorder, chronic pain, GERD, chronic nausea, constipation, history of bypass surgery, fibro, morbid obesity, hypoglycemia here for her chronic LBP and difficulty in walking. She was referred by Purnima YOU to attempt and she is also going to see Dr. Allred for pain management. Pt stated her LBP started > 10 years ago. Her pain is bilateral and R worse than L which also travels down to back of her knees. Pain is 8/10 and it never goes away. Lowert pain is 6-7/10 but with extensive use of marijuana and gabapentin. Lying supine tends to reduce her pain but WB positions worsen her symptoms. Pt has been disabled since 2006 and she is currently using a cane for all mobility (only able to walk 1 block). She has difficulty doing housework at this point and needs / older son to assist such as laundry, house cleaning Prior Treatments and Tests x-ray at [facility] 12/26/20 Partially visualized scoliosis Diffuse spondylitic changes and facet arthropathy pt had a pool therapy in 2019 and was DC abruptly d/t frequent UTI. Her last UTI was 6 months ago. Treatment Goals Patient/Caregiver Goals 1. To be able to walk without SPC again 2. to reduce her overall LBP Personal Factors Other Personal Factors That May Effect fibromyalgia Therapy/Recovery PT-OP-C Subjective Start: 12/31/20 16:12 Freq: Status: Active Protocol: Document 02/04/21 09:01 HH (Rec: 02/04/21 09:44 HH [id number]) OP-PT Subjective Patient Comments Patient Comments I think PT is helpful but I tend to feel more painful after and i dont know why. Exercises here are not intensive lately. PT-OP-D Balance Start: 12/31/20 16:12 Freq: Status: Active Protocol: Document 12/31/20 16:13 HH (Rec: 12/31/20 16:59 [email or web address]) Balance Tests Single Limb Standing Single Limb- Right >30s, report LBP Single Limb- Left >30s, report LBP PT-OP-F Manual Assessment Start: 12/31/20 16:12 Freq: Status: Active Protocol: Document 12/31/20 16:13 HH (Rec: 12/31/20 16:59 [email or web address]) Manual Assessments Soft Tissue Assessment Soft Tissue Mobility Assessment significant hypertoncity at gluteal muscle group, lumbar paraspinals. Pt was unable to tolerate pressure d/t pain Joint Mobility Assessment Joint Mobility Assessment uanble to assess d/t pain PT-OP-G Mobility & Gait Start: 12/31/20 16:12 Freq: Status: Active Protocol: Document 12/31/20 16:13 HH (Rec: 12/31/20 16:59 [email or web address]) OP Mobility Evaluation Transfers Sit to Stand grower sign recovering from bend over position Bed to Chair Transfers use of UE support on armrests to push off OP Gait Assessment Assistive Devices Assistive Device Straight Cane Gait Deviations General Gait Pattern Antalgic,Decreased Stride Length,Decreased Feet Clearance,Flexed Trunk Factors Limiting Gait Function Factors Limiting Gait Function Decreased Activity Tolerance, Decreased Strength,Limited Range of Motion,Pain,Poor Balance,Poor Safety Awareness Comments Gait Comments pt uses FWW sometimes PT-OP-H Neuro Start: 12/31/20 16:12 Freq: Status: Active Protocol: Document 12/31/20 16:13 HH (Rec: 12/31/20 16:59 [email or web address]) Sensation Evaluation Gross Sensation Gross Sensation WNL Deep Tendon Reflex & Clonus Assessment Deep Tendon Reflex Bilateral Achilles Deep Tendon Reflex 2+ Normal Bilateral Patellar Deep Tendon Reflex 2+ Normal Muscle Tone Tone Assessment Right Lower Extremity Flexor Tone Description Mild Hypotonicity Extensor Tone Description Mild Hypotonicity Left Lower Extremity Flexor Tone Description Mild Hypotonicity Extensor Tone Description Mild Hypotonicity PT-OP-K Range of Motion Start: 12/31/20 16:12 Freq: Status: Active Protocol: Document 12/31/20 16:13 (Rec: 12/31/20 16:59 [email or web address]) Lumbar Spine Range of Motion Lumbar Spine Active Degrees Comments toe touch test = 2 inch from floor, stretching sensation noted. lateral flexion to R = 18 inches from floor lateral flexion to L = 18inches from floor shoulder meet heels = pain noted. PT-OP-L Special Tests Start: 12/31/20 16:12 Freq: Status: Active Protocol: Document 12/31/20 16:13 (Rec: 12/31/20 16:59 [email or web address]) Special Tests Lumbar Spine Special Tests Slump Test Results +ve B Comments pain with knee extension Straight Leg Raise Test Results +ve B Comments pain at lumbar spine 75 degrees PT-OP-M Strength Start: 12/31/20 16:12 Freq: Status: Active Protocol: Document 12/31/20 16:13 (Rec: 12/31/20 16:59 [email or web address]) Hip Strength Hip Manual Muscle Testing leigh Flexion (L2) 3+ Fair+ Extension (S1) 4- Good- Abduction 4- Good- Adduction 4- Good- External Rotation 4- Good- Internal Rotation 4- Good- Knee Strength Knee Manual Muscle Testing leigh Flexion (S2) 4 Good Extension (L3) 4 Good PT-OP-Q Treatments Start: 12/31/20 16:12 Freq: Status: Active Protocol: Document 02/04/21 09:01 (Rec: 02/04/21 09:44 [id number]) Cardio Equipment Recumbent Stepper (Sci-Fit) Duration (Minutes) 6 Resistance 5 Therapeutic Exercises Supine Exercises SLR Side bilateral Reps/Minutes 10 x2 Comments no discomfort noted. bridging Side bilateral Equipment Used green balls between knees. Reps/Minutes 10 x2 Comments cues on PPT LTR Equipment Used ball between knees, then LEs on red therapy ball. Reps/Minutes 8x2 Comments cues on eccentric control pelvic tilt Reps/Minutes 10 x2 Comments cues on PPT Manual Therapy Treatment Soft Tissue Mobilization glutes Mobilization Type Myofascial Release Intensity/Depth Superficial Body Position Prone Comments reduced discomfort noted. paraspinals Mobilization Type Myofascial Release Intensity/Depth Superficial Body Position Prone Comments reduced pain L3-L5 region significant pain at sacral region PT-OP-R Modalities Start: 12/31/20 16:12 Freq: Status: Active Protocol: Document 02/04/21 09:01 (Rec: 02/04/21 12:11 [id number]) Electric Stimulation Electric Stimulation Interferential Current (IFC) Body Location lumbar spine Duration (Minutes) 10 Intensity 15 Combined With Heat/Cold Hot Pack PT-OP-T Assessment and Plan Start: 12/31/20 16:12 Freq: Status: Active Protocol: Document 02/04/21 09:01 (Rec: 02/04/21 09:44 [id number]) Physical Therapy Assessment Goals HEP Impairment pt does not have a HEp Short Term Goal (STG) pt will be able to complete daily HEP safely and idnependently STG Duration 4 weeks gait Impairment pt has been using SPC/ Fww for the past few months d/t pain Short Term Goal (STG) pt will improve her LE strength and stability to be able to walk at home without AD safely STG Duration 4 weeks Snf Goal (LTG) pt will improve her LE strength and stability to be able to walk in community without AD safely LTG Duration 8 weeks pain Impairment pt has constant severe pain 8/ 10 at L/[facility] Short Term Goal (STG) pt will have pain no more than 6/10 in a daily basis which allows her to participate more button inspector. STG Duration 4 weeks Assembly Instructions Writer Goal (LTG) pt will have pain no more than 4/10 in a daily basis which allows her to participate more button inspector such as housecleaning and doing laundry LTG Duration 8 weeks Oswestry Impairment pt scores 56 on Oswestry Short Term Goal (STG) pt will score <45 on Oswestry to show improvements in quality of life and mobility STG Duration 4 weeks Snf Goal (LTG) pt will score <35 on Oswestry to show improvements in quality of life and mobility LTG Duration 8 weeks Assessment Summary Assessment Pt c/o severe pain at home often. Pt stated her activity level during session is not more intense than her house chores. She also mentioned she has tried more than 7 modalities for pain management and it sesms never helped. Spent time educating pt on chronic pain pattern and ways to understand her pain behavior and triggers. Physical Therapy Plan Frequency and Duration Frequency of Treatment 2x/Week Duration of Treatment 8 weeks Plan of Care Start Date 12/31/20 Plan of Care End Date 03/01/21 Therapeutic Interventions Therapeutic Interventions Aquatic Therapy,Balance Training,Gait Training,Home Exercise Program,Joint Mobilizations,Manual Therapy, Neuromuscular Re-education, Patient/Caregiver Education, Self-Care/Home Management,Soft Tissue Mobilization,Taping, Therapeutic Activities, Therapeutic Exercises Modalities Biofeedback,Cold Pack/Ice Massage,Electric Stimulation, Hot Packs,Infrared Therapy, Iontophoresis,Paraffin Bath, Traction- Mechanical, Ultrasound Next Visit Focus/Plan Next Note Type Treatment Note Next Visit Plan lumbar ROM as delano, flexion based core stabilization, pelvic tilt, bridging, etc hip strengthening as delano
--- NOTE | 2021-02-15 09:34 | PT.OPDS ---
Current Diagnoses Other chronic pain (02/04/21) Other intervertebral disc displacement, lumbar region (02/04/21) Cervicalgia (02/04/21) Lumbago with sciatica, right side (02/04/21) Dorsalgia, unspecified (02/04/21) Muscle spasm of back (02/04/21) Other muscle spasm (02/04/21) Visit Care Team Role Provider Type AVELINO Benitez Attending Provider Advanced Chisel Mortiser Operator Family Provider Primary Care Provider Referring Provider Specialty: Family Practice Address: [address] [place] [address], [facility] Email: [email or web address] Visit Number Visit Number 03/01 Discharge Summary PT-OP-T Assessment and Plan Start: 12/31/20 16:12 Freq: Status: Active Protocol: Document 02/15/21 09:32 HH (Rec: 02/15/21 09:34 [email or web address]) Physical Therapy Plan Discharge Physical Therapy Discharge Reasons Patient Request Discharge Comments pt has been cancelling multiple appointments. Reached out to her today via phone and pt stated she doesnt need PT at this point and she is going to see orthopedic doctor and pain center.
== END 2021-02-18 08:54 | disposition home or self-care (01) ==
LOC: PHYS 09:00
PROVIDERS: Family Provider Nurse Practitioner; PCP Nurse Practitioner; Referring Provider Nurse Practitioner; Visit Provider Nurse Practitioner
DX: M54.9 Dorsalgia, unspecified (principal); M62.830 Muscle spasm of back; M62.838 Other muscle spasm; M51.26 Other intervertebral disc displacement, lumbar region; M54.2 Cervicalgia; M54.41 Lumbago with sciatica, right side; G89.29 Other chronic pain
CPT/HCPCS: 97032; 97110; 97140; 97163

== ENCOUNTER 2021-04-09 13:30 | Emergency (ER) | payer OTHER, MEDICAID, SELFPAY ==
[2019-04-27 20:31] VITALS: BMI 33.8
[2021-04-09 13:33] VITALS: BP 100/56; PULSE 87; RESP 22; TEMP 36.4; O2SAT 100
[2021-04-09 14:21] LABS: COVID19 -Nasal RAPID Negative (Negative)
[2021-04-09 14:42] LABS: RBC Urine None Seen (0-5/HPF)
[2021-04-09 14:45] LABS: Bacteria Urine Few (2-10); Culture Indicated Urine Cult Not Indicated; Squamous Epithelial Cell Urine 5-10 /HPF (0-5/HPF); WBC Urine 10-30/HPF (0-5/HPF)
--- NOTE | 2021-04-09 16:23 | ED_ITS ---
HPI - General Adult General Chief complaint: Fever Stated complaint: back pain, hot and cold, maybe bladder infection? Time Seen by Provider: 04/09/21 16:17 Source: patient Mode of arrival: Ambulatory History of Present Illness HPI narrative: 45-year-old female with chronic lower back discomfort who is here for evaluation of a increase in her lower back discomfort and potentially a bladder infection. She is not having any urinary symptoms. No urinary frequency. No abdominal tenderness. She thinks that she potentially has a bladder infection because of the increase in her baseline lower back discomfort. No fevers. She states that she has urinary tract infections frequently. She has had C diff in the past because of antibiotics she has received for urinary tract infections per she denies any specific trauma. She does have right hip discomfort along with the back pain. She does have pain medications at home and she states they are not working for her. She is scheduled to see a painter and paperhanger apprentice later this month. Related Data Home Medications Medication Instructions Recorded Confirmed Kratom 6 tab PO BID 04/26/19 02/12/21 Previous Rx's Medication Instructions Recorded estradiol (Estring) 1 vaginalrin VAG [id number] #1 each 05/21/20 ketotifen fumarate 0.025 % (0.035 1 drp EYE-BOTH BID PRN #10 ml 05/23/20 %) eye drops Disabled Parking Permit See Rx Instructions .ROUTE 10/24/20 .COMPLEX #1 unit pantoprazole 40 mg granules 40 mg PO DAILY #90 ea 10/24/20 delayed-release for susp in packet (Protonix) promethazine 25 mg tablet 25 mg PO TID #90 tab 10/24/20 sucralfate 100 mg/mL oral 10 ml PO QACHS #420 ml 10/24/20 suspension (Carafate) TRUE METRIX TEST STRIPS #100 each 11/14/20 venlafaxine 150 mg 150 mg PO BEDTIME #90 cap 11/15/20 capsule,extended release 24 hr loratadine 10 mg tablet 10 mg PO DAILY #90 tab 12/20/20 pantoprazole 40 mg tablet,delayed 40 mg PO BID #180 tab 12/26/20 release (Protonix) buspirone 7.5 mg tablet 15 mg PO BEDTIME #180 tab 01/15/21 propranolol 20 mg tablet 20 mg PO DAILY #60 tab 05/25/21 venlafaxine 37.5 mg 75 mg PO BEDTIME #60 cap 01/15/21 capsule,extended release 24 hr TENS Unit #1 ea 02/12/21 cyclobenzaprine 10 mg tablet 10 mg PO BID #30 tab 02/12/21 tramadol 50 mg tablet 50 mg PO TID PRN #60 tab 02/12/21 gabapentin 300 mg capsule 900 mg PO TID #810 cap 04/02/21 Allergies Allergy/AdvReac Type Severity Reaction Status Date / Time adhesive tape Allergy Rash Verified 02/12/21 11:08 duloxetine [From Cymbalta] AdvReac Severe Nausea Verified 02/12/21 11:08 Review of Systems Constitutional Constitutional: Denies fever(s) Cardiovascular Cardiovascular: Reports system reviewed and no additional complaints, except as documented Respiratory Respiratory: Reports system reviewed and no additional complaints, except as documented Gastrointestinal Gastrointestinal: Reports as per HPI Genitourinary Genitourinary: Reports as per HPI Musculoskeletal Musculoskeletal: Reports as per HPI Integumentary/Breasts Skin/Breast: Reports system reviewed and no additional complaints, except as documented Neurologic Neurologic: Reports system reviewed and no additional complaints, except as documented Hematologic/Lymphatic On Anticoagulants: No Patient History Medical History Acute hypokalemia (03/10/19) Anemia Ankle fracture, left Anxiety Anxiety Arthritis Biliary colic Bipolar disorder Bulging of intervertebral disc between L4 and L5 C. difficile colitis (03/10/19) Carpal tunnel syndrome on both sides Cholelithiasis Chronic pain Constipation Environmental allergies Female sexual dysfunction Fibromyalgia Foot fracture, left Gastroesophageal reflux disease GERD (gastroesophageal reflux disease) Hidradenitis suppurativa Hidradenitis suppurativa Hypoglycemia Hypoglycemia Insomnia Kidney stones Lumbar facet arthropathy Microcytic anemia Migraines Nausea NSAID overdose Obesity (BMI 30-39.9) Osteoarthritis Pain Peripheral neuropathy Tachycardia Urinary tract infection UTI (urinary tract infection) Vitamin D insufficiency Surgical History History of carpal tunnel surgery of left wrist (~2000) History of endometrial ablation History of gastric bypass (~2007) Hx laparoscopic cholecystectomy (05/07/19) Hx of tonsillectomy (~1999) [place] teeth extracted Family History Father Diabetes mellitus Hypertension Mother Cervical cancer Grandfather Colon cancer Social History household members: spouse and children Smoking Status: Current every day smoker alcohol intake: current Smoking Status: Current every day smoker tobacco type: cigarettes and vaping alcohol intake frequency: holidays/special occasions only Substance Use Type: marijuana and other Exam Initial Vital Signs Initial Vital Signs: Vital Signs Temperature 97.6 F 04/09/21 13:33 Pulse Rate 87 04/09/21 13:33 Respiratory Rate 22 04/09/21 13:33 Blood Pressure 100/56 L 04/09/21 13:33 Pulse Oximetry 100 04/09/21 13:33 HENMT Head: normal to inspection and normocephalic Eyes General: appearance normal, both eyes and all related structures Resp Effort & Inspection: normal respiratory effort Cardio Rate: regular rate GI Inspection: normal to inspection Palpation: soft Back/Spine/Pelvis Thoracic/Lumbar Spine: paraspinal tenderness and lumbar spinal tenderness Skin General: no rashes or lesions noted Neuro General: patient alert, patient awake and patient oriented x3 Extrem General: normal to inspection and capillary refill normal Psych Appearance: grossly normal and well kempt Course Orders Ordered: ED Orders 04/09/21 13:59 COVID19 -Nasal swab/Pre-Proc Stat 04/09/21 14:40 Urine Microscopic Stat 04/09/21 15:44 Urine Culture Stat Discontinued Medications Hydrocodone Bitart/Acetaminophen (Hydrocodone/Acet 5/325 Tablet) 1 tab PO NOW ONE Stop: 04/09/21 16:32 Last Admin: 04/09/21 16:35 Dose: 1 tab Documented by: KIM Vital Signs Vital signs: Vital Signs - 8 hr 04/09/21 13:33 04/09/21 16:47 Temperature 97.6 F Pulse Rate 87 78 Respiratory Rate 22 16 Blood Pressure 100/56 L 111/66 Pulse Oximetry 100 100 Medical Decision Making Medical Records Medical records reviewed: Yes I reviewed the patient's medical records. Lab Data Lab results reviewed: Yes I reviewed the patient's lab results. Labs: Lab Results 04/09/21 04/09/21 Range/Units 13:59 14:40 Urine RBC None seen (0-5/HPF) Urine WBC 10-30/hpf H (0-5/HPF) Ur Squamous Epith Cells 5-10 /hpf H (0-5/HPF) Urine Bacteria Few (2-10) H (None) Ur Culture Indicated? Cult not indicated SARS-CoV-2 (PCR) Negative (Negative) Urine Dip Bedside Urine Glucose Negative Bedside Urine Bilirubin - Negative Bedside Urine Ketone - Negative Urine Specific [place] 1.015 Bedside Urine Occult Blood - Negative Bedside Urine pH 7.0 Bedside Urine Protein - Negative Bedside Urine Urobilinogen - Negative Bedside Urine Nitrite - Negative Bedside Urine Leukocytes + 70 Esterase Point of care testing: Urine Dip Bedside Urine Glucose Negative Bedside Urine Bilirubin - Negative Bedside Urine Ketone - Negative Urine Specific [place] 1.015 Bedside Urine Occult Blood - Negative Bedside Urine pH 7.0 Bedside Urine Protein - Negative Bedside Urine Urobilinogen - Negative Bedside Urine Nitrite - Negative Bedside Urine Leukocytes + 70 Esterase MDM Narrative Medical decision making narrative: Patient is nontoxic appearing. Review of the patient's medical record shows that many of her prior urine cultures are either polymicrobial or have no growth. She had 1 urine culture that grew out a Klebsiella that was resistant to many antibiotics. Given the fact that she is afebrile, no abdominal pain, no specific urinary symptoms we should wait on any antibiotics for now and wait for a culture and sensitivities to result given her history of C diff. review of the patient's medical record shows that she does have chronic lower back discomfort and right hip discomfort. She denied any specific trauma. I feel that we can hold on radiologic studies for now. She was given 1 dose of medication here in the emergency department is informed that she needed to either talk with her primary doctor or wait for her painter and paperhanger apprentice visit later this month to receive more medications. She was given return precautions. We will contact her if we need to start antibiotics. She expressed understanding and agreement. Discharge Plan Departure Patient Disposition: Home Clinical Impression: Chronic lower back pain Instructions: DI for Low Back Pain Activity Restrictions/Additional Instructions: Based on your history of C diff we will wait for a urine culture to results before we treat you with any antibiotics. This will take a couple days. We will contact you if we need to start you on antibiotics. Contact your primary doctor for a follow-up. Return to the emergency department for any new or worsening symptoms. Prescriptions: No Action ketotifen fumarate 0.025 % (0.035 %) drops 1 drp EYE-BOTH BID PRN (Reason: Dry Eyes) Qty: 10 RF: 11 (DME) TRUE METRIX TEST STRIPS Qty: 100 RF: 3 gabapentin 300 mg capsule 900 mg PO TID Qty: 810 RF: 3 loratadine 10 mg tablet 10 mg PO DAILY Qty: 90 RF: 1 Estring 2 mg (7.5 mcg /24 hour) ring 1 vaginalrin VAG [id number] Qty: 1 RF: 3 Disabled Parking Permit See Rx Instructions .ROUTE .COMPLEX Qty: 1 RF: 0 pantoprazole [Protonix] [address] for susp in packet 40 mg PO DAILY Qty: 90 RF: 3 promethazine 25 mg tablet 25 mg PO TID Qty: 90 RF: 5 sucralfate [Carafate] 100 mg/mL suspension 10 ml PO QACHS Qty: 420 RF: 3 venlafaxine 150 mg capsule,extended release 24hr 150 mg PO BEDTIME Qty: 90 RF: 2 pantoprazole [Protonix] 40 mg tablet,delayed release (DR/EC) 40 mg PO BID Qty: 180 RF: 0 buspirone 7.5 mg tablet 15 mg PO BEDTIME Qty: 180 RF: 2 propranolol 20 mg tablet 20 mg PO DAILY Qty: 60 RF: 1 venlafaxine 37.5 mg capsule,extended release 24hr 75 mg PO BEDTIME Qty: 60 RF: 2 tramadol 50 mg tablet 50 mg PO TID PRN (Reason: pain) Qty: 60 RF: 1 cyclobenzaprine 10 mg tablet 10 mg PO BID Qty: 30 RF: 1 (DME) TENS Unit See Rx Instructions .Route .MEDSUPPLY Qty: 1 RF: 0 Kratom 6 tab PO BID RF: 0 Referrals: Purnima Gao ARNP [Primary Care Provider] -
[2021-04-09] MEDS: HYDROCODONE/ACET 5/325 TABLET 1 TAB PO (16:35)
[2021-04-09 16:47] VITALS: BP 111/66; PULSE 78; RESP 16; O2SAT 100
== END 2021-04-09 16:48 | disposition home or self-care (01) ==
PROVIDERS: Emergency Provider Emergency Medicine; Family Provider Nurse Practitioner; PCP Nurse Practitioner
DX: M54.5 Low back pain (principal); Z20.822 Contact with and (suspected) exposure to COVID-19
CPT/HCPCS: 81003; 81015; 87086; 87635; 99283; C9803

== ENCOUNTER 2021-04-15 17:54 | Emergency (ER) | payer OTHER, MEDICAID, SELFPAY ==
[2019-04-27 20:31] VITALS: BMI 33.8
[2021-04-15 18:07] VITALS: BP 139/80; PULSE 97; RESP 17; TEMP 36.6; O2SAT 100; BMI 35.6
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
[2021-04-15] MEDS: predniSONE 20 MG TABLET 60 MG PO (20:00)
== END 2021-04-15 20:59 | disposition home or self-care (01) ==
PROVIDERS: Emergency Provider Emergency Medicine; Family Provider Nurse Practitioner; PCP Nurse Practitioner
DX: K20.90 Esophagitis, unspecified without bleeding (principal)
CPT/HCPCS: 70360; 99283; 99284

== ENCOUNTER 2021-08-16 10:22 | Emergency (ER) | payer OTHER, MEDICAID, SELFPAY ==
[2021-04-16 09:10] VITALS: BMI 33.8
[2021-08-16 10:32] VITALS: BP 140/70; PULSE 117; RESP 14; TEMP 36.7; O2SAT 100; BMI 36.2
--- NOTE | 2021-08-16 10:37 | DI.RAD.S_ITS ---
PROCEDURE: XR KNEE LT 3V INDICATIONS: left knee pain TECHNIQUE: 3 views of the knee were acquired. COMPARISON: None. FINDINGS: Bones: No fractures or dislocations. No suspicious bony lesions. Soft tissues: No joint effusion. No suspicious soft tissue calcifications. IMPRESSION: Normal left knee Dictated by: Jaden Vargas M.D. on 08/16/2021 at 10:12 Approved by: Jaden Vargas M.D. on 08/16/2021 at 10:16
--- NOTE | 2021-08-16 11:07 | ED.LOWEXIN ---
HPI - Extremity Injury (Lower) General Chief Complaint: Extremity Injury, Lower Stated Complaint: lt. knee pain x3 days Time Seen by Provider: 08/16/21 10:57 Source: patient Mode of arrival: Ambulatory Limitations: no limitations History of Present Illness HPI Narrative: This is a 46-year-old female comes emergency department complaint of left knee pain. Patient states she has intermittently had problems. For the last 3 days she has been having popping and grinding and feels like her knee will go out of place but then goes back. It is worse with ambulation or movement. She is most comfortable with fully extended knee. She states she has seen a forest and conservation worker and there has been discussion about Beni Danlos but she has not formally diagnosed but is high on the differential. She has not had any other symptoms. She has had the popping and grinding consistently for years. Patient takes Lyrica, cyclobenzaprine and tramadol daily for pain. She sometimes smokes marijuana for some assistance with her pain control but has not been able to control it at home. She has had some swelling at the site. She denies any numbness, tingling or weakness. She denies any fevers. No warmth or erythema. She isn't having any other issues with her joints at the moment. Related Data Home Medications Medication Instructions Recorded Confirmed Kratom 6 tab PO BID 04/26/19 04/22/21 Previous Rx's Medication Instructions Recorded ketotifen fumarate 0.025 % (0.035 1 drp EYE-BOTH BID PRN #10 ml 20 %) eye drops Disabled Parking Permit See Rx Instructions .ROUTE 10/24/20 .COMPLEX #1 unit TRUE METRIX TEST STRIPS #100 each 11/14/20 venlafaxine 150 mg 150 mg PO BEDTIME #90 cap 11/15/20 capsule,extended release 24 hr loratadine 10 mg tablet 10 mg PO DAILY #90 tab 12/20/20 buspirone 7.5 mg tablet 15 mg PO BEDTIME #180 tab 01/15/21 TENS Unit #1 ea 02/12/21 lidocaine HCl 2 % mucosal solution 1 applic MUCOUS MEMBRANE TID PRN 04/18/21 (Lidocaine Viscous) #100 ml estradiol (Estring) See Rx Instructions .ROUTE 04/24/21 .COMPLEX #1 ring propranolol 20 mg tablet 20 mg PO DAILY #60 tab 05/08/21 cyclobenzaprine 10 mg tablet See Rx Instructions .ROUTE 05/23/21 .COMPLEX #30 tab promethazine 25 mg tablet See Rx Instructions .ROUTE 05/23/21 .COMPLEX #90 tab pantoprazole 40 mg tablet,delayed 40 mg PO DAILY #30 tab 06/14/21 release (Protonix) pregabalin 150 mg capsule 150 mg PO TID #90 cap 06/14/21 venlafaxine 75 mg capsule,extended See Rx Instructions .ROUTE 06/14/21 release 24 hr .COMPLEX #30 cap tramadol 50 mg tablet 100 mg PO TID 30 Days #180 tab 07/11/21 hydrochlorothiazide 25 mg tablet 25 mg PO DAILY #90 tab 08/09/21 oxybutynin chloride 5 mg 5 mg PO DAILY #90 tab 08/09/21 tablet,extended release 24 hr meloxicam 7.5 mg tablet (Mobic) 7.5 mg PO BID PRN #14 tab 08/16/21 Allergies Allergy/AdvReac Type Severity Reaction Status Date / Time adhesive tape Allergy Rash Verified 08/16/21 10:38 duloxetine [From Cymbalta] AdvReac Severe Nausea Verified 08/16/21 10:38 Review of Systems Review of Systems ROS Unobtainable: All systems reviewed & are unremarkable except as noted in HPI and below Patient History Medical History Acute hypokalemia (03/10/19) Anemia Ankle fracture, left Anxiety Anxiety Arthritis Biliary colic Bipolar disorder Bladder incontinence Bulging of intervertebral disc between L4 and L5 C. difficile colitis (03/10/19) Carpal tunnel syndrome on both sides Cholelithiasis Chronic pain Chronic pain Constipation Beni-Danlos syndrome Environmental allergies Female sexual dysfunction Fibromyalgia Foot fracture, left Gastroesophageal reflux disease GERD (gastroesophageal reflux disease) Hidradenitis suppurativa Hidradenitis suppurativa Hypoglycemia Hypoglycemia Insomnia Kidney stones Lumbar facet arthropathy Microcytic anemia Migraines Nausea NSAID overdose Obesity (BMI 30-39.9) Osteoarthritis Pain Peripheral neuropathy Tachycardia Urinary tract infection UTI (urinary tract infection) Vitamin D insufficiency Surgical History History of carpal tunnel surgery of left wrist (~2000) History of endometrial ablation History of gastric bypass (~2007) Hx laparoscopic cholecystectomy (05/07/19) Hx of tonsillectomy (~1999) [place] teeth extracted Family History Father Diabetes mellitus Hypertension Mother Cervical cancer Grandfather Colon cancer Social History household members: spouse and children Smoking Status: Current every day smoker alcohol intake: current Smoking Status: Current every day smoker tobacco type: cigarettes and vaping alcohol intake frequency: holidays/special occasions only Substance Use Type: marijuana and other Exam Narrative Exam Narrative: GENERAL: Alert and oriented x three, female in mild distress. HEENT: Head normocephalic, atraumatic, EOMI, pupils reactive, face symmetric, moist mucous membranes NECK: Supple, full range of motion CARDIOVASCULAR: Regular rate and rhythm without murmurs, rubs or gallops. RESPIRATORY: Breath sounds equal bilaterally, no wheezes rales or rhonchi. ABDOMEN: Soft, nontender. Normoactive bowel sounds all 4 quadrants. No guarding or rebound, rigidity, no mass : No CVA tenderness EXTREMITIES: Normal range of motion, no clubbing or edema. Neurovascularly intact. Patient is mildly tender throughout the knee. No obvious effusion. No warmth, no erythema. No swelling right in comparison to left. Patient does have discomfort with posterior drawer but no obvious laxity. Valgus varus testing are normal. Patient does not have any deformity. NEUROLOGICAL: Cranial nerves II through XII grossly intact. Moving all extremities SKIN: Warm, dry, no petechiae, no rashes or lesions. Initial Vital Signs Initial Vital Signs: Vital Signs Temperature 98.0 F 08/16/21 10:32 Pulse Rate 117 H 08/16/21 10:32 Respiratory Rate 14 08/16/21 10:32 Blood Pressure 140/70 08/16/21 10:32 Pulse Oximetry 100 08/16/21 10:32 Course Orders Ordered: ED Orders 08/16/21 10:37 XR knee LT 3V Stat Vital Signs Vital signs: Vital Signs - 8 hr 08/16/21 10:32 08/16/21 11:45 Temperature 98.0 F Pulse Rate 117 H 94 H Respiratory Rate 14 16 Blood Pressure 140/70 Pulse Oximetry 100 99 MDM - Extremity Injury (Lower) Imaging Data Extremity x-ray #1: Radiologist's Impression: [address] [address] XRay Report Signed Patient: Phylicia De Luna MR#: [id number] : 1975 Acct:[id number] Age/Sex: 46 / F Date of Service: 08/16/21 Loc: ED Accession Number: [id number] ?? Procedure: XR knee LT 3V Ordering Provider: Roseanne Mcgregor D.O. PROCEDURE:? XR KNEE LT 3V ? INDICATIONS:? left knee pain ? TECHNIQUE:? 3 views of the knee were acquired.? ? COMPARISON:? None. ? FINDINGS:? ? Bones:? No fractures or dislocations.? No suspicious bony lesions.? ? Soft tissues:? No joint effusion.? No suspicious soft tissue calcifications.? ? ? IMPRESSION:? Normal left knee ? ? Dictated by: Jaden Vargas M.D. on 08/16/2021 at 10:12 ? ? Approved by: Jaden Vargas M.D. on 08/16/2021 at 10:16?? [facility] Narrative Medical decision making narrative: This is a 46-year-old female comes emergency department with complaint of intermittent knee pain and feeling like it is popping out of place and grinding. She has an x-ray here which is negative. She has seen a forest and conservation worker there was discussion about Beni-Danlos. She is not having any changes concerning for posterior dislocation or injury to vascular chewer. Patient I discussed using either knee immobilizer or a sleeve compression for her knee for comfort. Crutches as needed and as needed pain control. Discharge Plan Departure Patient Disposition: Home Clinical Impression: Left knee pain Activity Restrictions/Additional Instructions: Follow-up with your physician. Using either a knee immobilizer or a compression sleeve on her knee may be helpful to give it some assistance and a bit more stability. You can use this as needed. Can take pain medication 1 tablet every 12 hours as needed. You can take this medication with your other daily medications. Prescription sent to Return for fevers, redness, warmth, increasing swelling, new numbness, worsening pain, deformity, tingling or weakness or other new or concerning symptoms. Prescriptions: New meloxicam [Mobic] 7.5 mg tablet 7.5 mg PO BID PRN (Reason: pain) Qty: 14 0RF No Action ketotifen fumarate 0.025 % (0.035 %) drops 1 drp EYE-BOTH BID PRN (Reason: Dry Eyes) Qty: 10 11RF (DME) TRUE METRIX TEST STRIPS Qty: 100 3RF Rx Instructions: USE TO TEST BLOOD GLUCOSE FOUR TIMES DAILY Estring 2 mg (7.5 mcg /24 hour) ring See Rx Instructions .ROUTE .COMPLEX Qty: 1 3RF Dose Instruction: INSERT 1 RING VAGINALLY EVERY 3 MONTHS Rx Instructions: INSERT 1 RING VAGINALLY EVERY 3 MONTHS propranolol 20 mg tablet 20 mg PO DAILY Qty: 60 1RF Rx Instructions: Take 1 tab daily for tremors and anxiety. May repeat x1 for these symptoms cyclobenzaprine 10 mg tablet See Rx Instructions .ROUTE .COMPLEX Qty: 30 3RF Dose Instruction: TAKE ONE TABLET BY MOUTH UP TO TWO TIMES DAILY NEEDED FOR PAIN Rx Instructions: TAKE ONE TABLET BY MOUTH UP TO TWO TIMES DAILY NEEDED FOR PAIN promethazine 25 mg tablet See Rx Instructions .ROUTE .COMPLEX Qty: 90 3RF Dose Instruction: TAKE ONE TABLET BY MOUTH THREE TIMES DAILY Rx Instructions: TAKE ONE TABLET BY MOUTH THREE TIMES DAILY pantoprazole [Protonix] 40 mg tablet,delayed release (DR/EC) 40 mg PO DAILY Qty: 30 11RF venlafaxine 75 mg capsule,extended release 24hr See Rx Instructions .ROUTE .COMPLEX Qty: 30 11RF Dose Instruction: TAKE ONE CAPSULE BY MOUTH ONCE DAILY AT BEDTIME ALONG WITH 150MG CAPSULE FOR TOTAL DOSE OF 225MG Rx Instructions: TAKE ONE CAPSULE BY MOUTH ONCE DAILY AT BEDTIME ALONG WITH 150MG CAPSULE FOR TOTAL DOSE OF 225MG loratadine 10 mg tablet 10 mg PO DAILY Qty: 90 1RF tramadol 50 mg tablet 100 mg PO TID 30 Days Qty: 180 1RF Rx Instructions: Take 1-2 tabs up to 3x/day as needed for pain Disabled Parking Permit See Rx Instructions .ROUTE .COMPLEX Qty: 1 0RF Rx Instructions: I find this patient to be medically disabled and qualify for disabled parking as indicated and signed on the accompanying disabled parking application for individuals. venlafaxine 150 mg capsule,extended release 24hr 150 mg PO BEDTIME Qty: 90 2RF Rx Instructions: Take 150mg at bedtime daily for depression, anxiety, pain, and insomnia buspirone 7.5 mg tablet 15 mg PO BEDTIME Qty: 180 2RF Rx Instructions: Take 2 tabs (15mg) at bedtime daily for anxiety. (DME) TENS Unit See Rx Instructions .Route .MEDSUPPLY Qty: 1 0RF Rx Instructions: Apply to lower back for pain management purposes as needed lidocaine HCl [Lidocaine Viscous] 2 % solution 1 applic mucous membrane TID PRN (Reason: pain) Qty: 100 2RF pregabalin 150 mg capsule 150 mg PO TID Qty: 90 5RF hydrochlorothiazide 25 mg tablet 25 mg PO DAILY Qty: 90 1RF oxybutynin chloride 5 mg tablet extended release 24hr 5 mg PO DAILY Qty: 90 3RF Kratom 6 tab PO BID 0RF Label Comments: 500 mg tablets Referrals: Purnima Gao ARNP [Primary Care Provider] -
[2021-08-16 11:45] VITALS: PULSE 94; RESP 16; O2SAT 99
== END 2021-08-16 11:45 | disposition home or self-care (01) ==
PROVIDERS: Emergency Provider Emergency Medicine; Family Provider Nurse Practitioner; PCP Nurse Practitioner
DX: M25.562 Pain in left knee (principal); F17.210 Nicotine dependence, cigarettes, uncomplicated; F17.290 Nicotine dependence, other tobacco product, uncomplicated
CPT/HCPCS: 73562; 99282; 99283

== ENCOUNTER → 2021-09-03 09:05 | Outpatient (CLI) | payer OTHER, MEDICAID, SELFPAY ==
[2021-04-16 09:10] VITALS: BMI 33.8
--- NOTE | 2021-09-03 09:30 | DI.MRI.S_ITS ---
PROCEDURE: MR LUMBAR SPINE WO CON INDICATIONS: chronic progressive LBP TECHNIQUE: Noncontrast sagittal T1 spin echo and T2 fast echo, sagittal STIR, axial T1 and T2 fast spin echo through the lumbar spine. In cases with scoliosis, additional coronal T2 fast spin echo may be performed. COMPARISON: [facility], MR, MR LUMBAR SPINE WO CON, 01/13/2019, 16:17. [facility], CT, CT KIDNEY URETER BLADDER (KUB), 05/08/2020, 11:27. FINDINGS: Image quality: Excellent. Alignment and Curvature: There is normal bony alignment. Bone Marrow: Marrow is of normal overall signal. No acute vertebral body compression fractures. Spinal Cord: Conus medullaris terminates at the normal level. Visualized cord demonstrates normal signal and size. Regional Soft Tissues: Prevertebral and paraspinous soft tissues demonstrate no acute finding. T12-L1: Normal appearance. L1-L2: Normal appearance. L2-L3: Normal appearance. L3-L4: Normal appearance. L4-L5: Normal appearance. L5-S1: Normal appearance. IMPRESSION: No spinal canal stenosis, neural foraminal stenosis, or evidence of focal nerve root impingement. Mild L4-L5 and L5-S1 facet degenerative change, similar to the prior study. Overall no significant change from 01/13/2019 exam. Dictated by: Bernardo Ruvalcaba M.D. on 09/03/2021 at 15:47 Approved by: Bernardo Ruvalcaba M.D. on 09/03/2021 at 15:55
== END ==
PROVIDERS: Family Provider Nurse Practitioner; PCP Nurse Practitioner; Referring Provider Physical Medicine & Rehabilitation; Visit Provider Physical Medicine & Rehabilitation
DX: M47.816 Spondylosis without myelopathy or radiculopathy, lumbar region (principal); M47.817 Spondylosis without myelopathy or radiculopathy, lumbosacral region; M51.26 Other intervertebral disc displacement, lumbar region; G89.29 Other chronic pain
CPT/HCPCS: 72148

== ENCOUNTER → 2021-09-10 11:20 | Outpatient (CLI) | payer OTHER, MEDICAID, SELFPAY ==
[2021-04-16 09:10] VITALS: BMI 33.8
--- NOTE | 2021-09-10 11:23 | DI.RAD.S_ITS ---
PROCEDURE: XR ANKLE LT MIN 3V INDICATIONS: Pain, swelling, s/p fall TECHNIQUE: 3 views of the ankle were acquired. COMPARISON: [facility], CR, XR ANKLE LT MIN 3V, 03/07/2020, 21:44. FINDINGS: Bones: Irregularity of the medial navicular bone, new compared to prior exam. Ankle mortise is normally aligned. No suspicious bony lesions. Soft tissues: No tibiotalar joint effusion. Achilles tendon appears normal. IMPRESSION: Navicular irregularity as above. Fracture cannot be excluded. Recommend correlation to point tenderness and followup imaging in 7-[address] for furthr evaluation. Dictated by: Saray Vega M.D. on 09/10/2021 at 14:14 Approved by: Saray Vega M.D. on 09/10/2021 at 14:15
--- NOTE | 2021-09-10 11:23 | DI.RAD.S_ITS ---
PROCEDURE: XR FOOT LT MIN 3V INDICATIONS: Pain, swelling, s/p fall TECHNIQUE: 3 views of the foot were acquired. COMPARISON: [facility], CR, XR ANKLE LT MIN 3V, 03/07/2020, 21:44. [facility], CR, XR ANKLE LT MIN 3V, 09/10/2021, 11:58. [facility], CR, XR FOOT RT MIN 3V, 03/07/2020, 21:50. FINDINGS: Bones: There is new irregularity along the medial aspect of the navicular bone. It is nondisplaced. Soft tissues: No tibiotalar joint effusion. Achilles tendon appears normal. IMPRESSION: Irregularity of the medial navicular bone. This could reprsent fracture given history of recent trauma. Recommend correlation to point tenderness and following imaging in 7-[address] for further evaluation. Dictated by: Saray Vega M.D. on 09/10/2021 at 13:56 Approved by: Saray Vega M.D. on 09/10/2021 at 14:14
[2021-09-10 11:52] LABS: Add Manual Diff / Slide Review NO; Basophils Absolute Auto 100 /uL (0-100); Eosinophils Absolute Auto 200 /uL (0-450); Hematocrit 33.7 % (36-46); Hemoglobin 11.2 g/dL (12.0-16.0); Lymphocytes Absolute Auto 1500 /uL (1100-4500); Lymphocytes Percent Auto 22.1 % (25-40); Mean Corpuscular HGB Conc 33.3 % (30-36); Mean Corpuscular Hemoglobin 24.2 PG (26-34); Mean Corpuscular Volume 72.7 fL (80-100); Monocytes Absolute Auto 500 /uL (0-900); Monocytes Percent Auto 7.5 % (3-14); Neutrophils Absolute Auto 4400 /uL (1500-7000); Neutrophils Percent Auto 66.4 % (50-75); Platelet Count 165 X10^3/uL (150-400); Red Blood Cell Count 4.64 X10^6/uL (4.0-5.2); Red Cell Distribution Width 18.7 % (11.6-14.8); White Blood Cell Count 6.6 X10^3/uL (4.5-11.0)
[2021-09-10 12:25] LABS: Alanine Aminotransferase 20 IU/L (<35); Albumin 4.3 g/dL (3.5-5.0); Albumin Globulin Ratio 1.3 (1.0-2.8); Alkaline Phosphatase 89 U/L (38-126); Aspartate Aminotransferase 36 IU/L (14-36); BUN Creatinine Ratio 11.6 (6-22); Bilirubin Total 0.4 mg/dL (0.2-1.3); Blood Urea Nitrogen 10 mg/dL (7-17); Calcium 9.5 mg/dL (8.4-10.2); Carbon Dioxide 28 mmol/L (22-32); Chloride 106 mmol/L (98-107); Estimated Glomerular Filt Rate > 60.0 mL/min (>60); Globulin 3.3 g/dL (1.7-4.1); Glucose 93 mg/dL (70-100); HEMOLYSIS < 15 (0-50); Potassium 3.3 mmol/L (3.4-5.1); Sodium 141 mmol/L (137-145); Total Protein 7.6 g/dL (6.3-8.2)
[2021-09-10 12:41] LABS: Free T3, Triiodothyronine Free 2.98 pg/mL (2.77-5.27); Free T4, Direct Thyroxine 1.13 ng/dL (0.78-2.19)
[2021-09-10 12:55] LABS: Thyroid Stimulating Hormone 1.47 uIU/mL (0.47-4.68)
== END ==
PROVIDERS: Family Provider Nurse Practitioner; PCP Nurse Practitioner; Referring Provider Nurse Practitioner; Visit Provider Nurse Practitioner
DX: M25.473 Effusion, unspecified ankle (principal); M25.572 Pain in left ankle and joints of left foot; M79.672 Pain in left foot; M79.89 Other specified soft tissue disorders; R53.83 Other fatigue
CPT/HCPCS: 36415; 73610; 73630; 80053; 84439; 84443; 84481; 85025

== ENCOUNTER → 2021-11-12 15:51 | Outpatient (CLI) | payer OTHER, MEDICAID, SELFPAY ==
[2021-04-16 09:10] VITALS: BMI 33.8
== END ==
PROVIDERS: Family Provider Nurse Practitioner; PCP Nurse Practitioner; Visit Provider Nurse Practitioner
DX: L02.91 Cutaneous abscess, unspecified (principal)
CPT/HCPCS: 87070; 87075; 87077; 87205

== ENCOUNTER → 2022-03-17 16:23 | Outpatient (CLI) | payer OTHER, MEDICAID, SELFPAY ==
[2021-04-16 09:10] VITALS: BMI 33.8
[2022-03-17 17:16] LABS: Add Manual Diff / Slide Review NO; Basophils Absolute Auto 100 /uL (0-100); Eosinophils Absolute Auto 500 /uL (0-450); Eosinophils Percent Auto 8.4 % (2-4); Hematocrit 32.8 % (36-46); Hemoglobin 10.8 g/dL (12.0-16.0); Lymphocytes Absolute Auto 2000 /uL (1100-4500); Lymphocytes Percent Auto 34.2 % (25-40); Mean Corpuscular HGB Conc 32.9 % (30-36); Mean Corpuscular Hemoglobin 23.9 PG (26-34); Mean Corpuscular Volume 72.6 fL (80-100); Monocytes Absolute Auto 500 /uL (0-900); Monocytes Percent Auto 8.6 % (3-14); Neutrophils Absolute Auto 2800 /uL (1500-7000); Neutrophils Percent Auto 47.8 % (50-75); Platelet Count 154 X10^3/uL (150-400); Red Blood Cell Count 4.52 X10^6/uL (4.0-5.2); Red Cell Distribution Width 17.9 % (11.6-14.8); White Blood Cell Count 5.8 X10^3/uL (4.5-11.0)
[2022-03-17 17:22] LABS: Alanine Aminotransferase 16 IU/L (<35); Albumin 4.1 g/dL (3.5-5.0); Albumin Globulin Ratio 1.3 (1.0-2.8); Alkaline Phosphatase 75 U/L (38-126); Aspartate Aminotransferase 27 IU/L (14-36); BUN Creatinine Ratio 15.4 (6-22); Bilirubin Total 0.4 mg/dL (0.2-1.3); Blood Urea Nitrogen 12 mg/dL (7-17); Calcium 8.7 mg/dL (8.4-10.2); Carbon Dioxide 26 mmol/L (22-32); Chloride 107 mmol/L (98-107); Estimated Glomerular Filt Rate > 60 mL/min (>60); Globulin 3.2 g/dL (1.7-4.1); Glucose 79 mg/dL (70-100); HEMOLYSIS < 15 (0-50); Potassium 4.1 mmol/L (3.4-5.1); Sodium 141 mmol/L (137-145); Total Protein 7.3 g/dL (6.3-8.2)
[2022-03-17 18:05] LABS: Appearance Urine UA CLEAR; Bilirubin Urine UA NEGATIVE (NEGATIVE); Color Urine UA YELLOW; Glucose Urine UA NEGATIVE (Negative); Ketones Urine UA NEGATIVE (NEGATIVE); Leukocyte Esterase Urine UA 2+ (NEGATIVE); Nitrite Urine UA NEGATIVE (Negative); Occult Blood Urine UA NEGATIVE (Negative); Protein Urine UA NEGATIVE (Negative); Specific Gravity Urine UA 1.025 (1.000-1.035); Urobilinogen Urine UA 0.2 E.U./dL (0.2)
[2022-03-17 18:44] LABS: RBC Urine 0-1/HPF (0-5/HPF); Squamous Epithelial Cell Urine 5-10 /HPF (0-5/HPF); WBC Urine 10-30/HPF (0-5/HPF)
[2022-03-17 18:45] LABS: Bacteria Urine Many (>30); Culture Indicated Urine Specimen Cultured
== END ==
PROVIDERS: Family Provider Nurse Practitioner; PCP Nurse Practitioner; Referring Provider Nurse Practitioner; Visit Provider Nurse Practitioner
DX: D64.9 Anemia, unspecified (principal); E87.6 Hypokalemia; R30.0 Dysuria
CPT/HCPCS: 36415; 80053; 81001; 85025; 87086

== ENCOUNTER 2022-04-10 18:50 | Emergency (ER) | payer OTHER, MEDICAID, SELFPAY ==
[2021-04-16 09:10] VITALS: BMI 33.8
[2022-04-10 18:53] VITALS: BP 127/74; PULSE 113; RESP 17; TEMP 36.5; O2SAT 100; BMI 34.8
--- NOTE | 2022-04-10 19:26 | ED_ITS ---
HPI - Ear Problem <AVELINO Nichols - Last Filed: 04/10/22 19:36> General Chief complaint: Ear Stated complaint: Fluid draining from ear Time Seen by Provider: 04/10/22 19:04 Source: patient Mode of arrival: Ambulatory History of Present Illness HPI Narrative: 46-year-old female, daily smoker, presents to the emergency department with bilateral ear pain and discharge x1 week. Patient denies being in any open bodies of water or any trauma to her ears. Patient does use Q-tips daily. Related Data Home Medications Medication Instructions Recorded Confirmed Kratom 6 tab PO BID 04/26/19 03/17/22 Previous Rx's Medication Instructions Recorded TRUE METRIX TEST STRIPS #100 ea 11/14/20 TENS Unit #1 ea 02/12/21 estradiol 2 mg (7.5 mcg/24 hour) See Rx Instructions .Route 04/24/21 vaginal ring (Estring) .COMPLEX ##1 propranolol 20 mg tablet 20 mg PO DAILY #60 tabs 05/08/21 pantoprazole 40 mg tablet,delayed 40 mg PO DAILY #30 tabs 06/14/21 release (Protonix) oxybutynin chloride 5 mg 5 mg PO DAILY #90 tabs 08/09/21 tablet,extended release 24 hr spironolactone 25 mg tablet 25 mg PO DAILY #30 tabs 09/11/21 glucagon HCl 1 mg solution for 1 mg SUBCUT Q20M PRN hypoglycemia 09/19/21 injection (Glucagon (HCl) #3 ea Emergency Kit) miscellaneous medical supply See Rx Instructions .Route 10/01/21 .COMPLEX #1 ea Disabled Parking Permit See Rx Instructions .Route 11/12/21 .COMPLEX #1 unit progesterone micronized 100 mg 100 mg PO QAM 30 days #30 caps 11/27/21 capsule (Prometrium) cyclobenzaprine 10 mg tablet See Rx Instructions .Route 12/17/21 .COMPLEX #30 tabs ketotifen fumarate 0.025 % (0.035 1 drp EYE-BOTH BID PRN Dry Eyes 12/17/21 %) eye drops #10 mL loratadine 10 mg tablet 10 mg PO DAILY #30 tabs 12/17/21 venlafaxine 150 mg 150 mg PO BEDTIME #30 caps 12/17/21 capsule,extended release 24 hr venlafaxine 75 mg capsule,extended See Rx Instructions .Route 12/17/21 release 24 hr .COMPLEX #30 caps pregabalin 150 mg capsule 150 mg PO TID #90 caps 12/24/21 estradiol 0.075 mg/24 hr 1 patch transdermal 2XW #8 ea 01/07/22 semiweekly transdermal patch buspirone 7.5 mg tablet 15 mg PO BEDTIME #180 tabs 01/27/22 nystatin 100,000 unit/gram topical 1 applic topical TID #30 grams 02/12/22 powder blood sugar diagnostic #100 ea 03/17/22 blood-glucose meter (Blood Glucose #1 ea 03/17/22 Monitoring kit) ferrous sulfate 250 mg (50 mg 250 mg PO DAILY #60 tabs 03/17/22 iron) tablet,extended release (Slow Release Iron) lancets #100 ea 03/17/22 nitrofurantoin macrocrystal 100 mg 100 mg PO Q12H #10 caps 03/17/22 capsule promethazine 25 mg tablet 25 mg PO TID PRN nausea #90 tabs 03/17/22 tramadol 50 mg tablet 100 mg PO TID 30 days #180 tabs 03/17/22 wheel chair #1 ea 03/17/22 amoxicillin 875 mg-potassium 1 tab PO BID Otitis media 7 days 04/10/22 clavulanate 125 mg tablet #14 tabs Allergies Allergy/AdvReac Type Severity Reaction Status Date / Time adhesive tape Allergy Rash Verified 04/10/22 18:58 duloxetine [From Cymbalta] AdvReac Severe Nausea Verified 04/10/22 18:58 Review of Systems <Ventura Mendoza REGISTERED RESPIRATORY THERAPIST - Last Filed: 04/10/22 19:36> Review of Systems Narrative: Narrative: GENERAL: Denies chills, fatigue, fever, sweats. See HPI HEENT: Denies sinus pain, difficulty swallowing, dizziness. Endorses bilateral ear pain and discharge. RESPIRATORY: Denies dyspnea, cough, wheezing, sputum. CARDIOVASCULAR: Denies chest pain, palpitations, edema. GASTROINTESTINAL: Denies nausea, vomiting, abdominal pain, diarrhea, constipation. : Denies dysuria, frequency, incontinence, hematuria, urinary retention, flank pain. MSK: Denies weakness, joint pain, or bony pain. SKIN: Denies rash, skin lesions, or pruritis. NEUROLOGIC: Denies weakness, dizziness, headache, numbness, confusion. PSYCHIATRIC: No concerning psychosocial issues. Patient History <AVELINO Nichols - Last Filed: 04/10/22 19:36> Medical History Acute hypokalemia (03/10/19) Anemia Ankle fracture, left Anxiety Anxiety Arthritis Biliary colic Bipolar disorder Bladder incontinence Bulging of intervertebral disc between L4 and L5 C. difficile colitis (03/10/19) Carpal tunnel syndrome on both sides Cervical somatic dysfunction Cholelithiasis Chronic bilateral thoracic back pain Chronic low back pain with left-sided sciatica Chronic neck pain Chronic pain Chronic pain Constipation Cranial somatic dysfunction Beni-Danlos syndrome Environmental allergies Female sexual dysfunction Fibromyalgia Foot fracture, left Gastroesophageal reflux disease GERD (gastroesophageal reflux disease) Hidradenitis suppurativa Hidradenitis suppurativa Hypoglycemia Hypoglycemia Insomnia Iron deficiency anemia Joint hyperextensibility of multiple sites Kidney stones Lumbar facet arthropathy Lumbar region somatic dysfunction Microcytic anemia Migraines Nausea NSAID overdose Obesity (BMI 30-39.9) Osteoarthritis Pain Pelvic somatic dysfunction Peripheral neuropathy Sacral region somatic dysfunction Tachycardia Urinary tract infection UTI (urinary tract infection) Vitamin D insufficiency Surgical History History of carpal tunnel surgery of left wrist (~2000) History of endometrial ablation History of gastric bypass (~2007) Hx laparoscopic cholecystectomy (05/07/19) Hx of tonsillectomy (~1999) [place] teeth extracted Family History Father Diabetes mellitus Hypertension Mother Cervical cancer Grandfather Colon cancer Social History household members: spouse and children Smoking Status: Current every day smoker alcohol intake: current Smoking Status: Current every day smoker tobacco type: cigarettes and vaping alcohol intake frequency: holidays/special occasions only Substance Use Type: marijuana and other Exam <AVELINO Nichols - Last Filed: 04/10/22 19:36> Narrative Exam Narrative: Exam Narrative: GENERAL: This is a well-nourished, well-developed patient, in no acute distress HEAD: Atraumatic. Normocephalic. ENT: Nose without bleeding, purulent drainage. Throat without erythema, tonsillar hypertrophy or exudate. Airway patent. Bilateral TMs intact with yellow effusion consistent with otitis media. Soft cerumen in both ear canals. No redness or swelling of canals. NECK: Trachea midline. No JVD or lymphadenopathy. Nontender. CARDIOVASCULAR: Regular rate and rhythm without murmurs, peripheral pulses intact, cap refill <2 sec. RESPIRATORY: Breath sounds equal and clear bilaterally. No wheezes, rales, or rhonchi. No cough. No increased respiratory effort. No accessory muscle use. GASTROINTESTINAL: Abdomen soft, non-tender, nondistended without guarding or rebound. No suprapubic pain. MSK: Moves all extremities. Normal range of motion, no clubbing or edema. Neurovascularly intact. NEURO: A&O x 3. SKIN: Warm, dry, no rashes or lesions noted. Initial Vital Signs Initial Vital Signs: Vital Signs Temperature 97.7 F 04/10/22 18:53 Pulse Rate 113 H 04/10/22 18:53 Respiratory Rate 17 04/10/22 18:53 Blood Pressure 127/74 04/10/22 18:53 Pulse Oximetry 100 04/10/22 18:53 Oxygen Delivery Method 04/10/22 18:53 Reviewed <Roseanne Mcgregor DO - Last Filed: 04/11/22 01:25> Initial Vital Signs Initial Vital Signs: Vital Signs Temperature 97.7 F 04/10/22 18:53 Pulse Rate 113 H 04/10/22 18:53 Respiratory Rate 17 04/10/22 18:53 Blood Pressure 127/74 04/10/22 18:53 Pulse Oximetry 100 04/10/22 18:53 Oxygen Delivery Method 04/10/22 18:53 Course <AVELINO Nichols - Last Filed: 04/10/22 19:36> Orders Ordered: Discontinued Medications Amoxicillin/Clavulanate Potassium (Amoxicillin/Clav 875/125 Mg) 1 tab PO NOW ONE Stop: 04/10/22 19:34 Last Admin: 04/10/22 19:38 Dose: 1 tab Documented By: FLAQUITO Vital Signs Vital signs: Vital Signs - 8 hr 04/10/22 18:53 04/10/22 19:44 Temperature 97.7 F Pulse Rate 113 H 99 H Respiratory Rate 17 18 Blood Pressure 127/74 135/61 Pulse Oximetry 100 99 Oxygen Delivery Method Room Air Room Air <Roseanne Mcgregor DO - Last Filed: 04/11/22 01:25> Orders Ordered: Discontinued Medications Amoxicillin/Clavulanate Potassium (Amoxicillin/Clav 875/125 Mg) 1 tab PO NOW ONE Stop: 04/10/22 19:34 Last Admin: 04/10/22 19:38 Dose: 1 tab Documented By: FLAQUITO Vital Signs Vital signs: Vital Signs - 8 hr 04/10/22 18:53 04/10/22 19:44 Temperature 97.7 F Pulse Rate 113 H 99 H Respiratory Rate 17 18 Blood Pressure 127/74 135/61 Pulse Oximetry 100 99 Oxygen Delivery Method Room Air Room Air Medical Decision Making <AVELINO Nichols - Last Filed: 04/10/22 19:36> Differential Diagnosis Differential Diagnosis: Otitis media MDM Narrative Medical decision making narrative: 46-year-old female that presents to the emergency department with bilateral ear pain. Assessment was consistent with bilateral otitis media. Will treat with antibiotics. First dose given in the emergency department. Discussed plan of care and return precautions with patient, who was agreeable with course of action. Discharge Plan Departure Patient Disposition: Home Clinical Impression: Otitis media Instructions: DI for Otitis Media (Middle Ear Infection)-Child Activity Restrictions/Additional Instructions: *You have been diagnosed with a bilateral ear infection. Will prescribe some antibiotics for you to take as directed until they are all gone. Please follow- up with your family doctor if symptoms persist or worsen. *What to do: *Please continue to take your regular medications as directed. [x ] New medication prescriptions sent to your pharmacy: [ [facility] in [place]] [ ] New medication written as a paper prescription [ ] No new medications given *Please follow up with your primary care provider in 2-3 days, call for an appointment. Let them know you were seen in the Emergency Department and that we ask that you be seen in follow up. We will electronically transmit a record of today's note if your PCP is in our system *If you do not have a primary care provider please contact the [facility] Resource line at [phone]. They will ask some questions about your medical history and help get you set up with a doctor in the community. ? Return to ER if you should have any new, worsening or concerning symptoms, such as worsening pain, severe headache, confusion, chest pain, difficulty breathing, fever greater than 101 F, shaking chills, persistent vomiting to the point that you cannot drink fluids, or other new or worsening symptoms. Prescriptions: New amoxicillin-pot clavulanate 875-125 mg tablet 1 tab PO BID 7 Days Qty: 14 0RF No Action (DME) TRUE METRIX TEST STRIPS Qty: 100 3RF Rx Instructions: USE TO TEST BLOOD GLUCOSE FOUR TIMES DAILY Estring 2 mg (7.5 mcg /24 hour) ring See Rx Instructions .ROUTE .COMPLEX Qty: 1 3RF Dose Instruction: INSERT 1 RING VAGINALLY EVERY 3 MONTHS Rx Instructions: INSERT 1 RING VAGINALLY EVERY 3 MONTHS propranolol 20 mg tablet 20 mg PO DAILY Qty: 60 1RF Rx Instructions: Take 1 tab daily for tremors and anxiety. May repeat x1 for these symptoms pantoprazole [Protonix] 40 mg tablet,delayed release (DR/EC) 40 mg PO DAILY Qty: 30 11RF spironolactone 25 mg tablet 25 mg PO DAILY Qty: 30 11RF Rx Instructions: Take 1 tab daily Glucagon (HCl) Emergency Kit 1 mg recon soln 1 mg SUBCUT Q20M PRN (Reason: hypoglycemia) Qty: 3 3RF Rx Instructions: until target blood sugar attained cyclobenzaprine 10 mg tablet See Rx Instructions .ROUTE .COMPLEX Qty: 30 3RF Dose Instruction: TAKE ONE TABLET BY MOUTH UP TO TWO TIMES DAILY NEEDED FOR PAIN Rx Instructions: TAKE ONE TABLET BY MOUTH UP TO TWO TIMES DAILY NEEDED FOR PAIN pregabalin 150 mg capsule 150 mg PO TID Qty: 90 5RF buspirone 7.5 mg tablet 15 mg PO BEDTIME Qty: 180 2RF Rx Instructions: Take 2 tabs (15mg) at bedtime daily for anxiety. nystatin 100,000 unit/gram powder 1 applic topical TID Qty: 30 3RF Rx Instructions: Apply to affected area 3x/day until resolved. nitrofurantoin macrocrystal 100 mg capsule 100 mg PO Q12H Qty: 10 0RF Rx Instructions: must administer with a meal/food every 12 hours by mouth x5 days miscellaneous medical supply Kit See Rx Instructions .ROUTE .COMPLEX Qty: 1 0RF Rx Instructions: Dispense one body braid made for postural support of Ehler Danlos Syndrome patients. progesterone micronized [Prometrium] 100 mg capsule 100 mg PO QAM 30 Days Qty: 30 11RF venlafaxine 150 mg capsule,extended release 24hr 150 mg PO BEDTIME Qty: 30 11RF Rx Instructions: Take 150mg at bedtime daily for depression, anxiety, pain, and insomnia venlafaxine 75 mg capsule,extended release 24hr See Rx Instructions .ROUTE .COMPLEX Qty: 30 11RF Dose Instruction: TAKE ONE CAPSULE BY MOUTH ONCE DAILY AT BEDTIME ALONG WITH 150MG CAPSULE FOR TOTAL DOSE OF 225MG Rx Instructions: TAKE ONE CAPSULE BY MOUTH ONCE DAILY AT BEDTIME ALONG WITH 150MG CAPSULE FOR TOTAL DOSE OF 225MG loratadine 10 mg tablet 10 mg PO DAILY Qty: 30 3RF ketotifen fumarate 0.025 % (0.035 %) drops 1 drp EYE-BOTH BID PRN (Reason: Dry Eyes) Qty: 10 11RF tramadol 50 mg tablet 100 mg PO TID 30 Days Qty: 180 1RF Rx Instructions: Take 1-2 tabs up to 3x/day as needed for pain (DME) wheel chair See Rx Instructions .Route .MEDSUPPLY Qty: 1 0RF Rx Instructions: As directed for mobility, Dispense low profile or standard wheelchair (patient preference) promethazine 25 mg tablet 25 mg PO TID PRN (Reason: nausea) Qty: 90 5RF Rx Instructions: Take 1 tab up to 3x/day as needed for nausea (DME) lancets Misc See Rx Instructions .ROUTE .MEDSUPPLY Qty: 100 3RF Rx Instructions: Use to check blood glucose once daily, BRAND PER INSURANCE ([facility] blood sugar diagnostic Strip See Rx Instructions .Route Qty: 100 3RF Rx Instructions: Use to check blood glucose daily, BRAND PER INSURANCE ([facility] blood-glucose meter [Blood Glucose Monitoring] Kit See Rx Instructions .Route Qty: 1 0RF Rx Instructions: Use to check blood glucose once daily Slow Release Iron 250 mg (50 mg iron) tablet extended release 250 mg PO DAILY Qty: 60 6RF Rx Instructions: Take 1 tab twice daily daily for iron deficiency anemia (DME) TENS Unit See Rx Instructions .Route .MEDSUPPLY Qty: 1 0RF Rx Instructions: Apply to lower back for pain management purposes as needed oxybutynin chloride 5 mg tablet extended release 24hr 5 mg PO DAILY Qty: 90 3RF Disabled Parking Permit See Rx Instructions .ROUTE .COMPLEX Qty: 1 0RF Rx Instructions: I find this patient to be medically disabled and qualify for disabled parking as indicated and signed on the accompanying disabled parking application for individuals. estradiol 0.075 mg/24 hr patch semiweekly 1 patch transdermal 2XW Qty: 8 11RF Rx Instructions: apply 1 patch for 3 days alternating with 1 patch for 4 days each week for 3 wks per 4-wk cycle Kratom 6 tab PO BID Label Comments: 500 mg tablets Referrals: Purnima Gao ARNP [Primary Care Provider] - Visit Report Forms: Patient Portal/API <Roseanne Mcgregor DO - Last Filed: 04/11/22 01:25> Cosign ED Attending Cosignature Attestation: I was immediately available in the department for consultation. Documentation has been reviewed.
[2022-04-10] MEDS: AMOXICILLIN/CLAV 875/125 MG 1 TAB PO (19:38)
[2022-04-10 19:44] VITALS: BP 135/61; PULSE 99; RESP 18; O2SAT 99
== END 2022-04-10 19:46 | disposition home or self-care (01) ==
PROVIDERS: Emergency Provider Registered Nurse; Family Provider Nurse Practitioner; PCP Nurse Practitioner
DX: H66.93 Otitis media, unspecified, bilateral (principal)
CPT/HCPCS: 99283

== ENCOUNTER → 2022-06-30 09:58 | Outpatient (CLI) | payer OTHER, MEDICAID, SELFPAY ==
[2021-04-16 09:10] VITALS: BMI 33.8
--- NOTE | 2022-06-30 10:01 | DI.RAD.S_ITS ---
PROCEDURE: XR CHEST 2V INDICATIONS: productive cough, smoker TECHNIQUE: 2 views of the chest were acquired. COMPARISON: None. FINDINGS: Surgical changes and devices: None. Lungs and pleura: Lungs are clear. No pleural effusions or pneumothorax. Mediastinum: Mediastinal contours are normal. Heart size is normal. Bones and chest wall: No suspicious bony abnormalities. Soft tissues appear unremarkable. IMPRESSION: No evidence for active disease in the chest. Dictated by: Ventura Sotelo M.D. on 06/30/2022 at 10:34 Approved by: Ventura Sotelo M.D. on 06/30/2022 at 10:34
[2022-06-30 11:39] LABS: Cholesterol 163 mg/dL (140-199); HDL Cholesterol 55 mg/dL (40-60); LDL Cholesterol Calculated 97 mg/dL (<100); Triglycerides 56 mg/dL (35-150)
== END ==
PROVIDERS: Family Provider Nurse Practitioner; PCP Nurse Practitioner; Referring Provider Nurse Practitioner; Visit Provider Nurse Practitioner
DX: Z00.00 Encounter for general adult medical examination without abnormal findings (principal); R05.9 Cough, unspecified
CPT/HCPCS: 36415; 71046; 80061

== ENCOUNTER → 2022-08-26 11:15 | Outpatient (CLI) | payer OTHER, MEDICAID, SELFPAY ==
[2021-04-16 09:10] VITALS: BMI 33.8
[2022-08-26 13:31] LABS: Add Manual Diff / Slide Review NO; Basophils Absolute Auto 0 /uL (0-100); Basophils Percent Auto 0.7 % (0-2); Eosinophils Absolute Auto 200 /uL (0-450); Eosinophils Percent Auto 2.5 % (2-4); Hematocrit 32.7 % (36-46); Hemoglobin 10.4 g/dL (12.0-16.0); Lymphocytes Absolute Auto 2200 /uL (1100-4500); Lymphocytes Percent Auto 34.9 % (25-40); Mean Corpuscular HGB Conc 31.8 % (30-36); Mean Corpuscular Hemoglobin 22.5 PG (26-34); Mean Corpuscular Volume 70.7 fL (80-100); Monocytes Absolute Auto 500 /uL (0-900); Monocytes Percent Auto 7.6 % (3-14); Neutrophils Absolute Auto 3500 /uL (1500-7000); Neutrophils Percent Auto 54.3 % (50-75); Platelet Count 190 X10^3/uL (150-400); Red Blood Cell Count 4.63 X10^6/uL (4.0-5.2); Red Cell Distribution Width 18.6 % (11.6-14.8); White Blood Cell Count 6.4 X10^3/uL (4.5-11.0)
[2022-08-26 13:38] LABS: Hemoglobin A1C% w Est Avg Glu 5.1 % (4.0-6.0)
[2022-08-26 13:52] LABS: Appearance Urine UA CLEAR; Bilirubin Urine UA NEGATIVE (NEGATIVE); Color Urine UA YELLOW; Glucose Urine UA NEGATIVE (Negative); Ketones Urine UA NEGATIVE (NEGATIVE); Leukocyte Esterase Urine UA 2+ (NEGATIVE); Nitrite Urine UA NEGATIVE (Negative); Occult Blood Urine UA NEGATIVE (Negative); Protein Urine UA NEGATIVE (Negative); Specific Gravity Urine UA <=1.005 (1.000-1.035); Urobilinogen Urine UA 0.2 E.U./dL (0.2)
[2022-08-26 14:01] LABS: Alanine Aminotransferase 17 IU/L (<35); Albumin Globulin Ratio 1.3 (1.0-2.8); Alkaline Phosphatase 82 U/L (38-126); Aspartate Aminotransferase 21 IU/L (14-36); BUN Creatinine Ratio 13.4 (6-22); Bilirubin Total 0.6 mg/dL (0.2-1.3); Blood Urea Nitrogen 11 mg/dL (7-17); Calcium 8.7 mg/dL (8.4-10.2); Carbon Dioxide 25 mmol/L (22-32); Chloride 101 mmol/L (98-107); Estimated Glomerular Filt Rate > 60 mL/min (>60); Globulin 3.2 g/dL (1.7-4.1); Glucose 76 mg/dL (70-100); HEMOLYSIS < 15 (0-50); Potassium 3.8 mmol/L (3.4-5.1); Sodium 138 mmol/L (137-145); Total Protein 7.2 g/dL (6.3-8.2)
[2022-08-26 14:06] LABS: Bacteria Urine Few (2-10); Culture Indicated Urine Specimen Cultured; RBC Urine None Seen (0-5/HPF); Squamous Epithelial Cell Urine 0-1 /HPF (0-5/HPF); WBC Urine 1-5/HPF (0-5/HPF)
[2022-08-26 14:25] LABS: Free T3, Triiodothyronine Free 3.39 pg/mL (2.77-5.27); Free T4, Direct Thyroxine 1.06 ng/dL (0.78-2.19)
[2022-08-26 14:38] LABS: Thyroid Stimulating Hormone 3.56 uIU/mL (0.47-4.68)
== END ==
PROVIDERS: Family Provider Nurse Practitioner; PCP Nurse Practitioner; Referring Provider Nurse Practitioner; Visit Provider Nurse Practitioner
DX: Z00.00 Encounter for general adult medical examination without abnormal findings (principal); R30.0 Dysuria
CPT/HCPCS: 36415; 80053; 81001; 83036; 84439; 84443; 84481; 85025; 87086

== ENCOUNTER → 2022-09-18 12:19 | Outpatient (CLI) | payer OTHER, MEDICAID, SELFPAY ==
[2021-04-16 09:10] VITALS: BMI 33.8
[2022-09-18 13:18] LABS: Hematocrit 33.6 % (36-46); Hemoglobin 10.6 g/dL (12.0-16.0); Mean Corpuscular HGB Conc 31.6 % (30-36); Mean Corpuscular Hemoglobin 22.1 PG (26-34); Mean Corpuscular Volume 70.1 fL (80-100); Platelet Count 203 X10^3/uL (150-400); Red Blood Cell Count 4.79 X10^6/uL (4.0-5.2); Red Cell Distribution Width 18.6 % (11.6-14.8); White Blood Cell Count 7.1 X10^3/uL (4.5-11.0)
[2022-09-18 13:28] LABS: HEMOLYSIS < 15 (0-50); Iron 24 ug/dL (37-170)
[2022-09-18 13:29] LABS: BUN Creatinine Ratio 10.7 (6-22); Blood Urea Nitrogen 8 mg/dL (7-17); Calcium 8.9 mg/dL (8.4-10.2); Carbon Dioxide 25 mmol/L (22-32); Chloride 105 mmol/L (98-107); Estimated Glomerular Filt Rate > 60 mL/min (>60); Glucose 88 mg/dL (70-100); HEMOLYSIS < 15 (0-50); Potassium 4.3 mmol/L (3.4-5.1); Sodium 140 mmol/L (137-145)
[2022-09-18 13:39] LABS: Percent Iron Saturation 4 % (15-50); Total Iron Binding Capacity 553 ug/dL (265-497); Transferrin 380 mg/dL (206-381)
[2022-09-18 14:03] LABS: Ferritin 3 ng/mL (6-137)
[2022-09-18 14:07] LABS: Hypochromasia 2+; Microcytosis 2+
[2022-09-18 14:08] LABS: Anisocytosis 2+; Ovalocytes 2+
[2022-09-18 14:34] LABS: Folate 5.2 ng/mL (2.76-20.0); Vitamin B12 288 pg/mL (239-931)
[2022-09-20 13:59] LABS: Neutrophils Absolute Manual 3763 /uL (3000-5900); Total Cells Counted 100
== END ==
PROVIDERS: Family Provider Nurse Practitioner; PCP Nurse Practitioner; Referring Provider Nurse Practitioner; Visit Provider Nurse Practitioner
DX: D50.9 Iron deficiency anemia, unspecified (principal); R30.0 Dysuria; R35.0 Frequency of micturition
CPT/HCPCS: 36415; 80048; 81002; 82607; 82728; 82746; 83540; 83550; 85025; 87086

== ENCOUNTER → 2022-10-06 08:04 | Outpatient (CLI) | payer OTHER, MEDICAID, SELFPAY ==
[2021-04-16 09:10] VITALS: BMI 33.8
--- NOTE | 2022-10-06 08:05 | DI.ECHO.S_ITS ---
[facility]---------+ [facility] +---------+ : : [address] : [address] : : : : [id number] : : : : Phone: [phone]+ Echocardiogram Report + + :Name: PORTER ANGEL Study Date: 10/06/2022 Height: 64 in : :[facility] ReadingLocation: Weight: 210 lb : : Gender: Female BSA: 2.0 m2 : :: 1975 Age: 47 yrs BP: 118/74 mmHg: :Reason For Study: Syncope and collapse : :Ordering Physician: LISETH, : :ZACKARY Performed By: Melissa Jennings : :Referring: ZACKARY CHILDERS : + + Interpretation Summary Normal both left and right ventricle size and function. The ejection fraction is estimated to be 60-65%. No significant valvular abnormality. Procedure: A two-dimensional transthoracic echocardiogram with color flow and Doppler was performed. The study quality was technically good. There has been no significant change since the previous study. The patient was in sinus rhythm with heart rates between 72-85 bpm during the exam. Left Ventricle: The left ventricle is normal in size and wall thickness. The ejection fraction is estimated to be 60-65%. There are no focal wall motion abnormalities. Diastolic parameters suggest probable normal left ventricular diastolic function and normal filling pressures. Right Ventricle: The right ventricle is normal in size and function. Atria: The left atrial size is normal. Right atrial size is normal. There is no Doppler evidence for an interatrial shunt. Mitral Valve: The mitral valve is normal in structure and function. The mitral valve leaflets appear borderline thickened, but open well. There is no mitral regurgitation noted. Aortic Valve: The aortic valve is normal in structure and function. No aortic regurgitation is present. Tricuspid Valve: The tricuspid valve is normal in structure and function. Pulmonary artery pressures cannot be estimated because of the lack of a measurable TR jet velocity but the IVC suggests a CVP of around 3 mmHg. Pulmonic Valve: The pulmonic valve leaflets are thin and pliable; valve motion is normal. There is a trace or physiologic amount of pulmonic regurgitation. Great Vessels: The ascending aorta is normal in size. The IVC is of normal diameter and collapses greater than 50% with a sniff. This suggests a low right atrial pressure of 3 mm Hg. Pericardium/ Pleura There is no pericardial effusion. There is no pleural effusion. MMode/2D Measurements & Calculations LVIDd: 4.7 cm LVOT diam: 2.2 cm LVIDs: 3.2 cm Ao root diam: 3.3 cm FS: 31.9 % asc Aorta Diam: 3.0 cm EPSS: 0.50 cm IVSd: 0.90 cm LVPWd: 0.80 cm LV baker. diameter/BSA (cm/m^2): 2.4 LV sys. diameter/BSA (cm/m^2): 1.6 LA dimension: 3.2 cm RA long axis: 3.9 cm LA A2 area: 17.0 cm2 RA area: 11.0 cm2 LA A4 area: 14.6 cm2 RA vol: 26.4 ml LA length (vol): 4.7 cm RA : 13.2 ml/m2 LA vol: 45.1 ml IVC diam: 1.5 cm LA vol index: 22.6 ml/m2 RVD1 (basal): 3.5 cm LVLs ap4: 6.2 cm LVLd ap2: 7.6 cm TAPSE_phl: 2.4 cm LVLs ap2: 5.2 cm Doppler Measurements & Calculations Ao V2 max: 111.0 cm/sec LVOT Max Wallace: 99.9 cm/sec Ao V2 mean: 88.0 cm/sec LV V1 max P.0 mmHg Ao max P.0 mmHg LV V1 VTI: 22.3 cm Ao mean P.0 mmHg JAKUB(I,D): 3.4 cm2 Ao V2 VTI: 24.6 cm JAKUB(V,D): 3.4 cm2 sev ratio: 0.91 JAKUB indexed to BSA (cm^2/m^2): 1.7 MV E max wallace: 61.4 cm/sec PA V2 max: 87.3 cm/sec MV A max wallace: 53.5 cm/sec PA V2 mean: 61.5 cm/sec MV E/A: 1.1 PA mean P.0 mmHg Med Peak E' Wallace: 8.6 cm/sec E/E' med: 7.1 Lat Peak E' Wallace: 14.9 cm/sec E/E' lat: 4.1 E/e' average: 5.6 MV dec time: 0.24 sec MVA(VTI): 4.1 cm2 MV V2 mean: 49.9 cm/sec SV(LVOT): 84.8 ml MV mean P.0 mmHg MV V2 VTI: 20.7 cm AV VR_phl: 0.90 MV P1/2t-pr_phl: 71.0 msec JAKUB(VTI)/BSA_phl: 1.7 Electronically signed by: Sonja Lehman on Reading Physician:10/06/2022 10:23 AM
== END ==
PROVIDERS: Family Provider Nurse Practitioner; PCP Nurse Practitioner; Referring Provider Nurse Practitioner; Visit Provider Nurse Practitioner
DX: R55 Syncope and collapse (principal)
CPT/HCPCS: 93306

== ENCOUNTER → 2022-10-30 08:03 | Outpatient (CLI) | payer OTHER, MEDICAID, SELFPAY ==
[2021-04-16 09:10] VITALS: BMI 33.8
== END ==
PROVIDERS: Family Provider Nurse Practitioner; PCP Nurse Practitioner; Referring Provider Physician Assistant Surgical; Visit Provider Physician Assistant Surgical
DX: R20.2 Paresthesia of skin (principal); M54.2 Cervicalgia; M43.02 Spondylolysis, cervical region; M54.6 Pain in thoracic spine
CPT/HCPCS: 95885; 95886; 95913

== ENCOUNTER → 2022-11-16 10:40 | Outpatient (CLI) | payer OTHER, MEDICAID, SELFPAY ==
[2021-04-16 09:10] VITALS: BMI 33.8
--- NOTE | 2022-11-16 10:42 | DI.MRI.S_ITS ---
PROCEDURE: MR THORACIC SPINE WO CON INDICATIONS: CERVICAL AND THORACIC SPONDYLOSIS TECHNIQUE: Noncontrast sagittal T1 spine echo and T2 fast spin echo, sagittal STIR, and T2 fast spin echo through the thoracic spine. COMPARISON: Merged With [facility], MR, MR CERVICAL SPINE WO CON, 11/16/2022, 11:00. Merged With [facility], MR, MR LUMBAR SPINE WO CON, 09/03/2021, 9:27. FINDINGS: Image quality: Excellent. Alignment and Curvature: There is normal bony alignment. Bone Marrow: Marrow is of normal overall signal. No acute vertebral body compression fractures. Mild old T12 compression. Spinal Cord: Visualized spinal cord is normal in size and signal. Paraspinous Soft Tissues: No paravertebral masses. Miscellaneous: On axial images, central canal and foramina appear widely patent at all scanned levels. There is a disc bulge without canal stenosis at T11-T12. IMPRESSION: 1. No canal stenosis or foraminal stenosis. 2. Normal thoracic cord caliber and signal characteristics. 3. Old mild T12 compression. Dictated by: Dionisio Baez M.D. on 11/17/2022 at 9:16 Approved by: Dionisio Baez M.D. on 11/17/2022 at 9:20
--- NOTE | 2022-11-16 10:42 | DI.MRI.S_ITS ---
PROCEDURE: MR CERVICAL SPINE WO CON INDICATIONS: CERVICAL AND THORACIC SPONDYLOSIS TECHNIQUE: Noncontrast sagittal T1 spin echo and T2 fast spin echo, sagittal STIR, foraminal oblique sagittal T2 fast spin echo, and axial gradient echo or T2 fast spin echo through the cervical spine. COMPARISON: [facility], CR, XR CERVICAL SPINE WITH FLEXION EXTENSION, 10/13/2022, 10:32. FINDINGS: Image quality: Excellent. Alignment and Curvature: There is normal bony alignment. Mild reversal of the normal lordotic curve of the cervical spine. Bone Marrow: Marrow demonstrates normal overall signal. Spinal Cord: Visualized spinal cord has normal size and signal. No cerebellar tonsillar herniation. Paraspinous Soft Tissues: No paravertebral masses. Prevertebral soft tissues are normal in thickness. C2-C3: No canal stenosis or foraminal stenosis. C3-C4: Disc bulge. Left paracentral annulus tear plus mild disc protrusion, possibly irritating the anterior horn of the left C4 nerve root in the left lateral recess. No central canal stenosis. Mild bilateral uncovertebral joint hypertrophy. [id number] bilateral foraminal narrowing with mild flattening deformity on the exiting bilateral C4 nerve roots. C4-C5: Disc bulge. No canal stenosis. Right uncovertebral joint hypertrophy. Moderate right foraminal narrowing with flattening deformity on the exiting right C5 nerve root. C5-C6: Mild left paracentral disc osteophyte complex. Mild narrowing of the left side of the canal. [id number] bilateral foraminal narrowing. C6-C7: Posterior broad-based disc/osteophyte complex. AP diameter of the canal is 9.8 mm. [id number] bilateral foraminal narrowing. C7-T1: No canal stenosis or foraminal stenosis. IMPRESSION: 1. Mild spondylitic change as described above. 2. At L3-L4, there is mild narrowing of the left side of the canal. At C6-C7, there is borderline canal stenosis. 3. Multilevel foraminal narrowing as described above. Dictated by: Dionisio Baez M.D. on 11/17/2022 at 9:20 Approved by: Dionisio Baez M.D. on 11/17/2022 at 9:28
== END ==
PROVIDERS: Family Provider Nurse Practitioner; PCP Nurse Practitioner; Referring Provider Physician Assistant Surgical; Visit Provider Physician Assistant Surgical
DX: M47.812 Spondylosis without myelopathy or radiculopathy, cervical region (principal); R20.2 Paresthesia of skin; M79.601 Pain in right arm; M79.602 Pain in left arm; M48.02 Spinal stenosis, cervical region
CPT/HCPCS: 72141; 72146

== ENCOUNTER 2022-12-31 11:47 | Emergency (ER) | payer OTHER, MEDICAID, SELFPAY ==
[2022-12-15 10:48] VITALS: BMI 33.8
[2022-12-31 11:54] VITALS: BP 117/60; PULSE 104; RESP 20; TEMP 36.7; O2SAT 99; BMI 34.3
--- NOTE | 2022-12-31 12:01 | DI.RAD.S_ITS ---
PROCEDURE: XR HIP W PEL IF DONE RT 2V INDICATIONS: Possible R hip dislocation TECHNIQUE: AP pelvis with lateral view(s) of the right hip(s). COMPARISON: [facility], CT, CT KIDNEY URETER BLADDER (KUB), 05/08/2020, 11:27. FINDINGS: Bones: No fractures or dislocations. Pelvic ring appears intact. No suspicious bony lesions. Soft tissues: The visualized bowel gas pattern is normal. No suspicious soft tissue calcifications. IMPRESSION: No acute osseous abnormality. Dictated by: Darek Monteiro M.D. on 12/31/2022 at 12:37 Approved by: Darek Monteiro M.D. on 12/31/2022 at 12:39
--- NOTE | 2022-12-31 12:50 | ED_ITS ---
HPI - Extremity Injury (Lower) <Uvaldo Rider PA-C - Last Filed: 12/31/22 14:59> General Chief Complaint: Extremity Injury, Lower Stated Complaint: think hip might be out of joint Time Seen by Provider: 12/31/22 12:35 Source: patient and family Mode of arrival: Wheelchair History of Present Illness HPI Narrative: This is a 47-year-old female presents to the emergency department due to concerns for right hip dislocation. 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 She states that she woke up with right hip pain. Also has a history of fibromyalgia patient states that it hurts at her hip when she tries to move but still has full sensation of her distal lower extremity and can still move when asked. Denies any urinary or bowel incontinence, saddle paresthesia, or any new or concerning symptoms. Related Data Home Medications Medication Instructions Recorded Confirmed Cannabis See Rx Instructions .Route .COMPLEX 07/31/22 12/11/22 Previous Rx's Medication Instructions Recorded TRUE METRIX TEST STRIPS #100 ea 11/14/20 TENS Unit #1 ea 02/12/21 glucagon HCl 1 mg solution for 1 mg SUBCUT Q20M PRN hypoglycemia 09/19/21 injection (Glucagon (HCl) #3 ea Emergency Kit) miscellaneous medical supply See Rx Instructions .Route 10/01/21 .COMPLEX #1 ea ketotifen fumarate 0.025 % (0.035 1 drp EYE-BOTH BID PRN Dry Eyes 12/17/21 %) eye drops #10 mL blood sugar diagnostic #100 ea 03/17/22 blood-glucose meter (Blood Glucose #1 ea 03/17/22 Monitoring kit) promethazine 25 mg tablet 25 mg PO TID PRN nausea #90 tabs 03/17/22 wheel chair #1 ea 03/17/22 estradiol 0.5 mg tablet 0.5 mg PO DAILY #30 tabs 06/25/22 pregabalin 150 mg capsule 150 mg PO TID #90 caps 07/02/22 Disabled Parking Permit See Rx Instructions .Route 07/31/22 .COMPLEX #1 unit Left and Right Knee Braces #2 ea 08/28/22 spironolactone 25 mg tablet 50 mg PO DAILY #60 tabs 08/28/22 Soft collar for neck #1 ea 10/01/22 pantoprazole 40 mg tablet,delayed 40 mg PO BID #60 tabs 10/07/22 release (Protonix) alprazolam 0.25 mg tablet 0.25 mg PO TID PRN Grief anxiety, 10/15/22 sleeplessness 30 days #90 tabs loratadine 10 mg tablet 10 mg PO DAILY #90 tabs 11/17/22 naloxone 0.4 mg/mL injection 0.4 mg IM Q2M PRN opioid reversal 11/24/22 syringe #2 mL venlafaxine 150 mg 150 mg PO BEDTIME #30 caps 11/24/22 capsule,extended release 24 hr Incontinence pads #90 ea 12/11/22 buprenorphine 2 mg-naloxone 0.5 mg 1 film buccal DAILY #30 ea 12/11/22 sublingual film (Suboxone) buprenorphine 4 mg-naloxone 1 mg 1 film buccal Q24H #30 ea 12/11/22 sublingual film menthol 0.44 %-zinc oxide 20.6 % 1 applic topical Q1H PRN skin 12/11/22 topical paste irritation #113 grams progesterone micronized 100 mg See Rx Instructions .Route 12/19/22 capsule .COMPLEX #30 caps Allergies Allergy/AdvReac Type Severity Reaction Status Date / Time Latex, Natural Rubber Allergy Intermediate Hives Verified 12/31/22 12:01 adhesive tape Allergy Rash Verified 12/31/22 12:01 duloxetine [From Cymbalta] AdvReac Severe Nausea Verified 12/31/22 12:01 Review of Systems <Uvaldo Rider PA-C - Last Filed: 12/31/22 14:59> Review of Systems Narrative: GENERAL: Denies chills, fatigue, malaise, fever, sweats. HEENT: Denies sinus pain, ear pain, sore throat, difficulty swallowing, dizziness. RESPIRATORY: Denies dyspnea, cough, wheezing, hemoptysis, sputum. CARDIOVASCULAR: Denies chest pain, palpitations, orthopnea, edema, GASTROINTESTINAL: Denies nausea, vomiting, abdominal pain, diarrhea, constipation, melena. : Denies dysuria, frequency, incontinence, hematuria, urinary retention. MUSCULOSKELETAL: Right hip pain, otherwise denies weakness, joint pain, or bony pain SKIN: Denies rash, skin lesions, or other NEUROLOGIC: Denies weakness, headache, numbness, change in speech, confusion, seizures, incoordination. PSYCHIATRIC: No concerning psychosocial issues. 12 point review of systems is negative except for those stated above Patient History <Uvaldo Rider PA-C - Last Filed: 12/31/22 14:59> Medical History (Updated 12/31/22 @ 13:07 by Uvaldo Rider PA-C) Acute hypokalemia (03/10/19) Anemia Ankle fracture, left Anxiety Anxiety Arthritis Biliary colic Bipolar disorder Bladder incontinence Bulging of intervertebral disc between L4 and L5 C. difficile colitis (03/10/19) Carpal tunnel syndrome on both sides Cervical somatic dysfunction Cholelithiasis Chronic bilateral thoracic back pain Chronic low back pain with left-sided sciatica Chronic neck pain Chronic pain Chronic pain Constipation Cranial somatic dysfunction Beni-Danlos syndrome Environmental allergies Female sexual dysfunction Fibromyalgia Foot fracture, left Gastroesophageal reflux disease GERD (gastroesophageal reflux disease) Hidradenitis suppurativa Hidradenitis suppurativa Hypoglycemia Hypoglycemia Insomnia Iron deficiency anemia Joint hyperextensibility of multiple sites Kidney stones Lumbar facet arthropathy Lumbar region somatic dysfunction Microcytic anemia Migraines Nausea NSAID overdose Obesity (BMI 30-39.9) Osteoarthritis Pain Pelvic somatic dysfunction Peripheral neuropathy Postmenopausal HRT (hormone replacement therapy) Sacral region somatic dysfunction Subluxation of joint of lower extremity Subluxation of joint of upper extremity Tachycardia Tobacco use disorder Urinary tract infection UTI (urinary tract infection) Vitamin D insufficiency Surgical History History of carpal tunnel surgery of left wrist (~2000) History of endometrial ablation History of gastric bypass (~2007) Hx laparoscopic cholecystectomy (05/07/19) Hx of tonsillectomy (~1999) [place] teeth extracted Family History Father Diabetes mellitus Hypertension Mother Cervical cancer Grandfather Colon cancer Social History household members: spouse and children Smoking Status: Current every day smoker alcohol intake: current Smoking Status: Current every day smoker tobacco type: cigarettes and vaping alcohol intake frequency: holidays/special occasions only Substance Use Type: marijuana and other Exam <Uvaldo Rider PA-C - Last Filed: 12/31/22 14:59> Narrative Exam Narrative: GENERAL: Well-developed patient, in mild distress. HEAD: Atraumatic. Normocephalic. EYES: Pupils equal round and reactive. Extraocular motions intact. No scleral icterus. No injection or drainage. ENT: Nose without bleeding, purulent drainage. Throat without erythema, tonsillar hypertrophy or exudate. Airway patent. NECK: Trachea midline. Non tender CARDIOVASCULAR: Regular rate and rhythm without murmurs, gallops, or rubs. RESPIRATORY: Clear to auscultation. Breath sounds equal bilaterally. No wheezes, rales, or rhonchi. GASTROINTESTINAL: Abdomen soft, non-tender, nondistended. EXTREMITIES: Tenderness to palpation to the right lateral hip, neurovascularly intact distally, 2+ dorsalis pedis pulses bilaterally. Otherwise No edema or joint tenderness. BACK: Nontender without deformity or crepitance. No flank tenderness. NEURO: AOx3. SKIN: No rash or erythema of visible areas Initial Vital Signs Initial Vital Signs: Vital Signs Temperature 98.1 F 12/31/22 11:54 Pulse Rate 104 H 12/31/22 11:54 Respiratory Rate 20 12/31/22 11:54 Blood Pressure 117/60 12/31/22 11:54 Pulse Oximetry 99 12/31/22 11:54 Oxygen Delivery Method Room Air 12/31/22 11:54 <Yoshi Corrales MD - Last Filed: 01/08/23 03:19> Initial Vital Signs Initial Vital Signs: Vital Signs Temperature 98.1 F 12/31/22 11:54 Pulse Rate 104 H 12/31/22 11:54 Respiratory Rate 20 12/31/22 11:54 Blood Pressure 117/60 12/31/22 11:54 Pulse Oximetry 99 12/31/22 11:54 Oxygen Delivery Method Room Air 12/31/22 11:54 Course <Uvaldo Rider PA-C - Last Filed: 12/31/22 14:59> Orders Ordered: Discontinued Medications Ketorolac Tromethamine (Ketorolac 30 Mg/Ml Vial) 15 mg IM NOW ONE Stop: 12/31/22 13:08 Last Admin: 12/31/22 13:22 Dose: 15 mg Documented By: LOGAN Vital Signs Vital signs: Vital Signs - 8 hr 12/31/22 11:54 Temperature 98.1 F Pulse Rate 104 H Respiratory Rate 20 Blood Pressure 117/60 Pulse Oximetry 99 Oxygen Delivery Method Room Air <Yoshi Corrales MD - Last Filed: 01/08/23 03:19> Orders Ordered: Discontinued Medications Ketorolac Tromethamine (Ketorolac 30 Mg/Ml Vial) 15 mg IM NOW ONE Stop: 12/31/22 13:08 Last Admin: 12/31/22 13:22 Dose: 15 mg Documented By: LOGAN Vital Signs Vital signs: Vital Signs - 8 hr 12/31/22 11:54 Temperature 98.1 F Pulse Rate 104 H Respiratory Rate 20 Blood Pressure 117/60 Pulse Oximetry 99 Oxygen Delivery Method Room Air MDM - Extremity Injury (Lower) <Uvaldo Rider PA-C - Last Filed: 12/31/22 14:59> Imaging Data Extremity x-ray #1: Radiologist's Impression: [address] [id number] ReportSigned Patient: Phylicia De Luna RMR#: [id number]: Acct:[id number]/Sex: 47 / FDate of Service: 12/31/22Loc: EDAccession Number: [id number] Procedure: XR hip w pel if done RT 2V Ordering Provider: Yoshi Corrales MD PROCEDURE: XR HIP W PEL IF DONE RT 2V INDICATIONS: Possible R hip dislocation TECHNIQUE: AP pelvis with lateral view(s) of the right hip(s). COMPARISON: [facility], CT, CT KIDNEY URETER BLADDER (KUB), 05/08/2020, 11:27. FINDINGS: Bones: No fractures or dislocations. Pelvic ring appears intact. No suspicious bony lesions. Soft tissues: The visualized bowel gas pattern is normal. No suspicious soft tissue calcifications. IMPRESSION: No acute osseous abnormality. Dictated by: Darek Monteiro M.D. on 12/31/2022 at 12:37 Approved by: Darek Monteiro M.D. on 12/31/2022 at 12:39 MDM Narrative Medical decision making narrative: MDM * differential diagnosis includes but not limited to fibromyalgia, dislocated hip, fracture, sciatica * Prior records reviewed: Patient was seen here 2 years ago for left knee pain. 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 Has had a ?popping and grinding? in her knees for years. History of chronic pain and takes Lyrica, cyclobenzaprine, and tramadol daily. Knee x-ray was taken which was negative. * My lab interpretation: None * My imgaing interpretation: X-ray shows no evidence of dislocation or fracture. * Clinical Decision Rules/Scores evaluated: None * Independent discussions with: None ED Course: This is a 47-year-old female with a history of fibromyalgia presents emergency department due to right hip pain. Patient has concerns with dislocated hip although she is able to move it when asked. X-ray shows no evidence of dislocation or fracture. Suspect element of fibromyalgia may be coming into play. She already has an orthopedist who she is established with. Patient was given Toradol and recommended to continue with the chronic: Pain medication regime. Shared Decision Making: Discussed plan with the patient who is comfortable with the plan. Social Considerations: None Disposition: Discharged to home Discharge Plan Departure Patient Disposition: Home Clinical Impression: Acute pain of right hip Activity Restrictions/Additional Instructions: Thank you for coming to the [facility] Emergency Department today. Your x- ray shows no evidence of any right hip blood dislocation or any kind of bony abnormality. I recommend you continue your home regimen of pain medications. The Toradol give given you today should help as well. Please follow up with your primary care provider orthopedist. I hope you feel better soon. Prescriptions: No Action (DME) TRUE METRIX TEST STRIPS Qty: 100 3RF Rx Instructions: USE TO TEST BLOOD GLUCOSE FOUR TIMES DAILY Glucagon (HCl) Emergency Kit 1 mg recon soln 1 mg SUBCUT Q20M PRN (Reason: hypoglycemia) Qty: 3 3RF Rx Instructions: until target blood sugar attained pregabalin 150 mg capsule 150 mg PO TID Qty: 90 5RF pantoprazole [Protonix] 40 mg tablet,delayed release (DR/EC) 40 mg PO BID Qty: 60 11RF Rx Instructions: Take 1 tab twice per day.JUAN [id number] approved 10/06/22-10/06/23 alprazolam 0.25 mg tablet 0.25 mg PO TID PRN (Reason: Grief anxiety, sleeplessness) 30 Days Qty: 90 5RF Rx Instructions: Take 1 tab up to 3x per day for anxiety attacks or sleeplessness loratadine 10 mg tablet 10 mg PO DAILY Qty: 90 1RF progesterone micronized 100 mg capsule See Rx Instructions .ROUTE .COMPLEX Qty: 30 11RF Dose Instruction: TAKE ONE CAPSULE BY MOUTH ONCE DAILY EVERY MORNING FOR 30 DAYS Rx Instructions: TAKE ONE CAPSULE BY MOUTH ONCE DAILY EVERY MORNING FOR 30 DAYS miscellaneous medical supply Kit See Rx Instructions .ROUTE .COMPLEX Qty: 1 0RF Rx Instructions: Dispense one body braid made for postural support of Ehler Danlos Syndrome patients. ketotifen fumarate 0.025 % (0.035 %) drops 1 drp EYE-BOTH BID PRN (Reason: Dry Eyes) Qty: 10 11RF (DME) wheel chair See Rx Instructions .Route .MEDSUPPLY Qty: 1 0RF Rx Instructions: As directed for mobility, Dispense low profile or standard wheelchair (patien t preference) promethazine 25 mg tablet 25 mg PO TID PRN (Reason: nausea) Qty: 90 5RF Rx Instructions: Take 1 tab up to 3x/day as needed for nausea (DME) blood sugar diagnostic Strip See Rx Instructions .Route Qty: 100 3RF Rx Instructions: Use to check blood glucose daily, BRAND PER INSURANCE ([facility]) blood-glucose meter [Blood Glucose Monitoring] Kit See Rx Instructions .Route Qty: 1 0RF Rx Instructions: Use to check blood glucose once daily estradiol 0.5 mg tablet 0.5 mg PO DAILY Qty: 30 11RF spironolactone 25 mg tablet 50 mg PO DAILY Qty: 60 11RF Rx Instructions: Take 2 tabs daily (DME) Left and Right Knee Braces See Rx Instructions .Route .MEDSUPPLY Qty: 2 0RF Rx Instructions: Knee stabilizing braces bilaterally venlafaxine 150 mg capsule,extended release 24hr 150 mg PO BEDTIME Qty: 30 11RF Rx Instructions: Take 150mg at bedtime daily for depression, anxiety, pain, and insomnia naloxone 0.4 mg/mL syringe 0.4 mg IM Q2M PRN (Reason: opioid reversal) Qty: 2 2RF Rx Instructions: for overdose, call 911 ([facility]) Soft collar for neck See Rx Instructions .Route .MEDSUPPLY Qty: 1 0RF Rx Instructions: Wear on neck as needed for feelings of pre-passing out. (DME) TENS Unit See Rx Instructions .Route .MEDSUPPLY Qty: 1 0RF Rx Instructions: Apply to lower back for pain management purposes as needed Cannabis See Rx Instructions .ROUTE .COMPLEX Rx Instructions: Pt reports she makes edibles from cannabis, approx 1 oz every 3-4 days; Disabled Parking Permit See Rx Instructions .ROUTE .COMPLEX Qty: 1 0RF Rx Instructions: I find this patient to be medically disabled and qualify for disabled parking as indicated and signed on the accompanying disabled parking application for individuals. buprenorphine-naloxone [Suboxone] 2-0.5 mg film 1 film buccal DAILY Qty: 30 2RF Rx Instructions: place 1 strip/tab under (each) side of tongue along with a 4mg/1mg strip for total 6mg/1.5mg dose per day. Ok to fill 12/11/22 buprenorphine-naloxone 4-1 mg film 1 film buccal Q24H Qty: 30 3RF Rx Instructions: place 1 strip/tab under (each) side of tongue along with (1) 2mg/0.5mg suboxone strip daily, total dose 6mg/1.5mg daily ok to fill 12/11/22 menthol-zinc oxide 0.44-20.6 % paste 1 applic topical Q1H PRN (Reason: skin irritation) Qty: 113 8RF Rx Instructions: while awake (DME) Incontinence pads See Rx Instructions .Route .MEDSUPPLY Qty: 90 11RF Rx Instructions: Change incontinent pad 3-5 times daily as needed. Referrals: Purnima Gao ARNP [Primary Care Provider] - Stand Alone Forms: Patient Portal/API <Yoshi Corrales MD - Last Filed: 01/08/23 03:19> Cosign ED Attending Cosignature Attestation: I was immediately available in the department for consultation. ?This documentation has been reviewed and I agree with assessment and plan. Supervised by Yoshi Corrales MD
[2022-12-31] MEDS: KETOROLAC 30 MG/ML VIAL 15 MG IM (13:22)
== END 2022-12-31 13:44 | disposition home or self-care (01) ==
PROVIDERS: Emergency Provider Physician Assistant Medical; Family Provider Nurse Practitioner; PCP Nurse Practitioner
DX: M25.551 Pain in right hip (principal)
CPT/HCPCS: 73502; 96372; 99283; J1885

== ENCOUNTER 2023-06-11 20:10 | Emergency (ER) | payer OTHER, MEDICAID, SELFPAY ==
[2022-12-15 10:48] VITALS: BMI 33.8
[2023-06-11] VITALS (9 sets, daily range): BP systolic 92–111; BP diastolic 48–56; PULSE 61–86; RESP 13–22; TEMP 36.8; O2SAT 99–100; BMI 30.4
--- NOTE | 2023-06-11 20:18 | ED_ITS ---
HPI - General Adult General Chief complaint: Neck Pain/Injury Stated complaint: neck pain, dizziness, stomach issues Time Seen by Provider: 06/11/23 20:16 History of Present Illness HPI narrative: 47-year-old female smoker with history of chronic pain, iron deficiency anemia, Beni-Danlos syndrome presents with family in the chief complaint of many months of neck pain. She denies any trauma or injury and has had no fever or chills. She states that she has midline cervical neck pain that seems to come and go and at times is worse than others, has been apparently worsening over the past few weeks. She denies any numbness or tingling of extremities but states the arms and legs feel heavy and weak. She denies any fever or chills. She has no chest pain or shortness of breath. She states that she chronically feels nauseated. She had an evaluation by a spine doctor at an outside facility a few months ago and states she was told she had bone spurs. She states she chronically gets headaches and had a migraine this morning but that has since resolved. Related Data Home Medications Medication Instructions Recorded Confirmed Cannabis See Rx Instructions .Route .COMPLEX 07/31/22 04/07/23 Previous Rx's Medication Instructions Recorded TRUE METRIX TEST STRIPS #100 ea 11/14/20 TENS Unit #1 ea 02/12/21 glucagon HCl 1 mg solution for 1 mg SUBCUT Q20M PRN hypoglycemia 09/19/21 injection (Glucagon (HCl) #3 ea Emergency Kit) miscellaneous medical supply See Rx Instructions .Route 10/01/21 .COMPLEX #1 ea blood sugar diagnostic #100 ea 03/17/22 blood-glucose meter (Blood Glucose #1 ea 03/17/22 Monitoring kit) estradiol 0.5 mg tablet 0.5 mg PO DAILY #30 tabs 06/25/22 Disabled Parking Permit See Rx Instructions .Route 07/31/22 .COMPLEX #1 unit Left and Right Knee Braces #2 ea 08/28/22 spironolactone 25 mg tablet 50 mg (2 x 25 mg) PO DAILY #60 tabs 08/28/22 Soft collar for neck #1 ea 10/01/22 venlafaxine 150 mg 150 mg PO BEDTIME #30 caps 11/24/22 capsule,extended release 24 hr menthol 0.44 %-zinc oxide 20.6 % 1 applic topical Q1H PRN skin 12/11/22 topical paste irritation #113 grams progesterone micronized 100 mg See Rx Instructions .Route 12/19/22 capsule .COMPLEX #30 caps Incontinence pads #90 ea 01/28/23 ketotifen fumarate 0.025 % (0.035 1 drp EYE-BOTH BID PRN Dry Eyes 03/04/23 %) eye drops #10 mL pantoprazole 40 mg tablet,delayed 40 mg PO BID #60 tabs 03/05/23 release (Protonix) wheel chair #1 ea 03/05/23 naloxone 0.4 mg/mL injection 0.4 mg IM Q2M PRN opioid reversal 04/28/23 syringe #2 mL promethazine 25 mg tablet 25 mg PO TID PRN nausea #90 tabs 04/28/23 sumatriptan succinate 100 mg tablet See Rx Instructions PO .COMPLEX 04/28/23 #30 tabs loratadine 10 mg tablet 10 mg PO DAILY #90 tabs 05/04/23 pregabalin 150 mg capsule 150 mg PO TID #90 caps 05/26/23 alprazolam 0.25 mg tablet 0.25 mg PO TID PRN Grief anxiety, 05/29/23 sleeplessness 30 days #90 tabs buprenorphine 12 mg-naloxone 3 mg 1 film buccal Q24H #30 ea 05/29/23 sublingual film Allergies Allergy/AdvReac Type Severity Reaction Status Date / Time Latex, Natural Rubber Allergy Intermediate Hives Verified 04/07/23 15:11 adhesive tape Allergy Rash Verified 04/07/23 15:11 duloxetine [From Cymbalta] AdvReac Severe Nausea Verified 04/07/23 15:11 Review of Systems Review of Systems Narrative: GENERAL: See HPI HEENT: Denies sinus pain, ear pain, sore throat, difficulty swallowing, dizziness. RESPIRATORY: Denies dyspnea, cough, wheezing, hemoptysis, sputum. CARDIOVASCULAR: Denies chest pain, palpitations, orthopnea, edema, GASTROINTESTINAL: Denies nausea, vomiting, abdominal pain, diarrhea, constipation, melena. : Denies dysuria, frequency, incontinence, hematuria, urinary retention. MUSCULOSKELETAL: denies weakness, joint pain, or bony pain SKIN: Denies rash, skin lesions, or other NEUROLOGIC: Denies weakness, headache, numbness, change in speech, confusion, seizures, incoordination. PSYCHIATRIC: No concerning psychosocial issues. 12 point review of systems is negative except for those stated above Patient History Medical History (Updated 06/11/23 @ 23:35 by Stalin Abdalla DO) Reactive hypoglycemia Subluxation of joint of upper extremity Subluxation of joint of lower extremity Tobacco use disorder Postmenopausal HRT (hormone replacement therapy) Iron deficiency anemia Joint hyperextensibility of multiple sites Sacral region somatic dysfunction Pelvic somatic dysfunction Lumbar region somatic dysfunction Cervical somatic dysfunction Cranial somatic dysfunction Chronic bilateral thoracic back pain Chronic neck pain Chronic low back pain with left-sided sciatica Bladder incontinence Chronic pain Beni-Danlos syndrome Anxiety Insomnia Gastroesophageal reflux disease Urinary tract infection Bipolar disorder Environmental allergies Carpal tunnel syndrome on both sides Female sexual dysfunction Kidney stones UTI (urinary tract infection) Chronic pain Pain Arthritis Anxiety Anemia Migraines GERD (gastroesophageal reflux disease) Nausea Hidradenitis suppurativa Microcytic anemia Acute hypokalemia (03/10/19) C. difficile colitis (03/10/19) Biliary colic Hidradenitis suppurativa Cholelithiasis Peripheral neuropathy Bulging of intervertebral disc between L4 and L5 Lumbar facet arthropathy Obesity (BMI 30-39.9) Vitamin D insufficiency NSAID overdose Hypoglycemia Constipation Ankle fracture, left Foot fracture, left Osteoarthritis Tachycardia Hypoglycemia Fibromyalgia Surgical History History of endometrial ablation [place] teeth extracted Hx laparoscopic cholecystectomy (05/07/19) Hx of tonsillectomy (~1999) History of carpal tunnel surgery of left wrist (~2000) History of gastric bypass (~2007) Family History Father Diabetes mellitus Hypertension Mother Cervical cancer Grandfather Colon cancer Social History household members: spouse and children Smoking Status: Current every day smoker alcohol intake: current Smoking Status: Current every day smoker tobacco type: cigarettes and vaping alcohol intake frequency: holidays/special occasions only Substance Use Type: marijuana and other Exam Narrative Exam Narrative: GENERAL: [47] year old patient appears stated age. Well-developed patient, in mild distress. HEAD: Atraumatic. Normocephalic. EYES: Pupils equal round and reactive. Extraocular motions intact. No scleral icterus. No injection or drainage. ENT: Nose without bleeding, purulent drainage. Throat without erythema, tonsillar hypertrophy or exudate. Airway patent. NECK: Trachea midline. Tender in lower cervical spine, no change with axial load CARDIOVASCULAR: Regular rate and rhythm without murmurs, gallops, or rubs. RESPIRATORY: Clear to auscultation. Breath sounds equal bilaterally. No wheezes, rales, or rhonchi. GASTROINTESTINAL: Abdomen soft, non-tender, nondistended. EXTREMITIES: No edema or joint tenderness. no measurable weakness in arms or legs BACK: Nontender without deformity or crepitance. No flank tenderness. NEURO: AOx3. SKIN: No rash or erythema of visible areas Initial Vital Signs Initial Vital Signs: Vital Signs Pulse Rate 86 06/11/23 20:18 Blood Pressure 111/56 L 06/11/23 20:18 Pulse Oximetry 100 06/11/23 20:18 Course Orders Ordered: ED Orders 06/11/23 20:55 Complete Blood Count AUTO DIFF Stat Comprehensive Metabolic Panel Stat 06/11/23 23:06 CT cervical spine wo con Stat Discontinued Medications Sodium Chloride (Normal Saline 0.9%) 1,000 mls @ 1,000 mls/hr IV BOLUS ONE Stop: 06/11/23 21:24 Last Infusion: 06/11/23 22:24 Dose: Infused Documented By: Admin: 06/11/23 21:03 Dose: 1,000 mls/hr Documented By: SONJA Pantoprazole Sodium (Pantoprazole 40 Mg Vial) 40 mg IV NOW ONE Stop: 06/11/23 20:26 Last Admin: 06/11/23 21:03 Dose: 40 mg Documented By: SONJA Vital Signs Vital signs: Vital Signs - 8 hr 06/11/23 20:18 06/11/23 20:18 06/11/23 20:21 Temperature 98.2 F Pulse Rate 86 84 Respiratory Rate 16 Blood Pressure 111/56 L 111/56 L Pulse Oximetry 100 99 Oxygen Delivery Method Room Air 06/11/23 20:30 06/11/23 20:30 06/11/23 21:00 Temperature Pulse Rate 75 68 Respiratory Rate 22 21 Blood Pressure 92/53 L Pulse Oximetry 100 100 Oxygen Delivery Method 06/11/23 21:01 06/11/23 21:01 06/11/23 21:30 Temperature Pulse Rate 67 64 Respiratory Rate 20 13 Blood Pressure 95/48 L Pulse Oximetry 100 100 Oxygen Delivery Method 06/11/23 22:00 06/11/23 22:30 06/11/23 23:00 Temperature Pulse Rate 76 61 62 Respiratory Rate 22 16 13 Blood Pressure Pulse Oximetry 100 99 100 Oxygen Delivery Method Medical Decision Making Lab Data 06/11/23 20:55 06/11/23 20:55 Labs: Lab Results 06/11/23 Range/Units 20:55 WBC 4.3 L (4.5-11.0) X10^3/uL RBC 4.42 (4.0-5.2) X10^6/uL Hgb 10.4 L (12.0-16.0) g/dL Hct 31.6 L (36-46) % MCV 71.6 L (80-100) fL MCH 23.5 L (26-34) PG MCHC 32.8 (30-36) % RDW 19.4 H (11.6-14.8) % Plt Count 159 (150-400) X10^3/uL Neut % (Auto) 35.5 L (50-75) % Lymph % (Auto) 47.3 H (25-40) % Bowman % (Auto) 10.6 (3-14) % Eos % (Auto) 5.5 H (2-4) % Baso % (Auto) 1.1 (0-2) % Neut # (Auto) 1500 (0369-3758) /uL Lymph # (Auto) 2000 (2096-6376) /uL Bowman # (Auto) 500 (0-900) /uL Eos # (Auto) 200 (0-450) /uL Baso # (Auto) 0 (0-100) /uL Sodium 139 (137-145) mmol/L Potassium 3.7 (3.4-5.1) mmol/L Chloride 109 H (98-107) mmol/L Carbon Dioxide 24 (22-32) mmol/L BUN 9 (7-17) mg/dL Creatinine 0.82 (0.52-1.04) mg/dL Estimated GFR > 60 (>60) mL/min BUN/Creatinine Ratio 11.0 (6-22) Glucose 87 (70-100) mg/dL Calcium 9.0 (8.4-10.2) mg/dL Total Bilirubin 0.5 (0.2-1.3) mg/dL AST 25 (14-36) IU/L ALT 15 (<35) IU/L Alkaline Phosphatase 66 (38-126) U/L Total Protein 7.2 (6.3-8.2) g/dL Albumin 3.9 (3.5-5.0) g/dL Globulin 3.3 (1.7-4.1) g/dL Albumin/Globulin Ratio 1.2 (1.0-2.8) MDM Narrative Medical decision making narrative: [47] year old patient presents with ongoing neck pain Multiple etiologies for patient's symptoms considered including, but not limited to: [ cervical radiculopathy versus other] Prior Charts reviewed including spine consultation from [facility] from January 21. Impression is cervical strain, acute with thoracic myofascial strain and Beni- Danlos syndrome. At that time there was nothing surgical, no significant compression on MRI. Primary Historian: patient Labs reviewed and interpreted by myself: No significant abnormalities. Imaging reviewed: CT of the cervical spine notes patient with multiple complaints that appear chronic without any significant change, exam is reassuring, labs are reassuring, likely subtle evolution of previously diagnosed cervical abnormalities on MRI, nothing in history or physical exam to suggest a neurosurgical emergency is present. CT of the cervical spine was obtained but patient elected to leave against medical advice prior to it resulting. There was attempts to answer questions, administer home meds but she wanted to leave. I told her I would call if there were any abnormal findings that were still outstanding and she encouraged me not to call her but to call her primary care provider instead. Patient demonstrates capacity to make her own decisions. She understands that the workup is not complete and that there could be abnormal findings on CT that might require an intervention. She understands that she may return at any point for repeat evaluation and without any fear of rapid percussion Discharge Plan Departure Patient Disposition: Left Against Medical Advice Clinical Impression: Chronic midline posterior neck pain Instructions: Chronic Neck Pain Activity Restrictions/Additional Instructions: *You have been diagnosed with [Chronic neck pain. As we discussed the lab work is unremarkable and unfortunately we do not have results of the CT prior to your decision to leave. I did review records from [facility] including the spine surgeon's recommendations and MRI and it would seem reasonable to follow-up with them moving forward to see if there is any additional treatment plan that maybe beneficial. ] *What to do: *Please continue to take your regular medications as directed. [ ] New medication prescriptions sent to your pharmacy: [ ] [ ] New medication written as a paper prescription [ ] No new medications given *Please follow up with your primary care provider in 2-3 days, call for an appointment. Let them know you were seen in the Emergency Department and that we ask that you be seen in follow up. We will electronically transmit a record of today's note if your PCP is in our system *If you do not have a primary care provider please contact the [facility] Resource line at [phone]. They will ask some questions about your medical history and help get you set up with a doctor in the community. *Return to Emergency Department if you should have any new, worsening or concerning symptoms, such as [fever greater than 101 F, shaking chills, worsening pain, persistent vomiting or other bothersome symptoms] Prescriptions: No Action (DME) TRUE METRIX TEST STRIPS Qty: 100 3RF Rx Instructions: USE TO TEST BLOOD GLUCOSE FOUR TIMES DAILY Glucagon (HCl) Emergency Kit 1 mg recon soln 1 mg SUBCUT Q20M PRN (Reason: hypoglycemia) Qty: 3 3RF Rx Instructions: until target blood sugar attained progesterone micronized 100 mg capsule See Rx Instructions .ROUTE .COMPLEX Qty: 30 11RF Dose Instruction: TAKE ONE CAPSULE BY MOUTH ONCE DAILY EVERY MORNING FOR 30 DAYS Rx Instructions: TAKE ONE CAPSULE BY MOUTH ONCE DAILY EVERY MORNING FOR 30 DAYS ketotifen fumarate 0.025 % (0.035 %) drops 1 drp EYE-BOTH BID PRN (Reason: Dry Eyes) Qty: 10 11RF naloxone 0.4 mg/mL syringe 0.4 mg IM Q2M PRN (Reason: opioid reversal) Qty: 2 2RF Rx Instructions: for overdose, call 911 promethazine 25 mg tablet 25 mg PO TID PRN (Reason: nausea) Qty: 90 5RF Rx Instructions: Take 1 tab up to 3x/day as needed for nausea sumatriptan succinate 100 mg tablet See Rx Instructions PO .COMPLEX Qty: 30 2RF Rx Instructions: take 1 tab at onset of headache; if no relief, may repeat 1 tab after at least 2 hrs; max = 2 tabs/24 hrs PO loratadine 10 mg tablet 10 mg PO DAILY Qty: 90 3RF pregabalin 150 mg capsule 150 mg PO TID Qty: 90 3RF alprazolam 0.25 mg tablet 0.25 mg PO TID PRN (Reason: Grief anxiety, sleeplessness) 30 Days Qty: 90 0RF Rx Instructions: Take 1 tab up to 3x per day for anxiety attacks or sleeplessness buprenorphine-naloxone 12-3 mg film 1 film buccal Q24H Qty: 30 2RF miscellaneous medical supply Kit See Rx Instructions .ROUTE .COMPLEX Qty: 1 0RF Rx Instructions: Dispense one body braid made for postural support of Ehler Danlos Syndrome patients. (DME) blood sugar diagnostic Strip See Rx Instructions .Route Qty: 100 3RF Rx Instructions: Use to check blood glucose daily, BRAND PER INSURANCE (DME) blood-glucose meter [Blood Glucose Monitoring] Kit See Rx Instructions .Route Qty: 1 0RF Rx Instructions: Use to check blood glucose once daily estradiol 0.5 mg tablet 0.5 mg PO DAILY Qty: 30 11RF spironolactone 25 mg tablet 50 mg PO DAILY Qty: 60 11RF Rx Instructions: Take 2 tabs daily (DME) Left and Right Knee Braces See Rx Instructions .Route .MEDSUPPLY Qty: 2 0RF Rx Instructions: Knee stabilizing braces bilaterally venlafaxine 150 mg capsule,extended release 24hr 150 mg PO BEDTIME Qty: 30 11RF Rx Instructions: Take 150mg at bedtime daily for depression, anxiety, pain, and insomnia (DME) Soft collar for neck See Rx Instructions .Route .MEDSUPPLY Qty: 1 0RF Rx Instructions: Wear on neck as needed for feelings of pre-passing out. (DME) Incontinence pads See Rx Instructions .Route .MEDSUPPLY Qty: 90 11RF Rx Instructions: Change incontinent pad 3-5 times daily as needed. (DME) TENS Unit See Rx Instructions .Route .MEDSUPPLY Qty: 1 0RF Rx Instructions: Apply to lower back for pain management purposes as needed Cannabis See Rx Instructions .ROUTE .COMPLEX Rx Instructions: Pt reports she makes edibles from cannabis, approx 1 oz every 3-4 days; Disabled Parking Permit See Rx Instructions .ROUTE .COMPLEX Qty: 1 0RF Rx Instructions: I find this patient to be medically disabled and qualify for disabled parking as indicated and signed on the accompanying disabled parking application for individuals. menthol-zinc oxide 0.44-20.6 % paste 1 applic topical Q1H PRN (Reason: skin irritation) Qty: 113 8RF Rx Instructions: while awake (DME) wheel chair See Rx Instructions .Route .MEDSUPPLY Qty: 1 0RF Rx Instructions: Power assist lightweight chair, full body support. Chair must recline. pantoprazole [Protonix] 40 mg tablet,delayed release (DR/EC) 40 mg PO BID Qty: 60 11RF Rx Instructions: Take 1 tab twice per day.JUAN [id number] approved 10/06/22-10/06/23 Referrals: Purnima Gao ARNP [Primary Care Provider] - Stand Alone Forms: Patient Portal/API, Against Medical Advice
[2023-06-11] MEDS: PANTOPRAZOLE 40 MG VIAL IV (21:03)
[2023-06-11] MEDS: SODIUM CHLORIDE 0.9% 1,000 ML 1000 ML IV (21:03)
[2023-06-11 21:05] LABS: Add Manual Diff / Slide Review NO; Basophils Absolute Auto 0 /uL (0-100); Basophils Percent Auto 1.1 % (0-2); Eosinophils Absolute Auto 200 /uL (0-450); Eosinophils Percent Auto 5.5 % (2-4); Hematocrit 31.6 % (36-46); Hemoglobin 10.4 g/dL (12.0-16.0); Lymphocytes Absolute Auto 2000 /uL (1100-4500); Lymphocytes Percent Auto 47.3 % (25-40); Mean Corpuscular HGB Conc 32.8 % (30-36); Mean Corpuscular Hemoglobin 23.5 PG (26-34); Mean Corpuscular Volume 71.6 fL (80-100); Monocytes Absolute Auto 500 /uL (0-900); Monocytes Percent Auto 10.6 % (3-14); Neutrophils Absolute Auto 1500 /uL (1500-7000); Neutrophils Percent Auto 35.5 % (50-75); Platelet Count 159 X10^3/uL (150-400); Red Blood Cell Count 4.42 X10^6/uL (4.0-5.2); Red Cell Distribution Width 19.4 % (11.6-14.8); White Blood Cell Count 4.3 X10^3/uL (4.5-11.0)
[2023-06-11 21:17] LABS: Alanine Aminotransferase 15 IU/L (<35); Albumin 3.9 g/dL (3.5-5.0); Albumin Globulin Ratio 1.2 (1.0-2.8); Alkaline Phosphatase 66 U/L (38-126); Aspartate Aminotransferase 25 IU/L (14-36); Bilirubin Total 0.5 mg/dL (0.2-1.3); Blood Urea Nitrogen 9 mg/dL (7-17); Carbon Dioxide 24 mmol/L (22-32); Chloride 109 mmol/L (98-107); Estimated Glomerular Filt Rate > 60 mL/min (>60); Globulin 3.3 g/dL (1.7-4.1); Glucose 87 mg/dL (70-100); HEMOLYSIS < 15 (0-50); Potassium 3.7 mmol/L (3.4-5.1); Sodium 139 mmol/L (137-145); Total Protein 7.2 g/dL (6.3-8.2)
--- NOTE | 2023-06-11 23:06 | DI.CT.S_ITS ---
PROCEDURE: CT CERVICAL SPINE WO CON INDICATIONS: severe neck pain TECHNIQUE: Noncontrast 3 mm thick sections acquired from the skull base to the T4 level. Sagittal and coronal reformats were then constructed. For radiation dose reduction, the following was used: automated exposure control, adjustment of mA and/or kV according to patient size. COMPARISON: [facility], , MR CERVICAL SPINE WO CON, 11/16/2022, 11:00. FINDINGS: Bones: No acute fractures or dislocations. Visualized superior ribs are intact. Multilevel degenerative changes of the cervical spine are present Soft tissues: Prevertebral soft tissues are normal in thickness. No paravertebral hematomas. No apical pneumothoraces. IMPRESSION: No acute cervical spine fracture identified Dictated by: Fox Mendez M.D. on 06/12/2023 at 1:05 Approved by: Fox Mendez M.D. on 06/12/2023 at 1:10
--- NOTE | 2023-06-11 23:46 | PC.NURSE ---
Pt refused to be connected to monitors after returning for CT, pt stated that she did not want to wait for CT results, that is was nancy nataliguy jose ramon and she had medications at home that she wanted to get home to take. Pt left AMA at 2346.
== END 2023-06-11 23:46 | disposition left against medical advice (07) ==
PROVIDERS: Emergency Provider Emergency Medicine; Family Provider Nurse Practitioner; PCP Nurse Practitioner
DX: M54.2 Cervicalgia (principal); R79.89 Other specified abnormal findings of blood chemistry
CPT/HCPCS: 36415; 72125; 80053; 85025; 96374; 99284; C9113

== ENCOUNTER → 2023-06-23 12:27 | Outpatient (CLI) | payer OTHER, MEDICAID, SELFPAY ==
[2023-06-22 12:33] VITALS: BMI 33.8
[2023-06-23 14:10] LABS: Add Manual Diff / Slide Review NO; Basophils Absolute Auto 0 /uL (0-100); Basophils Percent Auto 0.6 % (0-2); Eosinophils Absolute Auto 300 /uL (0-450); Eosinophils Percent Auto 4.6 % (2-4); Hematocrit 34.9 % (36-46); Hemoglobin 11.3 g/dL (12.0-16.0); Lymphocytes Absolute Auto 2200 /uL (1100-4500); Lymphocytes Percent Auto 32.6 % (25-40); Mean Corpuscular HGB Conc 32.3 % (30-36); Mean Corpuscular Hemoglobin 23.2 PG (26-34); Mean Corpuscular Volume 71.8 fL (80-100); Monocytes Absolute Auto 500 /uL (0-900); Monocytes Percent Auto 8.2 % (3-14); Neutrophils Absolute Auto 3600 /uL (1500-7000); Platelet Count 175 X10^3/uL (150-400); Red Blood Cell Count 4.86 X10^6/uL (4.0-5.2); Red Cell Distribution Width 19.4 % (11.6-14.8); White Blood Cell Count 6.6 X10^3/uL (4.5-11.0)
[2023-06-23 14:24] LABS: HEMOLYSIS < 15 (0-50); Iron 26 ug/dL (37-170); Reticulocyte Count, Percent 0.7 % (1.1-2.6)
[2023-06-23 14:29] LABS: Alanine Aminotransferase 14 IU/L (<35); Albumin 4.1 g/dL (3.5-5.0); Albumin Globulin Ratio 1.2 (1.0-2.8); Alkaline Phosphatase 73 U/L (38-126); Aspartate Aminotransferase 25 IU/L (14-36); BUN Creatinine Ratio 11.5 (6-22); Bilirubin Total 0.2 mg/dL (0.2-1.3); Blood Urea Nitrogen 10 mg/dL (7-17); Calcium 9.5 mg/dL (8.4-10.2); Carbon Dioxide 28 mmol/L (22-32); Chloride 104 mmol/L (98-107); Estimated Glomerular Filt Rate > 60 mL/min (>60); Globulin 3.3 g/dL (1.7-4.1); Glucose 93 mg/dL (70-100); HEMOLYSIS < 15 (0-50); Potassium 4.2 mmol/L (3.4-5.1); Sodium 138 mmol/L (137-145); Total Protein 7.4 g/dL (6.3-8.2)
[2023-06-23 14:35] LABS: Percent Iron Saturation 5 % (15-50); Total Iron Binding Capacity 482 ug/dL (265-497); Transferrin 383 mg/dL (206-381)
[2023-06-23 14:55] LABS: TSH w/ Reflex to FT4 5.14 uIU/mL (0.47-4.68)
[2023-06-23 15:50] LABS: Free T4, Direct Thyroxine 1.05 ng/dL (0.78-2.19)
== END ==
PROVIDERS: Family Provider Nurse Practitioner; PCP Nurse Practitioner; Referring Provider Family Medicine; Visit Provider Family Medicine
DX: D50.9 Iron deficiency anemia, unspecified (principal); E03.9 Hypothyroidism, unspecified
CPT/HCPCS: 36415; 80053; 83540; 83550; 84439; 84443; 85025; 85045

== ENCOUNTER → 2023-08-11 10:15 | Oncology outpatient (ONC) | payer OTHER, MEDICAID, SELFPAY ==
[2019-03-10 01:32] VITALS: BMI 35.0
[2019-03-31] MEDS: IRON SUCROSE 200 MG in SODIUM CHLORIDE 0.9% 100 ML 220 ML IV (12:00)
[2019-03-31 12:05] VITALS: BP 129/88; PULSE 83; RESP 18; TEMP 37.1; O2SAT 97
[2023-08-03 10:37] VITALS: BP 112/60; PULSE 82; RESP 18; TEMP 36.6; O2SAT 100
--- NOTE | 2023-08-03 11:30 | PC.NURSE ---
IV unsuccessful. Pt sent home and will reschedule with Char Robles starting IV.
[2023-08-04] MEDS: ferumoxytoL 510 MG in SODIUM CHLORIDE 0.9% 100 ML 468 MG IV (10:34)
[2023-08-04 10:39] VITALS: BP 96/40; PULSE 78; RESP 16; TEMP 36.6; O2SAT 100
[2023-08-04 11:57] VITALS: BP 118/62; PULSE 92; RESP 16; TEMP 37; O2SAT 100
--- NOTE | 2023-08-04 15:36 | PC.NURSE ---
IV ACCESS OBTAINED BY MARTINEZ GUILLAUME, RN WITH 20g CATHETER USING US GUIDANCE. FERAHEME ADMINISTERED WITHOUT PROBLEM. AT TIME OF D/C OF IV CATHETER PATIENT STATED THAT HER UPPER ARM HAD STARTED TO HURT ABOUT HALF WAY THROUGH THE INFUSION. UPPER ARM ABOVE INSERTION SITE IS SWOLLEN. MARTINEZ INFORMED, CATHETER REMOVED AND COMPRESSION APPLIED TO INSERTION SITE. SWELLING BEGAN TO APPEAR BELOW THE COBAN WRAPPED INSERTION SITE. COBAN REMOVED, ARM ELEVATED AND ICE PACK APPLIED. PER PHARMACY NO LITERATURE FOUND INDICATING FERAHEME TO BE A VESICANT OR IRRITANT. PATIENT D/C'D WITH ICE PACK AND INSTRUCTED TO USE SOME WARM PACKS WHEN AT HOME AND TO CALL IF ANY CONTINUED PROBLEM. IT WAS EXPLAINED TO HER THAT THE DRUG PROBABLY INFILTRATED AND COULD POSSIBLY CAUSE THE SKIN TO PERMANENTLY HAVE SOME COLOR CHANGE DUE TO THE IRON BUT OTHERWISE SHOULD SLOWLY ABSORB.
[2023-08-11 10:40] VITALS: BP 126/58; PULSE 98; RESP 18; TEMP 36.8; O2SAT 97
[2023-08-11] MEDS: ferumoxytoL 510 MG in SODIUM CHLORIDE 0.9% 100 ML 468 MG IV (11:22)
[2023-08-11 12:31] VITALS: BP 113/67; PULSE 80; RESP 18; TEMP 36.6; O2SAT 98
== END ==
PROVIDERS: Family Provider Student in an Organized Health Care Education/Training Program; PCP Student in an Organized Health Care Education/Training Program; Visit Provider Student in an Organized Health Care Education/Training Program
DX: D50.9 Iron deficiency anemia, unspecified (principal)
CPT/HCPCS: 96365; J1756; Q0138

== ENCOUNTER 2023-09-08 11:00 | Outpatient (RCR) | payer OTHER, MEDICAID, SELFPAY ==
[2023-06-22 12:33] VITALS: BMI 33.8
== END 2023-09-11 13:11 | disposition home or self-care (01) ==
LOC: PHYS 11:00
PROVIDERS: Family Provider Nurse Practitioner; PCP Nurse Practitioner; Referring Provider Nurse Practitioner; Visit Provider Nurse Practitioner
DX: M24.80 Other specific joint derangements of unspecified joint, not elsewhere classified (principal); G89.4 Chronic pain syndrome; Q79.60 Ehlers-Danlos syndrome, unspecified; R53.1 Weakness; R26.89 Other abnormalities of gait and mobility; R29.898 Other symptoms and signs involving the musculoskeletal system

== ENCOUNTER → 2023-09-22 12:17 | Outpatient (CLI) | payer OTHER, MEDICAID, SELFPAY ==
[2023-06-22 12:33] VITALS: BMI 33.8
[2023-09-22 12:48] LABS: Add Manual Diff / Slide Review NO; Basophils Absolute Auto 0 /uL (0-100); Basophils Percent Auto 0.9 % (0-2); Eosinophils Absolute Auto 300 /uL (0-450); Hematocrit 40.4 % (36-46); Hemoglobin 13.4 g/dL (12.0-16.0); Lymphocytes Absolute Auto 1700 /uL (1100-4500); Lymphocytes Percent Auto 30.1 % (25-40); Mean Corpuscular HGB Conc 33.2 % (30-36); Mean Corpuscular Hemoglobin 26.9 PG (26-34); Monocytes Absolute Auto 400 /uL (0-900); Monocytes Percent Auto 6.8 % (3-14); Neutrophils Absolute Auto 3200 /uL (1500-7000); Neutrophils Percent Auto 57.2 % (50-75); Platelet Count 184 X10^3/uL (150-400); Red Blood Cell Count 4.99 X10^6/uL (4.0-5.2); Red Cell Distribution Width 23.5 % (11.6-14.8); White Blood Cell Count 5.5 X10^3/uL (4.5-11.0)
[2023-09-22 12:57] LABS: Anisocytosis 1+; Poikilocytosis 1+
[2023-09-22 13:12] LABS: HEMOLYSIS < 15 (0-50); Iron 65 ug/dL (37-170)
[2023-09-22 13:14] LABS: Alanine Aminotransferase 29 IU/L (<35); Albumin 4.1 g/dL (3.5-5.0); Albumin Globulin Ratio 1.3 (1.0-2.8); Alkaline Phosphatase 66 U/L (38-126); Aspartate Aminotransferase 39 IU/L (14-36); BUN Creatinine Ratio 8.8 (6-22); Bilirubin Total 0.6 mg/dL (0.2-1.3); Blood Urea Nitrogen 8 mg/dL (7-17); Calcium 9.8 mg/dL (8.4-10.2); Carbon Dioxide 28 mmol/L (22-32); Chloride 103 mmol/L (98-107); Estimated Glomerular Filt Rate > 60 mL/min (>60); Globulin 3.1 g/dL (1.7-4.1); Glucose 94 mg/dL (70-100); HEMOLYSIS < 15 (0-50); Potassium 4.8 mmol/L (3.4-5.1); Sodium 137 mmol/L (137-145); Total Protein 7.2 g/dL (6.3-8.2)
[2023-09-22 13:23] LABS: Percent Iron Saturation 19 % (15-50); Total Iron Binding Capacity 345 ug/dL (265-497); Transferrin 309 mg/dL (206-381)
[2023-09-22 13:47] LABS: Ferritin 13 ng/mL (6-137)
== END ==
PROVIDERS: Family Provider Nurse Practitioner; PCP Nurse Practitioner; Referring Provider Nurse Practitioner; Visit Provider Nurse Practitioner
DX: D50.9 Iron deficiency anemia, unspecified (principal); Z98.84 Bariatric surgery status
CPT/HCPCS: 36415; 80053; 82728; 83540; 83550; 85025

== ENCOUNTER 2023-09-29 10:20 | Day surgery (SDC) | payer OTHER, MEDICAID, SELFPAY ==
[2023-06-22 12:33] VITALS: BMI 33.8
--- NOTE | 2023-09-29 | PATH_ITS ---
[facility] Accession Number: [id number] No. of containers..01 Tissue . 01 Material submitted: . esophagus - ESOPHAGUS BIOPSY . 01 Diagnosis: Esophagus, Biopsy: Squamous epithelium with no diagnostic abnormality. Intraepithelial eosinophils are not increased. Negative for dysplasia and malignancy. MRV 10/01/2023 1620 Local . 01 Electronically signed: . Chrissie Magallon MD, Pathologist NPI- [id number] . 01 Gross description: . ESOPHAGUS BIOPSY: Received in formalin is 3 fragment(s) of power, soft tissue measuring 0.3 x 0.3 x 0.1 cm to 0.3 x 0.2 x 0.1 cm submitted entirely in 1 cassette(s) /AAY 09/30/2023 0442 Local . 01 Pathologist provided ICD-10: K22.9 . 01 CPT . 630271 Specimen Comment: A courtesy copy of this report has been sent to [phone] Performed at: 01 [facility] [address] [place] [address], [place], [place] [id number] MD Santiago Millan MD Phone: [phone]
[2023-09-29 10:45] VITALS: BP 107/59; PULSE 78; RESP 16; TEMP 36.5; O2SAT 100
[2023-09-29] MEDS: LACTATED RINGERS 1,000 ML 42 ML IV (11:02)
--- NOTE | 2023-09-29 11:05 | SUR.PREOP ---
Addendum entered by Grisel Burciaga R.N. 09/29/23 11:44: 1130 - Patient states that she has some problems with hypoglycemia. Is assymptomatic. Blood glucose checked and is 64. Dr. Almaguer and Dr. George both notified. Original Note: 1100 - Patient stated she smoked marijuana on the way to her appointment this AM. Updated Dr. George regarding this and last doses of all medications. Patient also refuses test, stating They blasted that all out of there.
--- NOTE | 2023-09-29 11:33 | P.HP_ITS ---
History of Present Illness History of Present Illness Date Patient Seen: 09/29/23 Time Patient Seen: 11:33 Chief complaint: SDC Narrative: 48-year-old woman PMH gastric bypass here with recurrent esophageal dysphagia. Pills are becoming stuck in her lower esophagus over the past several months. She has a history of 2 previous esophageal dilations. [facility] Medical History Chronic bacterial skin infection Excessive skin and subcutaneous tissue Carpal tunnel syndrome, right Dysphagia Reactive hypoglycemia Subluxation of joint of upper extremity Subluxation of joint of lower extremity Tobacco use disorder Postmenopausal HRT (hormone replacement therapy) Iron deficiency anemia Joint hyperextensibility of multiple sites Sacral region somatic dysfunction Pelvic somatic dysfunction Lumbar region somatic dysfunction Cervical somatic dysfunction Cranial somatic dysfunction Chronic bilateral thoracic back pain Chronic neck pain Chronic low back pain with left-sided sciatica Bladder incontinence Chronic pain Beni-Danlos syndrome Anxiety Insomnia Gastroesophageal reflux disease Urinary tract infection Bipolar disorder Environmental allergies Carpal tunnel syndrome on both sides Female sexual dysfunction Kidney stones UTI (urinary tract infection) Chronic pain Pain Arthritis Anxiety Anemia Migraines GERD (gastroesophageal reflux disease) Nausea Hidradenitis suppurativa Microcytic anemia Acute hypokalemia (03/10/19) C. difficile colitis (03/10/19) Biliary colic Hidradenitis suppurativa Cholelithiasis Peripheral neuropathy Bulging of intervertebral disc between L4 and L5 Lumbar facet arthropathy Obesity (BMI 30-39.9) Vitamin D insufficiency NSAID overdose Hypoglycemia Constipation Ankle fracture, left Foot fracture, left Osteoarthritis Tachycardia Hypoglycemia Fibromyalgia Surgical History History of Ron-en-Y gastric bypass History of endometrial ablation [place] teeth extracted Hx laparoscopic cholecystectomy (05/07/19) Hx of tonsillectomy (~1999) History of carpal tunnel surgery of left wrist (~2000) History of gastric bypass (~2007) Family History Father Diabetes mellitus Hypertension Mother Cervical cancer Grandfather Colon cancer Social History household members: spouse and children Smoking Status: Current every day smoker alcohol intake: current Meds Home Medications and Allergies Home Medications Medication Instructions Recorded Confirmed Type TRUE METRIX TEST STRIPS #100 ea 11/14/20 09/24/23 Rx TENS Unit #1 ea 02/12/21 09/24/23 Rx glucagon HCl 1 mg solution for 1 mg SUBCUT Q20M PRN hypoglycemia 09/19/21 09/24/23 Rx injection (Glucagon (HCl) #3 ea Emergency Kit) miscellaneous medical supply See Rx Instructions .Route 10/01/21 09/24/23 Rx .COMPLEX #1 ea blood sugar diagnostic #100 ea 03/17/22 09/24/23 Rx blood-glucose meter (Blood Glucose #1 ea 03/17/22 09/24/23 Rx Monitoring kit) Cannabis See Rx Instructions .Route .COMPLEX 07/31/22 09/29/23 History Disabled Parking Permit See Rx Instructions .Route 07/31/22 09/24/23 Rx .COMPLEX #1 unit Left and Right Knee Braces #2 ea 08/28/22 09/24/23 Rx Soft collar for neck #1 ea 10/01/22 09/24/23 Rx menthol 0.44 %-zinc oxide 20.6 % 1 applic topical Q1H PRN skin 12/11/22 09/24/23 Rx topical paste irritation #113 grams progesterone micronized 100 mg See Rx Instructions .Route 12/19/22 09/29/23 Rx capsule .COMPLEX #30 caps Incontinence pads #90 ea 01/28/23 09/24/23 Rx ketotifen fumarate 0.025 % (0.035 1 drp EYE-BOTH BID PRN Dry Eyes 03/04/23 09/29/23 Rx %) eye drops #10 mL pantoprazole 40 mg tablet,delayed 40 mg PO BID #60 tabs 03/05/23 09/29/23 Rx release (Protonix) wheel chair #1 ea 03/05/23 09/24/23 Rx naloxone 0.4 mg/mL injection 0.4 mg IM Q2M PRN opioid reversal 04/28/23 09/29/23 Rx syringe #2 mL promethazine 25 mg tablet 25 mg PO TID PRN nausea #90 tabs 04/28/23 09/29/23 Rx loratadine 10 mg tablet 10 mg PO DAILY #90 tabs 05/04/23 09/29/23 Rx estradiol 0.5 mg tablet 0.5 mg PO DAILY #30 tabs 06/26/23 09/29/23 Rx venlafaxine 150 mg 150 mg PO BEDTIME #90 caps 07/14/23 09/29/23 Rx capsule,extended release 24 hr nystatin 100,000 unit/gram topical 1 applic topical BID #30 grams 07/23/23 09/24/23 Rx powder triamcinolone acetonide 0.1 % 1 applic topical TID #80 grams 07/23/23 09/24/23 Rx topical ointment alprazolam 0.25 mg tablet 0.25 mg PO TID PRN Grief anxiety, 07/27/23 09/29/23 Rx sleeplessness 30 days #90 tabs naratriptan 1 mg tablet See Rx Instructions PO .COMPLEX #9 08/10/23 09/29/23 Rx tabs buprenorphine 4 mg-naloxone 1 mg 1 film buccal Q24H #30 ea 08/20/23 09/29/23 Rx sublingual film (Suboxone) food supplemt, lactose-reduced 1 ea PO BID #5,688 mL 08/20/23 09/24/23 Rx (Ensure oral liquid) spironolactone 25 mg tablet 50 mg (2 x 25 mg) PO DAILY #60 tabs 08/26/23 09/29/23 Rx buprenorphine 12 mg-naloxone 3 mg 2 film buccal Q24H #60 ea 09/22/23 09/29/23 Rx sublingual film galcanezumab-gnlm 120 mg/mL 240 mg (2 mL) SUBCUT ONCE #2 mL 09/24/23 09/24/23 Rx subcutaneous pen injector (Emgality Pen) pregabalin 150 mg capsule 150 mg PO QID #120 caps 09/24/23 09/29/23 Rx Allergies Allergy/AdvReac Type Severity Reaction Status Date / Time Latex, Natural Rubber Allergy Intermediate Hives Verified 09/29/23 10:54 adhesive tape Allergy Rash Verified 09/29/23 10:54 duloxetine [From Cymbalta] AdvReac Severe Nausea Verified 09/29/23 10:54 Exam Vital Signs (past 8 hours): - 09/29/23 10:45 Temperature 97.7 F Pulse Rate 78 Respiratory Rate 16 Blood Pressure 107/59 L Pulse Oximetry 100 Oxygen Delivery Method Room Air Oxygen Flow Rate 0 Oxygen Delivery Method Room Air Oxygen Flow Rate 0 Narrative Exam Narrative: General adult woman alert oriented no acute distress Chest nonlabored respiration Extremities warm well perfused Assessment & Plan Assessment and plan (1) Esophageal dysphagia: Status: Acute Assessment & Plan narrative: Diagnostic/therapeutic Esophagogastroduodenoscopy with possible dilation Technical details were discussed. Risks, benefits, alternatives explained. Risks including but not limited to myocardial infarction, aspiration, bleeding, pain, missed lesion, incomplete examination, need for further radiographic studies, intestinal injury, and need for major abdominal surgery were discussed. All questions were answered to their satisfaction, and they are in agreement with this plan.
--- NOTE | 2023-09-29 11:54 | PM.OP.EGD ---
Operative Date/Time/Diagnoses Date of procedure: 09/29/23 Time of procedure: 11:55 Pre-op diagnosis: Esophageal dysphagia Post-op diagnosis: same Procedure & Clinicians Study performed: Esophagogastroduodenoscopy Same procedure as scheduled: Yes Indications: 48-year-old woman PMH gastric bypass with esophageal dysphagia. Previous esophageal dilation x2 Surgeon: Lonnie Almaguer Procedure Notes Procedure in detail: The history and physical was performed/updated and the patient is ASA class is 3. The procedure was discussed in detail with the patient. Potential risks complications including infection, bleeding, missed diagnosis, perforation, need for surgery, and were explained. Their questions were answered and informed consent was obtained. Patient placed in left lateral decubitus position. Time out was performed. Procedural sedation was administered by Anesthesia. A bite block was placed. the scope was inserted into the mouth and advanced through the esophagus and into the stomach. The gastrojejunostomy anastomosis was widely patent. Small bowel was normal in its appearance. The gastroesophageal junction was carefully examined there was a slight twist going from esophagus into stomach however there was no actual anatomical stenosis that would require dilation, the scope easily passed into the stomach. Biopsies of the esophagus were performed with forceps. The GE junction was normal in its appearance. Specimen(s): other (Esophagus) Impression: No esophageal stenosis. Post-procedure Plan for aftercare: Follow up on biopsies. Consider referral to rheumatology for evaluation of crest syndrome Disposition: same day surgery
[2023-09-29 11:55] VITALS: BP 94/52; PULSE 80; RESP 15; TEMP 36.7; O2SAT 98
[2023-09-29 12:00] VITALS: BP 93/53; PULSE 69; RESP 13; TEMP 36.7; O2SAT 97
[2023-09-29 12:05] VITALS: BP 90/52; PULSE 69; RESP 13; TEMP 36.7; O2SAT 96
[2023-09-29 12:11] VITALS: BP 92/52; PULSE 81; RESP 19; TEMP 36.6; O2SAT 100
[2023-09-29 12:15] VITALS: BP 102/64; PULSE 66; RESP 11; TEMP 36.6; O2SAT 100
== END 2023-09-29 12:32 | disposition home or self-care (01) ==
PROVIDERS: Family Provider Nurse Practitioner; PCP Nurse Practitioner; Referring Provider Surgery; Visit Provider Surgery
PROC: 0DJ08ZZ Inspection of Upper Intestinal Tract, Via Natural or Artificial Opening Endoscopic (ICD-10-PCS; CPT 43235; principal; 2023-09-29 11:15)
DX: R13.19 Other dysphagia (principal); Z98.84 Bariatric surgery status; K22.2 Esophageal obstruction
CPT/HCPCS: 43239; 82962; J2250; J2704

== ENCOUNTER 2023-11-19 20:12 | Emergency (ER) | payer OTHER, MEDICAID, SELFPAY ==
[2023-06-22 12:33] VITALS: BMI 33.8
[2023-11-19] VITALS (8 sets, daily range): BP systolic 91–127; BP diastolic 45–68; PULSE 84–120; RESP 18; TEMP 36.8; O2SAT 93–99; BMI 71.1
--- NOTE | 2023-11-19 20:57 | PC.NURSE ---
MIREYA Simon asked me to get a fresh set of vitals on the pt since they were coming from the waiting room into bed 6 in the ER. Upon entering the room, I assisted the pt into the bed and asked her if it was okay for me to get a set of vitals on her. The pt told me no and proceeded to curl up into position on her side. Pt asked for a warm blanket and I grabbed her one. MIREYA Simon notified [id number]
--- NOTE | 2023-11-19 21:18 | PC.NURSE ---
Pt reports pain in her hips that radiates down to her calf for the past 5 days and it feels like someone is twisting me inside. Pt reports minimal relief from at home meds and marijuana.
[2023-11-19] MEDS: SODIUM CHLORIDE 0.9% 1,000 ML 1000 ML IV (21:59)
[2023-11-19 22:13] LABS: Add Manual Diff / Slide Review NO; Basophils Absolute Auto 100 /uL (0-100); Basophils Percent Auto 0.8 % (0-2); Eosinophils Absolute Auto 400 /uL (0-450); Eosinophils Percent Auto 5.5 % (2-4); Hematocrit 35.8 % (36-46); Hemoglobin 12.1 g/dL (12.0-16.0); Lymphocytes Absolute Auto 1800 /uL (1100-4500); Lymphocytes Percent Auto 25.6 % (25-40); Mean Corpuscular HGB Conc 33.7 % (30-36); Mean Corpuscular Volume 86.2 fL (80-100); Monocytes Absolute Auto 600 /uL (0-900); Monocytes Percent Auto 8.3 % (3-14); Neutrophils Absolute Auto 4100 /uL (1500-7000); Neutrophils Percent Auto 59.8 % (50-75); Platelet Count 150 X10^3/uL (150-400); Red Blood Cell Count 4.16 X10^6/uL (4.0-5.2); Red Cell Distribution Width 15.2 % (11.6-14.8); White Blood Cell Count 6.9 X10^3/uL (4.5-11.0)
--- NOTE | 2023-11-19 22:16 | ED_ITS ---
HPI - Extremity Problem General Chief complaint: Extremity Problem,Nontraumatic Stated complaint: states having growing pains Time Seen by Provider: 11/19/23 22:16 Source: patient Mode of arrival: Wheelchair History of Present Illness HPI Narrative: Patient comes to the ED with severe knee and hip pain for the past few days. No trauma. No fever. She has chronic fibromyalgia and chronic pain syndrome. She also has Beni-Danlos syndrome. She takes buprenorphine 36 mg daily along with Lyrica at maximum dosages. She is here saying that her pain is simply unbearable and requests additional assistance. She denies fever or any other symptoms. Related Data Home Medications Medication Instructions Recorded Confirmed Cannabis See Rx Instructions .Route .COMPLEX 07/31/22 10/29/23 Previous Rx's Medication Instructions Recorded TRUE METRIX TEST STRIPS #100 ea 11/14/20 TENS Unit #1 ea 02/12/21 glucagon HCl 1 mg solution for 1 mg SUBCUT Q20M PRN hypoglycemia 09/19/21 injection (Glucagon (HCl) #3 ea Emergency Kit) miscellaneous medical supply See Rx Instructions .Route 10/01/21 .COMPLEX #1 ea blood sugar diagnostic #100 ea 03/17/22 blood-glucose meter (Blood Glucose #1 ea 03/17/22 Monitoring kit) Disabled Parking Permit See Rx Instructions .Route 07/31/22 .COMPLEX #1 unit Left and Right Knee Braces #2 ea 08/28/22 Soft collar for neck #1 ea 10/01/22 menthol 0.44 %-zinc oxide 20.6 % 1 applic topical Q1H PRN skin 12/11/22 topical paste irritation #113 grams progesterone micronized 100 mg See Rx Instructions .Route 12/19/22 capsule .COMPLEX #30 caps Incontinence pads #90 ea 01/28/23 ketotifen fumarate 0.025 % (0.035 1 drp EYE-BOTH BID PRN Dry Eyes 03/04/23 %) eye drops #10 mL pantoprazole 40 mg tablet,delayed 40 mg PO BID #60 tabs 03/05/23 release (Protonix) wheel chair #1 ea 03/05/23 naloxone 0.4 mg/mL injection 0.4 mg IM Q2M PRN opioid reversal 04/28/23 syringe #2 mL promethazine 25 mg tablet 25 mg PO TID PRN nausea #90 tabs 04/28/23 loratadine 10 mg tablet 10 mg PO DAILY #90 tabs 05/04/23 estradiol 0.5 mg tablet 0.5 mg PO DAILY #30 tabs 06/26/23 venlafaxine 150 mg 150 mg PO BEDTIME #90 caps 07/14/23 capsule,extended release 24 hr nystatin 100,000 unit/gram topical 1 applic topical BID #30 grams 07/23/23 powder triamcinolone acetonide 0.1 % 1 applic topical TID #80 grams 07/23/23 topical ointment alprazolam 0.25 mg tablet 0.25 mg PO TID PRN Grief anxiety, 07/27/23 sleeplessness 30 days #90 tabs naratriptan 1 mg tablet See Rx Instructions PO .COMPLEX #9 08/10/23 tabs buprenorphine 4 mg-naloxone 1 mg 1 film buccal Q24H #30 ea 08/20/23 sublingual film (Suboxone) food supplemt, lactose-reduced 1 ea PO BID #5,688 mL 08/20/23 (Ensure oral liquid) spironolactone 25 mg tablet 50 mg (2 x 25 mg) PO DAILY #60 tabs 08/26/23 galcanezumab-gnlm 120 mg/mL 240 mg (2 mL) SUBCUT ONCE #2 mL 10/01/23 subcutaneous pen injector (Emgality Pen) pregabalin 150 mg capsule 150 mg PO TID #90 caps 10/01/23 buprenorphine 12 mg-naloxone 3 mg 3 film buccal Q24H #90 ea 10/05/23 sublingual film pregabalin 200 mg capsule 200 mg PO TID #90 caps 10/05/23 dapsone 25 mg tablet 50 mg (2 x 25 mg) PO ONCE #60 tabs 10/29/23 Allergies Allergy/AdvReac Type Severity Reaction Status Date / Time Latex, Natural Rubber Allergy Intermediate Hives Verified 09/29/23 10:54 adhesive tape Allergy Rash Verified 09/29/23 10:54 duloxetine [From Cymbalta] AdvReac Severe Nausea Verified 09/29/23 10:54 Patient History Medical History Acquired iron deficiency anemia due to decreased absorption Hidradenitis suppurativa of multiple sites CREST (calcinosis, Raynaud's phenomenon, esophageal dysfunction, sclerodactyly, telangiectasia) Chronic bacterial skin infection Excessive skin and subcutaneous tissue Carpal tunnel syndrome, right Dysphagia Reactive hypoglycemia Subluxation of joint of upper extremity Subluxation of joint of lower extremity Tobacco use disorder Postmenopausal HRT (hormone replacement therapy) Iron deficiency anemia Joint hyperextensibility of multiple sites Sacral region somatic dysfunction Pelvic somatic dysfunction Lumbar region somatic dysfunction Cervical somatic dysfunction Cranial somatic dysfunction Chronic bilateral thoracic back pain Chronic neck pain Chronic low back pain with left-sided sciatica Bladder incontinence Chronic pain Beni-Danlos syndrome Anxiety Insomnia Gastroesophageal reflux disease Urinary tract infection Bipolar disorder Environmental allergies Carpal tunnel syndrome on both sides Female sexual dysfunction Kidney stones UTI (urinary tract infection) Chronic pain Pain Arthritis Anxiety Anemia Migraines GERD (gastroesophageal reflux disease) Nausea Hidradenitis suppurativa Microcytic anemia Acute hypokalemia (03/10/19) C. difficile colitis (03/10/19) Biliary colic Hidradenitis suppurativa Cholelithiasis Peripheral neuropathy Bulging of intervertebral disc between L4 and L5 Lumbar facet arthropathy Obesity (BMI 30-39.9) Vitamin D insufficiency NSAID overdose Hypoglycemia Constipation Ankle fracture, left Foot fracture, left Osteoarthritis Tachycardia Hypoglycemia Fibromyalgia Surgical History History of Ron-en-Y gastric bypass History of endometrial ablation [place] teeth extracted Hx laparoscopic cholecystectomy (05/07/19) Hx of tonsillectomy (~1999) History of carpal tunnel surgery of left wrist (~2000) History of gastric bypass (~2007) Family History Father Diabetes mellitus Hypertension Mother Cervical cancer Grandfather Colon cancer Social History household members: spouse and children Smoking Status: Current every day smoker alcohol intake: current Smoking Status: Current every day smoker tobacco type: cigarettes and vaping alcohol intake frequency: holidays/special occasions only Substance Use Type: marijuana and other Exam Narrative Exam Narrative: GENERAL: Alert, cooperative and in severe distress with her eyes closed and moaning in pain. HEAD: Atraumatic. Normocephalic. ENT: No rhinorrhea. Oropharynx is moist. Mouth exam is benign. NECK: Supple. Full range of motion. CARDIOVASCULAR: Normal rate and rhythm without murmur gallop or rub. RESPIRATORY: Clear to auscultation. Breath sounds equal bilaterally. No wheezes, rales, or rhonchi. GASTROINTESTINAL: Abdomen soft, non-tender, nondistended. EXTREMITIES: No edema, full range of motion. No obvious trauma. Knees are not warm to touch. Full range of motion. The skin is normal. Hips have full range of motion as well. Movement is painful but is smooth and without laxity. Hips and knees appear normal and move normally. I do not suspect fracture or dislocation. BACK: Normal inspection, no CVA tenderness. NEURO: Nonfocal examination, normal speech SKIN: No rash or erythema of visible areas PSYCH: Normally oriented. Normal range of affect. Appropriate behavior Initial Vital Signs Initial Vital Signs: Vital Signs Temperature 98.2 F 11/19/23 20:17 Pulse Rate 120 H 11/19/23 20:17 Respiratory Rate 18 11/19/23 20:17 Blood Pressure 127/59 L 11/19/23 20:17 Pulse Oximetry 98 11/19/23 20:17 Oxygen Delivery Method Room Air 11/19/23 20:17 Course Orders Ordered: ED Orders 11/19/23 21:57 CBC Auto Diff [Complete Blood Count AUTO DIFF] Stat Comprehensive Metabolic Panel Stat Sodium Chloride (Normal Saline 0.9%) 1,000 mls @ 1,000 mls/hr IV BOLUS ONE Stop: 11/19/23 22:43 Last Admin: 11/19/23 21:59 Dose: 1,000 mls/hr Documented By: SONJA Vital Signs Vital signs: Vital Signs - 8 hr 11/19/23 20:17 11/19/23 21:12 11/19/23 21:12 Temperature 98.2 F Pulse Rate 120 H 88 Respiratory Rate 18 Blood Pressure 127/59 L 102/61 Pulse Oximetry 98 98 Oxygen Delivery Method Room Air Room Air 11/19/23 21:30 11/19/23 21:30 11/19/23 21:39 Temperature Pulse Rate 85 89 Respiratory Rate Blood Pressure 91/45 L Pulse Oximetry 93 93 Oxygen Delivery Method Room Air 11/19/23 21:39 11/19/23 21:50 11/19/23 21:50 Temperature Pulse Rate 84 Respiratory Rate Blood Pressure 91/51 L 103/47 L Pulse Oximetry 94 Oxygen Delivery Method 11/19/23 22:00 11/19/23 22:00 11/19/23 22:10 Temperature Pulse Rate 94 H 95 H Respiratory Rate Blood Pressure 119/68 Pulse Oximetry 94 95 Oxygen Delivery Method 11/19/23 22:10 11/19/23 22:20 11/19/23 22:20 Temperature Pulse Rate 94 H Respiratory Rate Blood Pressure 107/49 L 109/57 L Pulse Oximetry 99 Oxygen Delivery Method MDM - Extremity (Nontraumatic) Lab Data 11/19/23 21:57 11/19/23 21:57 Labs: Lab Results 11/19/23 Range/Units 21:57 WBC 6.9 (4.5-11.0) X10^3/uL RBC 4.16 (4.0-5.2) X10^6/uL Hgb 12.1 (12.0-16.0) g/dL Hct 35.8 L (36-46) % MCV 86.2 (80-100) fL MCH 29.0 (26-34) PG MCHC 33.7 (30-36) % RDW 15.2 H (11.6-14.8) % Plt Count 150 (150-400) X10^3/uL Neut % (Auto) 59.8 (50-75) % Lymph % (Auto) 25.6 (25-40) % [place] % (Auto) 8.3 (3-14) % Eos % (Auto) 5.5 H (2-4) % Baso % (Auto) 0.8 (0-2) % Neut # (Auto) 4100 (8235-3905) /uL Lymph # (Auto) 1800 (5845-2628) /uL [place] # (Auto) 600 (0-900) /uL Eos # (Auto) 400 (0-450) /uL Baso # (Auto) 100 (0-100) /uL Sodium 137 (137-145) mmol/L Potassium 4.2 (3.4-5.1) mmol/L Chloride 106 (98-107) mmol/L Carbon Dioxide 29 (22-32) mmol/L BUN 9 (7-17) mg/dL Creatinine 0.72 (0.52-1.04) mg/dL Estimated GFR > 60 (>60) mL/min BUN/Creatinine Ratio 12.5 (6-22) Glucose 88 (70-100) mg/dL Calcium 8.9 (8.4-10.2) mg/dL Total Bilirubin 0.5 (0.2-1.3) mg/dL AST 23 (14-36) IU/L ALT 16 (<35) IU/L Alkaline Phosphatase 68 (38-126) U/L Total Protein 6.4 (6.3-8.2) g/dL Albumin 3.4 L (3.5-5.0) g/dL Globulin 3.0 (1.7-4.1) g/dL Albumin/Globulin Ratio 1.1 (1.0-2.8) MDM Narrative Medical decision making narrative: Patient is crying bitterly in pain but he has maximal chronic pain management medications already. I do not think intervention with narcotics as appropriate. She is already on maximized partial agonist buprenorphine. I see no evidence of joint infection dislocation or fracture. I do not suspect any other immediately dangerous cause for her pain. I recommend outpatient follow-up. Discharge Plan Departure Patient Disposition: Home Clinical Impression: Bilateral knee pain, Bilateral hip pain Activity Restrictions/Additional Instructions: No dangerous cause for your hip and knee pain is identified on careful examination, vital signs and laboratory testing. I am sorry the ear hurting so bad. Lyrica and buprenorphine dosing is maximized. You could add Tylenol 1000 mg every 6 hours for additional pain relief but of course NSAIDs are contraindicated because of her gastric bypass surgery. I do not have any other ideas about how we can reasonably help you with this pain. I recommend follow- up with your primary care doctor. Prescriptions: No Action (DME) TRUE METRIX TEST STRIPS Qty: 100 3RF Rx Instructions: USE TO TEST BLOOD GLUCOSE FOUR TIMES DAILY Glucagon (HCl) Emergency Kit 1 mg recon soln 1 mg SUBCUT Q20M PRN (Reason: hypoglycemia) Qty: 3 3RF Rx Instructions: until target blood sugar attained progesterone micronized 100 mg capsule See Rx Instructions .ROUTE .COMPLEX Qty: 30 11RF Dose Instruction: TAKE ONE CAPSULE BY MOUTH ONCE DAILY EVERY MORNING FOR 30 DAYS Rx Instructions: TAKE ONE CAPSULE BY MOUTH ONCE DAILY EVERY MORNING FOR 30 DAYS ketotifen fumarate 0.025 % (0.035 %) drops 1 drp EYE-BOTH BID PRN (Reason: Dry Eyes) Qty: 10 11RF naloxone 0.4 mg/mL syringe 0.4 mg IM Q2M PRN (Reason: opioid reversal) Qty: 2 2RF Rx Instructions: for overdose, call 911 promethazine 25 mg tablet 25 mg PO TID PRN (Reason: nausea) Qty: 90 5RF Rx Instructions: Take 1 tab up to 3x/day as needed for nausea loratadine 10 mg tablet 10 mg PO DAILY Qty: 90 3RF estradiol 0.5 mg tablet 0.5 mg PO DAILY Qty: 30 11RF venlafaxine 150 mg capsule,extended release 24hr 150 mg PO BEDTIME Qty: 90 3RF Rx Instructions: Take 150mg at bedtime daily for depression, anxiety, pain, and insomnia alprazolam 0.25 mg tablet 0.25 mg PO TID PRN (Reason: Grief anxiety, sleeplessness) 30 Days Qty: 90 5RF Rx Instructions: Take 1 tab up to 3x per day for anxiety attacks or sleeplessness naratriptan 1 mg tablet See Rx Instructions PO .COMPLEX Qty: 9 3RF Rx Instructions: take 1 tablet at onset of headache; if no relief, may repeat 1 tablet after at least 4 hrs PO spironolactone 25 mg tablet 50 mg PO DAILY Qty: 60 11RF Rx Instructions: Take 2 tabs daily buprenorphine-naloxone 12-3 mg film 3 film buccal Q24H Qty: 90 3RF Rx Instructions: Place 3 strips under tongue in addition to 4/1mg strip daily Ok to fill early miscellaneous medical supply Kit See Rx Instructions .ROUTE .COMPLEX Qty: 1 0RF Rx Instructions: Dispense one body braid made for postural support of Ehler Danlos Syndrome patients. ([facility]) blood sugar diagnostic Strip See Rx Instructions .Route Qty: 100 3RF Rx Instructions: Use to check blood glucose daily, BRAND PER INSURANCE ([facility]) blood-glucose meter [Blood Glucose Monitoring] Kit See Rx Instructions .Route Qty: 1 0RF Rx Instructions: Use to check blood glucose once daily (DME) Left and Right Knee Braces See Rx Instructions .Route .MEDSUPPLY Qty: 2 0RF Rx Instructions: Knee stabilizing braces bilaterally (DME) Soft collar for neck See Rx Instructions .Route .MEDSUPPLY Qty: 1 0RF Rx Instructions: Wear on neck as needed for feelings of pre-passing out. ([facility] [place]) Incontinence pads See Rx Instructions .Route .MEDSUPPLY Qty: 90 11RF Rx Instructions: Change incontinent pad 3-5 times daily as needed. dapsone 25 mg tablet 50 mg PO ONCE Qty: 60 1RF Rx Instructions: Take 2 (tabs 50mg) by mouth daily (DME) TENS Unit See Rx Instructions .Route .MEDSUPPLY Qty: 1 0RF Rx Instructions: Apply to lower back for pain management purposes as needed Cannabis See Rx Instructions .ROUTE .COMPLEX Rx Instructions: Pt reports she makes edibles from cannabis, approx 1 oz every 3-4 days; Disabled Parking Permit See Rx Instructions .ROUTE .COMPLEX Qty: 1 0RF Rx Instructions: I find this patient to be medically disabled and qualify for disabled parking as indicated and signed on the accompanying disabled parking application for individuals. menthol-zinc oxide 0.44-20.6 % paste 1 applic topical Q1H PRN (Reason: skin irritation) Qty: 113 8RF Rx Instructions: while awake (DME) wheel chair See Rx Instructions .Route .MEDSUPPLY Qty: 1 0RF Rx Instructions: Power assist lightweight chair, full body support. Chair must recline. pantoprazole [Protonix] 40 mg tablet,delayed release (DR/EC) 40 mg PO BID Qty: 60 11RF Rx Instructions: Take 1 tab twice per day.JUAN [id number] approved 10/06/22-10/06/23 buprenorphine-naloxone [Suboxone] 4-1 mg film 1 film buccal Q24H Qty: 30 3RF Rx Instructions: place 1 strip/tab under (each) side of tongue along with 2- 12mg/3mg dose daily Ensure Liquid 1 ea PO BID Qty: 5688 12RF Rx Instructions: 1 can twice per day for nutritional support. triamcinolone acetonide 0.1 % ointment 1 applic topical TID Qty: 80 4RF Rx Instructions: Apply to affected area of gluteal folds up to 3x/day as needed for rash nystatin 100,000 unit/gram powder 1 applic topical BID Qty: 30 4RF Rx Instructions: Apply to folds of abdomen affected by yeast twice daily until resolved Emgality Pen 120 mg/mL pen injector 240 mg SUBCUT ONCE Qty: 2 11RF Rx Instructions: Administer as two 120 mg injections at separate sites pregabalin 150 mg capsule 150 mg PO TID Qty: 90 3RF pregabalin 200 mg capsule 200 mg PO TID Qty: 90 3RF Rx Instructions: Take 1 capsule 3 times per day. Referrals: Purnima Gao ARNP [Primary Care Provider] - Stand Alone Forms: Patient Portal/API
[2023-11-19 22:17] LABS: Alanine Aminotransferase 16 IU/L (<35); Albumin 3.4 g/dL (3.5-5.0); Albumin Globulin Ratio 1.1 (1.0-2.8); Alkaline Phosphatase 68 U/L (38-126); Aspartate Aminotransferase 23 IU/L (14-36); BUN Creatinine Ratio 12.5 (6-22); Bilirubin Total 0.5 mg/dL (0.2-1.3); Blood Urea Nitrogen 9 mg/dL (7-17); Calcium 8.9 mg/dL (8.4-10.2); Carbon Dioxide 29 mmol/L (22-32); Chloride 106 mmol/L (98-107); Estimated Glomerular Filt Rate > 60 mL/min (>60); Glucose 88 mg/dL (70-100); HEMOLYSIS < 15 (0-50); Potassium 4.2 mmol/L (3.4-5.1); Sodium 137 mmol/L (137-145); Total Protein 6.4 g/dL (6.3-8.2)
== END 2023-11-19 22:35 | disposition home or self-care (01) ==
PROVIDERS: Emergency Provider Family Medicine Addiction Medicine; Family Provider Nurse Practitioner; PCP Nurse Practitioner
DX: M25.561 Pain in right knee (principal); M25.562 Pain in left knee; M25.552 Pain in left hip; M25.551 Pain in right hip
CPT/HCPCS: 36415; 80053; 85025; 96360; 99284

== ENCOUNTER → 2024-01-12 14:28 | Outpatient (CLI) | payer OTHER, MEDICAID, SELFPAY ==
[2023-12-23 13:57] VITALS: BMI 33.8
[2024-01-12 15:26] LABS: Add Manual Diff / Slide Review NO; Basophils Absolute Auto 0 /uL (0-100); Basophils Percent Auto 0.7 % (0-2); Eosinophils Absolute Auto 300 /uL (0-450); Eosinophils Percent Auto 4.9 % (2-4); Hematocrit 41.5 % (36-46); Lymphocytes Absolute Auto 2200 /uL (1100-4500); Lymphocytes Percent Auto 34.7 % (25-40); Mean Corpuscular HGB Conc 33.7 % (30-36); Mean Corpuscular Hemoglobin 29.9 PG (26-34); Mean Corpuscular Volume 88.9 fL (80-100); Monocytes Absolute Auto 500 /uL (0-900); Monocytes Percent Auto 8.5 % (3-14); Neutrophils Absolute Auto 3300 /uL (1500-7000); Neutrophils Percent Auto 51.2 % (50-75); Platelet Count 157 X10^3/uL (150-400); Red Blood Cell Count 4.67 X10^6/uL (4.0-5.2); Red Cell Distribution Width 15.5 % (11.6-14.8); White Blood Cell Count 6.4 X10^3/uL (4.5-11.0)
[2024-01-12 15:42] LABS: Alanine Aminotransferase 16 IU/L (<35); Albumin 4.3 g/dL (3.5-5.0); Albumin Globulin Ratio 1.3 (1.0-2.8); Alkaline Phosphatase 71 U/L (38-126); Aspartate Aminotransferase 25 IU/L (14-36); BUN Creatinine Ratio 16.3 (6-22); Bilirubin Total 0.4 mg/dL (0.2-1.3); Blood Urea Nitrogen 13 mg/dL (7-17); Calcium 9.1 mg/dL (8.4-10.2); Carbon Dioxide 26 mmol/L (22-32); Chloride 106 mmol/L (98-107); Estimated Glomerular Filt Rate > 60 mL/min (>60); Globulin 3.2 g/dL (1.7-4.1); Glucose 82 mg/dL (70-100); Phosphorous 2.5 mg/dL (2.5-4.5); Potassium 3.7 mmol/L (3.4-5.1); Sodium 138 mmol/L (137-145); Total Protein 7.5 g/dL (6.3-8.2)
[2024-01-12 15:43] LABS: HEMOLYSIS < 15 (0-50)
[2024-01-12 15:58] LABS: Vitamin D 25 Hydroxy (D3) 14.1 ng/mL (30.0-100.0)
[2024-01-12 16:17] LABS: Ferritin 11 ng/mL (6-137)
[2024-01-12 17:10] LABS: HEMOLYSIS < 15 (0-50); Iron 76 ug/dL (37-170)
[2024-01-12 17:21] LABS: Percent Iron Saturation 22 % (15-50); Total Iron Binding Capacity 348 ug/dL (265-497); Transferrin 295 mg/dL (206-381)
[2024-01-12 17:27] LABS: Free T3, Triiodothyronine Free 4.27 pg/mL (2.77-5.27); Free T4, Direct Thyroxine 1.02 ng/dL (0.78-2.19)
[2024-01-12 23:42] LABS: Vitamin B12 278 pg/mL (239-931)
== END ==
PROVIDERS: Family Provider Nurse Practitioner; PCP Nurse Practitioner; Referring Provider Nurse Practitioner; Visit Provider Nurse Practitioner
DX: M34.1 CR(E)ST syndrome (principal); Z98.84 Bariatric surgery status; D50.8 Other iron deficiency anemias
CPT/HCPCS: 80053; 82306; 82397; 82525; 82607; 82728; 83540; 83550; 84100; 84425; 84439; 84443; 84481; 84590; 84630; 85025

== ENCOUNTER → 2024-04-05 10:27 | Outpatient (CLI) | payer OTHER, MEDICAID, SELFPAY ==
[2023-12-23 13:57] VITALS: BMI 33.8
[2024-04-05 11:12] LABS: Add Manual Diff / Slide Review NO; Basophils Absolute Auto 100 /uL (0-100); Basophils Percent Auto 0.9 % (0-2); Eosinophils Absolute Auto 300 /uL (0-450); Eosinophils Percent Auto 4.4 % (2-4); Hematocrit 41.7 % (36-46); Hemoglobin 14.4 g/dL (12.0-16.0); Lymphocytes Absolute Auto 2100 /uL (1100-4500); Lymphocytes Percent Auto 34.2 % (25-40); Mean Corpuscular HGB Conc 34.5 % (30-36); Mean Corpuscular Hemoglobin 29.9 PG (26-34); Mean Corpuscular Volume 86.8 fL (80-100); Monocytes Absolute Auto 400 /uL (0-900); Monocytes Percent Auto 6.6 % (3-14); Neutrophils Absolute Auto 3300 /uL (1500-7000); Neutrophils Percent Auto 53.9 % (50-75); Platelet Count 179 X10^3/uL (150-400); Red Blood Cell Count 4.81 X10^6/uL (4.0-5.2); Red Cell Distribution Width 13.8 % (11.6-14.8); White Blood Cell Count 6.1 X10^3/uL (4.5-11.0)
[2024-04-05 11:31] LABS: Alanine Aminotransferase 15 IU/L (<35); Albumin 4.5 g/dL (3.5-5.0); Albumin Globulin Ratio 1.4 (1.0-2.8); Alkaline Phosphatase 71 U/L (38-126); Aspartate Aminotransferase 28 IU/L (14-36); BUN Creatinine Ratio 12.4 (6-22); Bilirubin Total 0.6 mg/dL (0.2-1.3); Blood Urea Nitrogen 13 mg/dL (7-17); Calcium 9.5 mg/dL (8.4-10.2); Carbon Dioxide 23 mmol/L (22-32); Chloride 107 mmol/L (98-107); Estimated Glomerular Filt Rate > 60 mL/min (>60); Globulin 3.2 g/dL (1.7-4.1); Glucose 104 mg/dL (70-100); HEMOLYSIS < 15 (0-50); Potassium 4.3 mmol/L (3.4-5.1); Sodium 137 mmol/L (137-145); Total Protein 7.7 g/dL (6.3-8.2)
[2024-04-05 11:45] LABS: HEMOLYSIS < 15 (0-50); Iron 57 ug/dL (37-170)
[2024-04-05 11:52] LABS: Vitamin D 25 Hydroxy (D3) 27.9 ng/mL (30.0-100.0)
[2024-04-05 11:57] LABS: Transferrin 334 mg/dL (206-381)
[2024-04-05 12:04] LABS: Free T4, Direct Thyroxine 1.07 ng/dL (0.78-2.19)
[2024-04-05 12:17] LABS: Thyroid Stimulating Hormone 2.87 uIU/mL (0.47-4.68)
[2024-04-05 15:23] LABS: Vitamin B12 249 pg/mL (239-931)
== END ==
PROVIDERS: Family Provider Nurse Practitioner; PCP Nurse Practitioner; Referring Provider Nurse Practitioner; Visit Provider Nurse Practitioner
DX: E55.9 Vitamin D deficiency, unspecified (principal); D51.9 Vitamin B12 deficiency anemia, unspecified; D50.8 Other iron deficiency anemias; Z98.84 Bariatric surgery status
CPT/HCPCS: 36415; 80053; 82306; 82607; 83540; 83550; 84439; 84443; 84481; 85025

== ENCOUNTER 2024-09-16 15:44 | Emergency (ER) | payer OTHER, SELFPAY ==
[2024-08-18 09:39] VITALS: BMI 33.8
[2024-09-16 15:53] VITALS: BP 117/75; PULSE 128; RESP 18; TEMP 37; O2SAT 99; BMI 37.0
--- NOTE | 2024-09-16 16:13 | PC.NURSE ---
Pt ambulatory to room. Steady gait noted. Using cane to ambulate. Reports pain all over her body. Waiting for MD to evaluate.
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
--- NOTE | 2024-09-16 17:43 | DI.RAD.S_ITS ---
PROCEDURE: XR PELVIS 1-2V INDICATIONS: fall pain TECHNIQUE: Single AP view of the pelvis acquired. COMPARISON: None. FINDINGS: Bones: No acute fractures or dislocations. No suspicious bony lesions. Mild marginal osteophyte formation at the lateral acetabula. Soft tissues: Visualized bowel gas pattern is normal. No suspicious soft tissue calcifications. IMPRESSION: No acute osseous abnormality. If symptoms persist or if there is continued clinical concern, cross-sectional imaging such as MRI or CT may be helpful for further evaluation. Approved by: Fox Duarte M.D. on 09/16/2024 at 18:46
--- NOTE | 2024-09-16 17:43 | DI.RAD.S_ITS ---
PROCEDURE: XR KNEE LT 3V INDICATIONS: pain TECHNIQUE: 3 views of the knee were acquired. COMPARISON: [facility], CR, XR KNEE LT 3V, 08/16/2021, 10:57. FINDINGS: Bones: No acute fractures or dislocations. No suspicious bony lesions. Small marginal osteophytes. Soft tissues: No joint effusion. No suspicious soft tissue calcifications. IMPRESSION: No acute osseous abnormality. If there is continued clinical concern or persistent symptoms, repeat radiographs or cross-sectional imaging (e.g. CT, MRI) may be helpful for further evaluation. Approved by: Fox Duarte M.D. on 09/16/2024 at 18:45
--- NOTE | 2024-09-16 17:43 | DI.RAD.S_ITS ---
PROCEDURE: XR ANKLE LT MIN 3V INDICATIONS: fall pain TECHNIQUE: 3 views of the ankle were acquired. COMPARISON: [facility], CR, XR FOOT 3+ VIEWS BILATERAL, 12/14/2023, 15:04. [facility], CR, XR ANKLE LT MIN 3V, 09/10/2021, 11:58. [facility], CR, XR ANKLE LT MIN 3V, 03/07/2020, 21:44. FINDINGS: Bones: No acute fractures or dislocations. Ankle mortise is normally aligned. No suspicious bony lesions. Small posterior and plantar calcaneal enthesophytes. Degenerative changes again seen at the medial navicular. Soft tissues: No tibiotalar joint effusion. Achilles tendon appears normal. IMPRESSION: No acute osseous abnormality. If there is continued clinical concern or persistent symptoms, repeat radiographs or cross-sectional imaging (e.g. CT, MRI) may be helpful for further evaluation. Approved by: Fox Duarte M.D. on 09/16/2024 at 18:45
--- NOTE | 2024-09-16 17:45 | DI.RAD.S_ITS ---
PROCEDURE: XR CHEST 2V INDICATIONS: fall rib pain TECHNIQUE: 2 views of the chest were acquired. COMPARISON: [facility], , XR CHEST 2V, 06/30/2022, 10:03. FINDINGS: Surgical changes and devices: None. Lungs and pleura: Lungs are clear. No pleural effusions or pneumothorax. Mediastinum: Mediastinal contours are normal. Heart size is normal. Bones and chest wall: No displaced rib fracture identified. No suspicious bony abnormalities. Soft tissues appear unremarkable. IMPRESSION: No acute cardiopulmonary abnormality is seen. Approved by: Fox Duarte M.D. on 09/16/2024 at 18:47
[2024-09-16] MEDS: HYDROCODONE/ACET 5/325 TABLET 2 TAB PO (17:55)
[2024-09-16 18:00] VITALS: BP 135/77; PULSE 78; RESP 16; O2SAT 99
[2024-09-16 20:17] VITALS: BP 144/78; PULSE 85; RESP 16; TEMP 37.2; O2SAT 98
== END 2024-09-16 20:20 | disposition home or self-care (01) ==
PROVIDERS: Emergency Provider Emergency Medicine; Family Provider Nurse Practitioner; PCP Nurse Practitioner Family
DX: S96.912A Strain of unspecified muscle and tendon at ankle and foot level, left foot, initial encounter (principal); S83.92XA Sprain of unspecified site of left knee, initial encounter; S90.812A Abrasion, left foot, initial encounter; S90.412A Abrasion, left great toe, initial encounter; M79.602 Pain in left arm; S20.219A Contusion of unspecified front wall of thorax, initial encounter; M54.2 Cervicalgia; R51.9 Headache, unspecified; F17.210 Nicotine dependence, cigarettes, uncomplicated; F17.290 Nicotine dependence, other tobacco product, uncomplicated; Z98.84 Bariatric surgery status; D64.9 Anemia, unspecified; E66.9 Obesity, unspecified; Z68.37 Body mass index [BMI] 37.0-37.9, adult; M34.1 CR(E)ST syndrome
CPT/HCPCS: 71046; 72170; 73562; 73610; 99283; 99284